=== PATIENT | female | born 1935 | race Caucasian/White ===

== ENCOUNTER 2020-07-12 09:52 | Outpatient (REF) | payer MEDICARE, OTHER, SELFPAY ==
[2020-07-12 10:48] LABS: MANUAL DIFF FLAG NO
[2020-07-12 10:53] LABS: Basophils Absolute Auto 0.1 X10*3/uL (0.0-0.2); Basophils Percent Auto 0.9 % (0-2); Eosinophils Absolute Auto 0.1 X10*3/uL (0.0-0.4); Eosinophils Percent Auto 0.9 % (0-4); Hematocrit 45.1 % (37-47); Hemoglobin 15.2 g/dl (12.0-16.0); Imm Gran Abs Auto 0.04 X10*3/uL (0.00-0.03); Imm Gran Pct Auto 0.6 % (0.0-0.4); Lymphocytes Absolute Auto 0.8 X10*3/uL (1.2-4.9); Lymphocytes Percent Auto 11.5 % (20-40); Mean Corpuscular HGB Conc 33.7 g/dl (31.0-35.0); Mean Corpuscular Hemoglobin 33.3 pg (27.0-33.0); Mean Corpuscular Volume 98.7 fL (80-98); Mean Platelet Volume 11.3 fL (9.4-12.3); Monocytes Absolute Auto 0.8 X10*3/uL (0.1-1.2); Monocytes Percent Auto 11.5 % (2-11); Neutrophils Absolute Auto 4.9 X10*3/uL (2.0-8.3); Neutrophils Percent Auto 74.6 % (45-73); Platelet Count 184 X10*3/uL (160-400); Red Blood Count 4.57 X10*6/uL (4.20-5.50); Red Cell Distribution Width 13.8 % (11.0-16.0); White Blood Count 6.5 X10*3/uL (4.8-10.8)
[2020-07-12 11:20] LABS: Alanine Aminotransferase 26 U/L (0-31); Albumin Level 4.5 g/dL (3.5-5.0); Alkaline Phosphatase 83 U/L (39-117); Anion Gap 13 (12-20); Aspartate Amino Transferase 29 U/L (5-31); Bilirubin Total 0.9 mg/dL (0.0-1.0); Blood Urea Nitrogen 17 mg/dL (9-16); Calcium 9.4 mg/dL (8.4-10.2); Carbon Dioxide 32 mmol/L (22-29); Chloride 102 mmol/L (96-108); Cholesterol 179 mg/dL; Estimated Glomerular Filt Rate 47; Glucose Random 97 mg/dL (60-115); HDL Cholesterol 44 mg/dL; LDL Cholesterol Calculated 109 mg/dl; Potassium 4.2 mmol/l (3.3-5.1); Sodium 143 mmol/L (135-145); Total Protein 7.5 g/dL (6.5-8.0); Triglycerides 130 mg/dL
[2020-07-12 11:43] LABS: Thyroid Stimulating Hormone 1.72 mIU/mL (0.32-4.0)
== END 2020-07-12 09:53 | disposition home or self-care (01) ==
LOC: HO.LAB 09:52
PROVIDERS: PCP Internal Medicine; Visit Provider Internal Medicine
DX: E03.8 Other specified hypothyroidism (principal); I10 Essential (primary) hypertension; I48.91 Unspecified atrial fibrillation; Z79.01 Long term (current) use of anticoagulants
CPT/HCPCS: 36415; 80053; 80061; 84443; 85025; 85610

== ENCOUNTER → 2020-07-12 | Outpatient (BNVA) | payer MEDICARE, SELFPAY | PROVIDERS: PCP Internal Medicine; Referring Provider Internal Medicine; Visit Provider Internal Medicine | DX: Z79.01 Long term (current) use of anticoagulants (principal) | CPT/HCPCS: 85610 ==

== ENCOUNTER → 2020-08-09 09:10 | Outpatient (BNVA) | payer MEDICARE, OTHER, SELFPAY | PROVIDERS: PCP Internal Medicine; Visit Provider Internal Medicine | DX: I48.20 Chronic atrial fibrillation, unspecified (principal); Z79.01 Long term (current) use of anticoagulants; Z51.81 Encounter for therapeutic drug level monitoring | CPT/HCPCS: 85610; 99211 ==

== ENCOUNTER 2020-08-30 10:02 | Outpatient (REF) | payer MEDICARE, SELFPAY ==
[2020-08-30 11:03] LABS: MANUAL DIFF FLAG NO
[2020-08-30 11:09] LABS: Basophils Absolute Auto 0.1 X10*3/uL (0.0-0.2); Eosinophils Absolute Auto 0.1 X10*3/uL (0.0-0.4); Hematocrit 45.3 % (37-47); Hemoglobin 14.8 g/dl (12.0-16.0); Imm Gran Abs Auto 0.04 X10*3/uL (0.00-0.03); Imm Gran Pct Auto 0.6 % (0.0-0.4); Lymphocytes Absolute Auto 0.9 X10*3/uL (1.2-4.9); Lymphocytes Percent Auto 13.9 % (20-40); Mean Corpuscular HGB Conc 32.7 g/dl (31.0-35.0); Mean Corpuscular Hemoglobin 32.2 pg (27.0-33.0); Mean Corpuscular Volume 98.7 fL (80-98); Mean Platelet Volume 11.1 fL (9.4-12.3); Monocytes Absolute Auto 0.7 X10*3/uL (0.1-1.2); Neutrophils Absolute Auto 4.6 X10*3/uL (2.0-8.3); Neutrophils Percent Auto 72.5 % (45-73); Platelet Count 181 X10*3/uL (160-400); Red Blood Count 4.59 X10*6/uL (4.20-5.50); Red Cell Distribution Width 13.6 % (11.0-16.0); White Blood Count 6.3 X10*3/uL (4.8-10.8)
[2020-08-30 12:32] LABS: Alanine Aminotransferase 25 U/L (0-31); Albumin Level 4.4 g/dL (3.5-5.0); Alkaline Phosphatase 82 U/L (39-117); Anion Gap 13 (12-20); Aspartate Amino Transferase 27 U/L (5-31); Bilirubin Total 0.9 mg/dL (0.0-1.0); Blood Urea Nitrogen 18 mg/dL (9-16); Calcium 9.1 mg/dL (8.4-10.2); Carbon Dioxide 31 mmol/L (22-29); Chloride 101 mmol/L (96-108); Estimated Glomerular Filt Rate 47; Glucose Random 90 mg/dL (60-115); Potassium 4.2 mmol/l (3.3-5.1); Sodium 141 mmol/L (135-145); Total Protein 7.5 g/dL (6.5-8.0)
[2020-08-30 12:54] LABS: Ferritin 649 ng/mL (10-250)
== END 2020-08-30 10:03 | disposition home or self-care (01) ==
LOC: HO.LAB 10:02
PROVIDERS: Visit Provider Internal Medicine Medical Oncology
DX: Z14.8 Genetic carrier of other disease (principal); E66.9 Obesity, unspecified; D69.6 Thrombocytopenia, unspecified
CPT/HCPCS: 36415; 80053; 82728; 85025

== ENCOUNTER → 2020-09-13 09:24 | Outpatient (BNVA) | payer MEDICARE, OTHER, SELFPAY | PROVIDERS: PCP Internal Medicine; Visit Provider Internal Medicine | DX: I48.20 Chronic atrial fibrillation, unspecified (principal); Z51.81 Encounter for therapeutic drug level monitoring; Z79.01 Long term (current) use of anticoagulants | CPT/HCPCS: 85610; 99211 ==

== ENCOUNTER → 2020-09-18 12:50 | Outpatient (BNVA) | payer MEDICARE, OTHER, SELFPAY | PROVIDERS: PCP Internal Medicine; Referring Provider Internal Medicine; Visit Provider Internal Medicine Cardiovascular Disease | DX: I50.32 Chronic diastolic (congestive) heart failure (principal); I48.0 Paroxysmal atrial fibrillation; I49.5 Sick sinus syndrome; I27.20 Pulmonary hypertension, unspecified; R06.02 Shortness of breath; Z45.018 Encounter for adjustment and management of other part of cardiac pacemaker | CPT/HCPCS: 93005; 99212 ==

== ENCOUNTER → 2020-10-18 09:11 | Outpatient (BNVA) | payer MEDICARE, OTHER, SELFPAY | PROVIDERS: PCP Internal Medicine; Visit Provider Internal Medicine | DX: I48.20 Chronic atrial fibrillation, unspecified (principal); Z79.01 Long term (current) use of anticoagulants; Z51.81 Encounter for therapeutic drug level monitoring | CPT/HCPCS: 85610; 99211 ==

== ENCOUNTER 2020-11-08 12:31 | Outpatient (REF) | payer MEDICARE, OTHER, SELFPAY ==
[2020-11-08 13:12] LABS: MANUAL DIFF FLAG NO
[2020-11-08 13:18] LABS: Basophils Percent Auto 0.6 % (0-2); Eosinophils Percent Auto 0.6 % (0-4); Hematocrit 43.9 % (37-47); Hemoglobin 14.6 g/dl (12.0-16.0); Imm Gran Abs Auto 0.03 X10*3/uL (0.00-0.03); Imm Gran Pct Auto 0.5 % (0.0-0.4); Lymphocytes Absolute Auto 0.8 X10*3/uL (1.2-4.9); Lymphocytes Percent Auto 13.5 % (20-40); Mean Corpuscular HGB Conc 33.3 g/dl (31.0-35.0); Mean Corpuscular Hemoglobin 32.1 pg (27.0-33.0); Mean Corpuscular Volume 96.5 fL (80-98); Monocytes Absolute Auto 0.7 X10*3/uL (0.1-1.2); Neutrophils Absolute Auto 4.5 X10*3/uL (2.0-8.3); Neutrophils Percent Auto 72.8 % (45-73); Platelet Count 198 X10*3/uL (160-400); Red Blood Count 4.55 X10*6/uL (4.20-5.50); Red Cell Distribution Width 13.9 % (11.0-16.0); White Blood Count 6.2 X10*3/uL (4.8-10.8)
[2020-11-08 13:50] LABS: Alanine Aminotransferase 24 U/L (0-31); Albumin Level 4.4 g/dL (3.5-5.0); Alkaline Phosphatase 87 U/L (39-117); Anion Gap 15 (12-20); Aspartate Amino Transferase 27 U/L (5-31); Bilirubin Total 1.1 mg/dL (0.0-1.0); Blood Urea Nitrogen 15 mg/dL (9-16); Calcium 9.1 mg/dL (8.4-10.2); Carbon Dioxide 29 mmol/L (22-29); Chloride 101 mmol/L (96-108); Estimated Glomerular Filt Rate > 60; Glucose Random 101 mg/dL (60-115); Potassium 3.6 mmol/l (3.3-5.1); Sodium 141 mmol/L (135-145); Total Protein 7.4 g/dL (6.5-8.0)
[2020-11-08 14:13] LABS: Thyroid Stimulating Hormone 2.19 uIU/mL (0.32-4.0)
== END 2020-11-08 12:32 | disposition home or self-care (01) ==
LOC: HO.LAB 12:31
PROVIDERS: PCP Internal Medicine; Visit Provider Internal Medicine
DX: E03.8 Other specified hypothyroidism (principal); E78.00 Pure hypercholesterolemia, unspecified; I10 Essential (primary) hypertension; I48.91 Unspecified atrial fibrillation
CPT/HCPCS: 36415; 80053; 84443; 85025

== ENCOUNTER → 2020-11-22 09:01 | Outpatient (BNVA) | payer MEDICARE, OTHER, SELFPAY | PROVIDERS: PCP Internal Medicine; Visit Provider Internal Medicine | DX: I48.20 Chronic atrial fibrillation, unspecified (principal); Z51.81 Encounter for therapeutic drug level monitoring; Z79.01 Long term (current) use of anticoagulants | CPT/HCPCS: 85610; 99211 ==

== ENCOUNTER 2020-12-06 10:55 | Outpatient (REF) | payer MEDICARE, OTHER, SELFPAY ==
--- NOTE | ~2020-12-06 | MM_ITS ---
EXAMINATION: MM SCREENING DIGITAL BREAST TOMOSYNTHESIS, BILATERAL CLINICAL INFORMATION: Screening. Asymptomatic. The lifetime risk of breast cancer based on the Tyrer-Cuzick Model is 0.6%. COMPARISON: Mammography: September 06, 2019 and studies dating back to October 09, 2009 TECHNIQUE: Digital breast tomosynthesis is performed in both the craniocaudal and mediolateral oblique views along with computer-aided detection (CAD). Synthesized 2D images are generated from the tomosynthesis. Right breast exaggerated craniocaudal view also performed. FINDINGS: There are scattered areas of fibroglandular density (ACR BI-RADS breast composition Category b). There are no significant masses, abnormal calcifications, or other abnormalities. MM/MM tomosynthesis screening BI IMPRESSION: There are no significant changes from prior study. ASSESSMENT: BI-RADS 1: Negative RECOMMENDATION: Routine annual mammography screening. This patient's information was entered into a reminder system with a target due date for their next mammogram.
== END 2020-12-06 10:56 | disposition home or self-care (01) ==
LOC: HO.MAMMO 10:55
PROVIDERS: PCP Internal Medicine; Visit Provider Internal Medicine
DX: Z12.31 Encounter for screening mammogram for malignant neoplasm of breast (principal)
CPT/HCPCS: 77063; 77067

== ENCOUNTER → 2020-12-27 09:11 | Outpatient (BNVA) | payer MEDICARE, OTHER, SELFPAY | PROVIDERS: PCP Internal Medicine; Visit Provider Internal Medicine | DX: I48.20 Chronic atrial fibrillation, unspecified (principal); Z51.81 Encounter for therapeutic drug level monitoring; Z79.01 Long term (current) use of anticoagulants | CPT/HCPCS: 85610; 99211 ==

== ENCOUNTER → 2021-01-31 09:06 | Outpatient (BNVA) | payer MEDICARE, OTHER, SELFPAY | PROVIDERS: PCP Internal Medicine; Visit Provider Internal Medicine | DX: I48.20 Chronic atrial fibrillation, unspecified (principal); Z79.01 Long term (current) use of anticoagulants; Z51.81 Encounter for therapeutic drug level monitoring | CPT/HCPCS: 85610; 99211 ==

== ENCOUNTER → 2021-02-05 07:29 | Outpatient (REF) | payer MEDICARE, OTHER, SELFPAY ==
--- NOTE | 2021-02-05 07:32 | CA_ITS ---
Transthoracic Echocardiogram Patient (Last, First, Middle): Ashley Castillo, Gender: Female Date of : 1935 Age: 85 Procedure Date: 02/05/2021 Procedure Type: Transthoracic Echocardiogram Location: OP Height: 165.1 cm Weight: 79.38 kg BSA: 1.87 m2 Heart Rate: bpm BP: 124 / 72 mmHg Junior Accounting Clerk: Doris MD: Blake Calle MD [place] Supervisor: Blake Calle MD Symptoms: R06.02 - Shortness of breath Study Quality: Good ECG Rhythm: Ventriculary paced rhythm Conclusions: - 1. Low Normal LV systolic function with grade 3 diastolic dysfunction 2. Severe biatrial enlargement 3. Severely enlarged right ventricle with [id number] RV systolic dysfunction 4. Moderate aortic stenosis 5. Moderate to severe elevation of right ventricular systolic pressure next 6. No gross pericardial effusion Findings Left Ventricle Normal left ventricular cavity size. There is normal left ventricular wall thickness. The left ventricular systolic function is low normal. The visually estimated ejection fraction is between 50-55%. Spectral Doppler is indicative of a restrictive filling pattern. E/E prime ratio is >15, consistent with elevated filling pressures. Evidence suggests grade III (severe) diastolic dysfunction. Right Ventricle Severely increased right ventricular cavity size. There is mild to moderately decreased right ventricular systolic function. There is a pacemaker wire seen in the right ventricle. Atria Severe biatrial enlargement. There is no evidence of interatrial shunt. A pacemaker wire is identified in the right atrium. Aortic Valve There is moderate calcification of the aortic valve. There is moderate aortic valve stenosis. The peak aortic gradient is 29 mmHg.The mean gradient is 16 mmHg. The aortic valve area is 1.23 cm2. There is mild aortic valve regurgitation. Mitral Valve There is moderate anterior and posterior mitral leaflet thickening. There is severe mitral annular calcification. There is mild mitral valve regurgitation. There is no mitral valve stenosis. Pulmonic Valve The pulmonic valve was not well visualized. Tricuspid Valve Likely normal tricuspid valve structure and function. There is mild to moderate tricuspid valve regurgitation. Mildly elevated right atrial pressure. Moderate to severe pulmonary hypertension is present. Great Vessels All visible segments of the aorta are normal in size. The pulmonary artery was not well visualized. Venous The inferior vena cava is mildly dilated and collapses less than 50% with inspiration. Pericardium/Pleural There is no evidence of pericardial effusion. Prior Study Comparison Changes noted compared to prior study dated: 03/14/2020. Moderate aortic stenosis is present. RV systolic pressure is elevated Measurements 2D Linear Measurements RVIDd: 3.90 RVIDd Index: 2.09 IVSd: 1.01 0.6-0.9/0.6-1.0 cm LVIDd: 5.27 3.9-5.3/4.2-5.9 cm LVIDd Index: 2.82 2.4-3.2/2.2-3.1 cm/m2 LVIDs: 4.21 2.0-3.6 cm LVPWd: 1.27 0.7-1.1 cm Ao Root: 3.30 2.1-3.5 cm LA Diam: 5.50 2.7-3.8/3.0-4.0 cm LAIDs Index: 2.94 1.5-2.3 cm/m2 LV Mass: 295.37 67-162/88-224 g LV Mass Index: 157.95 43-95/49-115 g/m2 LVOT Diam: 2.40 3.0+(-)1.3 cm 2D Systolic Function EF 4C: 59.80 >55% EF 2C: 46.40 >55% EF BiP: 52.30 >55% Mitral Valve MV Pk E: 0.86 MV PK A: 0.40 MV Decel Time: 186.00 E/A: 2.10 E'Lateral: 7.51 E'Medial: 5.66 E/E' Med: 15.20 E/E' Lat: 11.50 MR Vol - PW Dopp: 20.24 MR VTI: 1.84 MR ERO: 11.00 MR Alias Rodger: 0.32 MR RAD: 0.50 Aortic Valve AoV Pk Rodger: 2.67 AoV Mn Rodger: 1.87 AoV VTI: 0.65 AoV Pk Grad: 29.00 Aov Mn Grad: 16.00 GENO Cont.VTI: 1.23 AI Pk Rodger: 4.06 AI Bourbon: 1.31 LVOT LVOT Pk Rodger: 0.84 LVOT Mn Rodger: 0.53 LVOT VTI: 0.18 LVOT Pk Grad: 3.00 LVOT Mn Grad: 1.00 LVOT Diam: 2.40 LVOT Area: 4.52 Diastolic Function MV Pk E: 0.86 MV Pk A: 0.40 E/A: 2.10 E'Medial: 5.66 E/E' Med: 15.20 E' Laterial: 7.51 E/E' Lat: 11.50 Tricuspid Valve TR Pk Rodger: 3.70 TR Pk Grad: 55.00 RA Press: 8.00 RVSP: 63.00 Great Vessels Aorta Ao Root-2D: 3.30 2.0-3.7 cm Ao Asc: 3.90 2.1-3.4 cm Ao Arch: 2.60 Updated in Other Vendor System with Status of Final Blake Calle MD electronically signed on 02/05/2021 3:52:12 PM with status of Final
== END ==
LOC: HO.CARD 07:29
PROVIDERS: PCP Internal Medicine; Visit Provider Internal Medicine Cardiovascular Disease
DX: R06.02 Shortness of breath (principal); I07.1 Rheumatic tricuspid insufficiency; I51.7 Cardiomegaly; I27.20 Pulmonary hypertension, unspecified; I50.32 Chronic diastolic (congestive) heart failure; I48.0 Paroxysmal atrial fibrillation
CPT/HCPCS: 93306

== ENCOUNTER → 2021-02-28 09:19 | Outpatient (BNVA) | payer MEDICARE, OTHER, SELFPAY | PROVIDERS: PCP Internal Medicine; Visit Provider Internal Medicine | DX: I48.20 Chronic atrial fibrillation, unspecified (principal); Z51.81 Encounter for therapeutic drug level monitoring; Z79.01 Long term (current) use of anticoagulants | CPT/HCPCS: 85610; 99211 ==

== ENCOUNTER 2021-03-01 11:16 | Outpatient (REF) | payer MEDICARE, OTHER, SELFPAY ==
[2021-03-01 12:43] LABS: Basophils Absolute Auto 0.1 X10*3/uL (0.0-0.2); Basophils Percent Auto 1.2 % (0-2); Eosinophils Percent Auto 0.5 % (0-4); Hemoglobin 13.3 g/dl (12.0-16.0); Imm Gran Abs Auto 0.02 X10*3/uL (0.00-0.03); Imm Gran Pct Auto 0.3 % (0.0-0.4); Lymphocytes Absolute Auto 0.7 X10*3/uL (1.2-4.9); Lymphocytes Percent Auto 11.7 % (20-40); MANUAL DIFF FLAG SCAN; Mean Corpuscular HGB Conc 33.3 g/dl (31.0-35.0); Mean Corpuscular Volume 96.2 fL (80-98); Mean Platelet Volume 11.1 fL (9.4-12.3); Monocytes Absolute Auto 0.7 X10*3/uL (0.1-1.2); Monocytes Percent Auto 11.7 % (2-11); Neutrophils Absolute Auto 4.4 X10*3/uL (2.0-8.3); Neutrophils Percent Auto 74.6 % (45-73); Platelet Count 171 X10*3/uL (160-400); Red Blood Count 4.16 X10*6/uL (4.20-5.50); Red Cell Distribution Width 14.5 % (11.0-16.0); SCAN SMEAR FLAG 1; White Blood Count 5.9 X10*3/uL (4.8-10.8)
[2021-03-01 13:05] LABS: Alanine Aminotransferase 24 U/L (0-31); Albumin Level 3.9 g/dL (3.5-5.0); Alkaline Phosphatase 81 U/L (39-117); Anion Gap 11 (12-20); Aspartate Amino Transferase 24 U/L (5-31); Blood Urea Nitrogen 18 mg/dL (9-16); Calcium 8.8 mg/dL (8.4-10.2); Carbon Dioxide 30 mmol/L (22-29); Chloride 105 mmol/L (96-108); Estimated Glomerular Filt Rate 56; Glucose Random 101 mg/dL (60-115); Potassium 3.3 mmol/L (3.3-5.1); Sodium 143 mmol/L (135-145); Total Protein 6.5 g/dL (6.5-8.0)
[2021-03-01 13:29] LABS: Ferritin 521 ng/mL (10-250)
[2021-03-01 13:49] LABS: SLIDE REVIEW VERIFIED
== END 2021-03-01 11:17 | disposition home or self-care (01) ==
LOC: HO.LAB 11:16
PROVIDERS: PCP Internal Medicine; Visit Provider Internal Medicine Medical Oncology
DX: I10 Essential (primary) hypertension (principal); E66.8 Other obesity; Z14.8 Genetic carrier of other disease
CPT/HCPCS: 36415; 80053; 82728; 85025

== ENCOUNTER 2021-03-14 10:39 | Outpatient (REF) | payer MEDICARE, OTHER, SELFPAY ==
--- NOTE | ~2021-03-14 | XR_ITS ---
EXAMINATION: XR CHEST CLINICAL INFORMATION: Paroxysmal atrial fibrillation. COMPARISON: 02/15/2019 chest radiographs. TECHNIQUE: 2 views of the chest were obtained. FINDINGS: Mild linear markings are seen in the lingula. The left upper lung field and right lung are clear. The heart and mediastinal structures are unremarkable. A left sided pacemaker appears in good position. XR/XR chest 2V IMPRESSION: Mild left basilar linear atelectasis/scarring without significant change. No acute cardiopulmonary process.
[2021-03-14 12:48] LABS: MANUAL DIFF FLAG NO
[2021-03-14 13:00] LABS: Basophils Absolute Auto 0.1 X10*3/uL (0.0-0.2); Basophils Percent Auto 1.2 % (0-2); Eosinophils Percent Auto 0.5 % (0-4); Hematocrit 42.3 % (37-47); Imm Gran Abs Auto 0.04 X10*3/uL (0.00-0.03); Imm Gran Pct Auto 0.6 % (0.0-0.4); Lymphocytes Absolute Auto 0.8 X10*3/uL (1.2-4.9); Lymphocytes Percent Auto 11.5 % (20-40); Mean Corpuscular HGB Conc 33.1 g/dl (31.0-35.0); Mean Corpuscular Hemoglobin 31.9 pg (27.0-33.0); Mean Corpuscular Volume 96.4 fL (80-98); Mean Platelet Volume 11.3 fL (9.4-12.3); Monocytes Absolute Auto 0.8 X10*3/uL (0.1-1.2); Monocytes Percent Auto 11.8 % (2-11); Neutrophils Absolute Auto 4.9 X10*3/uL (2.0-8.3); Neutrophils Percent Auto 74.4 % (45-73); Platelet Count 181 X10*3/uL (160-400); Red Blood Count 4.39 X10*6/uL (4.20-5.50); Red Cell Distribution Width 14.2 % (11.0-16.0); White Blood Count 6.6 X10*3/uL (4.8-10.8)
[2021-03-14 13:25] LABS: Alanine Aminotransferase 24 U/L (0-31); Albumin Level 4.2 g/dL (3.5-5.0); Alkaline Phosphatase 85 U/L (39-117); Anion Gap 15 (12-20); Aspartate Amino Transferase 27 U/L (5-31); Blood Urea Nitrogen 20 mg/dL (9-16); Calcium 9.5 mg/dL (8.4-10.2); Carbon Dioxide 29 mmol/L (22-29); Chloride 104 mmol/L (96-108); Estimated Glomerular Filt Rate 47; Glucose Random 97 mg/dL (60-115); Sodium 144 mmol/L (135-145)
== END 2021-03-14 10:40 | disposition home or self-care (01) ==
LOC: HO.XRAY 10:39
PROVIDERS: Absent Provider Internal Medicine; PCP Internal Medicine; Visit Provider Internal Medicine Cardiovascular Disease
DX: I50.32 Chronic diastolic (congestive) heart failure (principal); I48.0 Paroxysmal atrial fibrillation; I35.0 Nonrheumatic aortic (valve) stenosis; E03.9 Hypothyroidism, unspecified; I11.0 Hypertensive heart disease with heart failure; I27.20 Pulmonary hypertension, unspecified; Z88.1 Allergy status to other antibiotic agents; Z79.01 Long term (current) use of anticoagulants; Z79.899 Other long term (current) drug therapy; Z45.018 Encounter for adjustment and management of other part of cardiac pacemaker
CPT/HCPCS: 36415; 71046; 80053; 85025; 93005; 99212

== ENCOUNTER → 2021-03-21 09:27 | Outpatient (BNVA) | payer MEDICARE, OTHER, SELFPAY | PROVIDERS: PCP Internal Medicine; Visit Provider Internal Medicine | DX: I48.20 Chronic atrial fibrillation, unspecified (principal); Z51.81 Encounter for therapeutic drug level monitoring; Z79.01 Long term (current) use of anticoagulants | CPT/HCPCS: 85610; 99211 ==

== ENCOUNTER → 2021-04-04 09:35 | Outpatient (BNVA) | payer MEDICARE, OTHER, SELFPAY | PROVIDERS: PCP Internal Medicine; Visit Provider Internal Medicine | DX: I48.20 Chronic atrial fibrillation, unspecified (principal); Z51.81 Encounter for therapeutic drug level monitoring; Z79.01 Long term (current) use of anticoagulants | CPT/HCPCS: 85610; 99211 ==

== ENCOUNTER → 2021-04-25 09:31 | Outpatient (BNVA) | payer MEDICARE, OTHER, SELFPAY | PROVIDERS: PCP Internal Medicine; Visit Provider Internal Medicine | DX: I48.20 Chronic atrial fibrillation, unspecified (principal); Z51.81 Encounter for therapeutic drug level monitoring; Z79.01 Long term (current) use of anticoagulants | CPT/HCPCS: 85610; 99211 ==

== ENCOUNTER 2021-05-03 12:19 | Outpatient (REF) | payer MEDICARE, OTHER, SELFPAY ==
--- NOTE | 2021-05-06 08:30 | MHC.AU.AHA ---
Adult Audiological Evaluation Date of Visit: 05/03/21 Dish Carrier Used: Not Applicable Reason for Appointment: Audiologic re-evaluation to determine possible change in hearing ability as Ashley is at higher risk for hearing loss related to her medication, Furosemide. Ashley also reports she is having significant trouble understanding speech when on the telephone. Previous Hearing Test Results: 06/30/2019 [facility] Left Ear - Mild sloping to severe sensorineural hearing loss with 100% speech understanding at 75 dB HL Right Ear - Moderate loss at 250 Hz dropping to a profound sensorineural hearing loss at 500-8000 Hz with no speech discrimination ability. Medical History: Medical History: High Blood Pressure, Thyroid Disease, Lupus, High Cholesterol, Arthritis Medication List: Thyroxine, Furosemide, Amlodipine, Telmisatan, Amodorone, Warfain, Pravastatin, Calcium, Tylenol Hearing Instrument History- Right Ear: Cruller Maker: None Hearing Instrument History- Left Ear: Cruller Maker: Appscio Model: [id number] B [id number] Serial Number: [id number] Battery Size: 312 Warranty: 08/06/2022 Dispensed By: [facility] Date of Fittin07/14/2019 Otoscopy: Right Ear: Unremarkable Left Ear: Unremarkable Tympanometry: Tympanometry not performed as previous testing has indicated normal middle ear function bilaterally Hearing Evaluation: Transducer(s) Used: Insert Earphones Bone Conduction Method: Conventional Audiometry Stimuli Used: Pure Tones Right Ear: Description of Hearing: Moderate loss at 250 Hz, dropping to a profound sensorineural hearing loss 500-8000 Hz Left Ear: Description of Hearing: Mild sloping to severe sensorineural hearing loss Speech Recognition Threshold (SRT): Method Used: Monitored Live Voice Stimuli Used: Spondee Words Right Ear: Could Not Test Left Ear: 45 dB HL Word Discrimination: Method: Recorded Lists Word Lists Used: NU-6 Right Ear: Could Not Test Left Ear: 100% at 80 dB HL Comparison: Compared to the most recent evaluation: Hearing is stable. Recommendations: Hearing aid maintenance performed today. Attempted to make programming changes to improve telephone use with no benefit. Faxing a referral to [facility] of [facility] for amplified telephone with Caption and possible solutions for the cell phone. Audiological re-evaluation in one year. Will send a reminder card. Diagnosis: Primary Diagnosis: H90.3 Bilateral Sensorineural Hearing Loss Services Performed: Comprehensive Audiological Evaluation (CPT 90080) Signature: Provider: Nina Padron, CCC-A
== END 2021-05-03 12:20 | disposition home or self-care (01) ==
LOC: HO.SH 12:19
PROVIDERS: Visit Provider Internal Medicine
DX: H90.3 Sensorineural hearing loss, bilateral (principal)
CPT/HCPCS: 92557

== ENCOUNTER → 2021-05-23 09:26 | Outpatient (BNVA) | payer MEDICARE, OTHER, SELFPAY | PROVIDERS: PCP Internal Medicine; Visit Provider Internal Medicine | DX: I48.20 Chronic atrial fibrillation, unspecified (principal); Z79.01 Long term (current) use of anticoagulants; Z51.81 Encounter for therapeutic drug level monitoring | CPT/HCPCS: 85610; 99211 ==

== ENCOUNTER → 2021-06-20 09:40 | Outpatient (BNVA) | payer MEDICARE, OTHER, SELFPAY | PROVIDERS: PCP Internal Medicine; Visit Provider Internal Medicine | DX: I48.20 Chronic atrial fibrillation, unspecified (principal); Z51.81 Encounter for therapeutic drug level monitoring; Z79.01 Long term (current) use of anticoagulants | CPT/HCPCS: 85610; 99211 ==

== ENCOUNTER 2021-07-18 09:38 | Outpatient (REF) | payer MEDICARE, OTHER, SELFPAY ==
[2021-07-18 10:23] LABS: MANUAL DIFF FLAG NO
[2021-07-18 10:39] LABS: Basophils Absolute Auto 0.1 X10*3/uL (0.0-0.2); Eosinophils Absolute Auto 0.1 X10*3/uL (0.0-0.4); Hematocrit 44.7 % (37-47); Hemoglobin 14.8 g/dl (12.0-16.0); Imm Gran Abs Auto 0.03 X10*3/uL (0.00-0.03); Imm Gran Pct Auto 0.4 % (0.0-0.4); Lymphocytes Absolute Auto 0.7 X10*3/uL (1.2-4.9); Lymphocytes Percent Auto 9.7 % (20-40); Mean Corpuscular HGB Conc 33.1 g/dl (31.0-35.0); Mean Corpuscular Hemoglobin 32.3 pg (27.0-33.0); Mean Corpuscular Volume 97.6 fL (80-98); Mean Platelet Volume 11.3 fL (9.4-12.3); Monocytes Absolute Auto 0.7 X10*3/uL (0.1-1.2); Monocytes Percent Auto 9.8 % (2-11); Neutrophils Absolute Auto 5.4 X10*3/uL (2.0-8.3); Neutrophils Percent Auto 78.1 % (45-73); Platelet Count 165 X10*3/uL (160-400); Red Blood Count 4.58 X10*6/uL (4.20-5.50); Red Cell Distribution Width 14.6 % (11.0-16.0); White Blood Count 6.9 X10*3/uL (4.8-10.8)
[2021-07-18 11:14] LABS: Alanine Aminotransferase 29 U/L (0-31); Albumin Level 4.4 g/dL (3.5-5.0); Alkaline Phosphatase 80 U/L (39-117); Anion Gap 11 (12-20); Aspartate Amino Transferase 31 U/L (5-31); Bilirubin Total 0.9 mg/dL (0.0-1.0); Blood Urea Nitrogen 24 mg/dL (9-16); Calcium 9.5 mg/dL (8.4-10.2); Carbon Dioxide 32 mmol/L (22-29); Chloride 102 mmol/L (96-108); Cholesterol 165 mg/dL; Estimated Glomerular Filt Rate 48; Glucose Random 102 mg/dL (60-115); HDL Cholesterol 48 mg/dL; LDL Cholesterol Calculated 102 mg/dl; Potassium 4.3 mmol/L (3.3-5.1); Sodium 141 mmol/L (135-145); Total Protein 7.3 g/dL (6.5-8.0); Triglycerides 79 mg/dL
[2021-07-18 11:19] LABS: Thyroid Stimulating Hormone 2.14 uIU/mL (0.32-4.0)
== END 2021-07-18 09:39 | disposition home or self-care (01) ==
LOC: HO.LAB 09:38
PROVIDERS: PCP Internal Medicine; Visit Provider Internal Medicine
DX: E03.9 Hypothyroidism, unspecified (principal); I10 Essential (primary) hypertension; I48.20 Chronic atrial fibrillation, unspecified; Z51.81 Encounter for therapeutic drug level monitoring; Z79.01 Long term (current) use of anticoagulants
CPT/HCPCS: 36415; 80053; 80061; 84443; 85025; 85610; 99211

== ENCOUNTER → 2021-08-09 08:42 | Outpatient (BNVA) | payer MEDICARE, OTHER, SELFPAY | PROVIDERS: PCP Internal Medicine; Visit Provider Internal Medicine Cardiovascular Disease | DX: Z45.018 Encounter for adjustment and management of other part of cardiac pacemaker (principal); I50.32 Chronic diastolic (congestive) heart failure; I48.0 Paroxysmal atrial fibrillation; I95.1 Orthostatic hypotension; R29.6 Repeated falls | CPT/HCPCS: 93005; 99212 ==

== ENCOUNTER → 2021-08-15 08:49 | Outpatient (BNVA) | payer MEDICARE, OTHER, SELFPAY | PROVIDERS: PCP Internal Medicine; Visit Provider Internal Medicine | DX: I48.20 Chronic atrial fibrillation, unspecified (principal); Z51.81 Encounter for therapeutic drug level monitoring; Z79.01 Long term (current) use of anticoagulants | CPT/HCPCS: 85610; 99211 ==

== ENCOUNTER → 2021-09-12 09:10 | Outpatient (BNVA) | payer MEDICARE, OTHER, SELFPAY | PROVIDERS: PCP Internal Medicine; Visit Provider Internal Medicine | DX: I48.20 Chronic atrial fibrillation, unspecified (principal); Z51.81 Encounter for therapeutic drug level monitoring; Z79.01 Long term (current) use of anticoagulants | CPT/HCPCS: 85610; 99211 ==

== ENCOUNTER 2021-09-16 10:45 | Outpatient (RCR) | payer MEDICARE, OTHER, SELFPAY ==
[2021-09-16 10:57] VITALS: BP 114/66; PULSE 68
--- NOTE | 2021-09-16 12:00 | MHC.PT.EP ---
[facility] [place] Office [place] Office [place] Office [address] [phone] F: [phone] F: [phone] F: [phone] F: [phone] Physical Therapy Plan of Care Date of Evaluation: Date of Surgery: NA Diagnosis: Repeated falls Assessment: Ashley is a 85 year old female referred to PT for repeated falls . Pt reports of having 3 falls in the last 1.5 months however denies any recent change in strength and sensation. On PT evaluation she presented with decreased strength in B LE- R>L, decreased ROM in R knee, impaired static and dynamic balance and impaired gait. She lives alone and is independent with ADLS but modifies them by taking frequent rest breaks and performing them in sitting. She would benefit from skilled PT to address the aforementioned impairments and improve tolerance to ADLS. Frequency and Duration: The patient will be seen 2/week for 6 weeks Short Term Goals: 1. Pt will have 50% decrease in pain which will enable her to negotiate stairs without pain in 2 weeks. 2. Pt will be able to perform 7 sit to engine test cell technician 30 second which will enable her to get up from the toilet without UE support in 4 weeks Longterm Goals: 1. Pt will be able to maintain step stance positions for 30 seconds B on the ground without any sway which will enable her to walk in narrow valerio ways in 5 weeks. 2. Pt will be independent with [facility] for symptom management and maintenance following d/c in 6 weeks. Treatment Plan: Modalities to reduce pain, spasms and effusion. Manual therapy to restore motion and function. Therapeutic exercise to improve strength and flexibility. Neuromuscular re-education for posture and balance. Therapeutic activities to return to functional activities of daily living. Electronically signed by: Maggy Hernandez PT DPT Please sign and return to therapist. Thank you for your referral.
--- NOTE | 2021-09-23 10:25 | MHC.PT.DC ---
[employer] [employer] [place] Office [place] Office [place] Office [address] [address] [phone] F: [phone] F: [phone] F: [phone] F: [phone] Physical Therapy Discharge Report Diagnosis: Repeated falls Date of Surgery: NA Date of Evaluation: 09/16/21 Date of Discharge: 09/23/21 Treatments to Date: 1 Cancellations to Date: 0 No Shows to Date: 0 Discharge Status: Patient Elected to Stop Discharge Summary: Ashley's daughter called stating pt had a fall and has fractured her hip. She is scheduled to have a surgery. She has therefore been d/c from therapy. Electronically signed by: Maggy Hernnadez PT DPT Please sign and return to therapist. Thank you for your referral.
== END 2021-09-23 10:25 | disposition home or self-care (01) ==
LOC: HO.PT 10:45
PROVIDERS: Visit Provider Internal Medicine Cardiovascular Disease
DX: R29.6 Repeated falls (principal)
CPT/HCPCS: 97110; 97161

== ENCOUNTER 2021-09-22 19:58 | Inpatient (IN) | payer MEDICARE, OTHER, SELFPAY ==
--- NOTE | ~2021-09-22 | FL_ITS ---
EXAMINATION: XR FLUOROSCOPY WITH IMAGES CLINICAL INFORMATION: Femur fracture fixation COMPARISON: Radiographs of 09/22/2021 TECHNIQUE: Fluoroscopy performed by Dr. Ambrose. Fluoroscopy time: 1.2 minutes DAP: 0.618 mGycm2 Images: 4 FL/FL guidance in OR FINDINGS AND IMPRESSION: Intraoperative fluoroscopic imaging of the left hip performed. There is moderate osteoarthritis of the hip. A femoral intramedullary nail and dynamic hip screw are well-positioned, and there is improved alignment of femoral fragments compared to 09/22/2021. There is approximately 1 cm of cortical bone offset anterolaterally in the intertrochanteric region. Please refer to the operative report.
--- NOTE | ~2021-09-22 | CT_ITS ---
EXAM: CT scan of the head and cervical spine. INDICATION: Reason for Exam s/p fall TECHNIQUE: A noncontrast CT scan was performed from the skull base to the vertex. A noncontrast CT scan of the cervical spine was performed from the base of the skull through T1 at 2.5 mm and 1.25 mm collimation. Coronal and sagittal reformats were obtained at the acquisition workstation. This CT examination was performed using dose optimization techniques as appropriate, variously including the following: *Automated exposure control *Adjustment of mA and/or kV according to patient size (this includes techniques or standardized protocols for targeted exams where dose is matched to indication/reason for exam; i.e. extremities or head) *Use of iterative reconstruction technique DLP: 311 mGy-cm COMPARISON: None FINDINGS: Head: There is no evidence of acute intracranial hemorrhage or territorial infarction. Alcantar-white matter differentiation is preserved. No abnormal mass effect or midline shift. No extra-axial fluid collections. No abnormal attenuation is demonstrated within the brain parenchyma. Scattered periventricular and deep white matter hypodensities consistent with microangiopathy. The ventricles and sulcal spaces are proportional without hydrocephalus. Proportional prominence of the ventricles and sulcal spaces. No acute osseous or soft tissue abnormalities. The mastoid air cells and visualized portions of the paranasal sinuses are well aerated. Cervical Spine: Generalized mild endplate spurring with preservation of disc spaces. There is obscuration nuchal ligament posteriorly mid cervical spine consistent sequela of an old injury. The atlantooccipital and atlantoaxial articulations is intact. Straightening of the normal cervical lordosis. Otherwise, there is anatomic alignment of the vertebral bodies and posterior elements. No evidence of acute fracture or subluxation. The vertebral body heights and disc spaces are maintained. There is no prevertebral soft tissue swelling. The thyroid gland and remaining cervical soft tissues are normal in appearance. The lung apices demonstrate no abnormalities. CT/CT cervical spine wo con IMPRESSION: No acute intracranial pathology. No acute fracture or subluxation cervical spine.
--- NOTE | ~2021-09-22 | XR_ITS ---
EXAMINATION: XR CHEST CLINICAL INFORMATION: Preoperative evaluation. COMPARISON: Most recent chest radiograph dated 03/14/2021. TECHNIQUE: Frontal view of the chest was obtained. FINDINGS: Mild chronic interstitial prominence without new focal airspace consolidation. No pleural effusion or pneumothorax. Stable mild cardiomegaly. Left chest wall pacer with its leads in the right heart. XR/XR chest 1V IMPRESSION: No acute cardiopulmonary findings.
--- NOTE | ~2021-09-22 | XR_ITS ---
EXAMINATION: XR HIP, LEFT CLINICAL INFORMATION: Fall COMPARISON: X-ray right hip August 2013 TECHNIQUE: AP and crosstable lateral view of the left hip. AP view of the pelvis. FINDINGS: Left hip: There is a displaced comminuted intertrochanteric distal fragment is proximally displaced resulting in overlapping of approximately 3.8 cm. The distal fragment is displaced a full shafts width medially. There is coxa vera deformity related to apex lateral angulation. There is mild arthrosis of the left hip joint. There is arterial calcification. Pelvis: Left proximal femur fracture as above. The partially visualized right total hip arthroplasty. Degenerative changes of the symphysis pubis. Degenerative changes in the partially visualized lower lumbar sacral spine. XR/XR hip LT w [id number] IMPRESSION: Acute displaced proximal femur fracture No additional acute abnormalities in the pelvis. Right total hip arthroplasty partially visualized in the [id number]
[2021-09-22 20:10] VITALS: BP 158/71; BP 159/70; PULSE 62; PULSE 81; O2SAT 95; BMI 23.6
--- NOTE | 2021-09-22 20:13 | ECG_ITS ---
Test Reason : FALL Blood Pressure : / mmHG Vent. Rate : 061 BPM Atrial Rate : 061 BPM P-R Int : 196 ms QRS Dur : 182 ms QT Int : 548 ms P-R-T Axes : -04 -65 107 degrees QTc Int : 551 ms AV dual-paced rhythm Abnormal ECG When compared with ECG of 25-APR-2019 10:49, Vent. rate has increased BY 8 BPM Referred By: Zion Calderón Electronically Signed By:ROMAN SILVA MD
[2021-09-22 21:00] LABS: MANUAL DIFF FLAG NO
[2021-09-22 21:01] LABS: Basophils Absolute Auto 0.1 X10*3/uL (0.0-0.2); Basophils Percent Auto 0.8 % (0-2); Eosinophils Absolute Auto 0.1 X10*3/uL (0.0-0.4); Hematocrit 41.2 % (37.0-47.0); Imm Gran Abs Auto 0.09 X10*3/uL (0.00-0.03); Imm Gran Pct Auto 1.2 % (0.0-0.4); Lymphocytes Absolute Auto 0.6 X10*3/uL (1.2-4.9); Lymphocytes Percent Auto 8.1 % (20-40); Mean Corpuscular Hemoglobin 33.2 pg (27.0-33.0); Mean Corpuscular Volume 97.6 fL (80.0-98.0); Mean Platelet Volume 11.2 fL (9.4-12.3); Monocytes Absolute Auto 0.9 X10*3/uL (0.1-1.2); Monocytes Percent Auto 11.7 % (2-11); Neutrophils Percent Auto 77.2 % (45-73); Platelet Count 172 X10*3/uL (160-400); Red Blood Count 4.22 X10*6/uL (4.20-5.50); Red Cell Distribution Width 14.3 % (11.0-16.0); White Blood Count 7.7 X10*3/uL (4.8-10.8)
[2021-09-22] MEDS: Morphine Sulfate 4 MG/ML CARTRIDGE IVPUSH (21:05)
[2021-09-22] MEDS: ondansetron HCL 4 MG/2 ML VIAL IVPUSH (21:05)
[2021-09-22 21:06] LABS: INTERNATIONAL NORM RATIO 4.2 (0.9-1.1); Prothrombin Time 49.5 SEC (9.9-13.0)
[2021-09-22 21:09] LABS: Partial Thromboplastin Time 45.8 SEC (24.1-38.0)
--- NOTE | 2021-09-22 21:16 | PC.NURSE ---
med rec complete
[2021-09-22 21:19] LABS: Troponin-I High Sensitivity 8.9 ng/L (<3.5-17.0)
[2021-09-22 21:21] LABS: Anion Gap 13 (12-20); Blood Urea Nitrogen 27 mg/dL (9-16); Calcium 9.5 mg/dL (8.4-10.2); Carbon Dioxide 28 mmol/L (22-29); Chloride 102 mmol/L (96-108); Creatinine Clr Calc Pharmacy 32.1; Estimated Glomerular Filt Rate 39; Glucose Random 135 mg/dL (60-115); Potassium 4.1 mmol/L (3.3-5.1); Sodium 139 mmol/L (135-145)
[2021-09-22 21:22] LABS: COVID-19 Test Negative (Negative); IDNOW Serial# 08D9AD1C
--- NOTE | 2021-09-22 21:24 | ED_ITS ---
HPI - Fall General Chief Complaint: Fall Stated Complaint: fall Time Seen by Provider: 09/22/21 20:10 Source: patient Mode of arrival: EMS Limitations: no limitations History of Present Illness HPI Narrative: Patient unsteady on her feet was in the kitchen lost balance caught herself and slid down the cabinet and hit her left hip to the ground unable to get up from the ground because of severe pain in the left hip area no head injury patient is on Coumadin . patient came with obvious external rotation and shortening of left leg Related Data Home Medications Medication Instructions Recorded Confirmed levothyroxine 50 mcg tablet 50 mcg PO DAILY 09/18/20 09/22/21 metoprolol succinate 50 mg 50 mg PO DAILY 09/18/20 09/22/21 tablet,extended release 24 hr pravastatin 40 mg tablet 40 mg PO DAILY 09/18/20 09/22/21 amlodipine 5 mg tablet 5 mg PO QPM tab 08/09/21 09/22/21 furosemide 20 mg tablet 40 mg PO DAILY tab 08/09/21 09/22/21 warfarin 3 mg tablet 1.5 mg PO SUMOTUWEFRSA 09/22/21 09/22/21 Previous Rx's Medication Instructions Recorded amiodarone 200 mg tablet 200 mg PO DAILY #30 tab 07/23/21 telmisartan 80 mg tablet 80 mg PO DAILY #90 tab 09/13/21 Allergies Allergy/AdvReac Type Severity Reaction Status Date / Time moxifloxacin [From Avelox] AdvReac Unknown DIARRHEA Verified 09/12/21 09:24 Review of Systems Review of Systems: Yes all other systems are reviewed and are negative [facility] Past Medical History Medical History Aortic stenosis Cardiac pacemaker in situ Chronic heart failure with preserved ejection fraction (HFpEF) Enlarged RV (right ventricle) HTN (hypertension) Paroxysmal atrial fibrillation Pulmonary hypertension Sick sinus syndrome Tricuspid regurgitation Surgical History History of permanent cardiac pacemaker placement Hx of knee surgery Family History Family History Father No problems noted. Mother Cancer Social History Social History Patient Tobacco Use Status: Never used Tobacco Advance Directives: No Advance Directives Information Provided: No Physical Exam Vital Signs: Vital Signs: Last Vital Signs Pulse 62 09/22/21 22:43 Resp 10 L 09/22/21 22:42 BP 121/59 L 09/22/21 22:43 Pulse Ox 95 09/22/21 20:10 BMI result Body Mass Index 23.6 Appearance: Alert. Oriented X3. In moderate distress Eyes: PERRL, no pallor icterus HEENT: Pharynx normal. Oral Mucosa moist atraumatic normocephalic Neck: Normal inspection. Neck supple. No midline tenderness CVS: Normal heart rate and rhythm. Pulses normal. Ejection systolic murmur at the base 3/6 pacemaker site is healthy Respiratory: No respiratory distress. Equal air entry bilateral, no wheezing/rales/rhonchi Abdomen: Soft and nontender. Bowel sounds are present, no mass palpable, Skin: Skin warm and dry. Normal skin color. Normal skin turgor. Back: No focal spinal tenderness Extremities: 1+ lower extremity edema. No calf tenderness left leg externally rotated and shortened with tenderness in the groin area Neuro: Oriented X 3. No motor deficit. MDM - Fall MDM Narrative Medical decision making narrative: Patient is status post mechanical fall with left femur intertrochanteric comminuted fracture on Coumadin and INR of 4.2. Kg with Dr. Aguayo orthopedic surgeon advised admit to medical service plan to reverse INR and surgery of once cleared. Patient was given vitamin K 5 mg in the ER hospitalist to admit the patient Lab Data Attestation: I reviewed the patient's lab results. Result diagrams: 09/22/21 20:53 09/22/21 20:53 Labs: Lab Results 09/22/21 09/22/21 09/22/21 Range/Units 20:53 20:53 20:53 WBC 7.7 (4.8-10.8) X10*3/uL RBC 4.22 (4.20-5.50) X10*6/uL Hgb 14.0 (12.0-16.0) g/dl Hct 41.2 (37.0-47.0) % MCV 97.6 (80.0-98.0) fL MCH 33.2 H (27.0-33.0) pg MCHC 34.0 (31.0-35.0) g/dl RDW 14.3 (11.0-16.0) % Plt Count 172 (160-400) X10*3/uL MPV 11.2 (9.4-12.3) fL Immature Gran % (Auto) 1.2 H (0.0-0.4) % Neut % (Auto) 77.2 H (45-73) % Lymph % (Auto) 8.1 L (20-40) % Long % (Auto) 11.7 H (2-11) % Eos % (Auto) 1.0 (0-4) % Baso % (Auto) 0.8 (0-2) % Lymph # (Auto) 0.6 L (1.2-4.9) X10*3/uL Long # (Auto) 0.9 (0.1-1.2) X10*3/uL Eos # (Auto) 0.1 (0.0-0.4) X10*3/uL Baso # (Auto) 0.1 (0.0-0.2) X10*3/uL Abs Immat Gran (auto) 0.09 H (0.00-0.03) X10*3/uL Absolute Neuts (auto) 6.0 (2.0-8.3) x10*3/uL Absolute Nucleated RBC 0.000 (0.0-0.012) X10*3/uL Nucleated RBC % (auto) 0.0 (0.0-0.2) /100WBC PT (9.9-13.0) SEC INR (0.9-1.1) APTT (24.1-38.0) SEC Sodium 139 (135-145) mmol/L Potassium 4.1 (3.3-5.1) mmol/L Chloride 102 (96-108) mmol/L Carbon Dioxide 28 (22-29) mmol/L Anion Gap 13 (12-20) BUN 27 H (9-16) mg/dL Creatinine 1.29 (0.5-1.4) mg/dL Estim Creat Clear Calc 32.1 Estimated GFR 39 Random Glucose 135 H (60-115) mg/dL Calcium 9.5 (8.4-10.2) mg/dL Troponin I High Sens (<3.5-17.0) ng/L COVID-19 (SHAWNEE) Negative (Negative) COVID-19 Clin Com See Note 09/22/21 09/22/21 Range/Units 20:53 20:53 WBC (4.8-10.8) X10*3/uL RBC (4.20-5.50) X10*6/uL Hgb (12.0-16.0) g/dl Hct (37.0-47.0) % MCV (80.0-98.0) fL MCH (27.0-33.0) pg MCHC (31.0-35.0) g/dl RDW (11.0-16.0) % Plt Count (160-400) X10*3/uL MPV (9.4-12.3) fL Immature Gran % (Auto) (0.0-0.4) % Neut % (Auto) (45-73) % Lymph % (Auto) (20-40) % Long % (Auto) (2-11) % Eos % (Auto) (0-4) % Baso % (Auto) (0-2) % Lymph # (Auto) (1.2-4.9) X10*3/uL Long # (Auto) (0.1-1.2) X10*3/uL Eos # (Auto) (0.0-0.4) X10*3/uL Baso # (Auto) (0.0-0.2) X10*3/uL Abs Immat Gran (auto) (0.00-0.03) X10*3/uL Absolute Neuts (auto) (2.0-8.3) x10*3/uL Absolute Nucleated RBC (0.0-0.012) X10*3/uL Nucleated RBC % (auto) (0.0-0.2) /100WBC PT 49.5 H (9.9-13.0) SEC INR 4.2 H (0.9-1.1) APTT 45.8 H (24.1-38.0) SEC Sodium (135-145) mmol/L Potassium (3.3-5.1) mmol/L Chloride (96-108) mmol/L Carbon Dioxide (22-29) mmol/L Anion Gap (12-20) BUN (9-16) mg/dL Creatinine (0.5-1.4) mg/dL Estim Creat Clear Calc Estimated GFR Random Glucose (60-115) mg/dL Calcium (8.4-10.2) mg/dL Troponin I High Sens 8.9 (<3.5-17.0) ng/L COVID-19 (SHAWNEE) (Negative) COVID-19 Clin Com ECG Data Attestation: I personally reviewed and interpreted this ECG as follows: Interpretation: AV paced rhythm heart rate 61 beats per minute no acute STT wave changes Discharge Plan Discharge Clinical Impression: Hip fracture Qualifiers: Encounter type: initial encounter Fracture type: closed Laterality: left Qualified Code(s): S72.002A - Fracture of unspecified part of neck of left femur, initial encounter for closed fracture Patient Disposition: Admitted As Inpatient
--- NOTE | 2021-09-22 21:48 | PM.IMHP ---
History of Present Illness Date of Service: 09/22/21 Chief Complaint: Fall 85-year-old female with a past history of hypertension, hyperlipidemia, atrial fibrillation on Coumadin, orthostatic hypertension, aortic stenosis, tricuspid regurgitation, history of sick sinus syndrome status post cardiac pacemaker, pulmonary hypertension, history of osteoarthritis, history of left knee replacement presented to the hospital today with a chief complaint of fall. Patient reports that she tripped and fell, finding landed on the hip; denies any loss of consciousness. Unclear if she had a head strike. Denies any signs of infection-denies any cough, fever, chills, sputum production, urinary complaints, GI symptoms. Currently denies any chest pain palpitations lightheadedness or dizziness. Review of all other systems is negative except mentioned above ER course: Per ER team on imaging noted to have left femur displaced fracture; orthopedics was notified. On labs noted to have elevated INR -given vitamin K. Admitted for further management. [facility] Medical History Aortic stenosis Cardiac pacemaker in situ Chronic heart failure with preserved ejection fraction (HFpEF) Enlarged RV (right ventricle) HTN (hypertension) Paroxysmal atrial fibrillation Pulmonary hypertension Sick sinus syndrome Tricuspid regurgitation Family History Father No problems noted. Mother Cancer Pertinent family history: as above Surgical History History of permanent cardiac pacemaker placement Hx of knee surgery Social History Patient Tobacco Use Status: Never used Tobacco Advance Directives: No Advance Directives Information Provided: No Meds Allergies Allergy/AdvReac Type Severity Reaction Status Date / Time moxifloxacin [From Avelox] AdvReac Unknown DIARRHEA Verified 09/12/21 09:24 Active Medications: Current Medications Acetaminophen (Acetaminophen 325 Mg Tablet) 650 mg PO Q6H PRN PRN Reason: Pain, Mild (Pain Scale 1-3) Amiodarone HCl (Amiodarone Hcl 200 Mg Tablet) 200 mg PO DAILY JOHN Amlodipine Besylate (Amlodipine Besylate 5 Mg Tablet) 5 mg PO QPM [facility]; Protocol Docusate Sodium (Docusate Sodium 100 Mg Capsule) 100 mg PO BID [facility] Furosemide (Furosemide 20 Mg Tablet) 20 mg PO DAILY JOHN; Protocol Hydromorphone HCl (Hydromorphone Hcl 0.5 Mg/0.5 Ml Syringe) 0.5 mg IVPUSH Q4H PRN; Protocol PRN Reason: Pain, Severe (Pain Scale 7-10) Phytonadione 5 mg/ Sodium (Chloride) 50.5 mls @ 50.5 mls/hr IV ONCE ONE Stop: 09/22/21 22:35 Levothyroxine Sodium (Levothyroxine Sodium 50 Mcg Tablet) 50 mcg PO DAILY [facility] Melatonin (Melatonin 3 Mg Tablet) 6 mg PO BEDTIME PRN PRN Reason: Insomnia Metoprolol Succinate (Metoprolol Succinate Er 50 Mg Tab.Er.24h) 50 mg PO DAILY [facility]; Protocol Non-Formulary Medication (Telmisartan) 80 mg PO DAILY [facility] Pravastatin Sodium (Pravastatin Sodium 40 Mg Tablet) 40 mg PO DAILY [facility] Senna (Sennosides 8.6 Mg Tablet) 17.2 mg PO BEDTIME PRN PRN Reason: Constipation Sodium Chloride (0.9 % Sodium Chloride Flush 3 Ml Syringe) 3 ml IVFLUSH QSHIFT [facility] Home Medications Medication Instructions Recorded Confirmed Last Taken Type levothyroxine 50 mcg tablet 50 mcg PO DAILY 09/18/20 09/22/21 09/22/21 09:00 History metoprolol succinate 50 mg 50 mg PO DAILY 09/18/20 09/22/21 09/22/21 09:00 History tablet,extended release 24 hr pravastatin 40 mg tablet 40 mg PO DAILY 09/18/20 09/22/21 09/22/21 09:00 History amlodipine 5 mg tablet 5 mg PO QPM tab 08/09/21 09/22/21 09/21/21 20:00 History furosemide 20 mg tablet 20 mg PO DAILY tab 08/09/21 09/22/21 09/22/21 09:00 History warfarin 3 mg tablet 1.5 mg PO QPM 09/22/21 09/22/21 09/21/21 20:00 History Physical Exam Vital Signs and Narrative: Vital Signs: Last Vital Signs Pulse 62 09/22/21 20:10 BP 158/71 H 09/22/21 20:10 Pulse Ox 95 09/22/21 20:10 BMI result Body Mass Index 23.6 Gen: Appears be in no acute distress HEENT: NCAT, Moist mucosa. Pulmonary: Vesicular breath sounds, fair air entry CVS: Normal S1-S2 Abdomen: BS+, Soft, Nontender Extremities: Warm well perfused; sensations intact bilaterally. Left lower extremity exam limited secondary to the pain. Neuro: Alert and awake. Results Labs CBC and Chem 7: 09/22/21 20:53 09/22/21 20:53 Labs: Laboratory Results - last 24 hr 09/22/21 09/22/21 09/22/21 20:53 20:53 20:53 MCV 97.6 MCH 33.2 H MCHC 34.0 RDW 14.3 Plt Count 172 MPV 11.2 Immature Gran % (Auto) 1.2 H Neut % (Auto) 77.2 H Lymph % (Auto) 8.1 L Morris % (Auto) 11.7 H Eos % (Auto) 1.0 Baso % (Auto) 0.8 Lymph # (Auto) 0.6 L Morris # (Auto) 0.9 Eos # (Auto) 0.1 Baso # (Auto) 0.1 Abs Immat Gran (auto) 0.09 H Absolute Neuts (auto) 6.0 Absolute Nucleated RBC 0.000 Nucleated RBC % (auto) 0.0 PT INR APTT Anion Gap 13 Estim Creat Clear Calc 32.1 Estimated GFR 39 Random Glucose 135 H Calcium 9.5 Troponin I High Sens COVID-19 ([facility]WNEE) Negative COVID-19 Clin Com See Note 09/22/21 09/22/21 20:53 20:53 MCV MCH MCHC RDW Plt Count MPV Immature Gran % (Auto) Neut % (Auto) Lymph % (Auto) Morris % (Auto) Eos % (Auto) Baso % (Auto) Lymph # (Auto) Morris # (Auto) Eos # (Auto) Baso # (Auto) Abs Immat Gran (auto) Absolute Neuts (auto) Absolute Nucleated RBC Nucleated RBC % (auto) PT 49.5 H INR 4.2 H APTT 45.8 H Anion Gap Estim Creat Clear Calc Estimated GFR Random Glucose Calcium Troponin I High Sens 8.9 COVID-19 (SHAWNEE) COVID-19 Clin Com Imaging Radiologist's Impressions: Impressions Chest X-Ray 09/22/21 20:35 IMPRESSION: No acute cardiopulmonary findings. Hip/Pelvis X-Ray 09/22/21 20:35 IMPRESSION: Acute displaced proximal femur fracture No additional acute abnormalities in the pelvis. Right total hip arthroplasty partially visualized in the [id number] Cervical Spine CT 09/22/21 20:38 IMPRESSION: No acute intracranial pathology. No acute fracture or subluxation cervical spine. Head CT 09/22/21 20:38 IMPRESSION: No acute intracranial pathology. No acute fracture or subluxation cervical spine. Assessment and Plan (1) Femur fracture: Status: Acute 85-year-old female with a past history of hypertension, hyperlipidemia, atrial fibrillation on Coumadin, orthostatic hypertension, aortic stenosis, tricuspid regurgitation, history of sick sinus syndrome status post cardiac pacemaker, pulmonary hypertension, history of osteoarthritis, history of left knee replacement presented to the hospital today with a chief complaint of fall. Sustained left femur fracture. Admitted for further management. Left femur fracture: Orthopedic severe of the patient. Pending further input. Pain control. Fall precautions. Preop evaluation: Patient has significant cardiac history; high RCRI score. Patient is high risk for intermediate risk surgery. Will also consult Cardiology for inputs in regards preop evaluation. continue home beta-blockers in the Preoperative period. Supratherapeutic INR: Patient INR is 4.1. Patient received vitamin K in the ER. Follow-up INR levels. Home hold Coumadin in anticipation for surgery. History of AFib: Rate controlled. Continue home amiodarone History of CHF: Currently stable. Continue home Lasix. History of hypertension: Patient is on amlodipine, telmisartan, metoprolol at home. Currently controlled. Will continue home meds. History of hypothyroidism: Continue home levothyroxine Code status: Full code. Discussed with the patient and patient's family at bedside. Quality Stroke Does the patient have a stroke diagnosis?: No VTE Prior VTE?: No VTE Risk Level:: Medical - moderate - high VTE Device Contraindication: N/A - Device Ordered VTE Drug Contraindication: Treatment Not Indicated
[2021-09-22 22:42] VITALS: PULSE 61; RESP 10
[2021-09-22 22:43] VITALS: BP 121/59; PULSE 62
[2021-09-22] MEDS: Phytonadione (Vit K1) 5 MG in 0.9 % Sodium Chloride 50 ML 50.5 MG IV (22:43)
[2021-09-22] MEDS: amLODIPine Besylate 5 MG TABLET PO (22:43)
[2021-09-22 22:52] LABS: Appearance Urine CLEAR; Color Urine YELLOW; Glucose Urine UA NEG (NEG); Leukocyte Esterase Urine NEG (NEG); Nitrite Urine NEG (NEG); Specific Gravity - Urine >= 1.030 (1.005-1.025); Urine Blood NEG (NEG); Urine Ketones 15 MG/DL (NEG); Urine Protein TRACE MG/DL (NEG-TRACE)
[2021-09-23] VITALS (8 sets, daily range): BP systolic 102–125; BP diastolic 52–63; PULSE 59–71; RESP 14–20; TEMP 36.3–36.9; O2SAT 91–95; BMI 24.5
[2021-09-23 05:59] LABS: Basophils Percent Auto 0.4 % (0-2); Imm Gran Abs Auto 0.05 X10*3/uL (0.00-0.03); Imm Gran Pct Auto 0.5 % (0.0-0.4); PLT CLUMP 1; SCAN SMEAR FLAG 1
[2021-09-23 06:00] LABS: Eosinophils Percent Auto 0.3 % (0-4); Hematocrit 35.7 % (37.0-47.0); Hemoglobin 11.9 g/dl (12.0-16.0); Lymphocytes Absolute Auto 0.7 X10*3/uL (1.2-4.9); Lymphocytes Percent Auto 7.6 % (20-40); Mean Corpuscular HGB Conc 33.3 g/dl (31.0-35.0); Mean Corpuscular Hemoglobin 32.5 pg (27.0-33.0); Mean Corpuscular Volume 97.5 fL (80.0-98.0); Mean Platelet Volume 11.4 fL (9.4-12.3); Monocytes Percent Auto 10.6 % (2-11); Neutrophils Absolute Auto 7.6 x10*3/uL (2.0-8.3); Neutrophils Percent Auto 80.6 % (45-73); Red Blood Count 3.66 X10*6/uL (4.20-5.50); Red Cell Distribution Width 14.1 % (11.0-16.0)
[2021-09-23 06:05] LABS: MANUAL DIFF FLAG NO; Platelet Count 137 X10*3/uL (160-400); White Blood Count 9.5 X10*3/uL (4.8-10.8)
[2021-09-23 06:06] LABS: INTERNATIONAL NORM RATIO 2.1 (0.9-1.1); Prothrombin Time 24.8 SEC (9.9-13.0)
[2021-09-23 06:14] LABS: Anion Gap 9 (12-20); Blood Urea Nitrogen 23 mg/dL (9-16); Calcium 8.8 mg/dL (8.4-10.2); Carbon Dioxide 30 mmol/L (22-29); Chloride 104 mmol/L (96-108); Creatinine Clr Calc Pharmacy 47.6; Estimated Glomerular Filt Rate > 60; Glucose Random 97 mg/dL (60-115); Potassium 4.2 mmol/L (3.3-5.1); Sodium 139 mmol/L (135-145)
--- NOTE | 2021-09-23 10:13 | PM.EVENT ---
Event Note Date of Service: 09/23/21 Event Note: 85-year-old female who sustained a mechanical fall at home injuring the left hip x-rays show intertrochanteric fracture on the left femur INR is 2.1, goal for surgery is around 1.2 NPO after midnight plan for operative fixation on 09/24
--- NOTE | 2021-09-23 10:54 | PM.CNCAR ---
History of Present Illness History of Present Illness Date of Service: 09/23/21 Requesting physician: Franklin Correa Consult reason: pre-op evaluation Chief complaint: Hip fracture Narrative: I was requested to see Ashley in cardiology consultation today for preoperative cardiovascular examination. She is a pleasant 89 woman why no for few years with prior history of paroxysmal atrial fibrillation suppressed on amiodarone therapy, heart failure preserved ejection fraction with secondary significant pulmonary hypertension, compensated with diuretic regimen and control of atrial fibrillation, cardiac pacemaker in-situ for sick sinus syndrome, patient mostly pacer dependent, on chronic anticoagulation warfarin, aortic stenosis which is moderate by last echocardiogram in January. She was recently referred by me for outpatient physical therapy for lack of balance and fall risk. She was undergoing that therapy. Yesterday while in her kitchen she turned and fell down. Although she fell down gently she had pain in the left hip and is diagnosed with left hip fracture and is planned to undergo open reduction internal fixation. Patient currently not having any cardiac symptoms. She denies any lightheadedness, syncope. Denies any palpitations. No recent heart failure symptoms. No recent anginal symptoms. Limited exercise activity due to her frailty and lack of balance. Review of Systems Constitutional: Constitutional: Reports no additional constitutional complaints Cardiovascular: Cardiovascular: Reports no additional cardiovascular complaints Respiratory: Respiratory: Reports no additional respiratory complaints Gastrointestinal: Gastrointestinal: Reports no additional gastrointestinal complaints Musculoskeletal: Musculoskeletal: Reports abnormal gait and Reports arthralgias Integumentary/Breasts: Skin/Breast: Reports system reviewed and no additional complaints, except as docu Neurologic: Reports system reviewed and no additional complaints, except as documented and Reports abnormal gait Psychiatric: Psychiatric: Reports no additional psychiatric complaints [facility] Past Medical History Medical History Aortic stenosis Cardiac pacemaker in situ Chronic heart failure with preserved ejection fraction (HFpEF) Enlarged RV (right ventricle) HTN (hypertension) Paroxysmal atrial fibrillation Pulmonary hypertension Sick sinus syndrome Tricuspid regurgitation Family History Family History Father No problems noted. Mother Cancer Surgical History Surgical History History of permanent cardiac pacemaker placement Hx of knee surgery Social History Social History Patient Tobacco Use Status: Never used Tobacco Advance Directives: No Advance Directives Information Provided: No Meds Allergies Allergy/AdvReac Type Severity Reaction Status Date / Time moxifloxacin [From Avelox] AdvReac Unknown DIARRHEA Verified 09/12/21 09:24 Active Medications: Current Medications Acetaminophen (Acetaminophen 325 Mg Tablet) 650 mg PO Q6H PRN PRN Reason: Pain, Mild (Pain Scale 1-3) Amiodarone HCl (Amiodarone Hcl 200 Mg Tablet) 200 mg PO DAILY [facility] Last Admin: 09/23/21 08:08 Dose: Not Given Documented by: Amlodipine Besylate (Amlodipine Besylate 5 Mg Tablet) 5 mg PO BEDTIME [facility]; Protocol Last Admin: 09/22/21 22:43 Dose: 5 mg Documented by: Docusate Sodium (Docusate Sodium 100 Mg Capsule) 100 mg PO BID [facility] Last Admin: 09/23/21 08:08 Dose: Not Given Documented by: Furosemide (Furosemide 20 Mg Tablet) 40 mg PO DAILY [facility]; Protocol Last Admin: 09/23/21 08:09 Dose: Not Given Documented by: Hydromorphone HCl (Hydromorphone Hcl 0.5 Mg/0.5 Ml Syringe) 0.5 mg IVPUSH Q4H PRN; Protocol PRN Reason: Pain, Severe (Pain Scale 7-10) Levothyroxine Sodium (Levothyroxine Sodium 50 Mcg Tablet) 50 mcg PO DAILY@0600 [facility] Last Admin: 09/23/21 08:08 Dose: Not Given Documented by: Melatonin (Melatonin 3 Mg Tablet) 6 mg PO BEDTIME PRN PRN Reason: Insomnia Metoprolol Succinate (Metoprolol Succinate Er 50 Mg Tab.Er.24h) 50 mg PO DAILY [facility]; Protocol Last Admin: 09/23/21 08:09 Dose: Not Given Documented by: Pravastatin Sodium (Pravastatin Sodium 40 Mg Tablet) 40 mg PO BEDTIME [facility] Senna (Sennosides 8.6 Mg Tablet) 17.2 mg PO BEDTIME PRN PRN Reason: Constipation Sodium Chloride (0.9 % Sodium Chloride Flush 3 Ml Syringe) 3 ml IVFLUSH QSHIFT [facility] Last Admin: 09/23/21 08:08 Dose: Not Given Documented by: Valsartan (Valsartan 160 Mg Tablet) 160 mg PO DAILY [facility] Last Admin: 09/23/21 08:09 Dose: Not Given Documented by: Home Medications Medication Instructions Recorded Confirmed Last Taken Type levothyroxine 50 mcg tablet 50 mcg PO DAILY 09/18/20 09/22/21 09/22/21 09:00 History metoprolol succinate 50 mg 50 mg PO DAILY 09/18/20 09/22/21 09/22/21 09:00 History tablet,extended release 24 hr pravastatin 40 mg tablet 40 mg PO DAILY 09/18/20 09/22/21 09/22/21 09:00 History amlodipine 5 mg tablet 5 mg PO QPM tab 08/09/21 09/22/21 09/21/21 20:00 History furosemide 20 mg tablet 40 mg PO DAILY tab 08/09/21 09/22/21 09/22/21 09:00 History warfarin 3 mg tablet 1.5 mg PO SUMOTUWEFRSA 09/22/21 09/22/21 09/21/21 20:00 History Physical Exam Vital Signs: Vital Signs: Last Vital Signs Temp 98.3 F 09/23/21 03:24 Pulse 60 09/23/21 04:36 Resp 16 09/23/21 04:36 BP 118/57 L 09/23/21 04:36 Pulse Ox 94 09/23/21 04:36 BMI result Body Mass Index 23.6 Const: General: cooperative, comfortable, no acute distress, alert and awake Nutritional Appearance: average body habitus Orientation/consciousness: patient oriented x3 HENMT: Head: Yes normocephalic and Yes atraumatic Neck: Neck: Yes trachea midline, Yes supple and Yes no JVD Resp: Effort & Inspection: normal respiratory effort Auscultation: clear to auscultation bilaterally Cardio: Jugular venous distension: no JVD Rate: regular rate Rhythm: regular rhythm Heart sounds: S1 normal heart sound present, S2 normal heart sound present and Murmur heart sound present systolic mid Peripheral pulses: Peripheral pulses 2+ throughout GI: Auscultation: normal bowel sounds Skin: General skin exam: no rashes or lesions noted Neuro: General: patient oriented x3 and no focal motor deficits Extrem: General: Yes no clubbing, cyanosis or edema Objective Labs and Meds Result diagrams: 09/23/21 05:50 09/23/21 05:50 Lab results: Laboratory Results - last 24 hr 09/22/21 09/22/21 09/22/21 20:53 20:53 20:53 WBC 7.7 RBC 4.22 Hgb 14.0 Hct 41.2 MCV 97.6 MCH 33.2 H MCHC 34.0 RDW 14.3 Plt Count 172 MPV 11.2 Immature Gran % (Auto) 1.2 H Neut % (Auto) 77.2 H Lymph % (Auto) 8.1 L [place] % (Auto) 11.7 H Eos % (Auto) 1.0 Baso % (Auto) 0.8 Lymph # (Auto) 0.6 L [place] # (Auto) 0.9 Eos # (Auto) 0.1 Baso # (Auto) 0.1 Abs Immat Gran (auto) 0.09 H Absolute Neuts (auto) 6.0 Absolute Nucleated RBC 0.000 Nucleated RBC % (auto) 0.0 PT INR APTT Sodium 139 Potassium 4.1 Chloride 102 Carbon Dioxide 28 Anion Gap 13 BUN 27 H Creatinine 1.29 Estim Creat Clear Calc 32.1 Estimated GFR 39 Random Glucose 135 H Calcium 9.5 Troponin I High Sens Urine Color Urine Appearance Urine pH Ur Specific [place] Urine Protein Urine Glucose (UA) Urine Ketones Urine Blood Urine Nitrite Ur Leukocyte Esterase COVID-19 (SHAWNEE) Negative COVID-19 Clin Com See Note 09/22/21 09/22/21 09/22/21 20:53 20:53 22:44 WBC RBC Hgb Hct MCV MCH MCHC RDW Plt Count MPV Immature Gran % (Auto) Neut % (Auto) Lymph % (Auto) [place] % (Auto) Eos % (Auto) Baso % (Auto) Lymph # (Auto) [place] # (Auto) Eos # (Auto) Baso # (Auto) Abs Immat Gran (auto) Absolute Neuts (auto) Absolute Nucleated RBC Nucleated RBC % (auto) PT 49.5 H INR 4.2 H APTT 45.8 H Sodium Potassium Chloride Carbon Dioxide Anion Gap BUN Creatinine Estim Creat Clear Calc Estimated GFR Random Glucose Calcium Troponin I High Sens 8.9 Urine Color YELLOW Urine Appearance CLEAR Urine pH 6.0 Ur Specific [place] >= 1.030 H Urine Protein TRACE Urine Glucose (UA) NEG Urine Ketones 15 Urine Blood NEG Urine Nitrite NEG Ur Leukocyte Esterase NEG COVID-19 (SHAWNEE) COVID-19 Clin Com 09/23/21 09/23/21 09/23/21 05:50 05:50 05:50 WBC 9.5 RBC 3.66 L Hgb 11.9 L Hct 35.7 L MCV 97.5 MCH 32.5 MCHC 33.3 RDW 14.1 Plt Count 137 L MPV 11.4 Immature Gran % (Auto) 0.5 H Neut % (Auto) 80.6 H Lymph % (Auto) 7.6 L [place] % (Auto) 10.6 Eos % (Auto) 0.3 Baso % (Auto) 0.4 Lymph # (Auto) 0.7 L [place] # (Auto) 1.0 Eos # (Auto) 0.0 Baso # (Auto) 0.0 Abs Immat Gran (auto) 0.05 H Absolute Neuts (auto) 7.6 Absolute Nucleated RBC 0.000 Nucleated RBC % (auto) 0.0 PT 24.8 H INR 2.1 H D APTT Sodium 139 Potassium 4.2 Chloride 104 Carbon Dioxide 30 H Anion Gap 9 L BUN 23 H Creatinine 0.87 Estim Creat Clear Calc 47.6 Estimated GFR > 60 Random Glucose 97 Calcium 8.8 D Troponin I High Sens Urine Color Urine Appearance Urine pH Ur Specific [place] Urine Protein Urine Glucose (UA) Urine Ketones Urine Blood Urine Nitrite Ur Leukocyte Esterase COVID-19 (SHAWNEE) COVID-19 Clin Com Imaging Radiologist's impression: Impressions Chest X-Ray 09/22/21 20:35 IMPRESSION: No acute cardiopulmonary findings. Hip/Pelvis X-Ray 09/22/21 20:35 IMPRESSION: Acute displaced proximal femur fracture No additional acute abnormalities in the pelvis. Right total hip arthroplasty partially visualized in the [id number] Cervical Spine CT 09/22/21 20:38 IMPRESSION: No acute intracranial pathology. No acute fracture or subluxation cervical spine. Head CT 09/22/21 20:38 IMPRESSION: No acute intracranial pathology. No acute fracture or subluxation cervical spine. Assessment and Plan (1) Preoperative cardiovascular examination: Status: Acute Preoperative cardiovascular examination risk stratification in this elderly woman with underlying moderate aortic stenosis, moderately severe pulmonary hypertension the setting of known prior heart failure which is currently euvolemic and well compensated, atrial fibrillation, suppressed as well as pacemaker which is working well. She presents with left hip fracture due to fall and needs open reduction internal fixation under general anesthesia. She is currently optimized to undergo this surgery with moderate to high risk for perioperative cardiovascular event rate in terms of heart failure. Close hemodynamic monitoring with frequent blood pressure monitoring should be pursued. Avoid sudden fluid shifts. Replace hematocrit as soon as possible to maintain hematocrit above 30 if need be. Please consult us in the perioperative time if there are any cardiovascular complications. Continue amiodarone. Hold off on diuretic regimen till after surgery. Anticoagulation to be started of surgery as soon as possible. Will follow with you Procedures Date of Service Date of Service: 09/23/21
--- NOTE | 2021-09-23 13:23 | MHC.CM.PN ---
Met with patient and son, Akira in regards to discharge planning. Patient lives alone, uses a walker/cane for mobility and had no services prior to coming to the hospital. PCP verified. Patient received 3 Pfizer vaccines. IMM explained and signed. Patient has been to [facility] and [facility] in the past. Referrals sent to both facilities at patient's request. [facility] is 1st choice. List of facilities provided to Akira from [facility], just in case another facility choice is needed. Patient has a HCP at home. Akira will attempt to obtain a copy. Patient will need physical therapy eval when medically stable. Continue to monitor for d/c needs.
--- NOTE | 2021-09-23 14:41 | P.CONOP_ITS ---
History of Present Illness HPI Consult date: 09/23/21 <Trina Humphreys PA-C - Last Filed: 09/23/21 18:14> Chief complaint: Hip fracture <Trina Humphreys PA-C - Last Filed: 09/23/21 18:14> Narrative: 85-year-old female with a past history of hypertension, hyperlipidemia, atrial fibrillation on Coumadin, orthostatic hypertension, aortic stenosis, tricuspid regurgitation, history of sick sinus syndrome status post cardiac pacemaker, pulmonary hypertension presented to the ED after sustaining a fall. She states she tripped and fell landing on the left side. She was unable to get up, EMS transported her to the ED. Xray findings significant for intertrochante michelle fracture left femur. Patient ambulates at baseline with a cane , does most her own activities at home but her son does her groceries. Patient was admitted to the medical service and orthopedics consulted for surgical recommendations. <Trina Humphreys PA-C - Last Filed: 09/23/21 18:14> Review of Systems Review of Systems: Yes all other systems are reviewed and are negative <Trina Humphreys PA-C - Last Filed: 09/23/21 18:14> [facility] Past Medical History Medical History: Medical History (Updated 09/23/21 @ 18:12 by Trina Humphreys PA-C) Aortic stenosis Cardiac pacemaker in situ Chronic heart failure with preserved ejection fraction (HFpEF) Enlarged RV (right ventricle) HTN (hypertension) Paroxysmal atrial fibrillation Presence of total left knee joint prosthesis Pulmonary hypertension Sick sinus syndrome Tricuspid regurgitation <Trina Humphreys PA-C - Last Filed: 09/23/21 18:14> Family History Family History: Family History Father No problems noted. Mother Cancer <Trina Humphreys PA-C - Last Filed: 09/23/21 18:14> Surgical History Surgical History: Surgical History (Updated 09/23/21 @ 18:13 by Trina Humphreys PA-C) History of permanent cardiac pacemaker placement History of total left knee replacement History of total right hip replacement Hx of knee surgery <Trina Humphreys PA-C - Last Filed: 09/23/21 18:14> Social History Social History: Social History Household Members: None Housing: Other Housing Other:: house Do you presently have visiting nurse or other home services: No Patient Tobacco Use Status: Never used Tobacco e-Cigarette/Vaping Use: Never Used service: No Current occupational status: retired <Trina Humphreys PA-C - Last Filed: 09/23/21 18:14> Meds Allergies/Adverse reactions: Allergies Allergy/AdvReac Type Severity Reaction Status Date / Time moxifloxacin [From Avelox] AdvReac Unknown DIARRHEA Verified 09/12/21 09:24 <Trina Humphreys PA-C - Last Filed: 09/23/21 18:14> Active Medications: Current Medications Acetaminophen (Acetaminophen 325 Mg Tablet) 650 mg PO Q6H PRN PRN Reason: Pain, Mild (Pain Scale 1-3) Amiodarone HCl (Amiodarone Hcl 200 Mg Tablet) 200 mg PO DAILY [facility] Last Admin: 09/23/21 08:08 Dose: Not Given Documented by: Amlodipine Besylate (Amlodipine Besylate 5 Mg Tablet) 5 mg PO BEDTIME [facility]; Protocol Last Admin: 09/22/21 22:43 Dose: 5 mg Documented by: Docusate Sodium (Docusate Sodium 100 Mg Capsule) 100 mg PO BID [facility] Last Admin: 09/23/21 08:08 Dose: Not Given Documented by: Furosemide (Furosemide 20 Mg Tablet) 40 mg PO DAILY [facility]; Protocol Last Admin: 09/23/21 08:09 Dose: Not Given Documented by: Hydromorphone HCl (Hydromorphone Hcl 0.5 Mg/0.5 Ml Syringe) 0.5 mg IVPUSH Q4H PRN; Protocol PRN Reason: Pain, Severe (Pain Scale 7-10) Levothyroxine Sodium (Levothyroxine Sodium 50 Mcg Tablet) 50 mcg PO DAILY@0600 [facility] Last Admin: 09/23/21 08:08 Dose: Not Given Documented by: Melatonin (Melatonin 3 Mg Tablet) 6 mg PO BEDTIME PRN PRN Reason: Insomnia Metoprolol Succinate (Metoprolol Succinate Er 50 Mg Tab.Er.24h) 50 mg PO DAILY [facility]; Protocol Last Admin: 09/23/21 08:09 Dose: Not Given Documented by: Pravastatin Sodium (Pravastatin Sodium 40 Mg Tablet) 40 mg PO BEDTIME [facility] Senna (Sennosides 8.6 Mg Tablet) 17.2 mg PO BEDTIME PRN PRN Reason: Constipation Sodium Chloride (0.9 % Sodium Chloride Flush 3 Ml Syringe) 3 ml IVFLUSH QSHIFT [facility] Last Admin: 09/23/21 08:08 Dose: Not Given Documented by: Valsartan (Valsartan 160 Mg Tablet) 160 mg PO DAILY [facility] Last Admin: 09/23/21 08:09 Dose: Not Given Documented by: <Trina Humphreys PA-C - Last Filed: 09/23/21 18:14> Home medications: Home Medications Medication Instructions Recorded Confirmed Last Taken Type levothyroxine 50 mcg tablet 50 mcg PO DAILY 09/18/20 09/22/21 09/22/21 09:00 History metoprolol succinate 50 mg 50 mg PO DAILY 09/18/20 09/22/21 09/22/21 09:00 History tablet,extended release 24 hr pravastatin 40 mg tablet 40 mg PO DAILY 09/18/20 09/22/21 09/22/21 09:00 History amlodipine 5 mg tablet 5 mg PO QPM tab 08/09/21 09/22/21 09/21/21 20:00 History furosemide 20 mg tablet 40 mg PO DAILY tab 08/09/21 09/22/21 09/22/21 09:00 History warfarin 3 mg tablet 1.5 mg PO SUMOTUWEFRSA 09/22/21 09/22/21 09/21/21 20:00 History <Trina Humphreys PA-C - Last Filed: 09/23/21 18:14> Physical Exam Vital Signs: Vital Signs: Last Vital Signs Temp 98.5 F 09/23/21 12:15 Pulse 65 09/23/21 12:15 Resp 18 09/23/21 12:15 BP 112/52 L 09/23/21 12:15 Pulse Ox 95 09/23/21 12:15 BMI result Body Mass Index 23.6 <Trina Humphreys PA-C - Last Filed: 09/23/21 18:14> Const: General: cooperative, healthy appearing, comfortable and no acute distr ess <Trina Humphreys PA-C - Last Filed: 09/23/21 18:14> Extrem: Other: Left hip skin intact, no wounds or lacerations. Pain with loge roll, unable to straight leg raise, short and ER. Pulses present. <Trina Humphreys PA-C - Last Filed: 09/23/21 18:14> Results Labs Result Diagrams: : 09/24/21 06:24 09/24/21 06:24 <Trina Humphreys PA-C - Last Filed: 09/23/21 18:14> Labs: Abnormal lab results 09/22/21 09/22/21 09/22/21 Range/Units 20:53 20:53 20:53 RBC (4.20-5.50) X10*6/uL Hgb (12.0-16.0) g/dl Hct (37.0-47.0) % MCH 33.2 H (27.0-33.0) pg Plt Count (160-400) X10*3/uL Immature Gran % (Auto) 1.2 H (0.0-0.4) % Neut % (Auto) 77.2 H (45-73) % Lymph % (Auto) 8.1 L (20-40) % [place] % (Auto) 11.7 H (2-11) % Lymph # (Auto) 0.6 L (1.2-4.9) X10*3/uL Abs Immat Gran (auto) 0.09 H (0.00-0.03) X10*3/uL PT 49.5 H (9.9-13.0) SEC INR 4.2 H (0.9-1.1) APTT 45.8 H (24.1-38.0) SEC Carbon Dioxide (22-29) mmol/L Anion Gap (12-20) BUN 27 H (9-16) mg/dL Random Glucose 135 H (60-115) mg/dL Ur Specific [place] (1.005-1.025) 09/22/21 09/23/21 09/23/21 Range/Units 22:44 05:50 05:50 RBC 3.66 L (4.20-5.50) X10*6/uL Hgb 11.9 L (12.0-16.0) g/dl Hct 35.7 L (37.0-47.0) % MCH (27.0-33.0) pg Plt Count 137 L (160-400) X10*3/uL Immature Gran % (Auto) 0.5 H (0.0-0.4) % Neut % (Auto) 80.6 H (45-73) % Lymph % (Auto) 7.6 L (20-40) % [place] % (Auto) (2-11) % Lymph # (Auto) 0.7 L (1.2-4.9) X10*3/uL Abs Immat Gran (auto) 0.05 H (0.00-0.03) X10*3/uL PT (9.9-13.0) SEC INR (0.9-1.1) APTT (24.1-38.0) SEC Carbon Dioxide 30 H (22-29) mmol/L Anion Gap 9 L (12-20) BUN 23 H (9-16) mg/dL Random Glucose (60-115) mg/dL Ur Specific [place] >= 1.030 H (1.005-1.025) 09/23/21 Range/Units 05:50 RBC (4.20-5.50) X10*6/uL Hgb (12.0-16.0) g/dl Hct (37.0-47.0) % MCH (27.0-33.0) pg Plt Count (160-400) X10*3/uL Immature Gran % (Auto) (0.0-0.4) % Neut % (Auto) (45-73) % Lymph % (Auto) (20-40) % [place] % (Auto) (2-11) % Lymph # (Auto) (1.2-4.9) X10*3/uL Abs Immat Gran (auto) (0.00-0.03) X10*3/uL PT 24.8 H (9.9-13.0) SEC INR 2.1 H D (0.9-1.1) APTT (24.1-38.0) SEC Carbon Dioxide (22-29) mmol/L Anion Gap (12-20) BUN (9-16) mg/dL Random Glucose (60-115) mg/dL Ur Specific [place] (1.005-1.025) H & H 09/22/21 09/23/21 Range/Units 20:53 05:50 Hgb 14.0 11.9 L (12.0-16.0) g/dl Hct 41.2 35.7 L (37.0-47.0) % Coagulation 09/22/21 09/23/21 Range/Units 20:53 05:50 INR 4.2 H 2.1 H D (0.9-1.1) All other labs normal. <Trina Humphreys PA-C - Last Filed: 09/23/21 18:14> Assessment and Plan (1) Intertrochanteric fracture of left femur: Status: Acute <JAELYN Roberts Last Filed: 09/23/21 18:14> I discussed the case with Dr Ambrose and explained the extent of the injury to the patient and options available which include surgical intervention. I explained the procedure in detail along with the length of recovery and rehab course. I explained the risk, benefits and alternatives. Risk including, but not limited to infection, blood clots, bleeding, non union or malunion and nerve/tissue damage to surrounding areas. I answered all their questions and with their understanding they have consented to move forward with Operative Fix ation of the left hip . The patient will be T&S, med clearance obtained and NPO after midnight. Currently her INR is 2.1 and this will need to be reversed with a goal of 1.2 <JAELYN Roberts Last Filed: 09/23/21 18:14> Procedures Date of Service Date of Service: 09/23/21 <JAELYN Roberts Last Filed: 09/23/21 18:14>
--- NOTE | 2021-09-23 16:07 | P.PNIM_ITS ---
Subjective Subjective Date of Service: 09/23/21 Interval History: no acute distress; comfortable on current therapy Review of Systems denies chest pain Denies shortness of breath Denies nausea vomiting diarrhea Physical Exam Vital Signs: Vital Signs: Last Vital Signs Temp 98.5 F 09/23/21 12:15 Pulse 65 09/23/21 12:15 Resp 18 09/23/21 12:15 BP 112/52 L 09/23/21 12:15 Pulse Ox 95 09/23/21 12:15 BMI result Body Mass Index 23.6 Const: Other: awake alert no acute distress Resp: Other: clear to auscultation bilaterally. No rales rhonchi or wheezes Cardio: Other: no S4; positive S1-S2 no 2/6 systolic murmur GI: Other: soft positive bowel sounds x4 quadrants Extrem: Other: left hip tender to palpation minimal range of motion. No edema bilaterally Objective Data Active Medications Acetaminophen (Acetaminophen 325 Mg Tablet) 650 mg PO Q6H PRN PRN Reason: Pain, Mild (Pain Scale 1-3) Amiodarone HCl (Amiodarone Hcl 200 Mg Tablet) 200 mg PO DAILY [facility] Last Admin: 09/23/21 08:08 Dose: Not Given Documented by: SALLIE Non-Admin Reason: NPO Amlodipine Besylate (Amlodipine Besylate 5 Mg Tablet) 5 mg PO BEDTIME [facility]; Protocol Last Admin: 09/22/21 22:43 Dose: 5 mg Documented by: MARA Docusate Sodium (Docusate Sodium 100 Mg Capsule) 100 mg PO BID [facility] Last Admin: 09/23/21 08:08 Dose: Not Given Documented by: SALLIE Non-Admin Reason: NPO Furosemide (Furosemide 20 Mg Tablet) 40 mg PO DAILY [facility]; Protocol Last Admin: 09/23/21 08:09 Dose: Not Given Documented by: SALLIE Non-Admin Reason: NPO Hydromorphone HCl (Hydromorphone Hcl 0.5 Mg/0.5 Ml Syringe) 0.5 mg IVPUSH Q4H PRN; Protocol PRN Reason: Pain, Severe (Pain Scale 7-10) Levothyroxine Sodium (Levothyroxine Sodium 50 Mcg Tablet) 50 mcg PO DAILY@0600 [facility] Last Admin: 09/23/21 08:08 Dose: Not Given Documented by: SALLIE Non-Admin Reason: NPO Melatonin (Melatonin 3 Mg Tablet) 6 mg PO BEDTIME PRN PRN Reason: Insomnia Metoprolol Succinate (Metoprolol Succinate Er 50 Mg Tab.Er.24h) 50 mg PO DAILY [facility]; Protocol Last Admin: 09/23/21 08:09 Dose: Not Given Documented by: SALLIE Non-Admin Reason: NPO Pravastatin Sodium (Pravastatin Sodium 40 Mg Tablet) 40 mg PO BEDTIME [facility] Senna (Sennosides 8.6 Mg Tablet) 17.2 mg PO BEDTIME PRN PRN Reason: Constipation Sodium Chloride (0.9 % Sodium Chloride Flush 3 Ml Syringe) 3 ml IVFLUSH QSHIFT [facility] Last Admin: 09/23/21 08:08 Dose: Not Given Documented by: SALLIE Non-Admin Reason: IV Running Valsartan (Valsartan 160 Mg Tablet) 160 mg PO DAILY [facility] Last Admin: 09/23/21 08:09 Dose: Not Given Documented by: SALLIE Non-Admin Reason: NPO Labs CBC & Chem 7: 09/23/21 05:50 09/23/21 05:50 Labs: Laboratory Results - last 24 hr 09/22/21 09/22/21 09/22/21 20:53 20:53 20:53 MCV 97.6 MCH 33.2 H MCHC 34.0 RDW 14.3 Plt Count 172 MPV 11.2 Immature Gran % (Auto) 1.2 H Neut % (Auto) 77.2 H Lymph % (Auto) 8.1 L [place] % (Auto) 11.7 H Eos % (Auto) 1.0 Baso % (Auto) 0.8 Lymph # (Auto) 0.6 L [place] # (Auto) 0.9 Eos # (Auto) 0.1 Baso # (Auto) 0.1 Abs Immat Gran (auto) 0.09 H Absolute Neuts (auto) 6.0 Absolute Nucleated RBC 0.000 Nucleated RBC % (auto) 0.0 PT INR APTT Anion Gap 13 Estim Creat Clear Calc 32.1 Estimated GFR 39 Random Glucose 135 H Calcium 9.5 Troponin I High Sens Urine Color Urine Appearance Urine pH Ur Specific [place] Urine Protein Urine Glucose (UA) Urine Ketones Urine Blood Urine Nitrite Ur Leukocyte Esterase COVID-19 (SHAWNEE) Negative COVID-19 Clin Com See Note 09/22/21 09/22/21 09/22/21 20:53 20:53 22:44 MCV MCH MCHC RDW Plt Count MPV Immature Gran % (Auto) Neut % (Auto) Lymph % (Auto) [place] % (Auto) Eos % (Auto) Baso % (Auto) Lymph # (Auto) [place] # (Auto) Eos # (Auto) Baso # (Auto) Abs Immat Gran (auto) Absolute Neuts (auto) Absolute Nucleated RBC Nucleated RBC % (auto) PT 49.5 H INR 4.2 H APTT 45.8 H Anion Gap Estim Creat Clear Calc Estimated GFR Random Glucose Calcium Troponin I High Sens 8.9 Urine Color YELLOW Urine Appearance CLEAR Urine pH 6.0 Ur Specific [place] >= 1.030 H Urine Protein TRACE Urine Glucose (UA) NEG Urine Ketones 15 Urine Blood NEG Urine Nitrite NEG Ur Leukocyte Esterase NEG COVID-19 (SHAWNEE) COVID-19 [facility] Com 09/23/21 09/23/21 09/23/21 05:50 05:50 05:50 MCV 97.5 MCH 32.5 MCHC 33.3 RDW 14.1 Plt Count 137 L MPV 11.4 Immature Gran % (Auto) 0.5 H Neut % (Auto) 80.6 H Lymph % (Auto) 7.6 L [place] % (Auto) 10.6 Eos % (Auto) 0.3 Baso % (Auto) 0.4 Lymph # (Auto) 0.7 L [place] # (Auto) 1.0 Eos # (Auto) 0.0 Baso # (Auto) 0.0 Abs Immat Gran (auto) 0.05 H Absolute Neuts (auto) 7.6 Absolute Nucleated RBC 0.000 Nucleated RBC % (auto) 0.0 PT 24.8 H INR 2.1 H D APTT Anion Gap 9 L Estim Creat Clear Calc 47.6 Estimated GFR > 60 Random Glucose 97 Calcium 8.8 D Troponin I High Sens Urine Color Urine Appearance Urine pH Ur Specific [place] Urine Protein Urine Glucose (UA) Urine Ketones Urine Blood Urine Nitrite Ur Leukocyte Esterase COVID-19 (SHAWNEE) COVID-19 Clin Com Assessment and Plan (1) Intertrochanteric fracture of left femur: Status: Acute (2) Aortic stenosis: Status: Acute (3) Chronic heart failure with preserved ejection fraction (HFpEF): Status: Acute (4) Paroxysmal atrial fibrillation: Status: Acute Assessment and Plan: 85-year-old female with a past history of hypertension, hyperlipidemia, atrial fibrillation on Coumadin, orthostatic hypertension, aortic stenosis, tricuspid regurgitation, history of sick sinus syndrome status post cardiac pacemaker, pulmonary hypertension, history of osteoarthritis, history of left knee replacement presented to the hospital today with a chief complaint of fall. workup consistent with left displaced femoral fracture 1. Left Femoral Fracture Ortho notes reviewed...NPO after midnoc 2.Afib ...INR elevated on admit. Vit K in ER. INR 2. today. Coumadin held Vit K 2.5mg now. INR in am 3.HFpEF Optimized per cardiology: Post HCT >30 No diuretics until post op. Caution with fluids. Restart Coumadin post op. Likely need Lovenox bridge secondary to parmjit for reversal with Vit K 4. HTN Hold lasix...continue current therapies. Hold amlodipin tonight. Full Code Quality Stroke Does the patient have a stroke diagnosis?: No VTE Prior VTE?: No VTE Risk Level:: Medical - moderate - high VTE Device Contraindication: N/A - Device Ordered VTE Drug Contraindication: Treatment Not Indicated
[2021-09-23] MEDS: Phytonadione (Vit K1) Oral 10 MG/ML AMPUL 2.5 MG PO (20:17)
[2021-09-23] MEDS: HYDROmorphone HCl 0.5 MG/0.5 ML SYRINGE IVPUSH (20:20)
[2021-09-23] MEDS: Docusate Sodium 100 MG CAPSULE PO (21:11)
[2021-09-23] MEDS: Pravastatin Sodium 40 MG TABLET PO (21:11)
[2021-09-23] MEDS: amLODIPine Besylate 5 MG TABLET PO (21:11)
[2021-09-23] MEDS: 0.9 % Sodium Chloride Flush 3 ML SYRINGE IVFLUSH (21:12)
[2021-09-24] VITALS (17 sets, daily range): BP systolic 96–138; BP diastolic 46–66; PULSE 60–80; RESP 16–20; TEMP 36.1–37.7; O2SAT 90–98
[2021-09-24] MEDS: Levothyroxine Sodium 50 MCG TABLET PO (05:39)
[2021-09-24 07:07] LABS: Basophils Percent Auto 0.3 % (0-2); Eosinophils Percent Auto 0.1 % (0-4); Hematocrit 33.6 % (37.0-47.0); Hemoglobin 11.3 g/dl (12.0-16.0); Imm Gran Abs Auto 0.06 X10*3/uL (0.00-0.03); Imm Gran Pct Auto 0.5 % (0.0-0.4); Lymphocytes Absolute Auto 0.5 X10*3/uL (1.2-4.9); Lymphocytes Percent Auto 4.1 % (20-40); MANUAL DIFF FLAG SCAN; Mean Corpuscular HGB Conc 33.6 g/dl (31.0-35.0); Mean Corpuscular Hemoglobin 33.1 pg (27.0-33.0); Mean Corpuscular Volume 98.5 fL (80.0-98.0); Mean Platelet Volume 11.9 fL (9.4-12.3); Monocytes Absolute Auto 1.6 X10*3/uL (0.1-1.2); Neutrophils Absolute Auto 9.4 x10*3/uL (2.0-8.3); Platelet Count 119 X10*3/uL (160-400); Red Blood Count 3.41 X10*6/uL (4.20-5.50); Red Cell Distribution Width 14.5 % (11.0-16.0); SCAN SMEAR FLAG 1; White Blood Count 11.6 X10*3/uL (4.8-10.8)
[2021-09-24 07:13] LABS: INTERNATIONAL NORM RATIO 1.2 (0.9-1.1); Prothrombin Time 13.2 SEC (9.9-13.0)
[2021-09-24 07:29] LABS: Alanine Aminotransferase 18 U/L (0-31); Albumin Level 3.1 g/dL (3.5-5.0); Alkaline Phosphatase 61 U/L (39-117); Anion Gap 11 (12-20); Aspartate Amino Transferase 25 U/L (5-31); Bilirubin Total 1.2 mg/dL (0.0-1.0); Blood Urea Nitrogen 24 mg/dL (9-16); Calcium 8.4 mg/dL (8.4-10.2); Carbon Dioxide 27 mmol/L (22-29); Chloride 103 mmol/L (96-108); Creatinine Clr Calc Pharmacy 54.5; Estimated Glomerular Filt Rate > 60; Glucose Fasting 112 mg/dL (60-99); Potassium 4.2 mmol/L (3.3-5.1); Sodium 137 mmol/L (135-145); Total Protein 5.4 g/dL (6.5-8.0)
[2021-09-24 07:44] LABS: SLIDE REVIEW VERIFIED
[2021-09-24] MEDS: 0.9 % Sodium Chloride Flush 3 ML SYRINGE IVFLUSH ×2 (07:49→20:35)
[2021-09-24] MEDS: Amiodarone HCL 200 MG TABLET PO (08:10)
[2021-09-24] MEDS: Metoprolol Succinate ER 50 MG TAB.ER.24H PO (08:10)
--- NOTE | 2021-09-24 12:23 | P.PNCA_ITS ---
Subjective Subjective Date of Service: 09/24/21 Principal diagnosis: Paroxysmal atrial fibrillation, heart failure Interval history: Patient presents with no cardiac symptoms. Continues to have discomfort at the hip fracture site. No overt symptoms of CHF. No overnight atrial fibrillation Review of Systems Review of Systems Yes all other systems are reviewed and are negative Physical Exam Vital Signs: Last Vital Signs Temp 98.8 F 09/24/21 11:12 Pulse 63 09/24/21 11:12 Resp 20 09/24/21 11:12 BP 107/56 L 09/24/21 11:12 Pulse Ox 92 09/24/21 11:12 BMI result Body Mass Index 24.5 Const General: cooperative, comfortable, no acute distress, alert and awake Nutritional Appearance: average body habitus Orientation/consciousness: patient oriented x3 Neck Neck: Yes trachea midline, Yes supple and Yes no JVD Resp Effort & Inspection: decreased respiratory effort Auscultation: clear to auscultation bilaterally Cardio Jugular venous distension: no JVD Rate: regular rate Rhythm: regular rhythm Heart sounds: S1 normal heart sound present, S2 normal heart sound present, no click, no gallops and Murmur heart sound present systolic Neuro General: patient oriented x3 and no focal motor deficits Extrem General: Yes no clubbing, cyanosis or edema Objective Labs and Meds Result diagrams: 09/24/21 06:24 09/24/21 06:24 Lab results: Laboratory Results - last 24 hr 09/23/21 09/24/21 09/24/21 16:20 06:24 06:24 WBC 11.6 H RBC 3.41 L Hgb 11.3 L Hct 33.6 L MCV 98.5 H MCH 33.1 H MCHC 33.6 RDW 14.5 Plt Count 119 L MPV 11.9 Immature Gran % (Auto) 0.5 H Neut % (Auto) 81.0 H Lymph % (Auto) 4.1 L [place] % (Auto) 14.0 H Eos % (Auto) 0.1 Baso % (Auto) 0.3 Lymph # (Auto) 0.5 L [place] # (Auto) 1.6 H Eos # (Auto) 0.0 Baso # (Auto) 0.0 Abs Immat Gran (auto) 0.06 H Absolute Neuts (auto) 9.4 H Absolute Nucleated RBC 0.000 Nucleated RBC % (auto) 0.0 Smear Tech's Comments VERIFIED PT 13.2 H INR 1.2 H Sodium Potassium Chloride Carbon Dioxide Anion Gap BUN Creatinine Estim Creat Clear Calc Estimated GFR Fasting Glucose Calcium Total Bilirubin AST ALT Alkaline Phosphatase Total Protein Albumin Blood Type A Positive Antibody Screen NEGATIVE 09/24/21 06:24 WBC RBC Hgb Hct MCV MCH MCHC RDW Plt Count MPV Immature Gran % (Auto) Neut % (Auto) Lymph % (Auto) [place] % (Auto) Eos % (Auto) Baso % (Auto) Lymph # (Auto) [place] # (Auto) Eos # (Auto) Baso # (Auto) Abs Immat Gran (auto) Absolute Neuts (auto) Absolute Nucleated RBC Nucleated RBC % (auto) Smear Tech's Comments PT INR Sodium 137 Potassium 4.2 Chloride 103 Carbon Dioxide 27 Anion Gap 11 L BUN 24 H Creatinine 0.76 Estim Creat Clear Calc 54.5 Estimated GFR > 60 Fasting Glucose 112 H Calcium 8.4 Total Bilirubin 1.2 H AST 25 ALT 18 Alkaline Phosphatase 61 D Total Protein 5.4 L D Albumin 3.1 L D Blood Type Antibody Screen Progress Note: A&P Assessment and plan (1) Preoperative cardiovascular examination: Status: Acute Assessment and Plan: Preoperative cardiovascular risk stratification as yesterday. Patient remained stable without any overt signs of heart failure any new symptoms. Risk remains similar as assessed yesterday. Continue to monitor closely hemodynamically through the surgery as well as in postoperative time. Avoid sudden fluid shifts. (2) Paroxysmal atrial fibrillation: Status: Acute Assessment and Plan: Atrial fibrillation remained suppressed on amiodarone therapy. Continue the same. Resume oral anticoagulation as soon as possible post surgically and may need bridging with parenteral heparin products given that she receive vitamin K. (3) Cardiac pacemaker in situ: Status: Acute Assessment and Plan: Cardiac pacemaker in-situ appears to be working appropriately. Will continue to follow with you Fall Risk Details Current Medications: Current Medications Acetaminophen (Acetaminophen 325 Mg Tablet) 650 mg PO Q6H PRN PRN Reason: Pain, Mild (Pain Scale 1-3) Amiodarone HCl (Amiodarone Hcl 200 Mg Tablet) 200 mg PO DAILY [facility] Last Admin: 09/24/21 08:10 Dose: 200 mg Documented by: Amlodipine Besylate (Amlodipine Besylate 5 Mg Tablet) 5 mg PO BEDTIME [facility]; Protocol Last Admin: 09/23/21 21:11 Dose: 5 mg Documented by: Docusate Sodium (Docusate Sodium 100 Mg Capsule) 100 mg PO BID [facility] Last Admin: 09/24/21 08:12 Dose: Not Given Documented by: Hydromorphone HCl (Hydromorphone Hcl 0.5 Mg/0.5 Ml Syringe) 0.5 mg IVPUSH Q4H PRN; Protocol PRN Reason: Pain, Severe (Pain Scale 7-10) Last Admin: 09/23/21 20:20 Dose: 0.5 mg Documented by: Levothyroxine Sodium (Levothyroxine Sodium 50 Mcg Tablet) 50 mcg PO DAILY@0600 [facility] Last Admin: 09/24/21 05:39 Dose: 50 mcg Documented by: Melatonin (Melatonin 3 Mg Tablet) 6 mg PO BEDTIME PRN PRN Reason: Insomnia Metoprolol Succinate (Metoprolol Succinate Er 50 Mg Tab.Er.24h) 50 mg PO DAILY [facility]; Protocol Last Admin: 09/24/21 08:10 Dose: 50 mg Documented by: Pravastatin Sodium (Pravastatin Sodium 40 Mg Tablet) 40 mg PO BEDTIME [facility] Last Admin: 09/23/21 21:11 Dose: 40 mg Documented by: Senna (Sennosides 8.6 Mg Tablet) 17.2 mg PO BEDTIME PRN PRN Reason: Constipation Sodium Chloride (0.9 % Sodium Chloride Flush 3 Ml Syringe) 3 ml IVFLUSH QSHIFT [facility] Last Admin: 09/24/21 07:49 Dose: 3 ml Documented by: Valsartan (Valsartan 160 Mg Tablet) 160 mg PO DAILY [facility] Last Admin: 09/24/21 08:12 Dose: Not Given Documented by: Time Spent With Patient Time: Total time spent is greater than 50% in coordination of care (as documented) at patient's floor/unit and/or counseling patient: Time with patient: 15 - 24 minutes Progress Note: Quality Stroke Does the patient have a stroke diagnosis?: No Procedures Date of Service Date of Service: 09/24/21
--- NOTE | 2021-09-24 14:50 | HO.ANESPROP2 ---
HPI - Anesthesia Eval Consult details Narrative: 85 F for IM nailing . multiple comorbidites including pulmonary hypertension , moderate to severe Aortic Stenosis , sick sinus , diastolic dysfuction , paraoxysomal A fib . patient is pacemaker dependent . Seen by cardiology , moderate to high risk . explained to patient she is Very High risk given all these co morbidities . patient verbalised understanding of risks . [facility] Active Problems Active Problems: All Active Problems (Updated 09/23/21 @ 18:12 by Trina Humphreys PA-C) Intertrochanteric fracture of left femur (Acute) Preoperative cardiovascular examination (Acute) Hip fracture (Acute) Femur fracture (Acute) Orthostatic hypotension (Acute) Repeated falls (Acute) Aortic stenosis (Acute) SOB (shortness of breath) on exertion (Acute) Chronic heart failure with preserved ejection fraction (HFpEF) (Acute) Paroxysmal atrial fibrillation (Acute) Sick sinus syndrome (Acute) Cardiac pacemaker in situ (Acute) Enlarged RV (right ventricle) (Acute) Tricuspid regurgitation (Acute) Pulmonary hypertension (Acute) HTN (hypertension) (Acute) Current use of anticoagulant therapy (Acute) Past Medical History Medical History (Updated 09/23/21 @ 18:12 by Trina Humphreys PA-C) Aortic stenosis Cardiac pacemaker in situ Chronic heart failure with preserved ejection fraction (HFpEF) Enlarged RV (right ventricle) HTN (hypertension) Paroxysmal atrial fibrillation Presence of total left knee joint prosthesis Pulmonary hypertension Sick sinus syndrome Tricuspid regurgitation Family History Family History Father No problems noted. Mother Cancer Family history of problems with anesthesia: No Surgical History Surgical History (Updated 09/23/21 @ 18:13 by Trina Humphreys PA-C) History of permanent cardiac pacemaker placement History of total left knee replacement History of total right hip replacement Hx of knee surgery History of Problems with Anesthesia: Yes (Delayed emergence ) Social History Social History Household Members: None Housing: Other Housing Other:: house Do you presently have visiting nurse or other home services: No Patient Tobacco Use Status: Never used Tobacco e-Cigarette/Vaping Use: Never Used service: No Current occupational status: retired Meds Allergies Allergy/AdvReac Type Severity Reaction Status Date / Time moxifloxacin [From Avelox] AdvReac Unknown DIARRHEA Verified 09/12/21 09:24 Active Medications: Current Medications Acetaminophen (Acetaminophen 325 Mg Tablet) 650 mg PO Q6H PRN PRN Reason: Pain, Mild (Pain Scale 1-3) Amiodarone HCl (Amiodarone Hcl 200 Mg Tablet) 200 mg PO DAILY [facility] Last Admin: 09/24/21 08:10 Dose: 200 mg Documented by: Amlodipine Besylate (Amlodipine Besylate 5 Mg Tablet) 5 mg PO BEDTIME [facility]; Protocol Last Admin: 09/23/21 21:11 Dose: 5 mg Documented by: Docusate Sodium (Docusate Sodium 100 Mg Capsule) 100 mg PO BID [facility] Last Admin: 09/24/21 08:12 Dose: Not Given Documented by: Hydromorphone HCl (Hydromorphone Hcl 0.5 Mg/0.5 Ml Syringe) 0.5 mg IVPUSH Q4H PRN; Protocol PRN Reason: Pain, Severe (Pain Scale 7-10) Last Admin: 09/23/21 20:20 Dose: 0.5 mg Documented by: Levothyroxine Sodium (Levothyroxine Sodium 50 Mcg Tablet) 50 mcg PO DAILY@0600 [facility] Last Admin: 09/24/21 05:39 Dose: 50 mcg Documented by: Melatonin (Melatonin 3 Mg Tablet) 6 mg PO BEDTIME PRN PRN Reason: Insomnia Metoprolol Succinate (Metoprolol Succinate Er 50 Mg Tab.Er.24h) 50 mg PO DAILY [facility]; Protocol Last Admin: 09/24/21 08:10 Dose: 50 mg Documented by: Pravastatin Sodium (Pravastatin Sodium 40 Mg Tablet) 40 mg PO BEDTIME [facility] Last Admin: 09/23/21 21:11 Dose: 40 mg Documented by: Senna (Sennosides 8.6 Mg Tablet) 17.2 mg PO BEDTIME PRN PRN Reason: Constipation Sodium Chloride (0.9 % Sodium Chloride Flush 3 Ml Syringe) 3 ml IVFLUSH QSHIFT [facility] Last Admin: 09/24/21 07:49 Dose: 3 ml Documented by: Valsartan (Valsartan 160 Mg Tablet) 160 mg PO DAILY [facility] Last Admin: 09/24/21 08:12 Dose: Not Given Documented by: Home Medications Medication Instructions Recorded Confirmed Last Taken Type levothyroxine 50 mcg tablet 50 mcg PO DAILY 09/18/20 09/22/21 09/22/21 09:00 History metoprolol succinate 50 mg 50 mg PO DAILY 09/18/20 09/22/21 09/22/21 09:00 History tablet,extended release 24 hr pravastatin 40 mg tablet 40 mg PO DAILY 09/18/20 09/22/21 09/22/21 09:00 History amlodipine 5 mg tablet 5 mg PO QPM tab 08/09/21 09/22/21 09/21/21 20:00 History furosemide 20 mg tablet 40 mg PO DAILY tab 08/09/21 09/22/21 09/22/21 09:00 History warfarin 3 mg tablet 1.5 mg PO SUMOTUWEFRSA 09/22/21 09/22/21 09/21/21 20:00 History Exam Exam Date and Time: 2020 Height,Weight and Vital Signs: Height 5 ft 7 in Weight 71.1 kg Last Vital Signs Temp 98.2 F 09/24/21 13:02 Pulse 60 09/24/21 13:02 Resp 17 09/24/21 13:02 BP 138/66 09/24/21 13:02 Pulse Ox 93 09/24/21 13:02 Pertinent Lab Results Pertinent Lab Results: Laboratory Tests 09/22/21 09/22/21 09/22/21 20:53 20:53 20:53 WBC 7.7 RBC 4.22 Hgb 14.0 Hct 41.2 MCV 97.6 MCH 33.2 H MCHC 34.0 RDW 14.3 Plt Count 172 MPV 11.2 Immature Gran % (Auto) 1.2 H Neut % (Auto) 77.2 H Lymph % (Auto) 8.1 L [place] % (Auto) 11.7 H Eos % (Auto) 1.0 Baso % (Auto) 0.8 Lymph # (Auto) 0.6 L [place] # (Auto) 0.9 Eos # (Auto) 0.1 Baso # (Auto) 0.1 Abs Immat Gran (auto) 0.09 H Absolute Neuts (auto) 6.0 Absolute Nucleated RBC 0.000 Nucleated RBC % (auto) 0.0 Smear Tech's Comments PT INR APTT Sodium 139 Potassium 4.1 Chloride 102 Carbon Dioxide 28 Anion Gap 13 BUN 27 H Creatinine 1.29 Estim Creat Clear Calc 32.1 Estimated GFR 39 Random Glucose 135 H Fasting Glucose Calcium 9.5 Total Bilirubin AST ALT Alkaline Phosphatase Troponin I High Sens Total Protein Albumin Urine Color Urine Appearance Urine pH Ur Specific [place] Urine Protein Urine Glucose (UA) Urine Ketones Urine Blood Urine Nitrite Ur Leukocyte Esterase COVID-19 (SHAWNEE) Negative COVID-19 Clin Com See Note Blood Type Antibody Screen 09/22/21 09/22/21 09/22/21 20:53 20:53 22:44 WBC RBC Hgb Hct MCV MCH MCHC RDW Plt Count MPV Immature Gran % (Auto) Neut % (Auto) Lymph % (Auto) [place] % (Auto) Eos % (Auto) Baso % (Auto) Lymph # (Auto) [place] # (Auto) Eos # (Auto) Baso # (Auto) Abs Immat Gran (auto) Absolute Neuts (auto) Absolute Nucleated RBC Nucleated RBC % (auto) Smear Tech's Comments PT 49.5 H INR 4.2 H APTT 45.8 H Sodium Potassium Chloride Carbon Dioxide Anion Gap BUN Creatinine Estim Creat Clear Calc Estimated GFR Random Glucose Fasting Glucose Calcium Total Bilirubin AST ALT Alkaline Phosphatase Troponin I High Sens 8.9 Total Protein Albumin Urine Color YELLOW Urine Appearance CLEAR Urine pH 6.0 Ur Specific [place] >= 1.030 H Urine Protein TRACE Urine Glucose (UA) NEG Urine Ketones 15 Urine Blood NEG Urine Nitrite NEG Ur Leukocyte Esterase NEG COVID-19 (SHAWNEE) COVID-19 Clin Com Blood Type Antibody Screen 09/23/21 09/23/21 09/23/21 05:50 05:50 05:50 WBC 9.5 RBC 3.66 L Hgb 11.9 L Hct 35.7 L MCV 97.5 MCH 32.5 MCHC 33.3 RDW 14.1 Plt Count 137 L MPV 11.4 Immature Gran % (Auto) 0.5 H Neut % (Auto) 80.6 H Lymph % (Auto) 7.6 L [place] % (Auto) 10.6 Eos % (Auto) 0.3 Baso % (Auto) 0.4 Lymph # (Auto) 0.7 L [place] # (Auto) 1.0 Eos # (Auto) 0.0 Baso # (Auto) 0.0 Abs Immat Gran (auto) 0.05 H Absolute Neuts (auto) 7.6 Absolute Nucleated RBC 0.000 Nucleated RBC % (auto) 0.0 Smear Tech's Comments PT 24.8 H INR 2.1 H D APTT Sodium 139 Potassium 4.2 Chloride 104 Carbon Dioxide 30 H Anion Gap 9 L BUN 23 H Creatinine 0.87 Estim Creat Clear Calc 47.6 Estimated GFR > 60 Random Glucose 97 Fasting Glucose Calcium 8.8 D Total Bilirubin AST ALT Alkaline Phosphatase Troponin I High Sens Total Protein Albumin Urine Color Urine Appearance Urine pH Ur Specific [place] Urine Protein Urine Glucose (UA) Urine Ketones Urine Blood Urine Nitrite Ur Leukocyte Esterase COVID-19 (SHAWNEE) COVID-19 Clin Com Blood Type Antibody Screen 09/23/21 09/24/21 09/24/21 16:20 06:24 06:24 WBC 11.6 H RBC 3.41 L Hgb 11.3 L Hct 33.6 L MCV 98.5 H MCH 33.1 H MCHC 33.6 RDW 14.5 Plt Count 119 L MPV 11.9 Immature Gran % (Auto) 0.5 H Neut % (Auto) 81.0 H Lymph % (Auto) 4.1 L [place] % (Auto) 14.0 H Eos % (Auto) 0.1 Baso % (Auto) 0.3 Lymph # (Auto) 0.5 L [place] # (Auto) 1.6 H Eos # (Auto) 0.0 Baso # (Auto) 0.0 Abs Immat Gran (auto) 0.06 H Absolute Neuts (auto) 9.4 H Absolute Nucleated RBC 0.000 Nucleated RBC % (auto) 0.0 Smear Tech's Comments VERIFIED PT 13.2 H INR 1.2 H APTT Sodium Potassium Chloride Carbon Dioxide Anion Gap BUN Creatinine Estim Creat Clear Calc Estimated GFR Random Glucose Fasting Glucose Calcium Total Bilirubin AST ALT Alkaline Phosphatase Troponin I High Sens Total Protein Albumin Urine Color Urine Appearance Urine pH Ur Specific [place] Urine Protein Urine Glucose (UA) Urine Ketones Urine Blood Urine Nitrite Ur Leukocyte Esterase COVID-19 (SHAWNEE) COVID-19 [facility] Com Blood Type A Positive Antibody Screen NEGATIVE 09/24/21 06:24 WBC RBC Hgb Hct MCV MCH MCHC RDW Plt Count MPV Immature Gran % (Auto) Neut % (Auto) Lymph % (Auto) [place] % (Auto) Eos % (Auto) Baso % (Auto) Lymph # (Auto) [place] # (Auto) Eos # (Auto) Baso # (Auto) Abs Immat Gran (auto) Absolute Neuts (auto) Absolute Nucleated RBC Nucleated RBC % (auto) Smear Tech's Comments PT INR APTT Sodium 137 Potassium 4.2 Chloride 103 Carbon Dioxide 27 Anion Gap 11 L BUN 24 H Creatinine 0.76 Estim Creat Clear Calc 54.5 Estimated GFR > 60 Random Glucose Fasting Glucose 112 H Calcium 8.4 Total Bilirubin 1.2 H AST 25 ALT 18 Alkaline Phosphatase 61 D Troponin I High Sens Total Protein 5.4 L D Albumin 3.1 L D Urine Color Urine Appearance Urine pH Ur Specific [place] Urine Protein Urine Glucose (UA) Urine Ketones Urine Blood Urine Nitrite Ur Leukocyte Esterase COVID-19 (SHAWNEE) COVID-19 Clin Com Blood Type Antibody Screen Airway Mallampati Class: III TM Dist: >3cm Neck ROM: Full Partial: Upper Loose/Missing/Broken Teeth: Yes Heart: paced Lungs: bl breath sounds Assessment and Plan Final Anesthetic Review Family History of Problems with Anesthesia: No History of Problems with Anesthesia: Yes (Delayed emergence ) NPO: Yes ASA Class: IV Final Preanesthetic Review: Meds/Allgs Chart Reviewed and Anes Risks/Benef Reviewed Patient Risk: High Procedure Risk: Intermediate Anesthetic Plan Anesthetic Plan: GA Disposition: Standard PACU
--- NOTE | 2021-09-24 15:03 | MHC.SHP ---
Pre-Procedural Eval Section A Date of Service: 09/24/21 The patient is an INPATIENT: No Changes since office visit: Yes Patient answered all questions; No Cold of Flu in the past 2 weeks, No New Medical Problems and No Changes in Medication The History & Physical has been completed within 30 days and I have reviewed it.: Yes Section B Chief Complaint: Hip fracture Allergies: Allergies Allergy/AdvReac Type Severity Reaction Status Date / Time moxifloxacin [From Avelox] AdvReac Unknown DIARRHEA Verified 09/12/21 09:24 Plan I have reviewed the history and physical and performed a pertinent physical examination on my patient. No changes have occurred unless specified.
--- NOTE | 2021-09-24 15:04 | P.BOP_ITS ---
Brief Operative Note Date of Service: 09/24/21 Pre-op diagnosis: left hip IT fx Post-op diagnosis: same Procedure: IMN left hip Implants: joe [id number] with 95 mm hip screw and 35 mm distal interlock Surgeon: Zay Ambrose MD Anesthesia: GETA and local Was an Temperature Regulator Pyrometer used for this Procedure?: Yes Temperature Regulator Pyrometer: Trina Humphreys Estimated blood loss (mL): 50 IV fluids (mL): 300 Pathology: none sent Condition: stable Disposition: PACU
--- NOTE | 2021-09-24 16:08 | P.PNIM_ITS ---
Subjective Subjective Date of Service: 09/24/21 Interval History: No acute events overnight. Remains NPO pending surgery Review of Systems Denies chest pain Denies shortness of breath Denies nausea vomiting diarrhea Physical Exam Vital Signs: Vital Signs: Last Vital Signs Temp 98.2 F 09/24/21 13:02 Pulse 60 09/24/21 13:02 Resp 17 09/24/21 13:02 BP 138/66 09/24/21 13:02 Pulse Ox 93 09/24/21 13:02 BMI result Body Mass Index 24.5 Const: Other: awake alert no acute distress Resp: Other: clear to auscultation bilaterally. No rales rhonchi or wheezes Cardio: Other: no S4; positive S1-S2 no 2/6 systolic murmur GI: Other: soft positive bowel sounds x4 quadrants Extrem: Other: left hip tender to palpation minimal range of motion. No edema bilaterally Objective Data Active Medications Acetaminophen (Acetaminophen 325 Mg Tablet) 650 mg PO Q6H PRN PRN Reason: Pain, Mild (Pain Scale 1-3) Amiodarone HCl (Amiodarone Hcl 200 Mg Tablet) 200 mg PO DAILY [facility] Last Admin: 09/24/21 08:10 Dose: 200 mg Documented by: BRUNILDA Amlodipine Besylate (Amlodipine Besylate 5 Mg Tablet) 5 mg PO BEDTIME [facility]; Protocol Last Admin: 09/23/21 21:11 Dose: 5 mg Documented by: JOSE Docusate Sodium (Docusate Sodium 100 Mg Capsule) 100 mg PO BID [facility] Last Admin: 09/24/21 08:12 Dose: Not Given Documented by: BRUNILDA Non-Admin Reason: Physician Held Med Hydromorphone HCl (Hydromorphone Hcl 0.5 Mg/0.5 Ml Syringe) 0.5 mg IVPUSH Q4H PRN; Protocol PRN Reason: Pain, Severe (Pain Scale 7-10) Last Admin: 09/23/21 20:20 Dose: 0.5 mg Documented by: RICK Levothyroxine Sodium (Levothyroxine Sodium 50 Mcg Tablet) 50 mcg PO DAILY@0600 [facility] Last Admin: 09/24/21 05:39 Dose: 50 mcg Documented by: BENJIE Melatonin (Melatonin 3 Mg Tablet) 6 mg PO BEDTIME PRN PRN Reason: Insomnia Metoprolol Succinate (Metoprolol Succinate Er 50 Mg Tab.Er.24h) 50 mg PO DAILY [facility]; Protocol Last Admin: 09/24/21 08:10 Dose: 50 mg Documented by: BRUNILDA Pravastatin Sodium (Pravastatin Sodium 40 Mg Tablet) 40 mg PO BEDTIME [facility] Last Admin: 09/23/21 21:11 Dose: 40 mg Documented by: JOSE Senna (Sennosides 8.6 Mg Tablet) 17.2 mg PO BEDTIME PRN PRN Reason: Constipation Sodium Chloride (0.9 % Sodium Chloride Flush 3 Ml Syringe) 3 ml IVFLUSH QSHIFT [facility] Last Admin: 09/24/21 07:49 Dose: 3 ml Documented by: BRUNILDA Valsartan (Valsartan 160 Mg Tablet) 160 mg PO DAILY [facility] Last Admin: 09/24/21 08:12 Dose: Not Given Documented by: BRUNILDA Non-Admin Reason: Physician Held Med Labs CBC & Chem 7: 09/24/21 06:24 09/24/21 06:24 Labs: Laboratory Results - last 24 hr 09/23/21 09/24/21 09/24/21 16:20 06:24 06:24 MCV 98.5 H MCH 33.1 H MCHC 33.6 RDW 14.5 Plt Count 119 L MPV 11.9 Immature Gran % (Auto) 0.5 H Neut % (Auto) 81.0 H Lymph % (Auto) 4.1 L [place] % (Auto) 14.0 H Eos % (Auto) 0.1 Baso % (Auto) 0.3 Lymph # (Auto) 0.5 L [place] # (Auto) 1.6 H Eos # (Auto) 0.0 Baso # (Auto) 0.0 Abs Immat Gran (auto) 0.06 H Absolute Neuts (auto) 9.4 H Absolute Nucleated RBC 0.000 Nucleated RBC % (auto) 0.0 Smear Tech's Comments VERIFIED PT 13.2 H INR 1.2 H Anion Gap Estim Creat Clear Calc Estimated GFR Fasting Glucose Calcium Total Bilirubin AST ALT Alkaline Phosphatase Total Protein Albumin Blood Type A Positive Antibody Screen NEGATIVE 09/24/21 06:24 MCV MCH MCHC RDW Plt Count MPV Immature Gran % (Auto) Neut % (Auto) Lymph % (Auto) [place] % (Auto) Eos % (Auto) Baso % (Auto) Lymph # (Auto) [place] # (Auto) Eos # (Auto) Baso # (Auto) Abs Immat Gran (auto) Absolute Neuts (auto) Absolute Nucleated RBC Nucleated RBC % (auto) Smear Tech's Comments PT INR Anion Gap 11 L Estim Creat Clear Calc 54.5 Estimated GFR > 60 Fasting Glucose 112 H Calcium 8.4 Total Bilirubin 1.2 H AST 25 ALT 18 Alkaline Phosphatase 61 D Total Protein 5.4 L D Albumin 3.1 L D Blood Type Antibody Screen Assessment and Plan (1) Intertrochanteric fracture of left femur: Status: Acute (2) Aortic stenosis: Status: Acute (3) Chronic heart failure with preserved ejection fraction (HFpEF): Status: Acute Assessment and Plan: 85-year-old female with a past history of hypertension, hyperlipidemia, atrial fibrillation on Coumadin, orthostatic hypertension, aortic stenosis, tricuspid regurgitation, history of sick sinus syndrome status post cardiac pacemaker, pulmonary hypertension, history of osteoarthritis, history of left knee replacement presented to the hospital today with a chief complaint of fall. workup consistent with left displaced femoral fracture 1. Left Femoral Fracture Seen this am. To OR this afternoon 2.Afib ...INR elevated on admit. INR 1.2 this am. Will likely require Lovenox bridge until INR theraputic 3.HFpEF Optimized per cardiology: Post HCT >30 No diuretics until post op. Caution with fluids. Restart Coumadin post op. Likely need Lovenox bridge secondary to parmjit for reversal with Vit K 4. HTN Acceptable control. Will reassess and add meds back when appropriate Full Code Quality Stroke Does the patient have a stroke diagnosis?: No VTE Prior VTE?: No VTE Risk Level:: Medical - moderate - high VTE Device Contraindication: N/A - Device Ordered VTE Drug Contraindication: Treatment Not Indicated
[2021-09-24] MEDS: Docusate Sodium 100 MG CAPSULE PO (20:33)
[2021-09-24] MEDS: Pravastatin Sodium 40 MG TABLET PO (20:33)
[2021-09-24] MEDS: amLODIPine Besylate 5 MG TABLET PO (20:34)
[2021-09-25] VITALS (19 sets, daily range): BP systolic 80–120; BP diastolic 35–58; PULSE 58–72; RESP 17–20; TEMP 36.1–37.6; O2SAT 91–98
[2021-09-25] MEDS: Levothyroxine Sodium 50 MCG TABLET PO (05:45)
[2021-09-25 06:51] LABS: Basophils Percent Auto 0.2 % (0-2); Eosinophils Percent Auto 0.1 % (0-4); Hemoglobin 10.3 g/dl (12.0-16.0); PLT CLUMP 1; SCAN SMEAR FLAG 1
[2021-09-25 06:53] LABS: Hematocrit 30.8 % (37.0-47.0); Imm Gran Abs Auto 0.13 X10*3/uL (0.00-0.03); Lymphocytes Absolute Auto 0.4 X10*3/uL (1.2-4.9); Lymphocytes Percent Auto 3.2 % (20-40); MANUAL DIFF FLAG SCAN; Mean Corpuscular HGB Conc 33.4 g/dl (31.0-35.0); Mean Corpuscular Hemoglobin 33.7 pg (27.0-33.0); Mean Corpuscular Volume 100.7 fL (80.0-98.0); Mean Platelet Volume 11.8 fL (9.4-12.3); Monocytes Absolute Auto 1.4 X10*3/uL (0.1-1.2); Monocytes Percent Auto 10.9 % (2-11); Neutrophils Absolute Auto 10.7 x10*3/uL (2.0-8.3); Neutrophils Percent Auto 84.6 % (45-73); Red Blood Count 3.06 X10*6/uL (4.20-5.50); Red Cell Distribution Width 14.3 % (11.0-16.0)
[2021-09-25 07:05] LABS: INTERNATIONAL NORM RATIO 1.3 (0.9-1.1); Prothrombin Time 14.3 SEC (9.9-13.0)
[2021-09-25 07:25] LABS: White Blood Count 12.5 X10*3/uL (4.8-10.8)
[2021-09-25 07:26] LABS: Platelet Count 107 X10*3/uL (160-400)
[2021-09-25 07:28] LABS: SLIDE REVIEW VERIFIED
[2021-09-25 07:31] LABS: Alanine Aminotransferase 25 U/L (0-31); Albumin Level 3.1 g/dL (3.5-5.0); Alkaline Phosphatase 56 U/L (39-117); Anion Gap 13 (12-20); Aspartate Amino Transferase 31 U/L (5-31); Bilirubin Total 1.7 mg/dL (0.0-1.0); Blood Urea Nitrogen 28 mg/dL (9-16); Calcium 8.3 mg/dL (8.4-10.2); Carbon Dioxide 28 mmol/L (22-29); Chloride 102 mmol/L (96-108); Creatinine Clr Calc Pharmacy 46.5; Estimated Glomerular Filt Rate > 60; Glucose Fasting 142 mg/dL (60-99); Potassium 4.5 mmol/L (3.3-5.1); Sodium 138 mmol/L (135-145); Total Protein 5.2 g/dL (6.5-8.0)
--- NOTE | 2021-09-25 07:55 | PM.PNORT ---
Subjective Subjective Date of Service: 09/25/21 Principal diagnosis: Paroxysmal atrial fibrillation, heart failure Interval history: POD1 s/p lt hip IMNail. No overnight events. Pain is managed. No additional complaints. Physical Exam Vital Signs: Vital Signs: Last Vital Signs Temp 98 F 09/25/21 07:00 Pulse 67 09/25/21 07:00 Resp 18 09/25/21 07:00 BP 108/52 L 09/25/21 07:00 Pulse Ox 96 09/25/21 07:00 BMI result Body Mass Index 24.5 Const: General: cooperative, healthy appearing and no acute distress Resp: Effort & Inspection: normal respiratory effort and able to speak in complete sentences Cardio: Rate: regular rate Peripheral pulses: Peripheral pulses 2+ throughout GI: Palpation (GI): Soft to palpation Skin: Lesions: no lesions Rashes: no rashes Extrem: Other: Left hip dressings are clean, dry and intact. [facility] Procedures Date of Service Date of Service: 09/25/21 Progress Note: A&P Assessment and plan (1) Intertrochanteric fracture of left femur: Status: Acute Assessment and Plan: Continue pain mgmnt Begin Lovenox for dvt ppx begin PT for lt hip IM Nail - WBAT Dispo planning-Pending PT eval, pain mgmnt Fall Risk Details Current Medications: Current Medications Acetaminophen (Acetaminophen 325 Mg Tablet) 650 mg PO Q6H PRN PRN Reason: Pain, Mild (Pain Scale 1-3) Amiodarone HCl (Amiodarone Hcl 200 Mg Tablet) 200 mg PO DAILY [facility] Last Admin: 09/24/21 08:10 Dose: 200 mg Documented by: Amlodipine Besylate (Amlodipine Besylate 5 Mg Tablet) 5 mg PO BEDTIME [facility]; Protocol Last Admin: 09/24/21 20:34 Dose: 5 mg Documented by: Docusate Sodium (Docusate Sodium 100 Mg Capsule) 100 mg PO BID [facility] Last Admin: 09/24/21 20:33 Dose: 100 mg Documented by: Fentanyl (Fentanyl Citrate/Pf 100 Mcg/2 Ml Vial) 25 mcg IVPUSH Q5M PRN; Protocol PRN Reason: Pain, Moderate (Pain Scale 4-6 Hydromorphone HCl (Hydromorphone Hcl 0.5 Mg/0.5 Ml Syringe) 0.5 mg IVPUSH Q4H PRN; Protocol PRN Reason: Pain, Severe (Pain Scale 7-10) Last Admin: 09/23/21 20:20 Dose: 0.5 mg Documented by: Levothyroxine Sodium (Levothyroxine Sodium 50 Mcg Tablet) 50 mcg PO DAILY@0600 [facility] Last Admin: 09/25/21 05:45 Dose: 50 mcg Documented by: Melatonin (Melatonin 3 Mg Tablet) 6 mg PO BEDTIME PRN PRN Reason: Insomnia Metoprolol Succinate (Metoprolol Succinate Er 50 Mg Tab.Er.24h) 50 mg PO DAILY [facility]; Protocol Last Admin: 09/24/21 08:10 Dose: 50 mg Documented by: Ondansetron HCl (Ondansetron Hcl 4 Mg/2 Ml Vial) 4 mg IVPUSH ONCE PRN PRN Reason: Nausea and Vomiting Pravastatin Sodium (Pravastatin Sodium 40 Mg Tablet) 40 mg PO BEDTIME [facility] Last Admin: 09/24/21 20:33 Dose: 40 mg Documented by: Senna (Sennosides 8.6 Mg Tablet) 17.2 mg PO BEDTIME PRN PRN Reason: Constipation Sodium Chloride (0.9 % Sodium Chloride Flush 3 Ml Syringe) 3 ml IVFLUSH QSHIFT [facility] Last Admin: 09/24/21 20:35 Dose: 3 ml Documented by: Valsartan (Valsartan 160 Mg Tablet) 160 mg PO DAILY [facility] Last Admin: 09/24/21 08:12 Dose: Not Given Documented by: Time Spent With Patient Time: Total time spent is greater than 50% in coordination of care (as documented) at patient's floor/unit and/or counseling patient: Time with patient: less than 15 minutes Quality Stroke Does the patient have a stroke diagnosis?: No VTE Prior VTE?: No VTE Risk Level:: Medical - moderate - high VTE Device Contraindication: N/A - Device Ordered VTE Drug Contraindication: Treatment Not Indicated
[2021-09-25] MEDS: Acetaminophen 325 MG TABLET 650 MG PO ×2 (08:02→22:23)
[2021-09-25] MEDS: Docusate Sodium 100 MG CAPSULE PO ×2 (08:04→22:23)
[2021-09-25] MEDS: Amiodarone HCL 200 MG TABLET PO (08:04)
[2021-09-25] MEDS: Metoprolol Succinate ER 50 MG TAB.ER.24H PO (08:04)
[2021-09-25] MEDS: 0.9 % Sodium Chloride Flush 3 ML SYRINGE IVFLUSH ×2 (08:05→16:04)
--- NOTE | 2021-09-25 11:07 | PM.PNCARD ---
Subjective Subjective Date of Service: 09/25/21 Principal diagnosis: Paroxysmal atrial fibrillation, heart failure Interval history: Patient complains of weakness and feeling tired. Also complained of dizziness. Noted a blood pressure to be systolic 80. No syncope. Has remained in paced rhythm, no atrial fibrillation. No shortness of breath or chest pain. Her hemoglobin has gone down from 14 to 10. Review of Systems Constitutional: Reports fatigue Eyes: Reports no additional eye complaints Cardiovascular: Reports no additional cardiovascular complaints Respiratory: Reports no additional respiratory complaints Gastrointestinal: Reports no additional gastrointestinal complaints Musculoskeletal: Reports arthralgias (Surgical site, left hip) Reports system reviewed and no additional complaints, except as documented Psychiatric: Reports no additional psychiatric complaints Endocrine: Reports fatigue Physical Exam Vital Signs: Last Vital Signs Temp 98 F 09/25/21 10:55 Pulse 65 09/25/21 10:55 Resp 20 09/25/21 10:55 BP 80/43 L 09/25/21 10:55 Pulse Ox 92 09/25/21 10:55 BMI result Body Mass Index 24.5 Const General: cooperative, comfortable, no acute distress, alert, awake and tired appearing Neck Neck: Yes trachea midline and Yes supple Resp Effort & Inspection: normal respiratory effort Auscultation: clear to auscultation bilaterally Cardio Jugular venous distension: no JVD Palpation: normal PMI Rate: regular rate Rhythm: regular rhythm Heart sounds: S1 normal heart sound present, S2 normal heart sound present, no click, no gallops and no murmurs Skin General skin exam: no rashes or lesions noted Objective Labs and Meds Result diagrams: 09/25/21 06:04 09/25/21 06:04 Lab results: Laboratory Results - last 24 hr 09/25/21 09/25/21 09/25/21 06:04 06:04 06:04 WBC 12.5 H RBC 3.06 L Hgb 10.3 L Hct 30.8 L MCV 100.7 H MCH 33.7 H MCHC 33.4 RDW 14.3 Plt Count 107 L MPV 11.8 Immature Gran % (Auto) 1.0 H Neut % (Auto) 84.6 H Lymph % (Auto) 3.2 L [place] % (Auto) 10.9 Eos % (Auto) 0.1 Baso % (Auto) 0.2 Lymph # (Auto) 0.4 L [place] # (Auto) 1.4 H Eos # (Auto) 0.0 Baso # (Auto) 0.0 Abs Immat Gran (auto) 0.13 H Absolute Neuts (auto) 10.7 H Absolute Nucleated RBC 0.000 Nucleated RBC % (auto) 0.0 Smear Tech's Comments VERIFIED PT 14.3 H INR 1.3 H Sodium 138 Potassium 4.5 Chloride 102 Carbon Dioxide 28 Anion Gap 13 BUN 28 H Creatinine 0.89 Estim Creat Clear Calc 46.5 Estimated GFR > 60 Fasting Glucose 142 H Calcium 8.3 L Total Bilirubin 1.7 H AST 31 ALT 25 Alkaline Phosphatase 56 Total Protein 5.2 L Albumin 3.1 L Imaging Radiologist's impression: Impressions Guidance Fluoroscopy 09/24/21 16:58 FINDINGS AND IMPRESSION: Intraoperative fluoroscopic imaging of the left hip performed. There is moderate osteoarthritis of the hip. A femoral intramedullary nail and dynamic hip screw are well-positioned, and there is improved alignment of femoral fragments compared to 09/22/2021. There is approximately 1 cm of cortical bone offset anterolaterally in the intertrochanteric region. Please refer to the operative report. Progress Note: A&P Assessment and plan (1) Low blood pressure: Status: Acute Assessment and Plan: Low blood pressure which appears to be multifactorial most likely from intravascular volume depletion with drop in hematocrit as well as dehydration. Continue to hold off on diuretic regimen at this point time. Have ordered for a fluid bolus of 500 mL. Continue trend hematocrit closely and transfuse as needed to maintain adequate intravascular volume. Patient is very preload dependent given her pulmonary hypertension as well as aortic stenosis. Close follow-up of blood pressure and treatment should be pursued. Discussed with Dr. Wills. (2) Paroxysmal atrial fibrillation: Status: Acute Assessment and Plan: Paroxysmal atrial fibrillation which has remained suppressed on amiodarone therapy. Continue rhythm control approach. Continue amiodarone therapy. Resumption of anticoagulation as per orthopedic recommendations and once bleeding risk as reduced. Patient is willing to consider switching from warfarin to direct oral anticoagulant. Case Management should be involved. (3) Cardiac pacemaker in situ: Status: Acute Assessment and Plan: Cardiac pacemaker in-situ, working adequately on the telemetry. (4) Aortic stenosis: Status: Acute Assessment and Plan: Aortic stenosis is moderate. Will continue monitor clinically. Management of low blood pressure aggressively. Will follow with you Fall Risk Details Current Medications: Current Medications Acetaminophen (Acetaminophen 325 Mg Tablet) 650 mg PO Q6H PRN PRN Reason: Pain, Mild (Pain Scale 1-3) Last Admin: 09/25/21 08:02 Dose: 650 mg Documented by: Amiodarone HCl (Amiodarone Hcl 200 Mg Tablet) 200 mg PO DAILY [facility] Last Admin: 09/25/21 08:04 Dose: 200 mg Documented by: Amlodipine Besylate (Amlodipine Besylate 5 Mg Tablet) 5 mg PO BEDTIME [facility]; Protocol Last Admin: 09/24/21 20:34 Dose: 5 mg Documented by: Docusate Sodium (Docusate Sodium 100 Mg Capsule) 100 mg PO BID [facility] Last Admin: 09/25/21 08:04 Dose: 100 mg Documented by: Enoxaparin Sodium (Enoxaparin Sodium 40 Mg/0.4 Ml Syringe) 40 mg SUBCUT Q24H [facility] Fentanyl (Fentanyl Citrate/Pf 100 Mcg/2 Ml Vial) 25 mcg IVPUSH Q5M PRN; Protocol PRN Reason: Pain, Moderate (Pain Scale 4-6 Hydromorphone HCl (Hydromorphone Hcl 0.5 Mg/0.5 Ml Syringe) 0.5 mg IVPUSH Q4H PRN; Protocol PRN Reason: Pain, Severe (Pain Scale 7-10) Last Admin: 09/23/21 20:20 Dose: 0.5 mg Documented by: Sodium Chloride (Ns) 500 mls @ 500 mls/hr IV .Q1H [facility] Stop: 09/25/21 12:14 Levothyroxine Sodium (Levothyroxine Sodium 50 Mcg Tablet) 50 mcg PO DAILY@0600 [facility] Last Admin: 09/25/21 05:45 Dose: 50 mcg Documented by: Melatonin (Melatonin 3 Mg Tablet) 6 mg PO BEDTIME PRN PRN Reason: Insomnia Metoprolol Succinate (Metoprolol Succinate Er 50 Mg Tab.Er.24h) 50 mg PO DAILY [facility]; Protocol Last Admin: 09/25/21 08:04 Dose: 50 mg Documented by: Ondansetron HCl (Ondansetron Hcl 4 Mg/2 Ml Vial) 4 mg IVPUSH ONCE PRN PRN Reason: Nausea and Vomiting Pravastatin Sodium (Pravastatin Sodium 40 Mg Tablet) 40 mg PO BEDTIME [facility] Last Admin: 09/24/21 20:33 Dose: 40 mg Documented by: Senna (Sennosides 8.6 Mg Tablet) 17.2 mg PO BEDTIME PRN PRN Reason: Constipation Sodium Chloride (0.9 % Sodium Chloride Flush 3 Ml Syringe) 3 ml IVFLUSH QSHIFT [facility] Last Admin: 09/25/21 08:05 Dose: 3 ml Documented by: Valsartan (Valsartan 160 Mg Tablet) 160 mg PO DAILY [facility] Last Admin: 09/25/21 08:21 Dose: Not Given Documented by: Time Spent With Patient Time: Total time spent is greater than 50% in coordination of care (as documented) at patient's floor/unit and/or counseling patient: Time with patient: 25 - 35 minutes Progress Note: Quality Stroke Does the patient have a stroke diagnosis?: No Procedures Date of Service Date of Service: 09/25/21
[2021-09-25] MEDS: 0.9 % Sodium Chloride 500 ML IV ×2 (11:17→14:34)
--- NOTE | 2021-09-25 13:36 | MHC.CM.PN ---
per rounds pt may be dc ready [facility] is following
[2021-09-25 13:54] LABS: Imm Gran Pct Auto 0.8 % (0.0-0.4); MANUAL DIFF FLAG SCAN; Mean Corpuscular HGB Conc 33.2 g/dl (31.0-35.0); Mean Corpuscular Hemoglobin 33.2 pg (27.0-33.0); PLT CLUMP 1; Red Cell Distribution Width 14.2 % (11.0-16.0); SCAN SMEAR FLAG 1
[2021-09-25 13:56] LABS: Basophils Percent Auto 0.2 % (0-2); Eosinophils Percent Auto 0.2 % (0-4); Hematocrit 28.3 % (37.0-47.0); Hemoglobin 9.4 g/dl (12.0-16.0); Imm Gran Abs Auto 0.11 X10*3/uL (0.00-0.03); Lymphocytes Absolute Auto 0.5 X10*3/uL (1.2-4.9); Lymphocytes Percent Auto 3.6 % (20-40); Mean Platelet Volume 11.7 fL (9.4-12.3); Monocytes Percent Auto 15.3 % (2-11); Neutrophils Absolute Auto 10.5 x10*3/uL (2.0-8.3); Neutrophils Percent Auto 79.9 % (45-73); Red Blood Count 2.83 X10*6/uL (4.20-5.50)
[2021-09-25 13:57] LABS: Platelet Count 88 X10*3/uL (160-400); White Blood Count 13.2 X10*3/uL (4.8-10.8)
--- NOTE | 2021-09-25 14:58 | MHC.CM.PN ---
pt accepted by [facility]
--- NOTE | 2021-09-25 15:57 | PC.NURSE ---
At 1100 pt's bp was 83/46. She was assisted back to bed.Dr Wills and Dr Mai made aware. NS 500 mls bolus given.at 1115. At 1230 bp 87/44 another 500 bolus stared. 1315 iv infiltrated bp 80/44 1325 rapid response called as no improvement .iv access obtained 500cc bolus given rapid infusion. bp 100/52. cbc drawn H&H 9.4 and 28.3. 1435 bp 83/45 p 69. another 500cc bolus given 1530 bp 83/45 blood trans odered. sandy drained 75cc this shift. pt remains A&O entire shift
--- NOTE | 2021-09-25 18:31 | P.PNIM_ITS ---
Subjective Subjective Date of Service: 09/25/21 Interval History: Seen approximately 0830 this morning; no acute issues overnight. Called back to the room approximately 1045 for hypotensive episodewith pressures 70-80 systolic. Patient given fluid boluses 500 cc x2. Patient's pressure slowly responded to boluses. CBC done demonstrating a hematocrit of 9.4 for which she received 2 units of packed red cells. Re- evaluated at its 1830; BP 120/60 and patient asymptomatic. Review of Systems At 18:30; Denies chest pain Denies shortness of breath Denies nausea vomiting diarrhea Physical Exam Vital Signs: Vital Signs: Last Vital Signs Temp 98.4 F 09/25/21 16:13 Pulse 61 09/25/21 16:13 Resp 18 09/25/21 16:13 BP 120/54 L 09/25/21 16:13 Pulse Ox 92 09/25/21 16:08 Oxygen Flow Rate 2 09/25/21 16:08 BMI result Body Mass Index 24.5 Const: Other: awake alert no acute distress Resp: Other: clear to auscultation bilaterally. No rales rhonchi or wheezes Cardio: Other: no S4; positive S1-S2 no 2/6 systolic murmur GI: Other: soft positive bowel sounds x4 quadrants Extrem: Other: left hip tender to palpation minimal range of motion. No edema bilaterally Objective Data Active Medications Acetaminophen (Acetaminophen 325 Mg Tablet) 650 mg PO Q6H PRN PRN Reason: Pain, Mild (Pain Scale 1-3) Last Admin: 09/25/21 08:02 Dose: 650 mg Documented by: RENEE Amiodarone HCl (Amiodarone Hcl 200 Mg Tablet) 200 mg PO DAILY [facility] Last Admin: 09/25/21 08:04 Dose: 200 mg Documented by: RENEE Amlodipine Besylate (Amlodipine Besylate 5 Mg Tablet) 5 mg PO BEDTIME [facility]; Protocol Last Admin: 09/24/21 20:34 Dose: 5 mg Documented by: BENJIE Docusate Sodium (Docusate Sodium 100 Mg Capsule) 100 mg PO BID [facility] Last Admin: 09/25/21 08:04 Dose: 100 mg Documented by: RENEE Enoxaparin Sodium (Enoxaparin Sodium 40 Mg/0.4 Ml Syringe) 40 mg SUBCUT Q24H [facility] Last Admin: 09/25/21 14:28 Dose: Not Given Documented by: RENEE Non-Admin Reason: hold Fentanyl (Fentanyl Citrate/Pf 100 Mcg/2 Ml Vial) 25 mcg IVPUSH Q5M PRN; Protocol PRN Reason: Pain, Moderate (Pain Scale 4-6 Hydromorphone HCl (Hydromorphone Hcl 0.5 Mg/0.5 Ml Syringe) 0.5 mg IVPUSH Q4H PRN; Protocol PRN Reason: Pain, Severe (Pain Scale 7-10) Last Admin: 09/23/21 20:20 Dose: 0.5 mg Documented by: RICK Levothyroxine Sodium (Levothyroxine Sodium 50 Mcg Tablet) 50 mcg PO DAILY@0600 [facility] Last Admin: 09/25/21 05:45 Dose: 50 mcg Documented by: BENJIE Melatonin (Melatonin 3 Mg Tablet) 6 mg PO BEDTIME PRN PRN Reason: Insomnia Metoprolol Succinate (Metoprolol Succinate Er 50 Mg Tab.Er.24h) 50 mg PO DAILY [facility]; Protocol Last Admin: 09/25/21 08:04 Dose: 50 mg Documented by: RENEE Ondansetron HCl (Ondansetron Hcl 4 Mg/2 Ml Vial) 4 mg IVPUSH ONCE PRN PRN Reason: Nausea and Vomiting Pravastatin Sodium (Pravastatin Sodium 40 Mg Tablet) 40 mg PO BEDTIME [facility] Last Admin: 09/24/21 20:33 Dose: 40 mg Documented by: BENJIE Senna (Sennosides 8.6 Mg Tablet) 17.2 mg PO BEDTIME PRN PRN Reason: Constipation Sodium Chloride (0.9 % Sodium Chloride Flush 3 Ml Syringe) 3 ml IVFLUSH QSHIFT [facility] Last Admin: 09/25/21 16:04 Dose: 3 ml Documented by: ERAN Valsartan (Valsartan 160 Mg Tablet) 160 mg PO DAILY [facility] Last Admin: 09/25/21 08:21 Dose: Not Given Documented by: RENEE Non-Admin Reason: Decreased Blood Pressure Labs CBC & Chem 7: 09/25/21 13:47 09/25/21 06:04 Labs: Laboratory Results - last 24 hr 09/23/21 09/25/21 09/25/21 16:20 06:04 06:04 MCV 100.7 H MCH 33.7 H MCHC 33.4 RDW 14.3 Plt Count 107 L MPV 11.8 Immature Gran % (Auto) 1.0 H Neut % (Auto) 84.6 H Lymph % (Auto) 3.2 L [place] % (Auto) 10.9 Eos % (Auto) 0.1 Baso % (Auto) 0.2 Lymph # (Auto) 0.4 L [place] # (Auto) 1.4 H Eos # (Auto) 0.0 Baso # (Auto) 0.0 Abs Immat Gran (auto) 0.13 H Absolute Neuts (auto) 10.7 H Absolute Nucleated RBC 0.000 Nucleated RBC % (auto) 0.0 Smear Tech's Comments VERIFIED PT 14.3 H INR 1.3 H Anion Gap Estim Creat Clear Calc Estimated GFR Fasting Glucose Calcium Total Bilirubin AST ALT Alkaline Phosphatase Total Protein Albumin Blood Type A Positive Antibody Screen NEGATIVE Crossmatch See Detail 09/25/21 09/25/21 06:04 13:47 MCV 100.0 H MCH 33.2 H MCHC 33.2 RDW 14.2 Plt Count 88 L MPV 11.7 Immature Gran % (Auto) 0.8 H Neut % (Auto) 79.9 H Lymph % (Auto) 3.6 L [place] % (Auto) 15.3 H Eos % (Auto) 0.2 Baso % (Auto) 0.2 Lymph # (Auto) 0.5 L [place] # (Auto) 2.0 H Eos # (Auto) 0.0 Baso # (Auto) 0.0 Abs Immat Gran (auto) 0.11 H Absolute Neuts (auto) 10.5 H Absolute Nucleated RBC 0.000 Nucleated RBC % (auto) 0.0 Smear Tech's Comments PT INR Anion Gap 13 Estim Creat Clear Calc 46.5 Estimated GFR > 60 Fasting Glucose 142 H Calcium 8.3 L Total Bilirubin 1.7 H AST 31 ALT 25 Alkaline Phosphatase 56 Total Protein 5.2 L Albumin 3.1 L Blood Type Antibody Screen Crossmatch Assessment and Plan (1) Intertrochanteric fracture of left femur: Status: Acute (2) Paroxysmal atrial fibrillation: Status: Acute Assessment and Plan: 85-year-old female with a past history of hypertension, hyperlipidemia, atrial fibrillation on Coumadin, orthostatic hypertension, aortic stenosis, tricuspid regurgitation, history of sick sinus syndrome status post cardiac pacemaker, pulmonary hypertension, S/P left hip IMNail. Hypotensive episode today responded well to therapies 1. Left Femoral Fracture Pod 1. Site clean dry and intact Therapies as per Ortho Postop anemia corrected with transfusion. Check CBC in a.m. 2.Afib ...INR elevated on admit. Willing to consider direct oral anticoagulation with Eliquis ; insurance coverage per discharge planners If to sites on warfarin, will likely require Lovenox bridge until INR theraputic 3.HFpEF Optimized per cardiology: Post HCT >30 No diuretics until post op. Caution with fluids. Restart Coumadin post op. Likely need Lovenox bridge secondary to parmjit for reversal with Vit K 4. HTN Acceptable control. Will reassess and add meds back when appropriate Full Code Quality Stroke Does the patient have a stroke diagnosis?: No VTE Prior VTE?: No VTE Risk Level:: Medical - moderate - high VTE Device Contraindication: N/A - Device Ordered VTE Drug Contraindication: Treatment Not Indicated
[2021-09-25] MEDS: Pravastatin Sodium 40 MG TABLET PO (22:23)
[2021-09-26 00:04] VITALS: BP 114/51; PULSE 66; RESP 20; TEMP 37.2
[2021-09-26] MEDS: 0.9 % Sodium Chloride Flush 3 ML SYRINGE IVFLUSH ×2 (01:17→08:35)
[2021-09-26 03:46] VITALS: BP 108/54; PULSE 64; RESP 18; TEMP 37; O2SAT 96
[2021-09-26 06:01] LABS: MANUAL DIFF FLAG NO
[2021-09-26 06:14] LABS: Basophils Percent Auto 0.3 % (0-2); Eosinophils Absolute Auto 0.2 X10*3/uL (0.0-0.4); Eosinophils Percent Auto 2.1 % (0-4); Hematocrit 30.7 % (37.0-47.0); Hemoglobin 10.4 g/dl (12.0-16.0); Imm Gran Pct Auto 0.9 % (0.0-0.4); Lymphocytes Absolute Auto 0.6 X10*3/uL (1.2-4.9); Mean Corpuscular HGB Conc 33.9 g/dl (31.0-35.0); Mean Corpuscular Hemoglobin 32.3 pg (27.0-33.0); Mean Corpuscular Volume 95.3 fL (80.0-98.0); Monocytes Absolute Auto 1.3 X10*3/uL (0.1-1.2); Monocytes Percent Auto 12.2 % (2-11); Neutrophils Absolute Auto 8.7 x10*3/uL (2.0-8.3); Neutrophils Percent Auto 79.5 % (45-73); Red Blood Count 3.22 X10*6/uL (4.20-5.50); Red Cell Distribution Width 14.6 % (11.0-16.0); White Blood Count 10.9 X10*3/uL (4.8-10.8)
[2021-09-26 06:16] LABS: INTERNATIONAL NORM RATIO 1.3 (0.9-1.1)
[2021-09-26 06:17] LABS: Platelet Count 83 X10*3/uL (160-400)
[2021-09-26] MEDS: Levothyroxine Sodium 50 MCG TABLET PO (06:18)
[2021-09-26 06:53] LABS: Alanine Aminotransferase 32 U/L (0-31); Albumin Level 2.7 g/dL (3.5-5.0); Alkaline Phosphatase 58 U/L (39-117); Anion Gap 10 (12-20); Aspartate Amino Transferase 47 U/L (5-31); Bilirubin Total 2.5 mg/dL (0.0-1.0); Blood Urea Nitrogen 34 mg/dL (9-16); Calcium 7.9 mg/dL (8.4-10.2); Carbon Dioxide 25 mmol/L (22-29); Chloride 104 mmol/L (96-108); Creatinine Clr Calc Pharmacy 55.3; Estimated Glomerular Filt Rate > 60; Glucose Fasting 103 mg/dL (60-99); Potassium 3.9 mmol/L (3.3-5.1); Sodium 135 mmol/L (135-145); Total Protein 4.7 g/dL (6.5-8.0)
--- NOTE | 2021-09-26 07:17 | HO.POSTANES ---
Post Anesthesia Evaluation Post Anesthesia Evaluation Vital Signs: Vital Signs Temp Pulse Resp BP Pulse Ox 09/26/21 03:46 98.6 F 64 18 108/54 L 96 09/26/21 00:04 99.0 F 66 20 114/51 L 09/25/21 23:36 99.7 F 64 17 90/46 L 94 09/25/21 22:49 99.2 F 59 18 108/42 L 09/25/21 22:31 99.0 F 65 18 99/49 L Anesthesia: General Mental Status: Awake Pain Control: Satisfactory Nausea/Vomiting: None Hydration: Adequate Anesthesia-Related Issues: No Anes. Related Issues
[2021-09-26 08:00] VITALS: BP 113/56; PULSE 61; RESP 18; TEMP 36.7; O2SAT 94
[2021-09-26 08:35] VITALS: BP 113/56; PULSE 61; PULSE 94
[2021-09-26] MEDS: Amiodarone HCL 200 MG TABLET PO (08:35)
[2021-09-26] MEDS: Metoprolol Succinate ER 50 MG TAB.ER.24H PO (08:35)
[2021-09-26] MEDS: Valsartan 160 MG TABLET PO (08:35)
[2021-09-26] MEDS: Docusate Sodium 100 MG CAPSULE PO (08:35)
[2021-09-26 09:07] VITALS: BP 113/56; PULSE 61
--- NOTE | 2021-09-26 11:23 | P.DS_ITS ---
DS: Providers Provider Date of Service: 09/26/21 Date of admission: 09/22/21 21:45 Primary care physician: Marisol Carvalho MD Consults: 09/22/21 21:47 Consult to Cardiology Routine Consulting Provider: Luis Alberto Moreno Reason for consultation: preop Eval ; hx Afib, CHF, pacemaker, ; p/w hip fx DS: Diagnosis Discharge Diagnosis (1) Intertrochanteric fracture of left femur: Status: Acute (2) Paroxysmal atrial fibrillation: Status: Acute DS: Summary Hospital Course Hospital Course: Chief Complaint: ? Fall ?85-year-old female with a past history of hypertension, hyperlipidemia, atrial fibrillation on Coumadin, orthostatic hypertension, aortic stenosis, tricuspid regurgitation, history of sick sinus syndrome status post cardiac pacemaker, pulmonary hypertension, history of osteoarthritis, history of left knee replacement presented to the hospital today with a chief complaint of fall.? Patient reports that she tripped and fell, finding landed on the hip; denies any loss of consciousness.? Unclear if she had a head strike.? Denies any signs of infection-denies any cough, fever, chills, sputum production, urinary complaints, GI symptoms.? Currently denies any chest pain palpitations lightheadedness or dizziness.? Review of all other systems is negative except mentioned above ER course: Per ER team on imaging noted to have left femur displaced fracture; orthopedics was notified.? On labs noted to have elevated INR -given vitamin K.? Admitted for further managemen Hospital course: Patient was admitted due to hip fracture and underwent suc essful operative repair on 09/24/[address] Ambrose and is doing well post operatively. She has been evaluated by PT/OT and is recommended for short term rehab, will be on DVT prophylaxix with Lovenox until INR is therapeutic. To continue usual meds for AFIB, HTN, and heart failure. Oxycodone for pain Time Spent with Patient Time attestation: Total time spent providing and/or coordinating discharge services: Discharge coordination time: Greater than 30 minutes Quality: Stroke Does the patient have a stroke diagnosis?: No Physical Exam Verdana 4l Vital Signs: Verdana 4d Verdana 4d Vital Signs: Verdana 4d Verdana 4Bd Last Vital Signs Verdana 4d Mud Jack Operator New 4d Mud Jack Operator New 4d Temp 98.0 F 09/26/21 08:00 Alexandra Ramsey 4d Pulse 61 09/26/21 09:07 Alexandra Milner 4d Resp 18 09/26/21 08:00 BP 113/56 L 09/26/21 09:07 Pulse Ox 94 09/26/21 08:00 Oxygen Flow Rate 2 09/25/21 16:08 BMI result Body Mass Index 24.5 Const: Other: General: AO X 3, no acute distress Resp: CTA bilateral CVS: S1,S2,RRR GI: +BS, NT, no distention Skin: No rash Neuro: motor grossly intact Psych: appropriate affect DS: Data Data Completed and Pending Labs on day of discharge: Laboratory Results - last 24 hr 09/23/21 09/25/21 09/26/21 16:20 13:47 05:47 WBC 13.2 H 10.9 H RBC 2.83 L 3.22 L Hgb 9.4 L 10.4 L Hct 28.3 L 30.7 L MCV 100.0 H 95.3 MCH 33.2 H 32.3 MCHC 33.2 33.9 RDW 14.2 14.6 Plt Count 88 L 83 L MPV 11.7 12.0 Immature Gran % (Auto) 0.8 H 0.9 H Neut % (Auto) 79.9 H 79.5 H Lymph % (Auto) 3.6 L 5.0 L Major % (Auto) 15.3 H 12.2 H Eos % (Auto) 0.2 2.1 Baso % (Auto) 0.2 0.3 Lymph # (Auto) 0.5 L 0.6 L Major # (Auto) 2.0 H 1.3 H Eos # (Auto) 0.0 0.2 Baso # (Auto) 0.0 0.0 Abs Immat Gran (auto) 0.11 H 0.10 H Absolute Neuts (auto) 10.5 H 8.7 H Absolute Nucleated RBC 0.000 0.000 Nucleated RBC % (auto) 0.0 0.0 PT INR Sodium Potassium Chloride Carbon Dioxide Anion Gap BUN Creatinine Estim Creat Clear Calc Estimated GFR Fasting Glucose Calcium Total Bilirubin AST ALT Alkaline Phosphatase Total Protein Albumin Blood Type A Positive Antibody Screen NEGATIVE Crossmatch See Detail 09/26/21 09/26/21 05:47 05:47 WBC RBC Hgb Hct MCV MCH MCHC RDW Plt Count MPV Immature Gran % (Auto) Neut % (Auto) Lymph % (Auto) Major % (Auto) Eos % (Auto) Baso % (Auto) Lymph # (Auto) Major # (Auto) Eos # (Auto) Baso # (Auto) Abs Immat Gran (auto) Absolute Neuts (auto) Absolute Nucleated RBC Nucleated RBC % (auto) PT 15.0 H INR 1.3 H Sodium 135 Potassium 3.9 Chloride 104 Carbon Dioxide 25 Anion Gap 10 L BUN 34 H Creatinine 0.75 Estim Creat Clear Calc 55.3 Estimated GFR > 60 Fasting Glucose 103 H Calcium 7.9 L Total Bilirubin 2.5 H AST 47 H D ALT 32 H Alkaline Phosphatase 58 Total Protein 4.7 L Albumin 2.7 L Blood Type Antibody Screen Crossmatch Discharge Plan Discharge Anticipated Discharge Date/Time: 09/26/21 11:19 Patient Disposition: Xfer Inpatient Rehab Fac Discharge Diagnosis: Hip fracture Referrals: [facility] [Other] - 1 Week Marisol Carvalho MD [Primary Care Provider] - 1 Week Trina Humphreys PA-C [Physician Weaving Instructor] - 2 Weeks Discharge Medications: New oxycodone 5 mg tablet 5 mg PO Q6H PRN (Reason: pain (scale score 7-10)) Qty: 14 RF: 0 enoxaparin 40 mg/0.4 mL Syringe 40 mg subcut Q24H Qty: 3 RF: 0 Continued amiodarone 200 mg tablet 200 mg PO DAILY Qty: 30 RF: 3 telmisartan 80 mg tablet 80 mg PO DAILY Qty: 90 RF: 1 warfarin 3 mg tablet 1.5 mg PO SUMOTUWEFRSA RF: 0 pravastatin 40 mg tablet 40 mg PO DAILY RF: 0 levothyroxine 50 mcg tablet 50 mcg PO DAILY RF: 0 metoprolol succinate 50 mg tablet extended release 24 hr 50 mg PO DAILY RF: 0 furosemide 20 mg tablet 40 mg PO DAILY RF: 0 amlodipine 5 mg tablet 5 mg PO QPM RF: 0 Discharge Orders: Discharge Order (Routine); Ordered 09/26/21 Ordered By: Jared perfecto Diet: advance to usual diet Activity on Discharge: As tolerated Stand Alone Forms: Patient Portal Discharge page Care Plan Goals: Full recovery from hip fracture Health Concerns: Hip fracture Plan of Treatment: Gait training, strengthening, ADLs Continue warfarin Keep dressing clean,dry and intact-no showering or tub baths Follow up with Orthopedics in 2 weeks check INR daily and once INR > 1.5 can stop Lovenox Assessment: as steve Hananh
--- NOTE | 2021-09-26 11:26 | MHC.CM.PN ---
Patient has been medically cleared for dc to [facility] today.Patient will dc to [facility] in [place] today at 1PM,via [facility]. Patient and her Son (who was in the room/on the phone) are aware of and in agreement with the dc plan. IMM addressed with Patient and the original has been given to Patient and a copy has been placed on the chart.
--- NOTE | 2021-09-26 12:21 | PM.PNCARD ---
Subjective Subjective Date of Service: 09/26/21 Principal diagnosis: Paroxysmal atrial fibrillation, heart failure Interval history: Patient developed hypotension yesterday. Responded to IV fluids and blood transfusion. Today blood pressure has improved. Feels very weak and tired. Was not able to get up including with help of AIDS. Planned to be transferred to acute rehab Review of Systems Constitutional: Reports fatigue and Reports weakness Cardiovascular: Reports no additional cardiovascular complaints Respiratory: Reports no additional respiratory complaints Gastrointestinal: Reports no additional gastrointestinal complaints Genitourinary: Reports no additional female genitourinary complaints Musculoskeletal: Reports no additional musculoskeletal complaints Skin/Breast: Reports system reviewed and no additional complaints, except as docu Reports system reviewed and no additional complaints, except as documented and Reports weakness Endocrine: Reports fatigue Physical Exam Vital Signs: Last Vital Signs Temp 98.0 F 09/26/21 08:00 Pulse 61 09/26/21 09:07 Resp 18 09/26/21 08:00 BP 113/56 L 09/26/21 09:07 Pulse Ox 94 09/26/21 08:00 Oxygen Flow Rate 2 09/25/21 16:08 BMI result Body Mass Index 24.5 Const General: cooperative, comfortable, no acute distress, alert and awake Nutritional Appearance: average body habitus and other (Frail elderly) Orientation/consciousness: patient oriented x3 Neck Neck: Yes trachea midline, Yes supple and Yes no JVD Resp Effort & Inspection: normal respiratory effort Auscultation: no rales, no wheezes and diminished lung sounds Cardio Jugular venous distension: no JVD Rate: regular rate Rhythm: regular rhythm Heart sounds: S1 normal heart sound present, S2 normal heart sound present and Murmur heart sound present systolic Neuro General: patient oriented x3 and no focal motor deficits Extrem General: Yes no clubbing, cyanosis or edema Objective Labs and Meds Result diagrams: 09/26/21 05:47 09/26/21 05:47 Lab results: Laboratory Results - last 24 hr 09/23/21 09/25/21 09/26/21 16:20 13:47 05:47 WBC 13.2 H 10.9 H RBC 2.83 L 3.22 L Hgb 9.4 L 10.4 L Hct 28.3 L 30.7 L MCV 100.0 H 95.3 MCH 33.2 H 32.3 MCHC 33.2 33.9 RDW 14.2 14.6 Plt Count 88 L 83 L MPV 11.7 12.0 Immature Gran % (Auto) 0.8 H 0.9 H Neut % (Auto) 79.9 H 79.5 H Lymph % (Auto) 3.6 L 5.0 L [place] % (Auto) 15.3 H 12.2 H Eos % (Auto) 0.2 2.1 Baso % (Auto) 0.2 0.3 Lymph # (Auto) 0.5 L 0.6 L [place] # (Auto) 2.0 H 1.3 H Eos # (Auto) 0.0 0.2 Baso # (Auto) 0.0 0.0 Abs Immat Gran (auto) 0.11 H 0.10 H Absolute Neuts (auto) 10.5 H 8.7 H Absolute Nucleated RBC 0.000 0.000 Nucleated RBC % (auto) 0.0 0.0 PT INR Sodium Potassium Chloride Carbon Dioxide Anion Gap BUN Creatinine Estim Creat Clear Calc Estimated GFR Fasting Glucose Calcium Total Bilirubin AST ALT Alkaline Phosphatase Total Protein Albumin Blood Type A Positive Antibody Screen NEGATIVE Crossmatch See Detail 09/26/21 09/26/21 05:47 05:47 WBC RBC Hgb Hct MCV MCH MCHC RDW Plt Count MPV Immature Gran % (Auto) Neut % (Auto) Lymph % (Auto) [place] % (Auto) Eos % (Auto) Baso % (Auto) Lymph # (Auto) [place] # (Auto) Eos # (Auto) Baso # (Auto) Abs Immat Gran (auto) Absolute Neuts (auto) Absolute Nucleated RBC Nucleated RBC % (auto) PT 15.0 H INR 1.3 H Sodium 135 Potassium 3.9 Chloride 104 Carbon Dioxide 25 Anion Gap 10 L BUN 34 H Creatinine 0.75 Estim Creat Clear Calc 55.3 Estimated GFR > 60 Fasting Glucose 103 H Calcium 7.9 L Total Bilirubin 2.5 H AST 47 H D ALT 32 H Alkaline Phosphatase 58 Total Protein 4.7 L Albumin 2.7 L Blood Type Antibody Screen Crossmatch Progress Note: A&P Assessment and plan (1) Low blood pressure: Status: Acute Assessment and Plan: Low blood pressure episode yesterday resolved after IV hydration and blood transfusion most suggestive intravascular volume depletion setting of aortic stenosis and pulmonary hypertension. Clinically tolerated this well. Can resume her oral diuretic regimen at this point in time. (2) Paroxysmal atrial fibrillation: Status: Acute Assessment and Plan: Paroxysmal atrial fibrillation which has remained suppressed. Can be started on oral anticoagulant therapy with Eliquis, 5 mg b.i.d., if okay with Orthopedic Service. Continue amiodarone. (3) Chronic heart failure with preserved ejection fraction (HFpEF): Status: Acute Assessment and Plan: Heart failure preserved ejection fraction, clinically appears to be euvolemic still despite hydration and blood transfusion. Resume her oral diuretics. Continue rhythm control approach as above. Will follow up in the clinic in 2-4 weeks time. Thank you for allowing me to partake in her care Fall Risk Details Current Medications: Current Medications Acetaminophen (Acetaminophen 325 Mg Tablet) 650 mg PO Q6H PRN PRN Reason: Pain, Mild (Pain Scale 1-3) Last Admin: 09/25/21 22:23 Dose: 650 mg Documented by: Amiodarone HCl (Amiodarone Hcl 200 Mg Tablet) 200 mg PO DAILY [facility] Last Admin: 09/26/21 08:35 Dose: 200 mg Documented by: Amlodipine Besylate (Amlodipine Besylate 5 Mg Tablet) 5 mg PO BEDTIME JOHN; Protocol Last Admin: 09/25/21 22:23 Dose: Not Given Documented by: Docusate Sodium (Docusate Sodium 100 Mg Capsule) 100 mg PO BID [facility] Last Admin: 09/26/21 08:35 Dose: 100 mg Documented by: Enoxaparin Sodium (Enoxaparin Sodium 40 Mg/0.4 Ml Syringe) 40 mg SUBCUT Q24H [facility] Last Admin: 09/25/21 14:28 Dose: Not Given Documented by: Fentanyl (Fentanyl Citrate/Pf 100 Mcg/2 Ml Vial) 25 mcg IVPUSH Q5M PRN; Protocol PRN Reason: Pain, Moderate (Pain Scale 4-6 Hydromorphone HCl (Hydromorphone Hcl 0.5 Mg/0.5 Ml Syringe) 0.5 mg IVPUSH Q4H PRN; Protocol PRN Reason: Pain, Severe (Pain Scale 7-10) Last Admin: 09/23/21 20:20 Dose: 0.5 mg Documented by: Levothyroxine Sodium (Levothyroxine Sodium 50 Mcg Tablet) 50 mcg PO DAILY@0600 [facility] Last Admin: 09/26/21 06:18 Dose: 50 mcg Documented by: Melatonin (Melatonin 3 Mg Tablet) 6 mg PO BEDTIME PRN PRN Reason: Insomnia Metoprolol Succinate (Metoprolol Succinate Er 50 Mg Tab.Er.24h) 50 mg PO DAILY [facility]; Protocol Last Admin: 09/26/21 08:35 Dose: 50 mg Documented by: Ondansetron HCl (Ondansetron Hcl 4 Mg/2 Ml Vial) 4 mg IVPUSH ONCE PRN PRN Reason: Nausea and Vomiting Pravastatin Sodium (Pravastatin Sodium 40 Mg Tablet) 40 mg PO BEDTIME [facility] Last Admin: 09/25/21 22:23 Dose: 40 mg Documented by: Senna (Sennosides 8.6 Mg Tablet) 17.2 mg PO BEDTIME PRN PRN Reason: Constipation Sodium Chloride (0.9 % Sodium Chloride Flush 3 Ml Syringe) 3 ml IVFLUSH QSHIFT [facility] Last Admin: 09/26/21 08:35 Dose: 3 ml Documented by: Valsartan (Valsartan 160 Mg Tablet) 160 mg PO DAILY [facility] Last Admin: 09/26/21 08:35 Dose: 160 mg Documented by: Time Spent With Patient Time: Total time spent is greater than 50% in coordination of care (as documented) at patient's floor/unit and/or counseling patient: Time with patient: 15 - 24 minutes Progress Note: Quality Stroke Does the patient have a stroke diagnosis?: No Procedures Date of Service Date of Service: 09/26/21
[2021-09-26 12:36] LABS: COVID-19 Test Negative (Negative)
--- NOTE | 2021-09-27 14:46 | P.OP_ITS ---
Operative Note Operative Note Date of Service: 09/27/21 Narrative: Pre-op diagnosis: left hip IT fx Post-op diagnosis: same Procedure: IMN left hip Implants: joe [id number] with 95 mm hip screw and 35 mm distal interlock Surgeon: Zay Ambrose MD Anesthesia: GETA and local Was an Senior Software Quality Analyst used for this Procedure?: Yes Senior Software Quality Analyst: Trina Humphreys Estimated blood loss (mL): 50 IV fluids (mL): 300 Pathology: none sent Condition: stable Disposition: PACU Procedure in detail: Patient was brought to the operating room and prepped and draped in standard sterile fashion. Time-out was called to identify proper site procedure proper surgeon and IV antibiotics per weight were administered. She was positioned on the fracture table and a traction and slight internal rotation were performed and biplanar fluoroscopy confirmed initial fracture reduction. I then made a stab incision proximal to the greater trochanter in using a guidewire made a entry point just lateral to the tip of the greater trochanter and placed a guidewire into the femoral metadiaphysis. I then over-reamed with 15 mm Reamer placed my ball-tip guidewire down distally in the femur and measured my length. I selected a [id number] nail. I then turned my attention to the hip screw where I used a guidewire and a tip apex distance of less than 1.5 measured my hip screw. I then pre drilled and placed a95mm hip screw using biplanar fluoroscopy. Once I was happy with the position of the hip screw I turned my attention to the distal aspect of the nail. Using the guide I placed 1 static distal interlocking screw in standard AO technique. I then removed all I then placed my set screw proximally and removed all extraneous instrumentation. Final biplanar radiographs were taken. There was a anterior portion of the greater trochanter that was flexed anteriorly. I was not able to fully reduce this with the genia. I was, however satisfied with the position of the hardware and the fracture reduction. I think copiously irrigated closed with absorbable sutures mikel and injected 30 mL of into the area of the incisions. Traction was let down patient was placed in sterile dressing awakened from anesthesia brought to recovery room stable condition there were no known complications.
== END 2021-09-26 13:50 | DRG 481 ==
LOC: HO.ED 20:50 → HO.EDOVER 22:00 → HO.IMC 09-23 18:56
PROVIDERS: Hospitalist; Orthopaedic Surgery; Admitting Provider Hospitalist; Emergency Provider Internal Medicine; PCP Internal Medicine; Visit Provider Internal Medicine
PROC: 0QS734Z Reposition Left Upper Femur with Internal Fixation Device, Percutaneous Approach (ICD-10-PCS; principal; 2021-09-24 15:30)
DX: S72.142A Displaced intertrochanteric fracture of left femur, initial encounter for closed fracture (principal); I50.32 Chronic diastolic (congestive) heart failure; R79.1 Abnormal coagulation profile; W01.0XXA Fall on same level from slipping, tripping and stumbling without subsequent striking against object, initial encounter; Y93.9 Activity, unspecified; E78.5 Hyperlipidemia, unspecified; I48.0 Paroxysmal atrial fibrillation; I35.0 Nonrheumatic aortic (valve) stenosis; I11.0 Hypertensive heart disease with heart failure; I95.9 Hypotension, unspecified; Y92.000 Kitchen of unspecified non-institutional (private) residence as the place of occurrence of the external cause; Z20.822 Contact with and (suspected) exposure to COVID-19; Z95.0 Presence of cardiac pacemaker; Z79.01 Long term (current) use of anticoagulants; Z79.890 Hormone replacement therapy; Z79.899 Other long term (current) drug therapy
CPT/HCPCS: 36415; 70450; 71045; 72125; 73502; 80048; 80053; 81003; 84484; 85025; 85610; 85730; 86850; 86900; 86901; 86923; 87635; 93005; 96365; 96375; 97116; 97162; 97166; 97530; 99285; C1713; C1769; J0690; J1170; J2270; J2405; J3010; J3430; P9016

== ENCOUNTER → 2021-10-17 11:27 | Outpatient (BNVA) | payer MEDICARE, OTHER, SELFPAY | PROVIDERS: Visit Provider Orthopaedic Surgery | DX: S72.142D Displaced intertrochanteric fracture of left femur, subsequent encounter for closed fracture with routine healing (principal) | CPT/HCPCS: 99212 ==

== ENCOUNTER 2021-11-11 13:17 | Outpatient (REF) | payer SELFPAY ==
--- NOTE | 2021-11-11 13:40 | MHC.AU.P13 ---
Hearing Instrument Problem Date of Visit: 11/11/21 Left Ear: Teachers Assistant: Phonak Model: Virto B [id number] Serial Number: [id number] Repair Warranty: 08/06/2022 Battery Size: 312 Type of Wax Guard: CeruStop Dispensed By: [facility] Date of Fittin07/14/2019 Follow-Up Summary: Daughter brought in left hearing aid - broken battery door. Battery door replaced, hearing aid cleaned and amplifying clearly. Recommendations: Recommendations: Hearing instrument follow-up or maintenance as needed. Diagnosis Code(s): Primary Diagnosis: H90.3 Bilateral Sensorineural Hearing Loss Signature: Provider: KAMINI Stern-
== END 2021-11-11 13:18 | disposition home or self-care (01) ==
LOC: HO.HAP 13:17
PROVIDERS: Visit Provider Internal Medicine
DX: Z13.89 Encounter for screening for other disorder (principal)

== ENCOUNTER 2021-11-14 08:32 | Outpatient (REF) | payer MEDICARE, OTHER, SELFPAY ==
--- NOTE | ~2021-11-14 | XR_ITS ---
EXAMINATION: XR HIP, LEFT CLINICAL INFORMATION: Pain. COMPARISON: Left hip done on 09/22/2021. TECHNIQUE: Single frontal view of the pelvis and frontal and crosstable lateral view of the left hip were obtained. FINDINGS: Postsurgical changes are noted with interval placement of hardware at the site of the previously documented comminuted fracture involving the left proximal femur. The hardware appear intact. The alignments are intact. Evidence of callus formation is noted at the site of the previously documented fracture. The visualized part of the right hip shows postsurgical changes of total right hip arthroplasty. The visualized hardware appear intact. XR/XR hip LT w PEL1V IMPRESSION: Postoperative changes of ORIF at the site of previously documented comminuted fracture involving the left proximal fibula showing intact hardware and satisfactory alignment and interval callus formation at the site of the fractures.
== END 2021-11-14 08:33 | disposition home or self-care (01) ==
LOC: HO.HOSX 08:32
PROVIDERS: Visit Provider Physician Assistant
DX: S72.142D Displaced intertrochanteric fracture of left femur, subsequent encounter for closed fracture with routine healing (principal)
CPT/HCPCS: 73502; 99212

== ENCOUNTER → 2021-11-25 12:00 | Outpatient (BNVA) | payer MEDICARE, OTHER, SELFPAY | PROVIDERS: PCP Internal Medicine; Visit Provider Internal Medicine | DX: I48.20 Chronic atrial fibrillation, unspecified (principal); Z51.81 Encounter for therapeutic drug level monitoring; Z79.01 Long term (current) use of anticoagulants | CPT/HCPCS: Q3014 ==

== ENCOUNTER → 2021-12-04 15:53 | Outpatient (BNVA) | payer MEDICARE, OTHER, SELFPAY | PROVIDERS: PCP Internal Medicine; Visit Provider Internal Medicine | DX: Z13.89 Encounter for screening for other disorder (principal) ==

== ENCOUNTER → 2021-12-11 10:16 | Outpatient (BNVA) | payer MEDICARE, OTHER, SELFPAY | PROVIDERS: PCP Internal Medicine; Visit Provider Internal Medicine | DX: Z13.89 Encounter for screening for other disorder (principal) ==

== ENCOUNTER → 2021-12-17 13:34 | Outpatient (BNVA) | payer MEDICARE, OTHER, SELFPAY | PROVIDERS: PCP Internal Medicine; Visit Provider Internal Medicine | DX: I48.20 Chronic atrial fibrillation, unspecified (principal) | CPT/HCPCS: Q3014 ==

== ENCOUNTER → 2021-12-24 16:07 | Outpatient (BNVA) | payer MEDICARE, OTHER, SELFPAY | PROVIDERS: PCP Internal Medicine; Visit Provider Internal Medicine | DX: Z13.89 Encounter for screening for other disorder (principal) ==

== ENCOUNTER 2021-12-26 11:01 | Outpatient (REF) | payer MEDICARE, OTHER, SELFPAY ==
--- NOTE | ~2021-12-26 | XR_ITS ---
EXAMINATION: XR HIP, LEFT CLINICAL INFORMATION: Pain COMPARISON: Previous x-ray November 2021 TECHNIQUE: Two views of the left hip and one view of the pelvis. FINDINGS: There is an intramedullary genia and compression/lag screw seen in the left proximal femur. Left femoral intertrochanteric fracture does not appear changed. Orthopedic hardware does not appear changed. There is a right hip replacement in satisfactory position. 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 No pelvic fracture. Degenerative changes of the spine. XR/XR hip LT w PEL1V IMPRESSION: ORIF of left femoral intertrochanteric fracture. No change from November 2021 exam.
== END 2021-12-26 11:02 | disposition home or self-care (01) ==
LOC: HO.HOSX 11:01
PROVIDERS: Visit Provider Physician Assistant
DX: S72.142D Displaced intertrochanteric fracture of left femur, subsequent encounter for closed fracture with routine healing (principal)
CPT/HCPCS: 73502; 99212

== ENCOUNTER → 2021-12-31 14:59 | Outpatient (BNVA) | payer MEDICARE, OTHER, SELFPAY | PROVIDERS: PCP Internal Medicine; Visit Provider Internal Medicine | DX: Z13.89 Encounter for screening for other disorder (principal) ==

== ENCOUNTER → 2022-01-01 10:13 | Outpatient (BNVA) | payer MEDICARE, OTHER, SELFPAY | PROVIDERS: Referring Provider Internal Medicine; Visit Provider Internal Medicine Cardiovascular Disease | DX: Z45.018 Encounter for adjustment and management of other part of cardiac pacemaker (principal); I35.0 Nonrheumatic aortic (valve) stenosis; I48.92 Unspecified atrial flutter; I50.32 Chronic diastolic (congestive) heart failure | CPT/HCPCS: 93005; 99212 ==

== ENCOUNTER → 2022-01-07 13:42 | Outpatient (BNVA) | payer MEDICARE, OTHER, SELFPAY | PROVIDERS: PCP Internal Medicine; Visit Provider Internal Medicine | DX: I48.20 Chronic atrial fibrillation, unspecified (principal); Z51.81 Encounter for therapeutic drug level monitoring; Z79.01 Long term (current) use of anticoagulants | CPT/HCPCS: Q3014 ==

== ENCOUNTER → 2022-01-14 15:49 | Outpatient (BNVA) | payer MEDICARE, OTHER, SELFPAY | PROVIDERS: PCP Internal Medicine; Visit Provider Internal Medicine | DX: I48.20 Chronic atrial fibrillation, unspecified (principal); Z51.81 Encounter for therapeutic drug level monitoring; Z79.01 Long term (current) use of anticoagulants | CPT/HCPCS: Q3014 ==

== ENCOUNTER → 2022-01-21 15:48 | Outpatient (BNVA) | payer MEDICARE, OTHER, SELFPAY | PROVIDERS: PCP Internal Medicine; Visit Provider Internal Medicine | DX: I48.20 Chronic atrial fibrillation, unspecified (principal); Z79.01 Long term (current) use of anticoagulants; Z51.81 Encounter for therapeutic drug level monitoring | CPT/HCPCS: Q3014 ==

== ENCOUNTER → 2022-01-28 16:14 | Outpatient (BNVA) | payer MEDICARE, OTHER, SELFPAY | PROVIDERS: PCP Internal Medicine; Visit Provider Internal Medicine | DX: I48.20 Chronic atrial fibrillation, unspecified (principal); Z79.01 Long term (current) use of anticoagulants; Z51.81 Encounter for therapeutic drug level monitoring | CPT/HCPCS: Q3014 ==

== ENCOUNTER → 2022-01-30 09:04 | Outpatient (BNVA) | payer MEDICARE, OTHER, SELFPAY | PROVIDERS: PCP Internal Medicine; Visit Provider Internal Medicine | DX: I48.20 Chronic atrial fibrillation, unspecified (principal); Z79.01 Long term (current) use of anticoagulants; Z51.81 Encounter for therapeutic drug level monitoring | CPT/HCPCS: 85610; 99211 ==

== ENCOUNTER → 2022-02-04 09:13 | Outpatient (BNVA) | payer MEDICARE, OTHER, SELFPAY | PROVIDERS: PCP Internal Medicine; Visit Provider Internal Medicine | DX: I48.20 Chronic atrial fibrillation, unspecified (principal); Z79.01 Long term (current) use of anticoagulants; Z51.81 Encounter for therapeutic drug level monitoring | CPT/HCPCS: Q3014 ==

== ENCOUNTER → 2022-02-11 13:29 | Outpatient (BNVA) | payer MEDICARE, OTHER, SELFPAY | PROVIDERS: PCP Internal Medicine; Visit Provider Internal Medicine | DX: Z13.89 Encounter for screening for other disorder (principal) ==

== ENCOUNTER → 2022-02-18 09:00 | Outpatient (BNVA) | payer MEDICARE, OTHER, SELFPAY | PROVIDERS: PCP Family Medicine; Visit Provider Internal Medicine | DX: Z13.89 Encounter for screening for other disorder (principal) ==

== ENCOUNTER → 2022-02-24 13:11 | Outpatient (REF) | payer MEDICARE, OTHER, SELFPAY ==
--- NOTE | 2022-02-24 13:15 | CA_ITS ---
Transthoracic Echocardiogram Patient (Last, First, Middle): Ashley Castillo, Gender: Female Date of : 1935 Age: 86 Procedure Date: 02/24/2022 Procedure Type: Transthoracic Echocardiogram Location: OP Height: 167.64 cm Weight: 64.86 kg BSA: 1.73 m2 Heart Rate: bpm BP: 152 / 96 mmHg Fruit Cutter: BELLA Referring MD: Blake Calle MD Symptoms: NON RHEUMATIC AVS Study Quality: Good ECG Rhythm: Ventriculary paced rhythm Conclusions: - The left ventricular systolic function is normal. The calculated ejection fraction is 57% by biplane method. - Evidence suggests grade II (moderate) diastolic dysfunction. - Severe biatrial enlargement. - Moderately increased right ventricular cavity size. - There is moderate to severe aortic valve stenosis. - There is moderate mitral annular calcification. There is mild mitral valve regurgitation. - There is mild to moderate tricuspid valve regurgitation. - Mild pulmonary hypertension is present. - The inferior vena cava is dilated and collapses greater than 50% with inspiration. Findings Left Ventricle Normal left ventricular cavity size. There is normal left ventricular wall thickness. The left ventricular systolic function is normal. The calculated ejection fraction is 57% by biplane method. There is no evidence of regional wall motion abnormalities. E/E prime ratio is between 8 and 15 consistent with indeterminate filling pressures. Evidence suggests grade II (moderate) diastolic dysfunction. Right Ventricle Moderately increased right ventricular cavity size. There is normal right ventricular systolic function. Atria Severe biatrial enlargement. Aortic Valve There is moderate calcification of the aortic valve. There is moderate to severe aortic valve stenosis. The mean gradient is 17 mmHg. The aortic valve area is 0.99 cm2. There is mild aortic valve regurgitation. Dimensionless index 0.27. Stroke volume index 35 cc. Mitral Valve There is mild anterior mitral leaflet thickening. There is moderate mitral annular calcification. There is mild mitral valve regurgitation. There is no mitral valve stenosis. Pulmonic Valve There is mild pulmonic valve regurgitation. Tricuspid Valve Normal tricuspid valve structure. There is mild to moderate tricuspid valve regurgitation. The right ventricular systolic pressure is 44 mmHg. Mild pulmonary hypertension is present. Great Vessels The asc aorta is normal in size. Venous The inferior vena cava is dilated and collapses greater than 50% with inspiration. Pericardium/Pleural There is no evidence of pericardial effusion. Prior Study Comparison No significant change compared to prior study dated: 02/05/2021. Measurements 2D Linear Measurements IVSd: 1.01 0.6-0.9/0.6-1.0 cm LVIDd: 4.67 3.9-5.3/4.2-5.9 cm LVIDd Index: 2.70 2.4-3.2/2.2-3.1 cm/m2 LVIDs: 3.30 2.0-3.6 cm LVPWd: 1.07 0.7-1.1 cm LA Diam: 4.20 2.7-3.8/3.0-4.0 cm LAIDs Index: 2.43 1.5-2.3 cm/m2 LV Mass: 213.93 67-162/88-224 g LV Mass Index: 123.66 43-95/49-115 g/m2 LVOT Diam: 2.20 3.0+(-)1.3 cm 2D Systolic Function EF 4C: 57.10 >55% EF 2C: 56.50 >55% EF BiP: 56.70 >55% Mitral Valve MV Pk E: 0.67 MV PK A: 0.48 MV Decel Time: 210.00 E/A: 1.40 E'Lateral: 7.51 E'Medial: 5.87 E/E' Med: 11.40 E/E' Lat: 8.90 PHT: 61.00 MVA PHT: 3.61 Decel [place]: 3.18 Aortic Valve AoV Pk Rodger: 2.64 AoV Mn Rodger: 2.00 AoV VTI: 0.61 AoV Pk Grad: 28.00 Aov Mn Grad: 17.00 GENO Cont.VTI: 0.99 LVOT LVOT Pk Rodger: 0.70 LVOT Mn Rodger: 0.46 LVOT VTI: 0.16 LVOT Pk Grad: 2.00 LVOT Mn Grad: 1.00 LVOT Diam: 2.20 LVOT Area: 3.80 Diastolic Function MV Pk E: 0.67 MV Pk A: 0.48 E/A: 1.40 E'Medial: 5.87 E/E' Med: 11.40 E' Laterial: 7.51 E/E' Lat: 8.90 Right Ventricle TAPSE (mm): 24.40 TVS' Rodger: 12.20 Tricuspid Valve TR Pk Rodger: 3.02 TR Pk Grad: 36.00 RA Press: 8.00 RVSP: 44.00 Great Vessels Aorta Sinus of Valsalva: 3.36 2.0-3.[address] [place]: 3.05 1.7-3.4 cm Ao Asc: 3.40 2.1-3.4 cm Updated in Other Vendor System with Status of Final Renan Garg MD electronically signed on 02/25/2022 11:53:52 AM with status of Final
== END ==
LOC: HO.CARD 13:11
PROVIDERS: Visit Provider Internal Medicine Cardiovascular Disease
DX: I35.0 Nonrheumatic aortic (valve) stenosis (principal)
CPT/HCPCS: 93306

== ENCOUNTER → 2022-02-25 09:02 | Outpatient (BNVA) | payer MEDICARE, OTHER, SELFPAY | PROVIDERS: PCP Family Medicine; Visit Provider Internal Medicine | DX: I48.20 Chronic atrial fibrillation, unspecified (principal); Z79.01 Long term (current) use of anticoagulants; Z51.81 Encounter for therapeutic drug level monitoring | CPT/HCPCS: Q3014 ==

== ENCOUNTER → 2022-03-04 08:55 | Outpatient (BNVA) | payer MEDICARE, OTHER, SELFPAY | PROVIDERS: PCP Family Medicine; Visit Provider Internal Medicine | DX: Z79.01 Long term (current) use of anticoagulants (principal) ==

== ENCOUNTER → 2022-03-06 09:35 | Outpatient (BNVA) | payer MEDICARE, OTHER, SELFPAY | PROVIDERS: PCP Internal Medicine; Referring Provider Internal Medicine; Visit Provider Internal Medicine Cardiovascular Disease | DX: Z45.018 Encounter for adjustment and management of other part of cardiac pacemaker (principal); I48.92 Unspecified atrial flutter; I35.0 Nonrheumatic aortic (valve) stenosis; I50.32 Chronic diastolic (congestive) heart failure; Z79.899 Other long term (current) drug therapy | CPT/HCPCS: 93280; 99212 ==

== ENCOUNTER 2022-03-26 11:06 | Day surgery (SDC) | payer MEDICARE, OTHER, SELFPAY ==
[2022-03-20 11:20] VITALS: BMI 23.1
--- NOTE | 2022-03-25 10:33 | P.CONAN_ITS ---
Documented by User: Hue Shirley NP 03/25/22 10:39 HPI - Anesthesia Eval Consult details Narrative: 86yo F for Cardioversion pacer in situ s/p fem nailing 09/2021 with GA-LMA 4 PMFSH Active Problems Active Problems: All Active Problems (Updated 03/20/22 @ 11:18 by Blossom Pickett RN) Current use of anticoagulant therapy (Acute) SOB (shortness of breath) on exertion (Acute) Repeated falls (Acute) Orthostatic hypotension (Acute) Femur fracture (Acute) Hip fracture (Acute) Intertrochanteric fracture of left femur (Acute) Cardiac pacemaker in situ (Acute) Chronic heart failure with preserved ejection fraction (HFpEF) (Acute) Aortic stenosis (Acute) Atrial flutter (Acute) Sick sinus syndrome (Acute) Enlarged RV (right ventricle) (Acute) Tricuspid regurgitation (Acute) Pulmonary hypertension (Acute) HTN (hypertension) (Acute) Past Medical History Medical History (Updated 03/20/22 @ 11:18 by Blossom Pickett RN) History of cardioversion Paroxysmal atrial fibrillation Presence of total left knee joint prosthesis Family History Family History Father No problems noted. Mother Cancer Family history of problems with anesthesia: No Surgical History Surgical History (Updated 03/20/22 @ 11:17 by Blossom Pickett RN) H/O colonoscopy History of permanent cardiac pacemaker placement History of total left knee replacement History of total right hip replacement Hx of cataract surgery Hx of knee surgery History of Problems with Anesthesia: Yes Social History Social History Household Members: None Housing: Other Housing Other:: house Do you presently have visiting nurse or other home services: No Patient Tobacco Use Status: Never used Tobacco e-Cigarette/Vaping Use: Never Used Advance Directives: No Advance Directives Information Provided: Yes service: No Current occupational status: retired Meds Allergies Allergy/AdvReac Type Severity Reaction Status Date / Time moxifloxacin [From Avelox] AdvReac Unknown DIARRHEA Verified 03/04/22 08:56 Home Medications Medication Instructions Recorded Confirmed Last Taken Type levothyroxine 50 mcg tablet 50 mcg PO DAILY 09/18/20 03/20/22 09/22/21 09:00 History pravastatin 40 mg tablet 40 mg PO DAILY 09/18/20 03/20/22 09/22/21 09:00 History calcium carbonate 600 mg calcium 600 mg PO BID 12/04/21 03/20/22 Unknown History (1,500 mg) tablet melatonin 3 mg tablet 3 mg PO BEDTIME PRN insomnia 12/17/21 03/20/22 Unknown History vit C,H-Vm-utmaa-lutein-zeaxan 1 cap PO DAILY 12/17/21 03/20/22 Unknown History [PreserVision AREDS-2] polyethylene glycol 3350 17 17 g PO DAILY 01/01/22 03/20/22 Unknown History gram/dose oral powder (Miralax) sennosides 8.6 mg capsule (senna) 8.6 mg PO BEDTIME 01/01/22 03/20/22 Unknown History acetaminophen 650 mg 650 mg PO Q8H 02/04/22 03/20/22 Unknown History tablet,extended release (Tylenol Arthritis Pain) furosemide 20 mg tablet 20 mg PO DAILY 03/06/22 03/20/22 Unknown History Exam Exam Date and Time: March 25, 2022 1033 Height,Weight and Vital Signs: Height 5 ft 7 in Weight 67 kg Narrative Narrative: EKG 12/2021 ventricular paced rhythm with underlying possible atrial flutter ECHO 02/2022 Conclusions: - The left ventricular systolic function is normal.? The ? calculated ejection fraction is 57% by biplane method. ? - Evidence suggests grade II (moderate) diastolic dysfunction. ? - Severe biatrial enlargement. ? - Moderately increased right ventricular cavity size.? - There is moderate to severe aortic valve stenosis. ? - There is moderate mitral annular calcification.? There is mild mitral valve regurgitation.? - There is mild to moderate tricuspid valve regurgitation. ? ? ? - Mild pulmonary hypertension is present.? - The inferior vena cava is dilated and collapses greater than ? 50% with inspiration.? Findings Left Ventricle Normal left ventricular cavity size.? There is normal left ventricular wall thickness.? The left ventricular systolic function is normal.? The calculated ejection fraction is 57% by biplane method.? There is no evidence of regional wall motion abnormalities.? E/E prime ratio is between 8 and 15 consistent with indeterminate filling pressures.? Evidence suggests grade II (moderate) diastolic dysfunction. Cardiac Device Check 02/2022 Details: Dual-chamber Medtronic pacemaker in place.? Was programmed in DDIR, reprogrammed to VVIR due to persistent atrial flutter.? Patient remains in persistent atrial flutter.? Ventricular pacing 100% of the time.? Ventricular pacing thresholds excellent and reprogrammed to enhance battery life.? Pacing lead impedance is stable.? Ventricular sensing is adequate.? 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 Mother Cancer Surgical History Surgical History (Updated 03/20/22 @ 11:17 by Blossom Pickett RN) H/O colonoscopy History of permanent cardiac pacemaker placement History of total left knee replacement History of total right hip replacement Hx of cataract surgery Hx of knee surgery Social History Social History Household Members: None Housing: Other Housing Other:: house Do you presently have visiting nurse or other home services: No Patient Tobacco Use Status: Never used Tobacco e-Cigarette/Vaping Use: Never Used Advance Directives: No Advance Directives Information Provided: Yes service: No Current occupational status: retired Meds Allergies Allergy/AdvReac Type Severity Reaction Status Date / Time moxifloxacin [From Avelox] AdvReac Unknown DIARRHEA Verified 03/04/22 08:56 Home Medications Medication Instructions Recorded Confirmed Last Taken Type levothyroxine 50 mcg tablet 50 mcg PO DAILY 09/18/20 03/20/22 09/22/21 09:00 History pravastatin 40 mg tablet 40 mg PO DAILY 09/18/20 03/20/22 09/22/21 09:00 History calcium carbonate 600 mg calcium 600 mg PO BID 12/04/21 03/20/22 Unknown History (1,500 mg) tablet melatonin 3 mg tablet 3 mg PO BEDTIME PRN insomnia 12/17/21 03/20/22 Unknown History vit C,E-Ec-rntrs-lutein-zeaxan 1 cap PO DAILY 12/17/21 03/20/22 Unknown History [PreserVision AREDS-2] polyethylene glycol 3350 17 17 g PO DAILY 01/01/22 03/20/22 Unknown History gram/dose oral powder (Miralax) sennosides 8.6 mg capsule (senna) 8.6 mg PO BEDTIME 01/01/22 03/20/22 Unknown History acetaminophen 650 mg 650 mg PO Q8H 02/04/22 03/20/22 Unknown History tablet,extended release (Tylenol Arthritis Pain) furosemide 20 mg tablet 20 mg PO DAILY 03/06/22 03/20/22 Unknown History Exam Airway Mallampati Class: II (False tooth top front) TM Dist: >3cm Neck ROM: Full Heart: irreg Lungs: cta Assessment and Plan Assessment Anesthesia Assessment: Anesthesia Plan Discussed and Chart Reviewed Final Anesthetic Review NPO: Yes ASA Class: III Final Preanesthetic Review: No Changes in Pt Med Stat, Meds/Allgs Chart Reviewed and Consent Obtained/Reviewed Patient Risk: Intermediate Procedure Risk: Intermediate Anesthetic Plan Anesthetic Plan: MAC: Disposition: Standard PACU
[2022-03-26 11:24] LABS: Hematocrit 49.4 % (37.0-47.0); Hemoglobin 16.5 g/dl (12.0-16.0); Mean Corpuscular HGB Conc 33.4 g/dl (31.0-35.0); Mean Corpuscular Hemoglobin 32.4 pg (27.0-33.0); Mean Corpuscular Volume 96.9 fL (80.0-98.0); Mean Platelet Volume 10.7 fL (9.4-12.3); Platelet Count 160 X10*3/uL (160-400); Red Cell Distribution Width 14.1 % (11.0-16.0); White Blood Count 6.6 X10*3/uL (4.8-10.8)
--- NOTE | 2022-03-26 11:33 | MHC.SHP ---
Pre-Procedural Eval Section A Date of Service: 03/26/22 The patient is an INPATIENT: No Changes since office visit: Yes Patient answered all questions; No Cold of Flu in the past 2 weeks, No New Medical Problems and No Changes in Medication The History & Physical has been completed within 30 days and I have reviewed it.: Yes Section B Chief Complaint: afib Allergies: Allergies Allergy/AdvReac Type Severity Reaction Status Date / Time moxifloxacin [From Avelox] AdvReac Unknown DIARRHEA Verified 03/04/22 08:56 Plan I have reviewed the history and physical and performed a pertinent physical examination on my patient. No changes have occurred unless specified.
[2022-03-26 11:37] VITALS: BP 186/95; PULSE 81; RESP 16; TEMP 36.2; O2SAT 96
[2022-03-26 11:43] LABS: Anion Gap 12 (12-20); Blood Urea Nitrogen 17 mg/dL (9-16); Calcium 9.6 mg/dL (8.4-10.2); Carbon Dioxide 32 mmol/L (22-29); Chloride 101 mmol/L (96-108); Creatinine Clr Calc Pharmacy 42.4; Estimated Glomerular Filt Rate 55; Glucose Fasting 97 mg/dL (60-99); Potassium 4.3 mmol/L (3.3-5.1); Sodium 141 mmol/L (135-145)
[2022-03-26] MEDS: Lactated Ringers 1,000 ML 50 ML IVCONT (11:51)
--- NOTE | 2022-03-26 13:09 | ECG_ITS ---
Test Reason : S/P CARDIOVERSION Blood Pressure : / mmHG Vent. Rate : 066 BPM Atrial Rate : 066 BPM P-R Int : 232 ms QRS Dur : 146 ms QT Int : 516 ms P-R-T Axes : 000 -66 111 degrees QTc Int : 540 ms AV dual-paced rhythm with prolonged AV conduction Abnormal ECG When compared with ECG of 22-SEP-2021 20:45, Vent. rate has increased BY 5 BPM Referred By: Blake Calle Electronically Signed By:BLAKE CALLE MD
[2022-03-26 13:10] VITALS: BP 175/86; PULSE 61; RESP 17; TEMP 36.7; O2SAT 99
--- NOTE | 2022-03-26 13:10 | PM.EVENT ---
Event Note Date of Service: 03/26/22 Event Note: Patient was brought in for cardioversion. Noted ventricular paced rhythm on the monitor. This was regular. Is a question about possible underlying P-waves. Consent was obtained. Cardioversion pads were placed on her. Patient was given mild sedation but then pacemaker statistical programmer analyst was placed and it was noted that patient had sensed atrial activity, most likely retrograde conduction from ventricular paced rhythm. Pacemaker was then reprogrammed from VVIR to DDDR leading to promptly to atrial paced and ventricular paced rhythm. Cardioversion procedure was therefore abandoned as it was not required
[2022-03-26 13:15] VITALS: BP 186/82; PULSE 60; RESP 16; O2SAT 100
[2022-03-26 13:25] VITALS: BP 179/86; PULSE 60; RESP 18; TEMP 36.7; O2SAT 99
== END 2022-03-26 14:00 | disposition home or self-care (01) ==
PROVIDERS: Nurse Practitioner; PCP Internal Medicine; Visit Provider Internal Medicine Cardiovascular Disease
PROC: 5A2204Z Restoration of Cardiac Rhythm, Single (ICD-10-PCS; principal; 2022-03-26 12:30)
DX: I48.19 Other persistent atrial fibrillation (principal); I48.92 Unspecified atrial flutter; Z79.01 Long term (current) use of anticoagulants; I35.0 Nonrheumatic aortic (valve) stenosis; I49.5 Sick sinus syndrome; I11.0 Hypertensive heart disease with heart failure; I50.32 Chronic diastolic (congestive) heart failure; I27.20 Pulmonary hypertension, unspecified; Z95.0 Presence of cardiac pacemaker; Z79.899 Other long term (current) drug therapy; Z88.1 Allergy status to other antibiotic agents; R53.83 Other fatigue
CPT/HCPCS: 36415; 80048; 85027; 92960; 93005

== ENCOUNTER → 2022-04-16 11:04 | Outpatient (BNVA) | payer MEDICARE, OTHER, SELFPAY | PROVIDERS: PCP Internal Medicine; Referring Provider Internal Medicine; Visit Provider Internal Medicine Cardiovascular Disease | DX: I48.92 Unspecified atrial flutter (principal); I50.32 Chronic diastolic (congestive) heart failure; I95.1 Orthostatic hypotension; I35.0 Nonrheumatic aortic (valve) stenosis; Z79.01 Long term (current) use of anticoagulants; Z79.899 Other long term (current) drug therapy; Z45.018 Encounter for adjustment and management of other part of cardiac pacemaker | CPT/HCPCS: 93005; 93280; 99212 ==

== ENCOUNTER → 2022-04-18 09:23 | Outpatient (BNVA) | payer MEDICARE, OTHER, SELFPAY | PROVIDERS: PCP Family Medicine | DX: N39.46 Mixed incontinence (principal) | CPT/HCPCS: 51798; 99202 ==

== ENCOUNTER 2022-04-18 10:31 | Outpatient (REF) | payer SELFPAY | END 2022-04-18 10:32 | disposition home or self-care (01) | LOC: HO.HAP 10:31 | PROVIDERS: Visit Provider Family Medicine | DX: Z46.1 Encounter for fitting and adjustment of hearing aid (principal); R32 Unspecified urinary incontinence | CPT/HCPCS: V5267 ==

== ENCOUNTER 2022-04-29 10:41 | Outpatient (REF) | payer SELFPAY | END 2022-04-29 10:42 | disposition home or self-care (01) | LOC: HO.HAP 10:41 | PROVIDERS: Visit Provider Family Medicine | DX: Z13.89 Encounter for screening for other disorder (principal) ==

== ENCOUNTER 2022-05-12 10:21 | Outpatient (REF) | payer SELFPAY | END 2022-05-12 10:22 | disposition home or self-care (01) | LOC: HO.HAP 10:21 | PROVIDERS: Visit Provider Family Medicine | DX: Z13.89 Encounter for screening for other disorder (principal) ==

== ENCOUNTER → 2022-07-03 12:52 | Outpatient (REF) | payer MEDICARE, OTHER, SELFPAY ==
--- NOTE | 2022-07-03 12:56 | CA_ITS ---
Transthoracic Echocardiogram Patient (Last, First, Middle): Ashley Castillo, Gender: Female Date of : 1935 Age: 86 Procedure Date: 07/03/2022 Procedure Type: Transthoracic Echocardiogram Location: OP Height: 167.64 cm Weight: 60.78 kg BSA: 1.69 m2 Heart Rate: bpm BP: 115 / 75 mmHg Restaurant Supervisor: TO Referring MD: Blake Calle MD Symptoms: I35.0 - Nonrheumatic aortic (valve) stenosis Study Quality: Fair ECG Rhythm: Undetermined Conclusions: - The left ventricular systolic function is low normal. The calculated ejection fraction is 54% by biplane method. - Moderately increased right ventricular cavity size. - Severe biatrial enlargement. - There is severe aortic valve stenosis. - There is mild mitral valve regurgitation. - There is moderate tricuspid valve regurgitation. - Mild pulmonary hypertension is present. Findings Left Ventricle Normal left ventricular cavity size. There is moderately increased left ventricular wall thickness. The left ventricular systolic function is low normal. The calculated ejection fraction is 54% by biplane method. There is no evidence of regional wall motion abnormalities. Diastolic function is indeterminate on the basis of available data. Right Ventricle Moderately increased right ventricular cavity size. There is low normal right ventricular systolic function. There is a pacemaker wire seen in the right ventricle. Atria Severe biatrial enlargement. Aortic Valve There is mild calcification of the aortic valve. There is severe aortic valve stenosis. The mean gradient is 19 mmHg. The aortic valve area is 0.73 cm2. There is mild aortic valve regurgitation. Dimensionless index 0.26. Stroke volume index 26ml/m2. Mitral Valve There is mild anterior mitral leaflet thickening. There is mild mitral annular calcification. There is mild mitral valve regurgitation. There is no mitral valve stenosis. Pulmonic Valve The pulmonic valve is likely normal. There is trace pulmonic valve regurgitation. Tricuspid Valve There is moderate tricuspid valve regurgitation. Mild pulmonary hypertension is present. Great Vessels The aortic annulus, sinuses of valsalva, and asc aorta are normal in size. Venous The inferior vena cava is mildly dilated and collapses greater than 50% with inspiration. Pericardium/Pleural There is no evidence of pericardial effusion. Prior Study Comparison Changes noted compared to prior study dated: 02/24/2022. Slight worsening of aortic stenosis. Measurements 2D Linear Measurements IVSd: 1.32 0.6-0.9/0.6-1.0 cm LVIDd: 4.20 3.9-5.3/4.2-5.9 cm LVIDd Index: 2.49 2.4-3.2/2.2-3.1 cm/m2 LVIDs: 3.51 2.0-3.6 cm LVPWd: 1.29 0.7-1.1 cm LA Diam: 4.20 2.7-3.8/3.0-4.0 cm LAIDs Index: 2.49 1.5-2.3 cm/m2 LV Mass: 251.40 67-162/88-224 g LV Mass Index: 148.76 43-95/49-115 g/m2 LVOT Diam: 2.10 3.0+(-)1.3 cm 2D Systolic Function EF 4C: 48.80 >55% EF 2C: 58.80 >55% EF BiP: 53.80 >55% Mitral Valve MV Pk E: 0.92 MV PK A: 0.38 MV Decel Time: 188.00 E/A: 2.40 E'Lateral: 11.20 E'Medial: 7.51 E/E' Med: 12.20 E/E' Lat: 8.20 PHT: 55.00 MVA PHT: 4.00 Decel Hall: 4.87 Aortic Valve AoV Pk Rodger: 2.62 AoV Mn Rodger: 2.05 AoV VTI: 0.62 AoV Pk Grad: 27.00 Aov Mn Grad: 19.00 GENO Cont.VTI: 0.73 AI Pk Rodger: 3.90 AI Hall: 1.30 LVOT LVOT Pk Rodger: 0.67 LVOT Mn Rodger: 0.42 LVOT VTI: 0.13 LVOT Pk Grad: 2.00 LVOT Mn Grad: 1.00 LVOT Diam: 2.10 LVOT Area: 3.46 Diastolic Function MV Pk E: 0.92 MV Pk A: 0.38 E/A: 2.40 E'Medial: 7.51 E/E' Med: 12.20 E' Laterial: 11.20 E/E' Lat: 8.20 Right Ventricle TAPSE (mm): 16.90 TVS' Rodger: 9.79 Tricuspid Valve TR Pk Rodger: 3.15 TR Pk Grad: 40.00 RA Press: 8.00 RVSP: 48.00 Great Vessels Aorta Sinus of Valsalva: 3.59 2.0-3.5 cm Ao Asc: 3.60 2.1-3.4 cm Updated in Other Vendor System with Status of Final Renan Garg MD electronically signed on 07/05/2022 12:06:36 PM with status of Final
== END ==
LOC: HO.CARD 12:52
PROVIDERS: Visit Provider Internal Medicine Cardiovascular Disease
DX: I35.0 Nonrheumatic aortic (valve) stenosis (principal)
CPT/HCPCS: 93306

== ENCOUNTER → 2022-07-04 10:24 | Outpatient (BNVA) | payer MEDICARE, OTHER, SELFPAY | PROVIDERS: PCP Family Medicine; Visit Provider Urology | DX: R39.15 Urgency of urination (principal); N30.10 Interstitial cystitis (chronic) without hematuria; R35.1 Nocturia; N32.81 Overactive bladder; R32 Unspecified urinary incontinence | CPT/HCPCS: Q3014 ==

== ENCOUNTER → 2022-09-09 10:22 | Outpatient (BNVA) | payer MEDICARE, OTHER, SELFPAY | PROVIDERS: PCP Family Medicine; Visit Provider Internal Medicine Cardiovascular Disease | DX: Z45.018 Encounter for adjustment and management of other part of cardiac pacemaker (principal); I35.0 Nonrheumatic aortic (valve) stenosis; I50.32 Chronic diastolic (congestive) heart failure; I48.92 Unspecified atrial flutter | CPT/HCPCS: 93005; 93280; 99212 ==

== ENCOUNTER → 2022-09-29 11:43 | Outpatient (BNVA) | payer MEDICARE, OTHER, SELFPAY | PROVIDERS: PCP Family Medicine; Visit Provider Nurse Practitioner Family | DX: R32 Unspecified urinary incontinence (principal) | CPT/HCPCS: 51798; 99212 ==

== ENCOUNTER 2022-10-17 13:32 | Outpatient (REF) | payer MEDICARE, OTHER, SELFPAY | END 2022-10-17 13:33 | disposition home or self-care (01) | LOC: HO.SH 13:32 | PROVIDERS: Visit Provider Family Medicine | DX: Z01.118 Encounter for examination of ears and hearing with other abnormal findings (principal); H90.3 Sensorineural hearing loss, bilateral | CPT/HCPCS: 92557; 92567 ==

== ENCOUNTER 2022-11-07 10:54 | Outpatient (REF) | payer MEDICARE, OTHER, SELFPAY ==
--- NOTE | ~2022-11-07 | US_ITS ---
EXAMINATION: US RETROPERITONEAL COMPLETE (RENAL) CLINICAL INFORMATION: Unspecified urinary incontinence. COMPARISON: None TECHNIQUE: Real-time imaging of the kidneys and bladder. Limited exam due to difficult visualization of the kidneys. FINDINGS: RIGHT KIDNEY: 10.4 x 4.5 x 5.1 cm (SAG x AP x TRV). The kidney is normal in size, contour, and echogenicity. Renal cortical thickness is normal. No hydronephrosis. Complex appearing cyst with calcifications measuring 1.0 cm. Nonobstructing stone measuring 5 mm. LEFT KIDNEY: 10.0 x 5.0 x 4.8 cm (SAG x AP x TRV). The kidney is normal in size, contour, and echogenicity. Renal cortical thickness is normal. No renal calculi or hydronephrosis. Midpole 1.4 cm stone with calcifications. BLADDER: Well distended and normal. Bilateral ureteral jets are demonstrated. Prevoid bladder volume is 312 mL. Postvoid bladder volume is 6 mL. US/US retroperitoneal comp IMPRESSION: 1. Bilateral complex renal cysts. Recommend further evaluation with CT or MR. 2. Right renal nephrolithiasis.
== END 2022-11-07 10:55 | disposition home or self-care (01) ==
LOC: HO.US 10:54
PROVIDERS: Visit Provider Nurse Practitioner Family
DX: R32 Unspecified urinary incontinence (principal); N32.81 Overactive bladder
CPT/HCPCS: 76770

== ENCOUNTER → 2022-11-13 11:44 | Outpatient (BNVA) | payer MEDICARE, OTHER, SELFPAY | PROVIDERS: PCP Family Medicine; Visit Provider Nurse Practitioner Family | DX: N28.1 Cyst of kidney, acquired (principal); N32.81 Overactive bladder; R39.15 Urgency of urination; R32 Unspecified urinary incontinence | CPT/HCPCS: 51798; 99212 ==

== ENCOUNTER → 2022-12-03 10:34 | Outpatient (BNVA) | payer MEDICARE, OTHER, SELFPAY | PROVIDERS: PCP Family Medicine; Referring Provider Family Medicine; Visit Provider Internal Medicine Cardiovascular Disease | DX: Z45.018 Encounter for adjustment and management of other part of cardiac pacemaker (principal); I35.0 Nonrheumatic aortic (valve) stenosis; I50.32 Chronic diastolic (congestive) heart failure; I48.0 Paroxysmal atrial fibrillation | CPT/HCPCS: 93280; 99212 ==

== ENCOUNTER → 2022-12-30 10:01 | Outpatient (BNVA) | payer MEDICARE, OTHER, SELFPAY | PROVIDERS: PCP Family Medicine; Visit Provider Urology | DX: N28.1 Cyst of kidney, acquired (principal); N32.81 Overactive bladder; R39.15 Urgency of urination; R32 Unspecified urinary incontinence | CPT/HCPCS: 51798; 99212 ==

== ENCOUNTER 2023-01-05 10:57 | Outpatient (REF) | payer SELFPAY | END 2023-01-05 10:58 | disposition home or self-care (01) | LOC: HO.HAP 10:57 | PROVIDERS: Visit Provider Family Medicine | DX: Z46.1 Encounter for fitting and adjustment of hearing aid (principal); H90.3 Sensorineural hearing loss, bilateral | CPT/HCPCS: V5267 ==

== ENCOUNTER → 2023-04-14 23:59 | Outpatient (BNV) | payer MEDICARE, OTHER, SELFPAY ==
--- NOTE | 2023-04-21 11:10 | MHC.OFFVIS ---
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 Mother Cancer Social History Household Members: None Housing: Other Housing Other:: house Do you presently have visiting nurse or other home services: No Patient Tobacco Use Status: Never used Tobacco e-Cigarette/Vaping Use: Never Used service: No Current occupational status: retired Office Procedures Cardiac Device Check Cardiac Device Check Details: Remote pacemaker report generated 04/14/2023. Pacemaker function is adequate. Increasing burden of atrial fibrillation noted with total burden of 75% [id number] Cardiac Device Interrogation, pacemaker Procedure code (CPT) selection complete Coding Level of Care Code Procedure Only Diagnoses CPT Codes Cardiac Device Check - Cardiac Device 12: [id number] Cardiac Device Interrogation, pacemaker ([id number])
== END ==
PROVIDERS: PCP Family Medicine; Visit Provider Internal Medicine Cardiovascular Disease
DX: I48.0 Paroxysmal atrial fibrillation (principal); Z95.0 Presence of cardiac pacemaker
CPT/HCPCS: 93294

== ENCOUNTER 2023-04-27 11:20 | Outpatient (REF) | payer MEDICARE, OTHER, SELFPAY ==
--- NOTE | ~2023-04-27 | US_ITS ---
EXAMINATION: US RETROPERITONEAL LIMITED (RENAL ONLY) CLINICAL INFORMATION: Cyst of kidney, acquired. COMPARISON: Ultrasound retroperitoneal complete (renal) 11/07/2022. TECHNIQUE: Real-time imaging of the kidneys. FINDINGS: RIGHT KIDNEY: 10.5 x 3.8 x 4.9 cm (SAG x AP x TRV). The kidney is normal in size, contour, and echogenicity. Renal cortical thickness is normal. No hydronephrosis. 1.4 x 1.8 x 1.2 cm minimally complex cyst in the lower pole with focus of wall calcification or [id number]. A 7 x 6 x 8 mm cyst in the lower pole with focus of wall calcification or [id number]. 6 x 2 x 3 mm simple cyst in the lower pole. No imaging follow-up recommended. Multiple echogenic foci seen in the right kidney questionable for small stones versus vascular reflectors. LEFT KIDNEY: The left kidney is not well visualized. US/US renal BI IMPRESSION: No appreciable change in the right renal cysts with wall calcification or [id number] cysts. No imaging followup recommended. Multiple echogenic foci in the right kidney questionable for stones versus vascular reflectors. Left kidney not well visualized.
== END 2023-04-27 11:21 | disposition home or self-care (01) ==
LOC: HO.US 11:20
PROVIDERS: Visit Provider Nurse Practitioner Family
DX: N28.1 Cyst of kidney, acquired (principal)
CPT/HCPCS: 76775

== ENCOUNTER 2023-06-22 10:29 | Outpatient (AMB) | payer MEDICARE, OTHER, SELFPAY ==
--- NOTE | 2023-06-22 10:32 | A.OFFVIS_ITS ---
Intake Intake Visit Reasons: 6m follow up/PVR/US(set) Intake Note: Patient is present for PVR Follow Up Renal Cyst, Urinary Incontinence/Urgency/ultrasound (imaging 04/27/23) Urology Med:None Blood Thinner: Eliquis PVR: 0ml's Event Planning Intern Required: No Accompanied by: daughter in law Allergies moxifloxacin [From Avelox] Adverse Reaction (Unknown, Verified 06/22/23 21:36) DIARRHEA Medication List - Last Reconciled 06/22/23 by ERLINDA Marino-KAMINI acetaminophen ER (Tylenol Arthritis Pain) 650 mg PO Q8H amlodipine mg PO apixaban (Eliquis) 5 mg PO BID aspirin 81 mg PO DAILY calcium carbonate (Calcium) 600 mg PO DAILY levothyroxine 50 mcg PO DAILY melatonin 3 mg PO BEDTIME PRN metoprolol succinate ER (Toprol XL) 25 mg PO DAILY 90 days mirabegron ER (Myrbetriq) 25 mg PO DAILY 90 days modafinil mg PO polyethylene glycol 3350 (Miralax) 17 grams PO DAILY pravastatin 40 mg PO DAILY propylene glycol 0.6% (Systane Balance) 1 drp ophthalmic (eye) DAILY PRN vit C,X-Fr-owvjx-lutein-zeaxan (PreserVision AREDS-2) 1 cap PO DAILY walker (Ultra-Light Rollator misc) As directed HPI HPI Comments History of Present Illness Details Ashley is a pleasant 87-year-old female patient of Dr. De La Rosa who was accompanied by her daughter at today's visit. She has a past medical history of overactive bladder, urinary incontinence, history of cardioversion, atrial flutter, aortic stenosis, chronic heart failure with preserved ejection fracture, paroxysmal atrial fibrillation, sick sinus syndrome, cardiac pacemaker, tricuspid regurgitation, and pulmonary hypertension. She presents to the office today for follow-up of her urinary urgency incontinence, and nephrolithiasis. In discussion with the patient and her daughter she reports having undergone TAVR procedure a couple months ago. Daughter reports patient has had some memory issues since this procedure. She reports patient was at [facility] for a few weeks after procedure and is currently living at [facility] in [place] in the assisted living. Patient continues to repeat and discuss her concerns regarding her new living circumstances at [facility] verses being at home. When asked she reports some improvement in urinary symptoms and reports significant decrease in the amount of daily pads she had been wearing. Patient reports to be utilizing approximately 3 pads per day which is an improvement from before. Discussed at length concurrent 1.4 cm left renal stone. Discussed surveillance monitoring versus surgical intervention at length. Patient and daughter would like to think about this. Discussed obtaining CT KUB prior to next office visit for further assessment evaluation. Patient otherwise reports to be happy with current voiding parameters on 25 mg of Myrbetriq daily. In office urinalysis results reviewed with the patient today. PVR 0ml's. Urinary urgency incontinence Lives at assisted living Pelvic floor physical therapy was helpfu Reports sense of urgency, frequency in on sensed urination has been stable Developed confusion on VESIcare and oxybutynin Prior imaging with bilateral complex renal cyst on right renal nephrolithiasis - right renal cyst 1 cm, left mid pole stone 1.4 cm [facility] Medical History Overactive bladder Urinary incontinence History of cardioversion Atrial flutter Presence of total left knee joint prosthesis Aortic stenosis Enlarged RV (right ventricle) Chronic heart failure with preserved ejection fraction (HFpEF) Paroxysmal atrial fibrillation Sick sinus syndrome Cardiac pacemaker in situ Tricuspid regurgitation Pulmonary hypertension HTN (hypertension) Surgical History H/O colonoscopy Hx of cataract surgery History of total left knee replacement History of total right hip replacement History of permanent cardiac pacemaker placement Hx of knee surgery Family History Father No problems noted. Mother Cancer Social History Household Members: None Housing: Other Housing Other:: house Do you presently have visiting nurse or other home services: No Patient Tobacco Use Status: Never used Tobacco e-Cigarette/Vaping Use: Never Used service: No Current occupational status: retired Review of Systems Const Reports as per HPI Eyes Reports no additional complaints ENT Reports no additional complaints Card Reports as per HPI Resp Reports no additional complaints GI Reports no additional complaints Reports as per HPI Musc Reports as per HPI Neuro Reports as per HPI Psych Reports no additional complaints Endo Reports no additional complaints Huey/Lymph Reports no additional complaints Aller/Immun Reports no additional complaints Physical Exam Const General: cooperative, healthy appearing, comfortable, no acute distress, well developed, alert and awake Orientation/consciousness: oriented to person Limitations: ambulation with walker HEENT Head: Yes normal to inspection, Yes normocephalic and Yes atraumatic Ears: hearing grossly normal bilaterally Eyes General: appearance normal, both eyes and all related structures Neck Neck: Yes normal visual inspection and Yes trachea midline Chest Chest palpation & inspection: normal inspection of the chest Resp Effort & Inspection: normal respiratory effort and able to speak in complete sentences Cardio Rate: regular rate GI Inspection: Yes normal to inspection General: Yes no CVA tenderness Back/Spine/Pelvis Back: no CVA tenderness Skin General skin exam: no rashes or lesions noted Neuro General: oriented to person Extrem General: Yes normal to inspection Psych Appearance: grossly normal and well kempt Mental Status: mental status grossly normal Speech and movement: Normal speech and movement present and Clear speech present Affect: normal affect Attitude: cooperative Thought process: Normal thought process present and Perseverating thought process present (at times ) Thought content: Normal thought content present Insight: Fair insight present (Psych) Judgement: Fair judgement present (Psych) Office Procedures Post Void Residual Post Residual Void Post Void Residual (PVR): 0 [id number] Void Residual by ultrasound Results AMB Urinalysis, Automated UA Leukoctes 0 Sonam/uL Last Edit by [employer] Tessa on 06/22/23 10:50 UA Nitrite Last Edit by Dives[employer] Zarate on 06/22/23 10:50 UA Urobilinogen 0.2 mg/dL Last Edit by [employer] Tessa on 06/22/23 10:50 UA Protein 15 mg/dL Last Edit by [employer] on 06/22/23 10:50 UA pH 7.0 Last Edit by [employer] on 06/22/23 10:50 UA Blood 0 Leoncio/uL Last Edit by [employer] on 06/22/23 10:50 UA Specific [place] 1.015 Last Edit by [employer] on 06/22/23 10:50 UA Ketone Last Edit by [employer] on 06/22/23 10:50 UA Bilirubin 0 mg/dL Last Edit by [employer] Tessa on 06/22/23 10:50 UA Glucose 0 mg/dL Last Edit by [employer] on 06/22/23 10:50 Results Reviewed Results Reviewed: Laboratory Last Values Urine pH (Auto) 7.0 06/22/23 10:34 Specific [place] (Auto) 1.015 06/22/23 10:34 Urine Protein (Auto) 15 mg/dL 06/22/23 10:34 Glucose (UA)(Auto) 0 mg/dL 06/22/23 10:34 Urine Blood (Auto) 0 Leoncio/uL 06/22/23 10:34 Urine Bilirubin (Auto) 0 mg/dL 06/22/23 10:34 Urine Urobilinogen (Auto) 0.2 mg/dL 06/22/23 10:34 Leukocyte Esterase (Auto) 0 Sonam/uL 06/22/23 10:34 Ordering Physician: Chuyita Jameson Date of Service: 04/27/23 Procedure(s): US renal BI Accession Number(s): [id number] cc: Chuyita Jameson~ EXAMINATION: US RETROPERITONEAL LIMITED (RENAL ONLY) CLINICAL INFORMATION: Cyst of kidney, acquired. COMPARISON: Ultrasound retroperitoneal complete (renal) 11/07/2022. TECHNIQUE: Real-time imaging of the kidneys. FINDINGS: RIGHT KIDNEY: 10.5 x 3.8 x 4.9 cm (SAG x AP x TRV). The kidney is normal in size, contour, and echogenicity. Renal cortical thickness is normal. No hydronephrosis. 1.4 x 1.8 x 1.2 cm minimally complex cyst in the lower pole with focus of wall calcification or dadu-xh-qggnzzb. A 7 x 6 x 8 mm cyst in the lower pole with focus of wall calcification or mgrr-fk-brecxuc. 6 x 2 x 3 mm simple cyst in the lower pole. No imaging follow-up recommended. Multiple echogenic foci seen in the right kidney questionable for small stones versus vascular reflectors. LEFT KIDNEY: The left kidney is not well visualized. IMPRESSION: No appreciable change in the right renal cysts with wall calcification or htjz-wg-fllmacl cysts. No imaging followup recommended. Multiple echogenic foci in the right kidney questionable for stones versus vascular reflectors. Left kidney not well visualized. Assessment & Plan Assessment & Plan (1) Nephrolithiasis: Code(s): N20.0 - Calculus of kidney (2) Complex renal cyst: Code(s): N28.1 - Cyst of kidney, acquired Plan In office urinalysis results reviewed with the patient today; as noted above. Continue Myrbetriq 25 mg daily. Patient reports be happy with current voiding parameters on Myrbetriq [address] mg [address] Will obtain CT the urogram for further assessment evaluation. Discussed at length surveillance monitoring versus surgical intervention of 1.4 cm left renal calculi; discussed risks and benefits of surveillance monitoring versus surgical intervention at length All questions were answered BUN and creatinine ordered for imaging Follow-up in 3 months with imaging to be completed prior; or sooner with any issues, concerns, and or questions. Orders: Orders CT urogram 3 Months N20.0 - Calculus of kidney, N28.1 - Cyst of kidney, acquired AMB Urinalysis Automated Today Z13.9 - Encounter for screening, unspecified AMB Post Void Residual by ultrasound Today N32.81 - Overactive bladder Blood Urea Nitrogen 3 Months N20.0 - Calculus of kidney, N28.1 - Cyst of kidney, acquired Creatinine 3 Months N20.0 - Calculus of kidney, N28.1 - Cyst of kidney, acquired Patient Instructions: The patient had an opportunity to ask questions regarding the treatment plan. All questions were answered. Physical exam, labs, and imaging were discussed and reviewed in detail. As well as risks, benefits, and discussion of treatment choices. No major barriers to understanding were identified. The patient expressed understanding and agreement with the above treatment plan. The patient was made aware they should contact our office by phone for worsening of their current condition, the appearance of new symptoms, or with any questions or concerns. Compliance is encouraged with any medications and follow up testing that is ordered. It is a privilege to be allowed the opportunity to participate in? your urological care.? Again, if you have any questions or concerns If you have any questions or concerns please do not hesitate to contact me. The office is [phone]. This note is constructed using voice recognition software. While every effort has been made to ensure accuracy hose seamer errors may have been included. Yours sincerely, SKYLER Marino Coding Level of Care Code Est Pt Level 3 (54510) Diagnoses Nephrolithiasis N20.0 Complex renal cyst N28.1 CPT Codes Post Residual Void - PVR CPT Code: 42028-Qhea Void Residual by ultrasound ([id number])
== END 2023-06-22 11:55 | disposition home or self-care (01) ==
LOC: HO.HUSH 10:29
PROVIDERS: PCP Family Medicine; Visit Provider Nurse Practitioner Family
DX: N20.0 Calculus of kidney (principal); N28.1 Cyst of kidney, acquired
CPT/HCPCS: 99213

== ENCOUNTER → 2023-06-22 10:29 | Outpatient (BNVA) | payer MEDICARE, OTHER, SELFPAY | PROVIDERS: PCP Family Medicine; Visit Provider Nurse Practitioner Family | DX: N20.0 Calculus of kidney (principal); N28.1 Cyst of kidney, acquired; Z79.899 Other long term (current) drug therapy | CPT/HCPCS: 51798; 81003; 99212 ==

== ENCOUNTER → 2023-07-15 23:59 | Outpatient (BNV) | payer MEDICARE, OTHER, SELFPAY ==
--- NOTE | 2023-07-15 10:06 | MHC.OFFVIS ---
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 Mother Cancer Social History Household Members: None Housing: Other Housing Other:: house Do you presently have visiting nurse or other home services: No Patient Tobacco Use Status: Never used Tobacco e-Cigarette/Vaping Use: Never Used service: No Current occupational status: retired Office Procedures Cardiac Device Check Cardiac Device Check Details: Remote pacemaker report generated 07/15/2023. Pacemaker function is adequate. Increasing burden of atrial fibrillation noted with total burden of 75% [id number] Cardiac Device Interrogation, pacemaker Procedure code (CPT) selection complete Coding Level of Care Code Procedure Only CPT Codes Cardiac Device Check - Cardiac Device 12: [id number] Cardiac Device Interrogation, pacemaker ([id number])
== END ==
PROVIDERS: PCP Family Medicine; Visit Provider Internal Medicine Cardiovascular Disease
DX: I48.0 Paroxysmal atrial fibrillation (principal); Z95.0 Presence of cardiac pacemaker
CPT/HCPCS: 93294

== ENCOUNTER 2023-09-08 07:56 | Outpatient (REF) | payer MEDICARE, OTHER, SELFPAY ==
--- NOTE | ~2023-09-08 | CT_ITS ---
EXAMINATION: CT ABDOMEN AND PELVIS WITHOUT AND WITH CONTRAST CLINICAL INFORMATION: Acquired cyst of kidney. COMPARISON: Renal ultrasound dated 04/27/2023. TECHNIQUE: Noncontrast CT of the abdomen and pelvis is performed followed by split bolus contrast-enhanced images using 85 mL Omnipaque 350 contrast.? Postcontrast imaging is performed during the combined nephrogram and excretion phase. Sagittal and coronal reformatted images were obtained on the technologist's workstation for both the precontrast and postcontrast phases. This CT examination was performed using dose optimization techniques as appropriate, variously including the following: *Automated exposure control *Adjustment of mA and/or kV according to patient size (this includes techniques or standardized protocols for targeted exams where dose is matched to indication/reason for exam; i.e. extremities or head) *Use of iterative reconstruction technique DLP: 1049 mGy-cm FINDINGS: LUNG BASES: There is bibasilar dependent scar/subsegmental atelectasis. There is adjacent traction bronchiectasis. There is cardiomegaly. Pacemaker leads are noted. There are mitral annular calcifications. LIVER, GALLBLADDER, AND BILIARY TREE: The liver is normal in size, shape, and attenuation. No focal hepatic lesion or biliary ductal dilatation is present. There are layering gallstones, without gallbladder wall thickening or obvious pericholecystic inflammatory change. PANCREAS: Unremarkable. SPLEEN: Unremarkable. ADRENAL GLANDS: Unremarkable. KIDNEYS AND URETERS: The kidneys are normal in size, shape, and attenuation. At the upper pole of the left kidney (4:35 and 39), there are adjacent 3 mm and 4 mm nonobstructing calculi. No perinephric stranding. Within the lower pole of the right kidney posteriorly, a 7 mm cyst is seen with precontrast Hounsfield value of 17.0 units. There is an adjacent 7 mm mildly complex cyst with postcontrast Hounsfield value of 5.2 units and fine septation. This is a likely benign finding, which requires no imaging follow-up. At the interpolar left kidney posteriorly (9:142), a 6 mm mildly complex cyst is seen, with postcontrast Hounsfield value of 9.9 units and fine septation. This is a likely benign finding, which requires no imaging follow-up. BLADDER: Unremarkable. GASTROINTESTINAL TRACT: There is moderate diverticulosis, without acute diverticulitis. No bowel obstruction, free intraperitoneal air or abscess is seen. There is no focal bowel wall thickening. ABDOMINAL WALL: No significant hernia is appreciated. LYMPH NODES: Normal. VASCULAR: There is moderate aortoiliac atherosclerotic calcification. No abdominal aortic aneurysm or dissection is seen. PELVIC VISCERA: The uterus and adnexa are unremarkable. OSSEUS STRUCTURES: There is multi-level thoracolumbar degenerative disc disease and spondylosis. Degenerative disc disease is most pronounced at T12-L1 and L4-L5, where there is vacuum disc phenomenon. Orthopedic hardware is applied to the bilateral hips. No acute or aggressive osseous finding is noted. CT/CT urogram IMPRESSION: 1. There are benign, simple and mildly complex likely benign bilateral renal cysts, which require no imaging follow-up. 2. There are small nonobstructing left renal calculi. 3. There is cholelithiasis. 4. There is moderate diverticulosis, without acute diverticulitis. 5. There are degenerative changes of the spine.
[2023-09-08] MEDS: iohexoL 350 MG/ML 100 ML INFUS..BTL 85 ML IV (09:30)
[2023-09-08 13:32] LABS: Creatinine POC 0.7 mg/dL (0.5-1.4); GFR POC > 60
== END 2023-09-08 07:57 | disposition home or self-care (01) ==
LOC: HO.CT 07:56
PROVIDERS: PCP Family Medicine; Visit Provider Nurse Practitioner Family
DX: N20.0 Calculus of kidney (principal); N28.1 Cyst of kidney, acquired
CPT/HCPCS: 74178; 82565; Q9967

== ENCOUNTER 2023-09-21 10:05 | Outpatient (AMB) | payer MEDICARE, OTHER, SELFPAY ==
--- NOTE | 2023-09-21 10:28 | MHC.OFFVIS ---
Intake Intake Visit Reasons: 3m/CT/labs(set) Intake Note: Patient is present for PVR Follow Up Renal Cyst, Urinary Incontinence/Urgency/ct scan (imaging 09/08/23) Urology Med: myrbetriq Blood Thinner: Eliquis PVR: 0ml's Drafter Landscape Required: No Accompanied by: daughter in law Allergies moxifloxacin [From Avelox] Adverse Reaction (Unknown, Verified 09/21/23 11:27) DIARRHEA Medication List - Last Reconciled 09/21/23 by ERLINDA Marino-KAMINI acetaminophen ER (Tylenol Arthritis Pain) 650 mg PO Q8H amlodipine mg PO apixaban (Eliquis) 5 mg PO BID 90 days aspirin 81 mg PO DAILY calcium carbonate (Calcium) 600 mg PO DAILY levothyroxine 50 mcg PO DAILY melatonin 3 mg PO BEDTIME PRN metoprolol succinate ER (Toprol XL) 25 mg PO DAILY 90 days mirabegron ER (Myrbetriq) 25 mg PO DAILY 90 days modafinil mg PO polyethylene glycol 3350 (Miralax) 17 grams PO DAILY pravastatin 40 mg PO DAILY propylene glycol 0.6% (Systane Balance) 1 drp ophthalmic (eye) DAILY PRN vit C,L-Nl-suscu-lutein-zeaxan (PreserVision AREDS-2) 1 cap PO DAILY walker (Ultra-Light Rollator misc) As directed HPI HPI Comments History of Present Illness Details Ashley is a pleasant 87-year-old female patient of Dr. De La Rosa who was accompanied by her daughter at today's visit. She has a past medical history of overactive bladder, urinary incontinence, history of cardioversion, atrial flutter, aortic stenosis, chronic heart failure with preserved ejection fracture, paroxysmal atrial fibrillation, sick sinus syndrome, cardiac pacemaker, tricuspid regurgitation, and pulmonary hypertension. She presents to the office today for follow-up of her urinary urgency incontinence, and nephrolithiasis. Recent CT results reviewed with the patient today. The kidneys are normal in size, shape, and attenuation. At the upper pole of the left kidney there are 3 mm and 4 mm nonobstructing calculi. No perinephric stranding. Within the lower pole of the right kidney posteriorly, a 7 mm cyst is seen. There is an adjacent 7 mm mildly complex cyst with fine septation. This is a likely benign finding, which requires no imaging follow-up per radiology report. At the interpolar left kidney posteriorly a 6 mm mildly complex cyst is seen with fine septation. This is a likely benign finding, which requires no imaging follow-up per radiology report. The bladder is unremarkable. Patient discusses living at [facility]] in [place] in the assisted living and continues to undergo physical therapy as well as pelvic floor therapy. She does report noting improvement in lower urinary tract symptoms when performing pelvic floor exercises. She discusses at length her issues with constipation however is aware of her trigger which is cheese. She discusses wanting to come off of many, most, if not all of her medications as she feels she takes too many medications. Discussed at length Myrbetriq to assist with improvement in lower urinary tract symptoms however also discussed if she would like to trial discontinuing medication she can also do so. Discussed following up with PCP regarding other medications she is taking to further assess. She reports needing to double void to assist with emptying her bladder. She also discusses at length having an episode of constipation where she had to manually disimpact herself. Discussed at length importance of managing constipation for overall health and well-being. Discussed at length nephrolithiasis with surveillance monitoring. In office urinalysis results reviewed with the patient today. PVR 0ml's. Urinary urgency incontinence Lives at assisted living Pelvic floor physical therapy was helpful Reports sense of urgency, frequency in on sensed urination has been stable Developed confusion on VESIcare and oxybutynin Prior imaging with bilateral complex renal cyst on right renal nephrolithiasis - right renal cyst 1 cm, left mid pole stone 1.4 cm [facility] Medical History Overactive bladder Urinary incontinence History of cardioversion Atrial flutter Presence of total left knee joint prosthesis Aortic stenosis Enlarged RV (right ventricle) Chronic heart failure with preserved ejection fraction (HFpEF) Paroxysmal atrial fibrillation Sick sinus syndrome Cardiac pacemaker in situ Tricuspid regurgitation Pulmonary hypertension HTN (hypertension) Surgical History H/O colonoscopy Hx of cataract surgery History of total left knee replacement History of total right hip replacement History of permanent cardiac pacemaker placement Hx of knee surgery Family History Father No problems noted. Mother Cancer Social History Household Members: None Housing: Other Housing Other:: house Do you presently have visiting nurse or other home services: No Patient Tobacco Use Status: Never used Tobacco e-Cigarette/Vaping Use: Never Used service: No Current occupational status: retired Review of Systems Const Reports as per HPI Eyes Reports no additional complaints ENT Reports no additional complaints Card Reports as per HPI Resp Reports no additional complaints GI Reports no additional complaints Reports as per HPI Musc Reports as per HPI Neuro Reports as per HPI Psych Reports no additional complaints Endo Reports no additional complaints Huey/Lymph Reports no additional complaints Aller/Immun Reports no additional complaints Physical Exam Const General: cooperative, healthy appearing, comfortable, no acute distress, well developed, alert and awake Orientation/consciousness: oriented to person Limitations: ambulation with walker HEENT Head: Yes normal to inspection, Yes normocephalic and Yes atraumatic Ears: hearing grossly normal bilaterally Eyes General: appearance normal, both eyes and all related structures Neck Neck: Yes normal visual inspection and Yes trachea midline Chest Chest palpation & inspection: normal inspection of the chest Resp Effort & Inspection: normal respiratory effort and able to speak in complete sentences Cardio Rate: regular rate GI Inspection: Yes normal to inspection General: Yes no CVA tenderness Back/Spine/Pelvis Back: no CVA tenderness Skin General skin exam: no rashes or lesions noted Neuro General: oriented to person Extrem General: Yes normal to inspection Psych Appearance: grossly normal and well kempt Mental Status: mental status grossly normal Speech and movement: Normal speech and movement present and Clear speech present Affect: normal affect Attitude: cooperative Thought process: Normal thought process present and Perseverating thought process present (at times ) Thought content: Normal thought content present Insight: Fair insight present (Psych) Judgement: Fair judgement present (Psych) Office Procedures Post Void Residual Post Residual Void Post Void Residual (PVR): 0 [id number] Void Residual by ultrasound Results AMB Urinalysis, Automated UA Leukoctes 0 Sonam/uL Last Edit by Julieta Zarate on 09/21/23 10:51 UA Nitrite Negative Last Edit by Julieta aZrate on 09/21/23 10:51 UA Urobilinogen 0.2 mg/dL Last Edit by Julieta Zarate on 09/21/23 10:51 UA Protein 30 mg/dL Last Edit by Babatundee Breolu on 09/21/23 10:51 UA pH 6.0 Last Edit by Brandyce Tessa on 09/21/23 10:51 UA Blood 0 Leoncio/uL Last Edit by Brandyce Tessa on 09/21/23 10:51 UA Specific [place] 1.015 Last Edit by Brandyce Tessa on 09/21/23 10:51 UA Ketone Negative Last Edit by Eliceoyce Tessa on 09/21/23 10:51 UA Bilirubin 0 mg/dL Last Edit by Brandyce Tessa on 09/21/23 10:51 UA Glucose 0 mg/dL Last Edit by Brandyce Breolu on 09/21/23 10:51 Results Reviewed Results Reviewed: Laboratory Last Values Urine pH (Auto) 6.0 09/21/23 10:31 Specific [place] (Auto) 1.015 09/21/23 10:31 Urine Protein (Auto) 30 mg/dL 09/21/23 10:31 Glucose (UA)(Auto) 0 mg/dL 09/21/23 10:31 Urine Ketones (Auto) Negative 09/21/23 10:31 Urine Blood (Auto) 0 Leoncio/uL 09/21/23 10:31 Urine Nitrite (Auto) Negative 09/21/23 10:31 Urine Bilirubin (Auto) 0 mg/dL 09/21/23 10:31 Urine Urobilinogen (Auto) 0.2 mg/dL 09/21/23 10:31 Leukocyte Esterase (Auto) 0 Sonam/uL 09/21/23 10:31 Date of Service: 09/08/23 EXAMINATION: CT ABDOMEN AND PELVIS WITHOUT AND WITH CONTRAST FINDINGS: LUNG BASES: There is bibasilar dependent scar/subsegmental atelectasis. There is adjacent traction bronchiectasis. There is cardiomegaly. Pacemaker leads are noted. There are mitral annular calcifications. LIVER, GALLBLADDER, AND BILIARY TREE: The liver is normal in size, shape, and attenuation. No focal hepatic lesion or biliary ductal dilatation is present. There are layering gallstones, without gallbladder wall thickening or obvious pericholecystic inflammatory change. PANCREAS: Unremarkable. SPLEEN: Unremarkable. ADRENAL GLANDS: Unremarkable. KIDNEYS AND URETERS: The kidneys are normal in size, shape, and attenuation. At the upper pole of the left kidney (4:35 and 39), there are adjacent 3 mm and 4 mm nonobstructing calculi. No perinephric stranding. Within the lower pole of the right kidney posteriorly, a 7 mm cyst is seen with precontrast Hounsfield value of 17.0 units. There is an adjacent 7 mm mildly complex cyst with postcontrast Hounsfield value of 5.2 units and fine septation. This is a likely benign finding, which requires no imaging follow-up. At the interpolar left kidney posteriorly (9:142), a 6 mm mildly complex cyst is seen, with postcontrast Hounsfield value of 9.9 units and fine septation. This is a likely benign finding, which requires no imaging follow-up. BLADDER: Unremarkable. GASTROINTESTINAL TRACT: There is moderate diverticulosis, without acute diverticulitis. No bowel obstruction, free intraperitoneal air or abscess is seen. There is no focal bowel wall thickening. ABDOMINAL WALL: No significant hernia is appreciated. LYMPH NODES: Normal. VASCULAR: There is moderate aortoiliac atherosclerotic calcification. No abdominal aortic aneurysm or dissection is seen. PELVIC VISCERA: The uterus and adnexa are unremarkable. OSSEUS STRUCTURES: There is multi-level thoracolumbar degenerative disc disease and spondylosis. Degenerative disc disease is most pronounced at T12-L1 and L4-L5, where there is vacuum disc phenomenon. Orthopedic hardware is applied to the bilateral hips. No acute or aggressive osseous finding is noted. IMPRESSION: 1. There are benign, simple and mildly complex likely benign bilateral renal cysts, which require no imaging follow-up. 2. There are small nonobstructing left renal calculi. 3. There is cholelithiasis. 4. There is moderate diverticulosis, without acute diverticulitis. 5. There are degenerative changes of the spine. Assessment & Plan Assessment & Plan (1) Nephrolithiasis: Code(s): N20.0 - Calculus of kidney (2) Complex renal cyst: Code(s): N28.1 - Cyst of kidney, acquired (3) Renal cyst: Code(s): N28.1 - Cyst of kidney, acquired (4) Overactive bladder: Code(s): N32.81 - Overactive bladder (5) Urinary incontinence: Code(s): R32 - Unspecified urinary incontinence (6) Urinary urgency: Code(s): R39.15 - Urgency of urination Plan In office urinalysis results reviewed with the patient today; as noted above. PVR [address] KUB results reviewed with the patient and her daughter today; as noted above. Patient currently denies any bothersome urinary issues; would like to trial coming off of Myrbetriq for further assessment evaluation; patient will try to discontinue Myrbetriq however if lower urinary tract symptoms reoccur will restart Myrbetriq thus refill provided. Discussed and stressed the importance of managing constipation for improvement lower urinary tract symptoms as well as overall health and well-being. Continue pelvic floor exercises Discussed at length potential causes of nephrolithiasis as well as further surveillance imaging for monitoring Discussed, educated, and stressed the importance of drinking water daily. Continue with double voiding Will obtain renal ultrasound in 6 months Follow-up in 6 months with imaging to be completed prior; or sooner with any issues, concerns, and or questions. Orders: Orders AMB Urinalysis Automated Today Z13.9 - Encounter for screening, unspecified AMB Post Void Residual by ultrasound Today N32.81 - Overactive bladder US renal BI 6 Months N20.0 - Calculus of kidney, N28.1 - Cyst of kidney, acquired Medications: Refilled mirabegron ER (Myrbetriq) 25 mg PO DAILY 90 days 90 tabs 1RF N30.10 - Interstitial cystitis (chronic) without hematuria, N32.81 - Overactive bladder, R35.1 - Nocturia, R39.15 - Urgency of urination Patient Instructions: The patient had an opportunity to ask questions regarding the treatment plan. All questions were answered. Physical exam, labs, and imaging were discussed and reviewed in detail. As well as risks, benefits, and discussion of treatment choices. No major barriers to understanding were identified. The patient expressed understanding and agreement with the above treatment plan. The patient was made aware they should contact our office by phone for worsening of their current condition, the appearance of new symptoms, or with any questions or concerns. Compliance is encouraged with any medications and follow up testing that is ordered. It is a privilege to be allowed the opportunity to participate in? your urological care.? Again, if you have any questions or concerns If you have any questions or concerns please do not hesitate to contact me. The office is [phone]. This note is constructed using voice recognition software. While every effort has been made to ensure accuracy supervisor shellfish farming errors may have been included. Yours sincerely, ERLINDA Marino-KAMINI Coding Level of Care Code Est Pt Level 4 (93383) Diagnoses Nephrolithiasis N20.0 Complex renal cyst N28.1 Renal cyst N28.1 Overactive bladder N32.81 Urinary incontinence R32 Urinary urgency R39.15 CPT Codes Post Residual Void - PVR CPT Code: 38074-Zati Void Residual by ultrasound ([id number]) Time Spent (min) 40
== END 2023-09-21 11:35 | disposition home or self-care (01) ==
LOC: HO.HUSH 10:05
PROVIDERS: PCP Family Medicine; Visit Provider Nurse Practitioner Family
DX: N20.0 Calculus of kidney (principal); N28.1 Cyst of kidney, acquired; N32.81 Overactive bladder; R32 Unspecified urinary incontinence; R39.15 Urgency of urination; Z13.9 Encounter for screening, unspecified
CPT/HCPCS: 99214

== ENCOUNTER → 2023-09-21 10:05 | Outpatient (BNVA) | payer MEDICARE, OTHER, SELFPAY | PROVIDERS: PCP Family Medicine; Visit Provider Nurse Practitioner Family | DX: N20.0 Calculus of kidney (principal); N28.1 Cyst of kidney, acquired; N32.81 Overactive bladder; R32 Unspecified urinary incontinence; R39.15 Urgency of urination | CPT/HCPCS: 51798; 81003; 99212 ==

== ENCOUNTER → 2023-10-15 23:59 | Outpatient (BNV) | payer MEDICARE, OTHER, SELFPAY ==
--- NOTE | 2023-10-16 13:26 | MHC.OFFVIS ---
Intake Intake Visit Reasons: Remote Device Check- Medtronic Allergies moxifloxacin [From Avelox] Adverse Reaction (Unknown, Verified 09/21/23 11:27) DIARRHEA PFSH Medical History Overactive bladder Urinary incontinence History of cardioversion Atrial flutter Presence of total left knee joint prosthesis Aortic stenosis Enlarged RV (right ventricle) Chronic heart failure with preserved ejection fraction (HFpEF) Paroxysmal atrial fibrillation Sick sinus syndrome Cardiac pacemaker in situ Tricuspid regurgitation Pulmonary hypertension HTN (hypertension) Surgical History H/O colonoscopy Hx of cataract surgery History of total left knee replacement History of total right hip replacement History of permanent cardiac pacemaker placement Hx of knee surgery Family History Father No problems noted. Mother Cancer Social History Household Members: None Housing: Other Housing Other:: house Do you presently have visiting nurse or other home services: No Patient Tobacco Use Status: Never used Tobacco e-Cigarette/Vaping Use: Never Used service: No Current occupational status: retired Office Procedures Cardiac Device Check Cardiac Device Check Details: remote pacemaker report generated 10/15/2023. Pacemaker function is adequate. Total burden of atrial fibrillation 64.4% of the time [id number] Cardiac Device Interrogation, pacemaker Procedure code (CPT) selection complete Assessment & Plan Assessment & Plan (1) Cardiac pacemaker in situ: Comment: Medtronic dual-chamber pacemaker placement for sick sinus syndrome, 2018 Code(s): Z95.0 - Presence of cardiac pacemaker Plan: see above Coding Level of Care Code Procedure Only Diagnoses Cardiac pacemaker in situ Z95.0 CPT Codes Cardiac Device Check - Cardiac Device 12: [id number] Cardiac Device Interrogation, pacemaker ([id number])
== END ==
PROVIDERS: PCP Family Medicine; Visit Provider Internal Medicine Cardiovascular Disease
DX: I48.0 Paroxysmal atrial fibrillation (principal); Z95.0 Presence of cardiac pacemaker
CPT/HCPCS: 93294

== ENCOUNTER → 2024-01-15 23:59 | Outpatient (BNV) | payer MEDICARE, OTHER, SELFPAY ==
--- NOTE | 2024-01-15 14:38 | MHC.OFFVIS ---
Intake Intake Visit Reasons: Remote Device Check- Medtr[employer] Allergies moxifloxacin [From Avelox] Adverse Reaction (Unknown, Verified 09/21/23 11:27) DIARRHEA PFSH Medical History Overactive bladder Urinary incontinence History of cardioversion Atrial flutter Presence of total left knee joint prosthesis Aortic stenosis Enlarged RV (right ventricle) Chronic heart failure with preserved ejection fraction (HFpEF) Paroxysmal atrial fibrillation Sick sinus syndrome Cardiac pacemaker in situ Tricuspid regurgitation Pulmonary hypertension HTN (hypertension) Surgical History H/O colonoscopy Hx of cataract surgery History of total left knee replacement History of total right hip replacement History of permanent cardiac pacemaker placement Hx of knee surgery Family History Father No problems noted. Mother Cancer Social History Household Members: None Housing: Other Housing Other:: house Do you presently have visiting nurse or other home services: No Patient Tobacco Use Status: Never used Tobacco e-Cigarette/Vaping Use: Never Used service: No Current occupational status: retired Office Procedures Cardiac Device Check Cardiac Device Check Details: Remote pacemaker report generated 01/15/2024. Pacemaker function is adequate. Increasing burden of atrial fibrillation noted. [id number] Cardiac Device Interrogation, pacemaker Procedure code (CPT) selection complete Assessment & Plan Assessment & Plan (1) Cardiac pacemaker in situ: Comment: Medtronic dual-chamber pacemaker placement for sick sinus syndrome, 2018 Code(s): Z95.0 - Presence of cardiac pacemaker Plan: See above Coding Level of Care Code Procedure Only Diagnoses Cardiac pacemaker in situ Z95.0 CPT Codes Cardiac Device Check - Cardiac Device 12: [id number] Cardiac Device Interrogation, pacemaker ([id number])
== END ==
PROVIDERS: PCP Family Medicine; Visit Provider Internal Medicine Cardiovascular Disease
DX: I48.91 Unspecified atrial fibrillation (principal); Z95.0 Presence of cardiac pacemaker
CPT/HCPCS: 93294

== ENCOUNTER 2024-03-16 10:28 | Outpatient (REF) | payer MEDICARE, OTHER, SELFPAY ==
--- NOTE | ~2024-03-16 | US_ITS ---
EXAMINATION: US RETROPERITONEAL LIMITED (RENAL ONLY) CLINICAL INFORMATION: Calculus of kidney. COMPARISON: CT urogram 09/08/2023. Renal ultrasound 04/27/2023 and 11/07/2022. TECHNIQUE: Real-time imaging of the kidneys. Technically limited study secondary to bowel gas and patient's inability to hold breath. FINDINGS: RIGHT KIDNEY: 10.5 x 4.0 x 5.8 cm (SAG x AP x TRV). No hydronephrosis. No renal calculi. Limited visualization. A 0.6 cm mid pole and 0.7 cm lower pole cysts with benign features. There is no indication for follow-up imaging. LEFT KIDNEY: 10.7 x 6.0 x 5.1 cm (SAG x AP x TRV). A 3 mm mid pole calculus. Mild left hydronephrosis. Limited visualization. Multiple tiny left renal echogenic foci may represent artifact or tiny calcifications, possibly vascular, and were not appreciated on prior exam due to poor visualization of the kidney. US/US renal BI IMPRESSION: 1. A 3 mm left renal calculus. Mild left hydronephrosis. 2. Multiple tiny left renal echogenic foci may represent artifact or tiny calcifications, possibly vascular, not appreciated on prior exam due to poor visualization of the kidney.
== END 2024-03-16 10:29 | disposition home or self-care (01) ==
LOC: HO.US 10:28
PROVIDERS: PCP Family Medicine; Visit Provider Nurse Practitioner Family
DX: N20.0 Calculus of kidney (principal); N28.1 Cyst of kidney, acquired
CPT/HCPCS: 76775

== ENCOUNTER 2024-03-22 10:30 | Outpatient (AMB) | payer MEDICARE, OTHER, SELFPAY ==
--- NOTE | 2024-03-22 10:32 | A.OFFVIS_ITS ---
Intake Visit Reasons: 6m/US(set) Intake Note: Patient presents for follow up on: Renal Cyst, Urinary /Urgency, and Utrasound Results Imaging Completed: 03/16/24 Urology Medications: myrbetriq Blood Thinner: Eliquis PVR: 0ml's Lapel Padder Blindstitch Required: No Accompanied by: daughter in law Allergies moxifloxacin [From Avelox] Adverse Reaction (Unknown, Verified 03/22/24 11:20) DIARRHEA Medication List - Last Reconciled 03/22/24 by ERLINDA Marino-KAMINI acetaminophen ER (Tylenol Arthritis Pain) 650 mg PO Q8H amlodipine mg PO apixaban (Eliquis) 5 mg PO BID 90 days aspirin 81 mg PO DAILY calcium carbonate (Calcium 600) 600 mg PO DAILY levothyroxine 50 mcg PO DAILY melatonin 3 mg PO BEDTIME PRN metoprolol succinate ER (Toprol XL) 25 mg PO DAILY 90 days mirabegron ER (Myrbetriq) 25 mg PO DAILY 90 days modafinil mg PO polyethylene glycol 3350 (Miralax) 17 grams PO DAILY pravastatin 40 mg PO DAILY propylene glycol 0.6% (Systane Balance) 1 drp ophthalmic (eye) DAILY PRN vit C,L-Cy-cizjh-lutein-zeaxan (PreserVision AREDS-2) 1 cap PO DAILY walker (Ultra-Light Rollator misc) As directed HPI Comments Details: Ashley is a pleasant 88-year-old female patient of Dr. De La Rosa who was accompanied by her daughter at today's visit. She has a past medical history of overactive bladder, urinary incontinence, history of cardioversion, atrial f lutter, aortic stenosis, chronic heart failure with preserved ejection fracture, paroxysmal atrial fibrillation, sick sinus syndrome, cardiac pacemaker, tricuspid regurgitation, and pulmonary hypertension. She presents to the office today for follow-up of her urinary urgency incontinence, and nephrolithiasis. Recent renal ultrasound results reviewed with the patient today. A 3 mm left renal calculi is noted. Mild left hydronephrosis. Multiple pole tiny left renal echogenic foci may represent artifact or tiny calcifications, possibly vascular, not appreciated on prior exam due to poor visualization of kidney. Patient discusses living at [facility] in [place] in the assisted living and continues to undergo physical therapy as well as pelvic floor therapy and feels this has been helpful. She does report noting improvement in lower urinary tract symptoms when performing pelvic floor exercises. She discusses at length her issues with constipation however is aware of her triggers and has recently changed her diet to include lactaid and feels this has helped significantly. She reports compliance with Myrbetriq as prescribed. She discusses having had a single episode of urinary frequency/nocturia late last week however is unsure as to why. She otherwise currently denies any bothersome urinary issues or concerns. She discusses at length being happy with her current voiding parameters. When asked she denies hematuria, dysuria, foul smelling urine, changes to urinary stream, flank pain, fever, and or chills. Discussed at length nephrolithiasis and peripelvic cysts with surveillance monitoring. In office urinalysis results reviewed with the patient today. PVR 0ml's. 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 Mother Cancer Social History Household Members: None Housing: Other Housing Other:: house Do you presently have visiting nurse or other home services: No Patient Tobacco Use Status: Never used Tobacco e-Cigarette/Vaping Use: Never Used service: No Current occupational status: retired Review of Systems Const Reports as per HPI Eyes Reports no additional complaints ENT Reports no additional complaints Card Reports as per HPI Resp Reports no additional complaints GI Reports no additional complaints Reports as per HPI Musc Reports as per HPI Neuro Reports as per HPI Psych Reports no additional complaints Endo Reports no additional complaints Huey/Lymph Reports no additional complaints Aller/Immun Reports no additional complaints Physical Exam Const General: cooperative, healthy appearing, comfortable, no acute distress, well developed, alert and awake Orientation/consciousness: oriented to person Limitations: ambulation with walker HEENT Head: Yes normal to inspection, Yes normocephalic and Yes atraumatic Ears: hearing grossly normal bilaterally Eyes General: appearance normal, both eyes and all related structures Neck Neck: Yes normal visual inspection and Yes trachea midline Chest Chest palpation & inspection: normal inspection of the chest Resp Effort & Inspection: normal respiratory effort and able to speak in complete sentences Cardio Rate: regular rate GI Inspection: Yes normal to inspection General: Yes no CVA tenderness Back/Spine/Pelvis Back: no CVA tenderness Skin General skin exam: no rashes or lesions noted Neuro General: oriented to person Extrem General: Yes normal to inspection Psych Appearance: grossly normal and well kempt Mental Status: mental status grossly normal Speech and movement: Normal speech and movement present and Clear speech present Affect: normal affect Attitude: cooperative Thought process: Normal thought process present and Perseverating thought process present (at times ) Thought content: Normal thought content present Insight: Fair insight present (Psych) Judgement: Fair judgement present (Psych) Office Procedures Post Void Residual Post Residual Void Post Void Residual (PVR): 0 [id number]-[id number] Void Residual by ultrasound Results AMB Urinalysis, Automated 2 UA Leukoctes 15 Sonam/uL Last Edit by Freepath on 03/22/24 10:56 UA Nitrite Negative Last Edit by Freepath on 03/22/24 10:56 UA Urobilinogen 0.2 mg/dL Last Edit by Freepath on 03/22/24 10:56 UA Protein 100 mg/dL Last Edit by Freepath on 03/22/24 10:56 UA pH 6.0 Last Edit by Freepath on 03/22/24 10:56 UA Blood 0 Leoncio/uL Last Edit by Freepath on 03/22/24 10:56 UA Specific Tyler 1.025 Last Edit by Freepath on 03/22/24 10:56 UA Ketone Positive Last Edit by Julieta Zarate on 03/22/24 10:56 UA Bilirubin 1 mg/dL Last Edit by Julieta Zarate on 03/22/24 10:56 UA Glucose 0 mg/dL Last Edit by Julieta Zarate on 03/22/24 10:56 Results Reviewed Results Reviewed: Laboratory Last Values Urine pH (Auto) 6.0 03/22/24 10:55 Specific Tyler (Auto) 1.025 03/22/24 10:55 Urine Protein (Auto) 100 mg/dL 03/22/24 10:55 Glucose (UA)(Auto) 0 mg/dL 03/22/24 10:55 Urine Ketones (Auto) Positive 03/22/24 10:55 Urine Blood (Auto) 0 Leoncio/uL 03/22/24 10:55 Urine Nitrite (Auto) Negative 03/22/24 10:55 Urine Bilirubin (Auto) 1 mg/dL 03/22/24 10:55 Urine Urobilinogen (Auto) 0.2 mg/dL 03/22/24 10:55 Leukocyte Esterase (Auto) 15 Sonam/uL 03/22/24 10:55 Date of Service: 03/16/24 EXAMINATION: US RETROPERITONEAL LIMITED (RENAL ONLY) FINDINGS: RIGHT KIDNEY: 10.5 x 4.0 x 5.8 cm (SAG x AP x TRV). No hydronephrosis. No renal calculi. Limited visualization. A 0.6 cm mid pole and 0.7 cm lower pole cysts with benign features. There is no indication for follow-up imaging. LEFT KIDNEY: 10.7 x 6.0 x 5.1 cm (SAG x AP x TRV). A 3 mm mid pole calculus. Mild left hydronephrosis. Limited visualization. Multiple tiny left renal echogenic foci may represent artifact or tiny calcifications, possibly vascular, and were not appreciated on prior exam due to poor visualization of the kidney. IMPRESSION: 1. A 3 mm left renal calculus. Mild left hydronephrosis. 2. Multiple tiny left renal echogenic foci may represent artifact or tiny calcifications, possibly vascular, not appreciated on prior exam due to poor visualization of the kidney. Assessment & Plan Assessment & Plan (1) Nephrolithiasis: Code(s): N20.0 - Calculus of kidney Category: Medical (2) Renal cyst: Code(s): N28.1 - Cyst of kidney, acquired Category: Medical (3) Overactive bladder: Code(s): N32.81 - Overactive bladder Category: Medical Plan In office urinalysis results reviewed with the patient today; as noted above. PVR 0 mL. Patient currently denies any bothersome urinary issues or concerns. Continue Myrbetriq as discussed and prescribed. Discussed at length potential causes of peripelvic cysts as well as nephrolithiasis. Discussed, educated, and stressed the importance of adequate hydration in relation to nephrolithiasis as well as overall health and well-being. Continue with pelvic floor exercises. Discussed correlation of constipation with lower urinary tract symptoms. Discussed bladder triggers/irritants. Follow-up in 6 months with PVR; or sooner with any issues, concerns, and or questions. Orders: Orders AMB Urinalysis Automated 03/22/24 Z13.9 - Encounter for screening, unspecified AMB Post Void Residual by ultrasound 03/22/24 N32.81 - Overactive bladder Patient Instructions: The patient had an opportunity to ask questions regarding the treatment plan. All questions were answered. Physical exam, labs, and imaging were discussed and reviewed in detail. As well as risks, benefits, and discussion of treatment choices. No major barriers to understanding were identified. The patient expressed understanding and agreement with the above treatment plan. The patient was made aware they should contact our office by phone for worsening of their current condition, the appearance of new symptoms, or with any que stions or concerns. Compliance is encouraged with any medications and follow up testing that is ordered. It is a privilege to be allowed the opportunity to participate in? your urological care.? Again, if you have any questions or concerns If you have any questions or concerns please do not hesitate to contact me. The office is [phone]. This note is constructed using voice recognition software. While every effort has been made to ensure accuracy spinner iron errors may have been included. Yours sincerely, SKYLER Marino Coding Level of Care Code Est Pt Level 4 (68419) Complex EM visit Add On G2211 Diagnoses Nephrolithiasis N20.0 Renal cyst N28.1 Overactive bladder N32.81 CPT Codes Post Residual Void - PVR CPT Code: 16487-Dvbr Void Residual by ultrasound ([id number]) Time Spent (min) 35
== END 2024-03-22 11:23 | disposition home or self-care (01) ==
PROVIDERS: PCP Family Medicine; Visit Provider Nurse Practitioner Family
DX: N20.0 Calculus of kidney (principal); N28.1 Cyst of kidney, acquired; N32.81 Overactive bladder
CPT/HCPCS: 99214; G2211

== ENCOUNTER → 2024-03-22 10:30 | Outpatient (BNVA) | payer MEDICARE, OTHER, SELFPAY | PROVIDERS: PCP Family Medicine; Visit Provider Nurse Practitioner Family | DX: N20.0 Calculus of kidney (principal); N28.1 Cyst of kidney, acquired; N32.81 Overactive bladder | CPT/HCPCS: 51798; 81003; 99212 ==

== ENCOUNTER → 2024-04-16 23:59 | Outpatient (BNV) | payer MEDICARE, OTHER, SELFPAY ==
--- NOTE | 2024-04-27 14:34 | MHC.OFFVIS ---
Intake Visit Reasons: Remote Device Check- Medtronic Allergies moxifloxacin [From Avelox] Adverse Reaction (Unknown, Verified 03/22/24 11:20) DIARRHEA PFSH Medical History Overactive bladder Urinary incontinence History of cardioversion Atrial flutter Presence of total left knee joint prosthesis Aortic stenosis Enlarged RV (right ventricle) Chronic heart failure with preserved ejection fraction (HFpEF) Paroxysmal atrial fibrillation Sick sinus syndrome Cardiac pacemaker in situ Tricuspid regurgitation Pulmonary hypertension HTN (hypertension) Surgical History H/O colonoscopy Hx of cataract surgery History of total left knee replacement History of total right hip replacement History of permanent cardiac pacemaker placement Hx of knee surgery Family History Father No problems noted. Mother Cancer Social History Household Members: None Housing: Other Housing Other:: house Do you presently have visiting nurse or other home services: No Patient Tobacco Use Status: Never used Tobacco e-Cigarette/Vaping Use: Never Used service: No Current occupational status: retired Office Procedures Cardiac Device Check Cardiac Device Check Details: Remote pacemaker report generated 04/16/2024. Pacemaker function is adequate. Atrial fibrillation burden 73% of the time [id number] Cardiac Device Interrogation, pacemaker Procedure code (CPT) selection complete Assessment & Plan Assessment & Plan (1) Cardiac pacemaker in situ: Comment: Medtronic dual-chamber pacemaker placement for sick sinus syndrome, 2018 Code(s): Z95.0 - Presence of cardiac pacemaker Category: Medical Plan: See above Coding Level of Care Code Procedure Only Diagnoses Cardiac pacemaker in situ Z95.0 CPT Codes Cardiac Device Check - Cardiac Device 12: [id number] Cardiac Device Interrogation, pacemaker ([id number])
== END ==
PROVIDERS: PCP Family Medicine; Visit Provider Internal Medicine Cardiovascular Disease
DX: I49.5 Sick sinus syndrome (principal); Z95.0 Presence of cardiac pacemaker
CPT/HCPCS: 93294

== ENCOUNTER 2024-04-26 13:59 | Outpatient (AMB) | payer MEDICARE, OTHER, SELFPAY ==
--- NOTE | 2024-04-26 14:13 | MHC.OFFVIS ---
Vital Signs 04/26/24 14:14 Height 5 ft 7 in Weight 149 lb 14.629 oz BMI 23.5 BP 124/72 Blood Pressure Location Lt brachial Position Sitting Pulse 64 Intake Visit Reasons: follow up Intake Note: Over due follow-up with ekg and [employer] School Psychology Specialist Required: No Burial Vault Maker: Burial Vault Maker Present Accompanied by: Family/Other Allergies moxifloxacin [From Avelox] Adverse Reaction (Unknown, Verified 03/22/24 11:20) DIARRHEA Medication List - Last Reconciled 04/26/24 by Blake Calle MD acetaminophen ER (Tylenol Arthritis Pain) 650 mg PO Q8H acetaminophen ER 650 mg PO Q12H amlodipine 5 mg PO ONCE apixaban (Eliquis) 5 mg PO BID 90 days aspirin 81 mg PO DAILY calcium carbonate (Calcium 600) 600 mg PO DAILY levothyroxine 50 mcg PO DAILY melatonin 3 mg PO BEDTIME PRN metoprolol succinate ER (Toprol XL) 25 mg PO DAILY 90 days mirabegron ER (Myrbetriq) 25 mg PO DAILY 90 days modafinil 100 mg PO polyethylene glycol 3350 (Miralax) 17 grams PO DAILY pravastatin 40 mg PO DAILY propylene glycol 0.6% (Systane Balance) 1 drp ophthalmic (eye) DAILY PRN vit C,B-Ep-wzxxc-lutein-zeaxan (PreserVision AREDS-2) 1 cap PO DAILY walker (Ultra-Light Rollator misc) As directed HPI Comments Details: Ashley comes for follow-up. She comes after a very long gap. Since I last saw her she underwent a transcatheter aortic valve replacement and was followed by [facility] and has been subsequently told to follow-up with a local appliance counselor. She is currently residing at a assisted living facility and is not absolutely happy about it. She says she is able to walk with a walker and is able to independently take care of herself and wants to move back home. However there is concern about safety at home and fall risk. She has had a fall in the past with associated fracture. She is currently taking all her medications. Last time I had seen her she was in persistent atrial fibrillation with severe aortic stenosis. Subsequently she has underwent a 34 mm bioprosthetic aortic valve replacement via transfemoral route. One year post echocardiogram showed LVEF of 55-60% with mean gradient of 5 mmHg. Overall she has done well with heart failure syndrome. Her shortness of breath is improved. She denies any clear orthopnea, PND. Currently not on any diuretic regimen as per the med list. Currently on full oral anticoagulation with Eliquis for her atrial fibrillation. Comes for general follow-up. [facility] Medical History (Updated 04/27/24 @ 15:28 by Blake Calle MD) History of transcatheter aortic valve replacement (TAVR) Overactive bladder Urinary incontinence History of cardioversion Atrial flutter Presence of total left knee joint prosthesis Aortic stenosis Enlarged RV (right ventricle) Chronic heart failure with preserved ejection fraction (HFpEF) Paroxysmal atrial fibrillation Sick sinus syndrome Cardiac pacemaker in situ Tricuspid regurgitation Pulmonary hypertension HTN (hypertension) Surgical History H/O colonoscopy Hx of cataract surgery History of total left knee replacement History of total right hip replacement History of permanent cardiac pacemaker placement Hx of knee surgery Family History Father No problems noted. Mother Cancer Social History Household Members: None Housing: Other Housing Other:: house Do you presently have visiting nurse or other home services: No Patient Tobacco Use Status: Never used Tobacco e-Cigarette/Vaping Use: Never Used service: No Current occupational status: retired Review of Systems Const Denies chills, Denies fatigue, Denies fever(s), Denies frequent falls, Denies weakness, Denies weight gain and Denies weight loss ENT Denies dizziness Card Denies chest pain, Denies leg edema, Denies lightheadedness, Denies palpitations, Denies dyspnea, Denies dyspnea on exertion, Denies orthopnea and Denies other (loss of consciousness) Resp Denies cough, Denies dyspnea and Denies dyspnea on exertion GI Denies hematochezia and Denies change in stool character Musc Denies abnormal gait, Denies muscle weakness, Denies numbness, Denies radiating pain into limb and Denies tingling Neuro Denies abnormal gait, Denies dizziness, Denies frequent falls, Denies numbness, Denies tingling and Denies weakness Endo Denies fatigue and Denies palpitations Physical Exam Vital Signs: Last Vital Signs Pulse 64 04/26/24 14:14 BP 124/72 07/16/24 14:14 BMI result Body Mass Index 23.5 Const General: cooperative, comfortable, no acute distress, alert, awake and well groomed Nutritional Appearance: average body habitus and other (Frail elderly woman) Orientation/consciousness: patient oriented x3 Limitations: ambulation with walker Neck Neck: Yes trachea midline, Yes supple and Yes no JVD Chest Chest palpation & inspection: abnormal inspection of the chest kyphotic Resp Effort & Inspection: normal respiratory effort Auscultation: clear to auscultation bilaterally and diminished lung sounds Cardio Jugular venous distension: no JVD Rate: regular rate Rhythm: regular rhythm Heart sounds: S1 normal heart sound present, S2 normal heart sound present (Soft), no click, no gallops and no murmurs GI Auscultation: normal bowel sounds Skin General skin exam: no rashes or lesions noted Neuro General: patient oriented x3 and no focal motor deficits Extrem General: Yes no clubbing, cyanosis or edema Psych Appearance: grossly normal Office Procedures Cardiac Device Check Cardiac Device Check Details: Dual-chamber Medtronic pacemaker in place, programmed in DDDR at 60 beats per minute. Currently with atrial and ventricular paced rhythm. She has increase activity about 4.1 hours a day. Continues to have burden of atrial fibrillation at 69% with persistent episodes of atrial fibrillation. Ventricular pacing 99% time at this point time. Atrial sensing was adequate. Atrial ventricular pacing thresholds adequate. Pacing lead impedance is stable. Battery life is at 5 years [id number]-PS Cardiac Device Check, pacemaker dual lead Procedure code (CPT) selection complete Assessment & Plan Assessment & Plan (1) History of transcatheter aortic valve replacement (TAVR): Comment: 34 mm bioprosthetic aortic valve, 02/2023 Code(s): Z95.2 - Presence of prosthetic heart valve Category: Medical Plan: History of bioprosthetic aortic valve replacement clinically working well. Recent echocardiogram at [facility] was showing normal function with good mean gradient without significant aortic regurgitation. Has done significantly well since the valve replacement with improved functionality. Currently with no signs of heart failure. Continue SBE prophylaxis as per ACC/[place] guidelines. Continue full oral anticoagulation with Eliquis. There is no indication for additional aspirin therapy. (2) Paroxysmal atrial fibrillation: Code(s): I48.0 - Paroxysmal atrial fibrillation Category: Medical Plan: Paroxysmal atrial fibrillation which has currently in atrially paced rhythm. Has increased burden of persistent atrial fibrillation about 69% time. High risk for recurrent persistent atrial fibrillation. She has no symptoms related to it. Currently pacer dependent ventricle. Continue full oral anticoagulation Eliquis. Quarterly renal function test should be pursued. (3) Cardiac pacemaker in situ: Comment: Medtronic dual-chamber pacemaker placement for sick sinus syndrome, 2018 Code(s): Z95.0 - Presence of cardiac pacemaker Category: Medical Plan: Cardiac pacemaker in-situ, working well. Reprogrammed for adequate function. Will follow up in the clinic in 6 months time. (4) Chronic heart failure with preserved ejection fraction (HFpEF): Code(s): I50.32 - Chronic diastolic (congestive) heart failure Category: Medical Plan: Heart failure preserved ejection fraction now status post aortic valve replacement with improved heart failure symptoms. This is not worsened since persistent atrial fibrillation as well. Currently appears to be euvolemic. Avoid diuretic therapy due to prior history of orthostatic hypotension. Signs and symptoms heart failure were discussed. Continue aggressive blood pressure control which currently well optimized encouraged to increase activity level as tolerated. Will follow up in the clinic in 6 months time, sooner p.r.n.. Thank you for allowing me to partake in his care Orders: Orders Basic Metabolic Panel 04/26/24 I48.0 - Paroxysmal atrial fibrillation Coding Level of Care Code Est Pt Level 4 (88806) Diagnoses History of transcatheter aortic valve replacement (TAVR) Z95.2 Paroxysmal atrial fibrillation I48.0 Cardiac pacemaker in situ Z95.0 Chronic heart failure with preserved ejection fraction (HFpEF) I50.32 CPT Codes Cardiac Device Check - Cardiac Device 2: 38594-XG Cardiac Device Check, pacemaker dual lead ([id number])
[2024-04-26 14:14] VITALS: BP 124/72; PULSE 64; BMI 23.5
== END 2024-04-26 14:57 | disposition home or self-care (01) ==
PROVIDERS: PCP Family Medicine; Visit Provider Internal Medicine Cardiovascular Disease
DX: I48.0 Paroxysmal atrial fibrillation (principal); I50.32 Chronic diastolic (congestive) heart failure; Z95.0 Presence of cardiac pacemaker; Z95.2 Presence of prosthetic heart valve
CPT/HCPCS: 93280; 99214

== ENCOUNTER → 2024-04-26 13:59 | Outpatient (BNVA) | payer MEDICARE, OTHER, SELFPAY | PROVIDERS: PCP Family Medicine; Visit Provider Internal Medicine Cardiovascular Disease | DX: Z45.018 Encounter for adjustment and management of other part of cardiac pacemaker (principal); I48.0 Paroxysmal atrial fibrillation; I50.32 Chronic diastolic (congestive) heart failure; Z95.2 Presence of prosthetic heart valve | CPT/HCPCS: 93280; 99212 ==

== ENCOUNTER → 2024-07-16 23:59 | Outpatient (BNV) | payer MEDICARE, OTHER, SELFPAY ==
--- NOTE | 2024-07-19 16:26 | MHC.OFFVIS ---
Intake Visit Reasons: Remote Device Check- Medtronic Allergies moxifloxacin [From Avelox] Adverse Reaction (Unknown, Verified 03/22/24 11:20) DIARRHEA PFSH Medical History (Updated 04/27/24 @ 15:28 by Blake Calle MD) History of transcatheter aortic valve replacement (TAVR) Overactive bladder Urinary incontinence History of cardioversion Atrial flutter Presence of total left knee joint prosthesis Aortic stenosis Enlarged RV (right ventricle) Chronic heart failure with preserved ejection fraction (HFpEF) Paroxysmal atrial fibrillation Sick sinus syndrome Cardiac pacemaker in situ Tricuspid regurgitation Pulmonary hypertension HTN (hypertension) Surgical History H/O colonoscopy Hx of cataract surgery History of total left knee replacement History of total right hip replacement History of permanent cardiac pacemaker placement Hx of knee surgery Family History Father No problems noted. Mother Cancer Social History Household Members: None Housing: Other Housing Other:: house Do you presently have visiting nurse or other home services: No Patient Tobacco Use Status: Never used Tobacco e-Cigarette/Vaping Use: Never Used service: No Current occupational status: retired Office Procedures Cardiac Device Check Cardiac Device Check Details: Remote pacemaker report generated 07/19/2024. Increasing burden of atrial fibrillation at 85%. Pacemaker function appears adequate [id number] Cardiac Device Interrogation, pacemaker Procedure code (CPT) selection complete Assessment & Plan Assessment & Plan (1) Cardiac pacemaker in situ: Comment: Medtronic dual-chamber pacemaker placement for sick sinus syndrome, 2018 Code(s): Z95.0 - Presence of cardiac pacemaker Category: Medical Plan: See above Coding Level of Care Code Procedure Only Diagnoses Cardiac pacemaker in situ Z95.0 CPT Codes Cardiac Device Check - Cardiac Device 12: [id number] Cardiac Device Interrogation, pacemaker ([id number])
== END ==
PROVIDERS: PCP Family Medicine; Visit Provider Internal Medicine Cardiovascular Disease
DX: I48.91 Unspecified atrial fibrillation (principal); Z95.0 Presence of cardiac pacemaker
CPT/HCPCS: 93294

== ENCOUNTER 2024-08-18 09:28 | Outpatient (REF) | payer MEDICARE, OTHER, SELFPAY ==
--- NOTE | 2024-08-18 14:27 | MHC.AU.HA3 ---
Hearing Instrument Follow-Up- Binaural Date of Visit: 08/18/24 Left Ear: Make, Model, Color, Serial Number: [id number] [employer]ammer Repair Warranty: 08/06/2022 [employer]mer Loss and Damage Warranty: [facility] Service Plan: Battery Size: 312 Intelligence Director/Slim Tube: Earmold/Dome/CShell/SlimTip: Type of Wax Guard: CeruStop Dispensed By: [facility] Date of Fittin07/14/2019 Follow-Up Summary: Ashley is here for re-evaluation (see audiogram) and to discuss options for fixing a recent fit issue with her hearing aid that resulted from significant weight loss. She states she has lost it several times due to poor retention. Quoted $500 to have aid sent out for recasing by Rowdy Gordillo, or gave bray sheet for new aid. She is concerned that buying a new one might be a waste of money at this point in her life, is unsure of what to do. Ashley has nearly occluding wax in the left ear so will have removed and call to return for impression once she and her son Akira have made a decision. Ashley also says the staff at [facility] have said she has a crack in her hearing aid near the battery door, was unable to find one, edge of door might be very slighly chipped so it was replaced today. Recommendations: Recommendations: Hearing instrument follow-up or maintenance as needed. Diagnosis Code(s): Primary Diagnosis: H90.3 Bilateral Sensorineural Hearing Loss Signature: Provider: Nina Pepper, CCC-A
== END 2024-08-18 09:29 | disposition home or self-care (01) ==
LOC: HO.SH 09:28
PROVIDERS: Visit Provider Internal Medicine
DX: Z01.118 Encounter for examination of ears and hearing with other abnormal findings (principal); H90.3 Sensorineural hearing loss, bilateral
CPT/HCPCS: 92552; 92556

== ENCOUNTER 2024-09-20 09:53 | Outpatient (REF) | payer MEDICARE, OTHER, SELFPAY | END 2024-09-20 09:54 | disposition home or self-care (01) | LOC: HO.LNP 09:53 | PROVIDERS: PCP Family Medicine; Visit Provider Nurse Practitioner Family | DX: R32 Unspecified urinary incontinence (principal); Z13.9 Encounter for screening, unspecified; N32.81 Overactive bladder; N20.0 Calculus of kidney; N28.1 Cyst of kidney, acquired; R39.15 Urgency of urination; Z79.899 Other long term (current) drug therapy; Z79.01 Long term (current) use of anticoagulants | CPT/HCPCS: 51798; 81003; 87086; 87088; 87186; 99212 ==

== ENCOUNTER 2024-09-20 09:58 | Outpatient (AMB) | payer MEDICARE, OTHER, SELFPAY ==
--- NOTE | 2024-09-20 09:59 | MHC.OFFVIS ---
Intake Visit Reasons: 6m/PVR Intake Note: Patient presents for follow up on: Renal Cyst, Urinary /Urgency, and Utrasound Results Imaging Completed: 03/16/24 Urology Medications: myrbetriq Blood Thinner: Eliquis PVR: 0ml's Clinical Cytogeneticist Required: No Accompanied by: Unknown Allergies moxifloxacin [From Avelox] Adverse Reaction (Unknown, Verified 09/20/24 10:50) DIARRHEA Medication List - Last Reconciled 09/20/24 by ERLINDA Marino-KAMINI acetaminophen ER (Tylenol Arthritis Pain) 650 mg PO Q8H acetaminophen ER 650 mg PO Q12H amlodipine 5 mg PO ONCE apixaban (Eliquis) 5 mg PO BID 90 days aspirin 81 mg PO DAILY calcium carbonate (Calcium 600) 600 mg PO DAILY levothyroxine 50 mcg PO DAILY melatonin 3 mg PO BEDTIME PRN metoprolol succinate ER (Toprol XL) 25 mg PO DAILY 90 days mirabegron ER (Myrbetriq) 25 mg PO DAILY 90 days modafinil 100 mg PO nitrofurantoin macrocrystal 100 mg PO BID 7 days polyethylene glycol 3350 (Miralax) 17 grams PO DAILY pravastatin 40 mg PO DAILY propylene glycol 0.6% (Systane Balance) 1 drp ophthalmic (eye) DAILY PRN vit C,H-Fe-xxdha-lutein-zeaxan (PreserVision AREDS-2) 1 cap PO DAILY walker (Ultra-Light Rollator misc) As directed HPI Comments Details: Ashley is a pleasant 88-year-old female patient of Dr. De La Rosa who was accompanied by her daughter at today's visit. She has a past medical history of overactive bladder, urinary incontinence, history of cardioversion, atrial flutter, aortic stenosis, chronic heart failure with preserved ejection fracture, paroxysmal atrial fibrillation, sick sinus syndrome, cardiac pacemaker, tricuspid regurgitation, and pulmonary hypertension. She presents to the office today for follow-up of her urinary urgency incontinence, and nephrolithiasis. In discussion with the patient today she reports feeling she has to double void to empty her bladder. She reports compliance with Myrbetriq and feels this has been helpful with episodes of urinary urgency and frequency she had been experiencing. She discusses being very active at [facility] in [place] with activities. She reports feeling her bladder is triggered by certain things that she eats. She had previously been undergoing physical therapy status post hospitalization at which time therapy was also working on pelvic floor therapy and she found this helpful however since she has been discharged from therapy as she had been doing well she feels her bladder has been more active. In office urinalysis results reviewed with the patient today. Positive nitrates and leukocytes. We discussed potential lower urinary tract symptoms being related to urinary tract infection. Previous workup has included a renal ultrasound 04/04 noting a 3 mm left renal calculi is noted. Mild left hydronephrosis. Multiple pole tiny left renal echogenic foci may represent artifact or tiny calcifications, possibly vascular, not appreciated on prior exam due to poor visualization of kidney. When asked she denies hematuria, dysuria, foul smelling urine, changes to urinary stream, flank pain, fever, and or chills. Discussed at length nephrolithiasis and peripelvic cysts with surveillance monitoring. PVR 0ml's Urinary urgency incontinence Lives at assisted living Pelvic floor physical therapy was helpful Reports sense of urgency, frequency in on sensed urination has been stable Developed confusion on VESIcare and oxybutynin Prior imaging with bilateral complex renal cyst on right renal nephrolithiasis - right renal cyst 1 cm, left mid pole stone 1.4 cm [facility] Medical History History of transcatheter aortic valve replacement (TAVR) Overactive bladder Urinary incontinence History of cardioversion Atrial flutter Presence of total left knee joint prosthesis Aortic stenosis Enlarged RV (right ventricle) Chronic heart failure with preserved ejection fraction (HFpEF) Paroxysmal atrial fibrillation Sick sinus syndrome Cardiac pacemaker in situ Tricuspid regurgitation Pulmonary hypertension HTN (hypertension) Surgical History H/O colonoscopy Hx of cataract surgery History of total left knee replacement History of total right hip replacement History of permanent cardiac pacemaker placement Hx of knee surgery Family History Father No problems noted. Mother Cancer Social History Household Members: None Housing: Other Housing Other:: house Do you presently have visiting nurse or other home services: No Patient Tobacco Use Status: Never used Tobacco e-Cigarette/Vaping Use: Never Used service: No Current occupational status: retired Review of Systems Const Reports as per [facility] Eyes Reports no additional complaints ENT Reports no additional complaints Card Reports as per [facility] Resp Reports no additional complaints GI Reports no additional complaints Reports as per [facility] Musc Reports as per [facility] Neuro Reports as per HPI Psych Reports no additional complaints Endo Reports no additional complaints Huey/Lymph Reports no additional complaints Aller/Immun Reports no additional complaints Physical Exam Const General: cooperative, healthy appearing, comfortable, no acute distress, well developed, alert and awake Orientation/consciousness: oriented to person Limitations: ambulation with walker HEENT Head: Yes normal to inspection, Yes normocephalic and Yes atraumatic Ears: hearing grossly normal bilaterally Eyes General: appearance normal, both eyes and all related structures Neck Neck: Yes normal visual inspection and Yes trachea midline Chest Chest palpation & inspection: normal inspection of the chest Resp Effort & Inspection: normal respiratory effort and able to speak in complete sentences Cardio Rate: regular rate GI Inspection: Yes normal to inspection General: Yes no CVA tenderness Back/Spine/Pelvis Back: no CVA tenderness Skin General skin exam: no rashes or lesions noted Neuro General: oriented to person Extrem General: Yes normal to inspection Psych Appearance: grossly normal and well kempt Mental Status: mental status grossly normal Speech and movement: Normal speech and movement present and Clear speech present Affect: normal affect Attitude: cooperative Thought process: Normal thought process present and Perseverating thought process present (at times ) Thought content: Normal thought content present Insight: Fair insight present (Psych) Judgement: Fair judgement present (Psych) Office Procedures Post Void Residual Post Residual Void Post Void Residual (PVR): 0 61654-Hsem Void Residual by ultrasound Results AMB Urinalysis, Automated UA Leukoctes 500 Sonam/uL Last Edit by Julieta Zarate on 09/20/24 10:25 UA Nitrite Last Edit by Julieta Zarate on 09/20/24 10:25 UA Urobilinogen 0.2 mg/dL Last Edit by Julieta Zarate on 09/20/24 10:25 UA Protein 30 mg/dL Last Edit by Julieta Zarate on 09/20/24 10:25 UA pH 6.0 Last Edit by Julieta Zarate on 09/20/24 10:25 UA Blood 10 Leoncio/uL Last Edit by Julieta Zarate on 09/20/24 10:25 UA Specific Wynne 1.015 Last Edit by Julieta Zarate on 09/20/24 10:25 UA Ketone Negative Last Edit by Julieta Zarate on 09/20/24 10:25 UA Bilirubin 0 mg/dL Last Edit by Julieta Zarate on 09/20/24 10:25 UA Glucose 0 mg/dL Last Edit by Julieta Zarate on 09/20/24 10:25 Results Reviewed Results Reviewed: Laboratory Last Values Urine pH (Auto) 6.0 09/20/24 10:02 Specific Wynne (Auto) 1.015 09/20/24 10:02 Urine Protein (Auto) 30 mg/dL 09/20/24 10:02 Glucose (UA)(Auto) 0 mg/dL 09/20/24 10:02 Urine Ketones (Auto) Negative 09/20/24 10:02 Urine Blood (Auto) 10 Leoncio/uL 09/20/24 10:02 Urine Bilirubin (Auto) 0 mg/dL 09/20/24 10:02 Urine Urobilinogen (Auto) 0.2 mg/dL 09/20/24 10:02 Leukocyte Esterase (Auto) 500 Sonam/uL 09/20/24 10:02 Assessment & Plan Assessment & Plan (1) Nephrolithiasis: Code(s): N20.0 - Calculus of kidney Category: Medical (2) Complex renal cyst: Code(s): N28.1 - Cyst of kidney, acquired Category: Medical (3) Renal cyst: Code(s): N28.1 - Cyst of kidney, acquired Category: Medical (4) Overactive bladder: Code(s): N32.81 - Overactive bladder Category: Medical (5) Urinary urgency: Code(s): R39.15 - Urgency of urination Category: Medical (6) Urinary incontinence: Code(s): R32 - Unspecified urinary incontinence Category: Medical Plan In office urinalysis results reviewed with the patient today; as noted above; will send for urine culture. PVR 0 mL. Information provided regarding pelvic floor exercises. Discussed bladder triggers/irritants. Continue Myrbetriq as discussed and prescribed. Discussed referral to pelvic floor therapy. Start Macrobid as discussed and prescribed. Follow-up in 1-3 months with PVR; or sooner with any issues, concerns, and or questions. Orders: Orders AMB Post Void Residual by ultrasound Today N32.81 - Overactive bladder Urine Culture Today R32 - Unspecified urinary incontinence, Z13.9 - Encounter for screening, unspecified AMB Urinalysis Automated Today Z13.9 - Encounter for screening, unspecified Medications: New nitrofurantoin macrocrystal 100 mg PO BID 14 caps 0RF 7 days R32 - Unspecified urinary incontinence Patient Instructions: The patient had an opportunity to ask questions regarding the treatment plan. All questions were answered. Physical exam, labs, and imaging were discussed and reviewed in detail. As well as risks, benefits, and discussion of treatment choices. No major barriers to understanding were identified. The patient expressed understanding and agreement with the above treatment plan. The patient was made aware they should contact our office by phone for worsening of their current condition, the appearance of new symptoms, or with any questions or concerns. Compliance is encouraged with any medications and follow up testing that is ordered. It is a privilege to be allowed the opportunity to participate in? your urological care.? Again, if you have any questions or concerns If you have any questions or concerns please do not hesitate to contact me. The office is [phone]. This note is constructed using voice recognition software. While every effort has been made to ensure accuracy business development sales executive errors may have been included. Yours sincerely, SKYLER Marino Coding Level of Care Code Est Pt Level 4 (35003) Complex EM visit Add On G2211 Diagnoses Nephrolithiasis N20.0 Complex renal cyst N28.1 Renal cyst N28.1 Overactive bladder N32.81 Urinary urgency R39.15 Urinary incontinence R32 CPT Codes Post Residual Void - PVR CPT Code: 85193-Eztw Void Residual by ultrasound ([id number])
== END 2024-09-20 10:48 | disposition home or self-care (01) ==
PROVIDERS: PCP Family Medicine; Visit Provider Nurse Practitioner Family
DX: N20.0 Calculus of kidney (principal); N28.1 Cyst of kidney, acquired; N32.81 Overactive bladder; R39.15 Urgency of urination; R32 Unspecified urinary incontinence
CPT/HCPCS: 99214; G2211

== ENCOUNTER → 2024-10-16 23:59 | Outpatient (BNV) | payer MEDICARE, OTHER, SELFPAY ==
--- NOTE | 2024-10-24 16:29 | MHC.OFFVIS ---
Intake Visit Reasons: Remote Device Check- Medtronic Allergies moxifloxacin [From Avelox] Adverse Reaction (Unknown, Verified 09/20/24 10:50) DIARRHEA PFSH Medical History (Updated 10/24/24 @ 10:15 by Blake Calle MD) Atrial flutter Aortic stenosis History of transcatheter aortic valve replacement (TAVR) Overactive bladder Urinary incontinence History of cardioversion Presence of total left knee joint prosthesis Enlarged RV (right ventricle) Chronic heart failure with preserved ejection fraction (HFpEF) Paroxysmal atrial fibrillation Sick sinus syndrome Cardiac pacemaker in situ Tricuspid regurgitation Pulmonary hypertension HTN (hypertension) Surgical History H/O colonoscopy Hx of cataract surgery History of total left knee replacement History of total right hip replacement History of permanent cardiac pacemaker placement Hx of knee surgery Family History Father No problems noted. Mother Cancer Social History Household Members: None Housing: Other Housing Other:: house Do you presently have visiting nurse or other home services: No Patient Tobacco Use Status: Never used Tobacco e-Cigarette/Vaping Use: Never Used service: No Current occupational status: retired Office Procedures Cardiac Device Check Cardiac Device Check Details: Remote pacemaker report generated 10/16/2023. Pacemaker function is adequate [id number] Cardiac Device Interrogation, pacemaker Procedure code (CPT) selection complete Assessment & Plan Assessment & Plan (1) Cardiac pacemaker in situ: Comment: Medtronic dual-chamber pacemaker placement for sick sinus syndrome, 2018 Code(s): Z95.0 - Presence of cardiac pacemaker Category: Medical Plan: See above Coding Level of Care Code Procedure Only Diagnoses Cardiac pacemaker in situ Z95.0 CPT Codes Cardiac Device Check - Cardiac Device 12: 88396-[id number] Cardiac Device Interrogation, pacemaker ([id number])
== END ==
PROVIDERS: PCP Family Medicine; Visit Provider Internal Medicine Cardiovascular Disease
DX: I49.5 Sick sinus syndrome (principal); Z95.0 Presence of cardiac pacemaker
CPT/HCPCS: 93294

== ENCOUNTER 2024-10-24 09:25 | Outpatient (AMB) | payer MEDICARE, OTHER, SELFPAY ==
[2024-10-24 09:41] VITALS: BP 122/82; PULSE 72; BMI 23.5
--- NOTE | 2024-10-24 09:41 | A.OFFVIS_ITS ---
Vital Signs 10/24/24 09:41 Height 5 ft 7 in Weight 149 lb 14.629 oz BMI 23.5 BP 122/82 Blood Pressure Location Lt brachial Position Sitting Pulse 72 Intake Visit Reasons: 6 mth f/up has medtronic Intake Note: 6 month follow-up with Medtronic check feeling good Wire Winding Machine Tender Required: No Cooker Sulfite: Cooker Sulfite Present Accompanied by: Daughter Allergies moxifloxacin [From Avelox] Adverse Reaction (Unknown, Verified 09/20/24 10:50) DIARRHEA Medication List - Last Reconciled 10/24/24 by Blake Calle MD acetaminophen ER (Tylenol Arthritis Pain) 650 mg PO Q8H acetaminophen ER 650 mg PO Q12H amlodipine 5 mg PO ONCE amlodipine 2.5 mg PO DAILY apixaban (Eliquis) 5 mg PO BID 90 days aspirin 81 mg PO DAILY calcium carbonate (Calcium 600) 600 mg PO DAILY levothyroxine 50 mcg PO DAILY melatonin 3 mg PO BEDTIME PRN metoprolol succinate ER (Toprol XL) 25 mg PO DAILY 90 days mirabegron ER (Myrbetriq) 25 mg PO DAILY 90 days polyethylene glycol 3350 (Miralax) 17 grams PO DAILY pravastatin 40 mg PO DAILY propylene glycol 0.6% (Systane Balance) 1 drp ophthalmic (eye) DAILY PRN walker (Ultra-Light Rollator misc) As directed HPI Comments Details: Ashley comes for follow-up, accompanied by her daughter. She has been doing well overall. She says she has feels lot better. Still has balance issues and uses walker for balance. Wants to give up the walker and says she exercises regularly. She has no bleeding issues or neurologic events. No heart failure symptoms of orthopnea, PND, leg edema. Takes all her medications and wants to come off a lot of her medications as well. She denies any prolonged palpitation irregular heartbeat. No chest pain. No lightheadedness, syncope. [facility] Medical History (Updated 10/24/24 @ 10:15 by Blake Calle MD) Atrial flutter Aortic stenosis History of transcatheter aortic valve replacement (TAVR) Overactive bladder Urinary incontinence History of cardioversion Presence of total left knee joint prosthesis Enlarged RV (right ventricle) Chronic heart failure with preserved ejection fraction (HFpEF) Paroxysmal atrial fibrillation Sick sinus syndrome Cardiac pacemaker in situ Tricuspid regurgitation Pulmonary hypertension HTN (hypertension) Surgical History H/O colonoscopy Hx of cataract surgery History of total left knee replacement History of total right hip replacement History of permanent cardiac pacemaker placement Hx of knee surgery Family History Father No problems noted. Mother Cancer Social History Household Members: None Housing: Other Housing Other:: house Do you presently have visiting nurse or other home services: No Patient Tobacco Use Status: Never used Tobacco e-Cigarette/Vaping Use: Never Used service: No Current occupational status: retired Review of Systems Const Denies chills, Denies fatigue, Denies fever(s), Denies frequent falls, Denies weakness, Denies weight gain and Denies weight loss ENT Denies dizziness Card Denies chest pain, Denies leg edema, Denies lightheadedness, Denies palpitations, Denies dyspnea, Denies dyspnea on exertion, Denies orthopnea and Denies other (loss of consciousness) Resp Denies cough, Denies dyspnea and Denies dyspnea on exertion GI Denies hematochezia and Denies change in stool character Musc Denies abnormal gait, Denies muscle weakness, Denies numbness, Denies radiating pain into limb and Denies tingling Neuro Denies abnormal gait, Denies dizziness, Denies frequent falls, Denies numbness, Denies tingling and Denies weakness Endo Denies fatigue and Denies palpitations Physical Exam Vital Signs: Last Vital Signs Pulse 72 10/24/24 09:41 BP 122/82 10/24/24 09:41 BMI result Body Mass Index 23.5 Const General: cooperative, comfortable, no acute distress, alert, awake and well groomed Nutritional Appearance: average body habitus and other (Frail elderly woman) Orientation/consciousness: patient oriented x3 Limitations: ambulation with walker Neck Neck: Yes trachea midline, Yes supple and Yes no JVD Chest Chest palpation & inspection: abnormal inspection of the chest kyphotic Resp Effort & Inspection: normal respiratory effort Auscultation: clear to auscultation bilaterally and diminished lung sounds Cardio Jugular venous distension: no JVD Rate: regular rate Rhythm: regular rhythm Heart sounds: S1 normal heart sound present, S2 normal heart sound present (Soft), no click, no gallops and no murmurs GI Auscultation: normal bowel sounds Skin General skin exam: no rashes or lesions noted Neuro General: patient oriented x3 and no focal motor deficits Extrem General: Yes no clubbing, cyanosis or edema Psych Appearance: grossly normal Office Procedures Cardiac Device Check Cardiac Device Check Details: Dual-chamber Medtronic pacemaker in place. Showing atrial fibrillation frequently could be atrial lead noise. Atrial pacing thresholds are stable. Ventricular pacing thresholds excellent and reprogrammed to enhance battery life. Pacing lead impedance is stable. Atrial ventricular sensing is adequate. Battery life is about 4 years. 88135-DW Cardiac Device Check, pacemaker dual lead Procedure code (CPT) selection complete Assessment & Plan Assessment & Plan (1) History of transcatheter aortic valve replacement (TAVR): Comment: 34 mm bioprosthetic aortic valve, 02/2023 Code(s): Z95.2 - Presence of prosthetic heart valve Category: Medical Plan: Status post transcatheter aortic valve replacement with significant improvement overall functionality. Continue to monitor by echocardiogram. Will schedule echocardiogram near future. SBE prophylaxis as per ACC/aha guidelines. Does not require additional aspirin therapy as she is already on Eliquis therapy. This can be stopped. Continue aggressive vascular risk factor modification. (2) Paroxysmal atrial fibrillation: Code(s): I48.0 - Paroxysmal atrial fibrillation Category: Medical Plan: Paroxysmal atrial fibrillation noted high burden of pacer telemetry. Could be partly related to atrial lead noise. Reprogrammed sensitivity. Will follow remotely. Continue full oral anticoagulation with Eliquis. Quarterly renal function test should be pursued. Avoidance of stimulants was discussed. Continue metoprolol therapy. Will avoid any antiarrhythmic drug therapy as she remains asymptomatic. (3) Cardiac pacemaker in situ: Comment: Medtronic dual-chamber pacemaker placement for sick sinus syndrome, 2018 Code(s): Z95.0 - Presence of cardiac pacemaker Category: Medical Plan: Cardiac pacemaker in-situ for sick sinus syndrome. Working well. Battery life is adequate at this point time. Continue follow remotely. (4) Chronic heart failure with preserved ejection fraction (HFpEF): Code(s): I50.32 - Chronic diastolic (congestive) heart failure Category: Medical Plan: Heart failure preserved ejection fraction, clinically euvolemic and well compensated. Continue to monitor clinically. Currently off all diuretic therapy. Has done well since valve replacement and maintain rhythm. Signs and symptoms of heart failure were discussed. Advised to call me with any new symptoms. Continue aggressive blood pressure control which is currently well optimized. She does have of orthostatic low blood pressure and intolerance. Continue monitor that. Orthostatic precautions were discussed. Advised to monitor blood pressure at home closely. Discussed about using assist devices to walk to avoid falls. Will follow up in the clinic in 6 months time. Greater than 40 minutes was spent in managing his complex care. Orders: Orders CA echo transthoracic complete Today Z95.2 - Presence of prosthetic heart valve Coding Level of Care Code Est Pt Level 5 (56778) Complex EM visit Add On G2211 Diagnoses History of transcatheter aortic valve replacement (TAVR) Z95.2 Paroxysmal atrial fibrillation I48.0 Cardiac pacemaker in situ Z95.0 Chronic heart failure with preserved ejection fraction (HFpEF) I50.32 CPT Codes Cardiac Device Check - Cardiac Device 2: 73159-UP Cardiac Device Check, pacemaker dual lead ([id number])
== END 2024-10-24 10:11 | disposition home or self-care (01) ==
PROVIDERS: PCP Family Medicine; Visit Provider Internal Medicine Cardiovascular Disease
DX: I48.0 Paroxysmal atrial fibrillation (principal); Z95.2 Presence of prosthetic heart valve; Z95.0 Presence of cardiac pacemaker; I50.32 Chronic diastolic (congestive) heart failure
CPT/HCPCS: 93280; 99215; G2211

== ENCOUNTER → 2024-10-24 09:25 | Outpatient (BNVA) | payer MEDICARE, OTHER, SELFPAY | PROVIDERS: PCP Family Medicine; Visit Provider Internal Medicine Cardiovascular Disease | DX: Z45.018 Encounter for adjustment and management of other part of cardiac pacemaker (principal); I48.0 Paroxysmal atrial fibrillation; I50.32 Chronic diastolic (congestive) heart failure; Z95.2 Presence of prosthetic heart valve | CPT/HCPCS: 93280; 99212 ==

== ENCOUNTER → 2024-11-22 10:34 | Outpatient (REF) | payer MEDICARE, OTHER, SELFPAY ==
--- NOTE | 2024-11-22 10:42 | CA_ITS ---
Transthoracic Echocardiogram Patient (Last, First, Middle): Ashley Castillo, Gender: Female Date of : 1935 Age: 89 Procedure Date: 11/22/2024 Procedure Type: Transthoracic Echocardiogram Location: OP Height: 167.64 cm Weight: 63.5 kg BSA: 1.72 m2 Heart Rate: 72 bpm BP: 138 / 80 mmHg Chemist Food: TO Referring MD: Blake Calle MD Symptoms: Z95.2 - Presence of prosthetic heart valve Study Quality: Adequate ECG Rhythm: Sinus Conclusions: - 1. Normal LV ejection fraction 55-60% 2. Moderately dilated right ventricle with normal systolic function 3. Severe biatrial enlargement 4. Normally functioning bioprosthetic aortic valve with mean gradient of 5 mm Hg 5. Xdul-va-nfbmrbat mitral regurgitation 6. Moderate tricuspid regurgitation with normal measured RV systolic pressure with mildly elevated right atrial pressures 7. No gross pericardial effusion Findings Left Ventricle Normal left ventricular size, thickness, and systolic function. The visually estimated ejection fraction is between 55-60%. Spectral Doppler is indicative of an impaired relaxation filling pattern. There is mild septal asymmetric hypertrophy. Right Ventricle Moderately increased right ventricular cavity size. There is normal right ventricular systolic function. There is a pacemaker wire seen in the right ventricle. Atria Severe biatrial enlargement. A pacemaker wire is identified in the right atrium. Aortic Valve A bioprosthetic aortic valve is present. The prosthetic aortic valve appears to be functioning normally. The mean gradient is 5 mmHg. Mitral Valve There is mild anterior and posterior mitral leaflet thickening. There is mild mitral valve regurgitation. There is no mitral valve stenosis. Pulmonic Valve The pulmonic valve is likely normal. There is mild pulmonic valve regurgitation. Tricuspid Valve Normal tricuspid valve structure. There is moderate tricuspid valve regurgitation. Mildly elevated right atrial pressure. There is no evidence of pulmonary hypertension. Great Vessels The pulmonary artery was not well visualized. There is mild dilatation of the ascending aorta measuring 3.70 cm. Venous The inferior vena cava is moderately dilated and collapses greater than 50% with inspiration. Pericardium/Pleural There is no evidence of pericardial effusion. Prior Study Comparison Changes noted compared to prior study dated: 07/03/2022. normally function bioprosthetic aortic valve is now present. Measurements 2D Linear Measurements IVSd: 1.35 0.6-0.9/0.6-1.0 cm LVIDd: 4.19 3.9-5.3/4.2-5.9 cm LVIDd Index: 2.44 2.4-3.2/2.2-3.1 cm/m2 LVIDs: 3.08 2.0-3.6 cm LVPWd: 0.97 0.7-1.1 cm LA Diam: 4.20 2.7-3.8/3.0-4.0 cm LAIDs Index: 2.44 1.5-2.3 cm/m2 LV Mass: 210.16 67-162/88-224 g LV Mass Index: 122.19 43-95/49-115 g/m2 LVOT Diam: 2.30 3.0+(-)1.3 cm 2D Systolic Function EF 4C: 53.30 >55% EF 2C: 60.80 >55% EF BiP: 56.60 >55% Mitral Valve MV Pk E: 0.72 MV PK A: 0.53 MV Decel Time: 173.00 E/A: 1.40 E'Lateral: 4.57 E'Medial: 5.00 E/E' Med: 14.30 E/E' Lat: 15.70 PHT: 51.00 MVA PHT: 4.31 Decel Stevens: 4.15 Aortic Valve AoV Pk Rodger: 1.49 AoV Mn Rodger: 1.03 AoV VTI: 0.33 AoV Pk Grad: 9.00 Aov Mn Grad: 5.00 GENO Cont.VTI: 1.67 LVOT LVOT Pk Rodger: 0.59 LVOT Mn Rodger: 0.44 LVOT VTI: 0.13 LVOT Pk Grad: 1.00 LVOT Mn Grad: 1.00 LVOT Diam: 2.30 LVOT Area: 4.15 Diastolic Function MV Pk E: 0.72 MV Pk A: 0.53 E/A: 1.40 E'Medial: 5.00 E/E' Med: 14.30 E' Laterial: 4.57 E/E' Lat: 15.70 Right Ventricle TAPSE (mm): 20.70 TVS' Rodger: 13.80 Tricuspid Valve TR Pk Rodger: 2.67 TR Pk Grad: 29.00 RA Press: 8.00 RVSP: 37.00 Great Vessels Aorta Ao Asc: 3.70 2.1-3.4 cm Ao Arch: 2.20 Updated in Other Vendor System with Status of Final Blake Calle MD electronically signed on 11/23/2024 4:41:22 PM with status of Final
== END ==
LOC: HO.CARD 10:34
PROVIDERS: PCP Family Medicine; Visit Provider Internal Medicine Cardiovascular Disease
DX: Z95.2 Presence of prosthetic heart valve (principal)
CPT/HCPCS: 93306

== ENCOUNTER → 2024-11-22 10:42 | Outpatient (BNV) | payer MEDICARE, OTHER, SELFPAY | PROVIDERS: PCP Family Medicine; Visit Provider Internal Medicine Cardiovascular Disease | DX: I42.2 Other hypertrophic cardiomyopathy (principal); Z95.3 Presence of xenogenic heart valve; I37.1 Nonrheumatic pulmonary valve insufficiency; I36.1 Nonrheumatic tricuspid (valve) insufficiency; I51.7 Cardiomegaly | CPT/HCPCS: 93306 ==

== ENCOUNTER 2024-12-21 10:11 | Outpatient (AMB) | payer MEDICARE, OTHER, SELFPAY ==
--- NOTE | 2024-12-21 10:17 | A.OFFVIS_ITS ---
Intake Visit Reasons: 1-3M follow up Intake Note: Patient presents for 1-3 month follow up Urology Medications: Myrbetriq Blood Thinner: Eliquis Allergy to Antibiotics: none PVR: 0ml's Oyster Grader Required: No Accompanied by: Unknown Allergies moxifloxacin [From Avelox] Adverse Reaction (Unknown, Verified 12/21/24 10:51) DIARRHEA Medication List - Last Reconciled 12/21/24 by ERLINDA Marino-KAMINI acetaminophen ER (Tylenol Arthritis Pain) 650 mg PO Q8H acetaminophen ER 650 mg PO Q12H amlodipine 5 mg PO ONCE amlodipine 2.5 mg PO DAILY apixaban (Eliquis) 5 mg PO BID 90 days calcium carbonate (Calcium 600) 600 mg PO DAILY levothyroxine 50 mcg PO DAILY melatonin 3 mg PO BEDTIME PRN metoprolol succinate ER (Toprol XL) 25 mg PO DAILY 90 days mirabegron ER (Myrbetriq) 25 mg PO DAILY 90 days polyethylene glycol 3350 (Miralax) 17 grams PO DAILY pravastatin 40 mg PO DAILY propylene glycol 0.6% (Systane Balance) 1 drp ophthalmic (eye) DAILY PRN walker (Ultra-Light Rollator misc) As directed HPI Comments Details: Ashley is a pleasant 89-year-old female patient of Dr. Mendes who was accompanied by her daughter at today's visit. She has a past medical history of overactive bladder, urinary incontinence, history of cardioversion, atrial flutter, aortic stenosis, chronic heart failure with preserved ejection fracture, paroxysmal atrial fibrillation, sick sinus syndrome, cardiac pacemaker, tricuspid regurgitation, and pulmonary hypertension. She presents to the office today for follow-up of her urinary urgency incontinence, nephrolithiasis, and urinary tract infection. Of note, patient was seen approximately 2 and half months ago at which time she was treated for a urinary tract infection. In discussion with the patient and her daughter today she reports having completed Macrobid as prescribed. Previous urine culture results reviewed with the patient and her daughter today. 10/04 ecoli. She currently denies any bothersome urinary issues or concerns. She reports compliance with Myrbetriq as prescribed. In office urinalysis results reviewed with the patient today trace leukocytes, negative nitrates, proteinuria, and pH of 5.5. We discussed at length the importance of adequate hydration in relation to longstanding history of nephrolithiasis as well as most recent urinary tract infection. She discusses how active she attempts to be. She discusses having followed up with provider regarding ongoing right knee discomfort she has been experiencing and has recently undergone steroid injection that has been somewhat helpful. She has a history of undergoing pelvic floor therapy in the past and has found this helpful. Previous workup has included a renal ultrasound 04/04 noting a 3 mm left renal calculi is noted. Mild left hydronephrosis. Multiple pole tiny left renal echogenic foci may represent artifact or tiny calcifications, possibly vascular, not appreciated on prior exam due to poor vi sualization of kidney. When asked she denies hematuria, dysuria, foul smelling urine, changes to urinary stream, flank pain, fever, and or chills. 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 Mother Cancer Social History Household Members: None Housing: Other Housing Other:: house Do you presently have visiting nurse or other home services: No Patient Tobacco Use Status: Never used Tobacco e-Cigarette/Vaping Use: Never Used service: No Current occupational status: retired Review of Systems Const Reports as per HPI Eyes Reports no additional complaints ENT Reports no additional complaints Card Reports as per HPI Resp Reports no additional complaints GI Reports no additional complaints Reports as per HPI Musc Reports as per HPI Neuro Reports as per HPI Psych Reports no additional complaints Endo Reports no additional complaints Huey/Lymph Reports no additional complaints Aller/Immun Reports no additional complaints Physical Exam Const General: cooperative, healthy appearing, comfortable, no acute distress, well developed, alert and awake Orientation/consciousness: oriented to person Limitations: ambulation with walker HEENT Head: Yes normal to inspection, Yes normocephalic and Yes atraumatic Ears: hearing grossly normal bilaterally Eyes General: appearance normal, both eyes and all related structures Neck Neck: Yes normal visual inspection and Yes trachea midline Chest Chest palpation & inspection: normal inspection of the chest Resp Effort & Inspection: normal respiratory effort and able to speak in complete sentences Cardio Rate: regular rate GI Inspection: Yes normal to inspection General: Yes no CVA tenderness Back/Spine/Pelvis Back: no CVA tenderness Skin General skin exam: no rashes or lesions noted Neuro General: oriented to person Extrem General: Yes normal to inspection Psych Appearance: grossly normal and well kempt Mental Status: mental status grossly normal Speech and movement: Normal speech and movement present and Clear speech present Affect: normal affect Attitude: cooperative Thought process: Normal thought process present and Perseverating thought process present (at times ) Thought content: Normal thought content present Insight: Fair insight present (Psych) Judgement: Fair judgement present (Psych) Office Procedures Post Void Residual Post Residual Void Post Void Residual (PVR): 0 [id number]-[id number] Void Residual by ultrasound Assessment & Plan Assessment & Plan (1) Nephrolithiasis: Code(s): N20.0 - Calculus of kidney Category: Medical (2) Complex renal cyst: Code(s): N28.1 - Cyst of kidney, acquired Category: Medical (3) Overactive bladder: Code(s): N32.81 - Overactive bladder Category: Medical (4) Urinary urgency: Code(s): R39.15 - Urgency of urination Category: Medical (5) Urinary incontinence: Code(s): R32 - Unspecified urinary incontinence Category: Medical (6) History of urinary tract infection: Code(s): Z87.440 - Personal history of urinary (tract) infections Category: Medical Plan In office urinalysis results reviewed the patient today; as noted above. PVR 0 mL. Continue Myrbetriq. We discussed at length importance of adequate hydration relation to nephrolithiasis as well as urinary tract infections. She currently denies any bothersome urinary issues. She reports be happy with current voiding parameters. Will continue with surveillance monitoring at this time. Discussed UTI prevention with D mannose supplement, vitamin-C, increasing fluid intake, behavioral therapy with timed voiding, perineal hygiene and postcoital voiding, and management of constipation with stool softeners and increased fiber intake. Follow-up in 3 months with PVR; or sooner with any issues, concerns, and or questions. Orders: Orders AMB Post Void Residual by ultrasound Today R39.15 - Urgency of urination AMB Urinalysis Automated Today Z13.9 - Encounter for screening, unspecified Patient Instructions: The patient had an opportunity to ask questions regarding the treatment plan. All questions were answered. Physical exam, labs, and imaging were discussed and reviewed in detail. As well as risks, benefits, and discussion of treatment choices. No major barriers to understanding were identified. The patient e xpressed understanding and agreement with the above treatment plan. The patient was made aware they should contact our office by phone for worsening of their current condition, the appearance of new symptoms, or with any questions or concerns. Compliance is encouraged with any medications and follow up testing that is ordered. It is a privilege to be allowed the opportunity to participate in? your urological care.? Again, if you have any questions or concerns If you have any questions or concerns please do not hesitate to contact me. The office is [phone]. This note is constructed using voice recognition software. While every effort has been made to ensure accuracy firm administrator errors may have been included. Yours sincerely, SKYLER Marino Coding Level of Care Code Est Pt Level 3 (15886) Complex EM visit Add On G2211 Diagnoses Nephrolithiasis N20.0 Complex renal cyst N28.1 Overactive bladder N32.81 Urinary urgency R39.15 Urinary incontinence R32 History of urinary tract infection Z87.440 CPT Codes Post Residual Void - PVR CPT Code: 86496-Whlb Void Residual by ultrasound ([id number])
--- OUTSIDE RECORDS SUMMARY | 2024-12-21 11:41 | XMS_ITS ---
Author Organization [facility] Address [address] [place] [phone] Care Team Providers Care Cable Respooler Name Role Phone Shaun De La Rosa MD Primary Care Provider Venecia Chambers [phone] REASON FOR VISIT BUY Foam Tubing Small Encounters Encounter Location Date Provider Diagnosis [address] [id number] 06/27/2024 Venecia Braga Plan Of Treatment Next Appt Details Provider Name:Venecia palacios, 02/06/2025 02:45:00 PM, [address] [place] [address], [id number], Progress Notes * Ashley KENDRICKDOB: [birth year] (88 yo F)Acc No.[id number]:06/27/2024 Patient:?Ashley Kendrick :1935???Age:88 Y???Sex:Female Address:[address] [place] [address], [id number] * true * Date:? Generated for Printi ng/Susana/eTransmitting on:?12/21/2024 11:40 AM EDT
--- OUTSIDE RECORDS SUMMARY | 2024-12-21 11:41 | XMS_ITS | Encounter Summary ---
Author Organization [facility] Address [address] [facility] [address] [place] [phone] Phone Care Team Providers Care Accounting Instructor Name Role Phone Unavailable Primary Care Provider Unavailabl e Reason for Referral * Home Health Care - Pending Review Specialty Diagnoses / Procedures Referred By Contac t Referred To Contact Home Health Services Dieudonne Mendes MD [address] [facility] [address] [place] [address] [facility] [address] [place], [place] Referral ID Status Reason Start Date Expiration Date V isits Requested Visits Authorized [id number] Pending Review 12/15/2024 12/15/2025 1 1 Encounter Details Date Type Department Care Team (Late st Contact Info) Description 12/15/2024 Orders Only [facility] [address], [place] [phone] Homehealth, Interface Provider, [address] [place] [id number] Social History Tobacco Use Types Packs/Day Years Used Date Smoking Tobacco: Never Assessed Education Answer Date Recorded Are you interested in more education? Not on ava e 12/15/2024 Are you concerned about learning? Not on file 12/15/2024 No 12/15/2024 No 12/15/2024 Digital Access Answer Date Recorded No 12/15/2024 No 12/15/2024 Reliable internet access at home? Not on file 12/15/2024 Device with a working camera? Not on file Sex and Gender Information Value Date Recorded Sex Assigned at Not on file Gender Identity Not on file Sexual Orientation Not on file documented as of this encounter Plan of Treatment Scheduled Referrals Name Type Priority Associated Diagnoses Orde r Schedule 4NEXT REFERRAL TO HOME HEALTH Outpatient Referral Routine Ordered: 12/15/2024 documented as of this encounter Visit Diagnoses Not on filedocumented in this encounter Additional Source Comments The information contained in this document represents components of the legal health record. It is not the complete legal health record.[facility]
--- OUTSIDE RECORDS SUMMARY | 2024-12-21 11:41 | XMS_ITS ---
Author Organization [facility] Margarita hermelindo Elmer Address [address] [facility] [place] [address] Care Team Providers Care Senior Power Scheduler Name Role Phone Shaun De La Rosa MD Primary Care Provider Unavailab Venecia Phan Unavailable [phone] Kumar Mesa Unavailable [phone] Allergies Allergen (clinical drug ingredient) Drug/Non Drug Allergy documented on EMR Reaction Allergy Type Onset Date Status pravastatin Pravastatin Sodium leg cramps if taken at night Drug Allergy Active REASON FOR VISIT Painful nail(s) aggrevated by shoes and causing difficulty standing/walking., Skin Problem Medications Medication SIG (Take, Route, Frequency, Duration) Notes Start Date End Date Status Valsartan-hydroCHLOROt hiazide 320-25 MG 1 tablet Orally Once a day Not-Taking Warfarin Sodium 3 MG Orally Not-Taking Calcium + D Not-Taki ng ProAir HFA Not-Takin g Acetaminophen Not-Ta bea Furosemide 10mg i tab daily if need take 2 Not-Taking Losartan Potassium 100 MG Orally Not-Taking Metoprolol Succinate Not-Taking Stool Softener Laxative Not-Taking Toprol XL 50 MG Orally Not- Taking PreserVision AREDS Eye drops A ctive Systane Eye drops Active Tylenol Arthritis Pain 650mg 2-3 x a day for pain Active amLODIPine Besylate 5 MG TK 1 T PO QD Orally Active Amiodarone HCl 200 MG Orally Not-Taking Eliquis 5 MG Oral for 30 Activ e Levothyroxine Sodium 50 MCG Orally Active Melatonin Active MiraLax Active Pravastatin Sodium 40 MG 1 tablet Oral Once a day Active Aspirin 81 MG 1 tablet Orally Once a day for 30 day(s) Active Provigil Active Metoprolol Tartrate 25 MG 1 tablet with food Orally Twice a day for 30 day(s) Active Docusate Calcium 100 1 capsule as needed Orally Once a day PRN Active Myrbetriq 25 MG 1 tablet Orally Once a day for 30 day(s) Active Calcium + Vitamin D3 Active Social History Tobacco Use: Social History Observation Description Date Details (start date - stop date) Never Smoker NA - NA Tobacco Use/Smoking Question Answer Notes Are you a: nonsmoker Additional Findings: Tobacco Non-User Current no n-smoker Alcohol Screen Question Answer Notes Did you have a drink containing alcohol in the p ast year? No Points 0 Interpretation Negative Tobacco use other than smoking: Question Answer Notes Are you an other tobacco user? No Problems Problem Type SNOMED Code ICD Code Onset Dates Problem Status W/U Status Risk Notes Problem Acquired hammer toe of left foot ([id number] 103) Other hammer toe(s) (acquired), left foot (M20.42) Active confirmed Vital Signs Height 5 ft 6 in in 06/27/2024 Weight 140 lbs 06/27/2024 BMI 22.59 kg/m2 06/27/2024 Blood pressure systolic 120 mm Hg 06/27/20 24 Blood pressure diastolic 80 mm Hg 024 Encounters Encounter Location Date Provider Diagnosis [facility] [address] [address] 06/27/2024 Kumar Mesa Tinea unguium B35.1 ; Pain in right toe(s) M79.674 ; Pain in left toe(s) M79.675 ; 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, bilateral legs I70.203 and Other hammer toe(s) (acquired), left foot M20.42 Assessments Encounter Date Diagnosis (ICD Code) Assessment Notes Treatment Notes Treatment Clinical Notes Section Notes 06/27/2024 Tinea unguium (ICD-10 - B35.1) 06/27/2024 Pain in right toe(s) (ICD-10 - M79.674) 06/27/2024 Pain in left toe(s) (ICD-10 - M79.675) 06/27/2024 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, bilateral legs (ICD-10 - I70.203) 06/27/2024 Other hammer toe(s) (acquired), left foot (ICD-10 - M20.42) Plan Of Treatment Next Appt Details Follow Up: 3 Months, Reason: Provider Name:Venecia Coates philip, 02/06/2025 02:45:00 PM, [address] [place], [address], Procedure Notes * Category Sub-Category Detail Notes Debride Nail 6-10 Nail debridement Nail debridem ent performed extensively to reduce/remove overall nail length and girth, subungual debris, and necrotic tissue, by manual and electrical means with use of a nail nipper and/or dremel, to more viable healthy nail plate or bed tissue 6-10. Silver nitrate used for any petechial bleeding as necessary. Patient chooses, no pharmaceutical tx (23794) Keratoma Treatment Parring or Cutting o f Benign Hyperkeratotic Lesion(s) 85512 ( More than 4 Lesions ) - The Benign hyperkeratotic lesions, as described above were pared, and/or cut utilizing a sterile 15 blade, tissue nippers, and/or dremel, Q8 Progress Notes * Ashley KENDRICKDOB: [birth year] (88 yo F)Acc No.[id number]:06/27/2024 Progress Note Patient:?Ashley Kendrick Provider:?Kumar Mesa DPM :1935???Age:88 Y???Sex:Female D ate:06/27/2024 Address:[address] [place], [place] [id number] Pcp:Shaun De La Rosa MD Subjective: * Chief Complaints: * ??? Painful nail(s) aggrevat ed by shoes and causing difficulty standing/walking.Skin Problem * HPI: ???Painful Nails:?Pt States Last PCP Visit:?Date:?11/13/2023 ?Misc:?cardiac sx at [facility].?Toe pain:?Nature:?aching, tenderness, throbbing.?Location:?3rd toe, Left foot.?Duration:?several weeks.?Onset/Cause:?gradual.?Course:?worse.?Aggravated by:?any pressure.? * ROS:?General/Constitutional:?Nausea?denies.?Vomiting?denies.?Hunger Thirst?denies.?Loss appetite?denies.?Chills?denies.?Fatigue?denies.?Fever?denies.?Night Sweats?denies.?Unexplained weight loss?denies.?Unexplained weight gain?denies.?HEENTM:?Dentures?denies.?Dizziness?denies.?Glasses/contacts?admits.?Retinopathy?de nies.?Blurred/double vision?denies.?TMJ?denies.?Discharge/drainage?denies.?Implants?denies.?Sore throat?denies.?Dental implants?denies.?Hard of hearing ?denies.?Difficulty chewing/swallowing/speaking?denies.?Nose bleeds?denies.?Sore mouth?denies.?Respiratory:?On Oxygen?denies.?Pneumonia/pleurisy?denies.?Bronchitis?denies.?Emphysema?denies.?C oughing?denies.?Cough blood?denies.?Shortness of breath?denies.?Wheezing?denies.?Cardiovascular:?Pacemaker?denies.?MVP?denies.?WPW?denies.?CHF?denies.?Heart attack?denies.?Septal defect?denies.?Rapid beat?denies.?Chest pain ?denies.?Atrial Fib.?denies.?Murmur/Palpitations?denies.?Gastrointestinal:?Hemorrhoids?denies.?Stomach/Abdominal pain?denies.?Dark blood stool?denies.?Irritable bowel ?denies.?Constipation?denies.?Diarrhea?denies.?Hematology:?Swelling?denies.?Clots?denies.?Varicose Veins?denies.?Bruising?admits.?Bleeding problem?denies.?Genitourinary:?Blood urine?denies.?Frequent/Painfu/urination/bladder control?admits.?Kidney stones?denies.?Infection (UTI)?denies.?Nephropathy?denies.?sex trans dis (STD)?denies.?Prostate?denies.?Musculoskeletal:?Hammertoes?denies.?Bunions?denies.?Back Pain?denies.?Muscle Cramps/ Resting?denies.?Muscle cramps / walking?denies.?Generalized aches and pains?admits.?Weakness?denies.?Integ.:?Wells?denies.?Scars?denies.?Corns/calluses?denies.?Ingrown nails?denies.?Painful nails?denies.?Open Sores?denies.?Rashes?denies.?Neurologic:?Difficulty sleeping?denies.?Brain disorder?denies.?Numbness?denies.?Balance trouble?denies.?Confusion?denies.?Fainting/blackouts?denies.?Tingling?denies.?Tr emors?denies.? * Medical History:? * Surgical History:?knee repla cement 10/2015hip replacement ladder suspension 1970scardiac ablasion by Dr. Mai @ [facility] pacemaker 05/2018L Femur 09/2021Heart Sx - couldnt remember anything after sx Fall * Hospitalization/Major Diagno stic Procedure:?cardiac ablasion by Dr. Mai @ [facility] L Femur 3 or4 rehab 5 or 6 weeks 09/20/2021 * Family History:?Mother: dece ased, diagnosed with Family history of arthritis.?Father: .?Siblings: diagnosed with Diabetic - NIDDM.? * Social History:?Tobacco Use:?Tobacco Use/Smoking?Are you a:?nonsmoker ?Additional Findings: Tobacco Non-User?Current non-smoker ?Tobacco use other than smoking?Are you an other tobacco user??No ???Drugs/Alcohol:?Drugs?Have you used drugs other than those for medical reasons in the past 12 months??No ?Alcohol Screen?Did you have a drink containing alcohol in the past year??No ?Points?0 ?Interpretation?Negative ???Miscellaneous:?Caffeine: yes, frequency:, 1-2 cups per day. ?Children: yes, 3. ?Exercise: yes, PT. ?Marital status: . ?Occupation: Retired, Sales, Management, [employer]. * Medications:?TakingCalcium + Vitamin D3 Myrbetriq 25 MG Tablet Extended Release 24 Hour 1 tablet Orally Once a dayAspirin 81 MG Tablet Delayed Release 1 tablet Orally Once a dayProvigil Metoprolol Tartrate 25 MG Tablet 1 tablet with food Orally Twice a dayDocusate Calcium 100 Capsule 1 capsule as needed Orally Once a day, Notes: PRNEliquis 5 MG Tablet Oral Levothyroxine Sodium 50 MCG Tablet Orally Melatonin MiraLax Pravastatin Sodium 40 MG Tablet 1 tablet Oral Once a dayPreserVision AREDS , Notes: Eye dropsSystane , Notes: Eye dropsTylenol Arthritis Pain , Notes: 650mg 2-3x a day for painamLODIPine Besylate 5 MG Tablet TK 1 T PO QD Orally Taking Calcium + Vitamin D3 Taking Myrbetriq 25 MG Tablet Extended Release 24 Hour 1 tablet Orally Once a dayTaking Aspirin 81 MG Tablet Delayed Release 1 tablet Orally Once a dayTaking Provigil Taking Metoprolol Tartrate 25 MG Tablet 1 tablet with food Orally Twice a dayTaking Docusate Calcium 100 Capsule 1 capsule as needed Orally Once a day, Notes: PRNTaking Eliquis 5 MG Tablet Oral Taking Levothyroxine Sodium 50 MCG Tablet Orally Taking Melatonin Taking MiraLax Taking Pravastatin Sodium 40 MG Tablet 1 tablet Oral Once a dayTaking PreserVision AREDS , Notes: Eye dropsTaking Systane , Notes: Eye dropsTaking Tylenol Arthritis Pain , Notes: 650mg 2-3x a day for painTaking amLODIPine Besylate 5 MG Tablet TK 1 T PO QD Orally Not-Taking/PRNAmiodarone HCl 200 MG Tablet Orally Furosemide , Notes: 10mg i tab daily if need take 2Losartan Potassium 100 MG Tablet Orally Metoprolol Succinate Stool Softener Laxative Toprol XL 50 MG Tablet Extended Release 24 Hour Orally Valsartan-hydroCHLOROthiazide 320-25 MG Tablet 1 tablet Orally Once a dayWarfarin Sodium 3 MG Tablet Orally Calcium + D ProAir HFA Acetaminophen Medication List reviewed and reconciled with the patientNot-Taking/PRN Amiodarone HCl 200 MG Tablet Orally Not-Taking/PRN Furosemide , Notes: 10mg i tab daily if need take 2Not-Taking/PRN Losartan Potassium 100 MG Tablet Orally Not-Taking/PRN Metoprolol Succinate Not-Taking/PRN Stool Softener Laxative Not-Taking/PRN Toprol XL 50 MG Tablet Extended Release 24 Hour Orally Not-Taking/PRN Valsartan- hydroCHLOROthiazide 320-25 MG Tablet 1 tablet Orally Once a dayNot-Taking/PRN Warfarin Sodium 3 MG Tablet Orally Not-Taking/PRN Calcium + D Not-Taking/PRN ProAir HFA Not-Taking/PRN Acetaminophen Medication List reviewed and reconciled with the patient * Allergies:?Pravastatin Kimberu m: leg cramps if taken at nightyes[Allergies Verified] Objective: * Vitals:?Ht: 5 ft 6 in, Wt:14 0, BMI:22.59, Shoe size:8-8.5, BP:120/80 mm Hg. * Examination: ???General Examination: ?GENERAL APPEARANCE:?pleasant, alert, well nourished, well developed, well hydrated, with good attention to hygene/body habitus, and in no acute distress.?ORIENTED:?person,place, and time.?Neurological: ?SENSORY:?neurological exam reveals intact sensorium, pain sensation normal, vibration sensation intact, pinprick sensation is normal in the lower extremities, anesthesia, burning, tingling, B/L.?Vascular: ?DP PULSES(B):? 0/4, RIGHT, 1/4, LEFT.?PT PULSES(B):? 0/4, B/L.?CAPILLARY FILL TIME:? delayed, all digits, B/L.?TROPHIC CONDITION-TEXTURE/ELASTICITY/TURGOR/HAIR GROWTH(B):? decreased, B/L, dystrophic (thin,shiny).?TEMPERTURE GRADIENT(C):? decreased, cool to cold, proximal to distal, B/L.?EDEMA(C):? 1/4, B/L, Feet, Ankle(s), Leg(s).?Dermatologic: ?SKIN FINDINGS:?Skin exam reveals Keratotic lesion(s) located at, Plantar, Heel(s), B/L , Skin exam reveals Keratotic lesion(s) located at, Plantar, Lateral, TA, SUB MTH (s), 1, B/L , Plantar, T2.?Nails: ?NAILS are:?elongated,overgrown,dystrophic,greater than 3mm thick,discolored and friable with crumbly malodorous subungual debris, with pain on palpation, 1-5 B/L.?Orthopedic: ?MUSCLE STRENGTH:?5/5 all groups in a symmetrical fashion, B/L.?DIGITAL DEFORMITIES:? Digital contracture, PIPJ, 2-5 B/L, incompl- reducible with WB, or to push-up test, no over, nor underlapping.? 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 Plan: * Treatment: * Procedures:?Debride Nail 6-10:?Nail debridement?Nail debridement performed extensively to reduce/remove overall nail length and girth, subungual debris, and necrotic tissue, by manual and electrical means with use of a nail nipper and/or dremel, to more viable healthy nail plate or bed tissue 6-10. Silver nitrate used for any petechial bleeding as necessary. Patient chooses, no pharmaceutical tx (51170).?Keratoma Treatment:?Parring or Cutting of Benign Hyperkeratotic Lesion(s)?10821 ( More than 4 Lesions ) - The Benign hyperkeratotic lesions, as described above were pared, and/or cut utilizing a sterile 15 blade, tissue nippers, and/or dremel, Q8.? * Procedure Codes:?11866 DEBRI DE NAIL, 6 OR MORE, Modifiers: XS 31295 TRIM SKIN LESIONS, OVER 4, Modifiers: XS , Q8 * Preventive Medicine:? ??Counseling:?Discussion:?-13: Office or other outpatient visit for the evaluation and management of an established patient, which required a medically appropriate history and/or examination and LOW level of DECISION MAKING for: 1 STABLE ACUTE UNCOMPLICATED PROBLEM, 2 OR MORE MINOR PROBLEMS, OR 1 STABLE CHRONIC PROBLEM, THAT POSE(S) A LOW RISK FOR MORBIDITY/MORTALITY. The visit on the day of the encounter encompassed interpreting the data and educating the patient as to the nature of their condition, treatment options available according to their individual PMH, meds, allergies, and overall health/living conditions, as well as any potential risks or complications that may occur from a failure to adhere to, and participate in, the recommended course of therapy. The discussion included a complete verbal, and/or written explanation of the examination results, any x-rays taken, the proposed diagnosis, and outline of the treatment plan. A schedule for future care needs was also explained. The patient verbalized an understanding of the instructions at this time and agreed to be an active participant in their treatment. If the patient should think of any questions or concerns after the visit, I have encouraged the patient to call the office.?Digital Treatment:?HT- I explained to the patient the possible etiologies of Hammertoes, including genetics/foot type/shoegear/activity level/exercise routine and the risks/benefits of all the different treatment options for their pain including: No treatment at all, Rest, Ice, New/supportive/wider/deeper Shoegear, Digital Padding/Strapping/Taping/Bracing/Gel protective sleeves, Foot/Ankle AFO Bracing, Stretching exercises, Deep Tissue Massage, Arch support/shoe inserts with splay metatarsal padding, and Custom orthoses. I insisted that any digital devices be removed daily and not worn overnight for safety. The patient is to carefully examine the toes daily for any skin irritation while using any splinting or padding device. The advantages and disadvantages of each option were discussed and the patients questions re: shoegear, padding, custom vs prefabricated inserts, activity level, and consistency in home treatment regimens for optimal success were answered to their verbally confirmed satisfaction.? * Follow Up:?3 Months * Images: * Sign off status: Completed true * Provider:?Kumar Mesa DPM Date:? 024 Generated for Jassi stauffer/Susana/Avinash on:?12/21/2024 11:41 AM EDT History and Physical Notes * HPI (History of Present Illness) Category Sub-Category Detail Notes Category Not es Toe pain Nature: aching, tenderness, throbbin g Location: 3rd toe, Left foot Duration: several weeks Onset/Cause: gradual Course: worse Aggravated by: any pressure Painful Nails Misc: [place] [facility] [place] Last PCP Visit: Date:: 11/13/2023 Examination Category Sub-Category Detail Notes Category Not es Neurological SENSORY: neurological exa m reveals intact sensorium, pain sensation normal, vibration sensation intact, pinprick sensation is normal in the lower extremities, anesthesia, burning, tingling, B/L Dermatologic SKIN FINDINGS: Skin exam reveal s Keratotic lesion(s) located at, Plantar, Heel(s), B/L , Skin exam reveals Keratotic lesion(s) located at, Plantar, Lateral, TA, SUB MTH (s), 1, B/L , Plantar, T2 Orthopedic DIGITAL DEFORMITIES: Digital con tracture, PIPJ, 2-5 B/L, incompl-reducible with WB, or to push-up test, no over, nor underlapping MUSCLE STRENGTH: 5/5 all groups in a symmetrical fashion, B/L General Examination GENERAL APPEARANCE: pleasant , alert, well nourished, well developed, well hydrated, with good attention to hygene/body habitus, and in no acute distress ORIENTED: person,place, and ti me Vascular DP PULSES (B): 0/4, RIGHT, 1/4, LEFT PT PULSES (B): 0/4, B/L CAPILLARY FILL TIME: delayed, all digits , B/L TEMPERTURE GRADIENT (C): decreased, cool to cold, proximal to distal, B/L TROPHIC CONDITION-TEXTURE/ELASTICITY/TURGOR/HAIR GROWTH (B): decreased, B/L, dystrophic (thin,shiny) EDEMA (C): 1/4, B/L, Feet, Ankl e(s), Leg(s) Nails NAILS are: elongated,overgr own,dystrophic,greater than 3mm thick,discolored and friable with crumbly malodorous subungual debris, with pain on palpation, 1-5 B/L
--- OUTSIDE RECORDS SUMMARY | 2024-12-21 11:41 | XMS_ITS ---
Author Organization [facility] Judymagdalena Irwinley Address [address] [place] [address] Care Team Providers Care Cell Feed Department Supervisor Name Role Phone Shaun De La Rosa MD Primary Care Provider Venecia Chambers Unavailable [phone] Allergies Allergen (clinical drug ingredient) Drug/Non Drug Allergy documented on EMR Reaction Allergy Type Onset Date Status pravastatin Pravastatin Sodium leg cramps if taken at night Drug Allergy Active REASON FOR VISIT At Risk Footcare, Painful Nail(s) aggravated by shoes and causing difficulty standing/walking. Medications Medication SIG (Take, Route, Frequency, Duration) Notes Start Date End Date Status Furosemide 10mg i tab daily if need take 2 Not-Taking Amiodarone HCl 200 MG Orally Not-Taking Metoprolol Succinate Not-Taking Losartan Potassium 100 MG Orally Not-Taking amLODIPine Besylate 5 MG TK 1 T PO QD Orally Active MiraLax Active Pravastatin Sodium 40 MG 1 tablet Oral Once a day Active Systane Eye drops Active PreserVision AREDS Eye drops A ctive Tylenol Arthritis Pain 650mg 2-3 x a day for pain Active Melatonin Active Docusate Calcium 100 1 capsule as needed Orally Once a day PRN Active Metoprolol Tartrate 25 MG 1 tablet with food Orally Twice a day for 30 day(s) Active Levothyroxine Sodium 50 MCG Orally Active Eliquis 5 MG Oral for 30 Activ e Myrbetriq 25 MG 1 tablet Orally Once a day for 30 day(s) Active Calcium + Vitamin D3 Active Provigil Active Acetaminophen Not-Ta bea Aspirin 81 MG 1 tablet Orally Once a day for 30 day(s) Active Valsartan-hydroCHLOROt hiazide 320-25 MG 1 tablet Orally Once a day Not-Taking Toprol XL 50 MG Orally Not- Taking Calcium + D Not-Taki ng Warfarin Sodium 3 MG Orally Not-Taking ProAir HFA Not-Takin g Stool Softener Laxative Not-Taking Social History Tobacco Use: Social History Observation Description Date Details (start date - stop date) Never Smoker NA - NA Tobacco Use/Smoking Question Answer Notes Are you a: nonsmoker Additional Findings: Tobacco Non-User Current no n-smoker Tobacco use other than smoking: Question Answer Notes Are you an other tobacco user? No Problems Problem Type SNOMED Code ICD Code Onset Dates Problem Status W/U Status Risk Notes Problem Atherosclerosis of [place] artery of both lower extremities, with unspecified presence of clinical manifestation (I70.203) Active confirmed Q7(A), Q8(2B), Q9(1B,2C) Vital Signs Height 5 ft 6 in in 10/03/2024 Weight 140 lbs 10/03/2024 BMI 22.59 kg/m2 10/03/2024 Blood pressure systolic 120 mm Hg 10/03/20 24 Blood pressure diastolic 80 mm Hg 024 Procedures Procedure Date Ordered Date Performed Result Body Sit e 15095-ICUSLNM NAIL, 6 OR MORE 10/03/2024 N/A 73192-VXBL SKIN LESIONS, 2 TO 4 10/03/2024 N/A Encounters Encounter Location Date Provider Diagnosis [facility] [address] [address] 10/03/2024 Venecia Braga Atherosclerosis of [place] artery of both lower extremities, with unspecified presence of clinical manifestation I70.203 ; Tinea unguium B35.1 ; Pain in right toe(s) M79.674 and Pain in left toe(s) M79.675 Assessments Encounter Date Diagnosis (ICD Code) Assessment Notes Treatment Notes Treatment Clinical Notes Section Notes 10/03/2024 Atherosclerosis of [place] artery of both lower extremities, with unspecified presence of clinical manifestation (ICD-10 - I70.203) Q7(A), Q8(2B), Q9(1B,2C) 10/03/2024 Tinea unguium (ICD-10 - B35.1) 10/03/2024 Pain in right toe(s) (ICD-10 - M79.674) 10/03/2024 Pain in left toe(s) (ICD-10 - M79.675) Plan Of Treatment Pending Test Test Name Order Date 60311-CRCNLJT NAIL, 6 OR MORE 10/03/2024 44259-VXNH SKIN LESIONS, 2 TO 4 10/03/20 24 Next Appt Details Follow Up: 3 Months, Reason: Provider Name:Venecia palacios, 02/06/2025 02:45:00 PM, [address] [place] [address], [phone], Procedure Notes * Category Sub-Category Detail Notes Debride Nail 6-10 Nail debridement Due to the cl inical pathology outlined in the exam findings, performance of this nail treatment is medically necessary as its management by an unskilled/untrained nonprofessional would put this patients foot and overall health at risk. Therefore, debridement to affected nail(s), as described in exam ( TA, T1, T2, T3, T4, T5, T6, T7, T8, T9, ), was performed exclusively by the physician of record to reduce/remove overall nail length, girth, thickness, subungual debris, and necrotic tissue, by manual and/or electrical means through the use of a nail nipper and/or dremel-type grinder set up operator, to a more viable healthy nail plate or bed tissue 6-10 nails in total. Silver nitrate was used for any petechial bleeding as necessary. Definitive antifungal treatment options, both pharmaceutical and surgical, have been reviewed and discussed with the patient. The patient solely prefers the use of intermittent/as needed professional debridement services for their nail condition and understands the need for additional periodic treatments to maintain effectiveness in symptomatic relief - 15027 Keratoma Treatment Parring or Cutting o f Benign Hyperkeratotic Lesion(s) (-56) 2-4 Lesions - Due to the at risk nature of the patients medical condition as documented in the exam findings, performance of this keratoderma treatment is medically necessary as its management by an unskilled/untrained nonprofessional would put this patients foot and overall health at risk. Therefore, the benign hyperkeratotic lesions, ( 2 ) in total, locations as stated and described in the exam ( plantar heels B/L), were pared, and/or cut utilizing a sterile 15 blade, tissue nippers, and/or power dremel instrumentation by the physician of record - 17735, Q8 Progress Notes * Ashley KENDRICKDOB: [birth year] (88 yo F)Acc No.[id number]:10/03/2024 Progress Note Patient:Ashley DEVINE Provider:?Venecia Braga DPM :1935???Age:88 Y???Sex:Female D ate:10/03/2024 Address:[address] [place], [place] [id number] Pcp:Shaun De La Rosa MD Subjective: * Chief Complaints: * ???At Risk FootcarePainful N ail(s) aggravated by shoes and causing difficulty standing/walking. * HPI: ???At Risk footcare:?Pt States Last PCP Visit:?Date?09/19/2024 * ROS:?General/Constitutional:?Nausea?denies.?Vomiting?denies.?Hunger Thirst?denies.?Loss appetite?denies.?Chills?denies.?Fatigue?denies.?Fever?denies.?Night Sweats?denies.?Unexplained weight loss?denies.?Unexplained [...] History:?knee repla cement 10/2015hip replacement ladder suspension 1970'scardiac ablasion by Dr. Mai @ [facility] pacemaker 05/2018L Femur 09/2021Heart Sx - couldnt remember anything after sx Fall * Hospitalization/Major Diagno stic Procedure:?cardiac ablasion by Dr. Mai @ [facility] L Femur 3 or4 rehab 5 or 6 weeks 09/20/2021 * Family History:?Mother: dece ased, diagnosed with Family history of arthritis.?Father: .?Siblings: diagnosed with Diabetic - NIDDM.? * Social History:?Tobacco Use:?Tobacco Use/Smoking?Are you a:?nonsmoker ?Additional Findings: Tobacco Non-User?Current non-smoker ?Tobacco use other than smoking?Are you an other tobacco user??No * Medications:?TakingCalcium + Vitamin D3 Myrbetriq 25 MG Tablet Extended Release 24 Hour 1 tablet Orally Once a day Aspirin 81 MG Tablet Delayed Release 1 tablet Orally Once a day Provigil Metoprolol Tartrate 25 MG Tablet 1 tablet with food Orally Twice a day Docusate Calcium 100 Capsule 1 capsule as needed Orally Once a day , Notes to Pharmacist: PRNEliquis 5 MG Tablet Oral Levothyroxine Sodium 50 MCG Tablet Orally Melatonin MiraLax Pravastatin Sodium 40 MG Tablet 1 tablet Oral Once a day PreserVision AREDS , Notes to Pharmacist: Eye dropsSystane , Notes to Pharmacist: Eye dropsTylenol Arthritis Pain , Notes to Pharmacist: 650mg 2-3x a day for painamLODIPine Besylate 5 MG Tablet TK 1 T PO QD Orally Taking Calcium + Vitamin D3 Taking Myrbetriq 25 MG Tablet Extended Release 24 Hour 1 tablet Orally Once a day Taking Aspirin 81 MG Tablet Delayed Release 1 tablet Orally Once a day Taking Provigil Taking Metoprolol Tartrate 25 MG Tablet 1 tablet with food Orally Twice a day Taking Docusate Calcium 100 Capsule 1 capsule as needed Orally Once a day , Notes to Pharmacist: PRNTaking Eliquis 5 MG Tablet Oral Taking Levothyroxine Sodium 50 MCG Tablet Orally Taking Melatonin Taking MiraLax Taking Pravastatin Sodium 40 MG Tablet 1 tablet Oral Once a day Taking PreserVision AREDS , Notes to Pharmacist: Eye dropsTaking Systane , Notes to Pharmacist: Eye dropsTaking Tylenol Arthritis Pain , Notes to Pharmacist: 650mg 2-3x a day for painTaking amLODIPine Besylate 5 MG Tablet TK 1 T PO QD Orally Not-Taking/PRNAmiodarone HCl 200 MG Tablet Orally Furosemide , Notes to Pharmacist: 10mg i tab daily if need take 2Losartan Potassium 100 MG Tablet Orally Metoprolol Succinate Stool Softener Laxative Toprol XL 50 MG Tablet Extended Release 24 Hour Orally Valsartan-hydroCHLOROthiazide 320-25 MG Tablet 1 tablet Orally Once a day Warfarin Sodium 3 MG Tablet Orally Calcium + D ProAir HFA Acetaminophen Medication List reviewed and reconciled with the patientNot-Taking/PRN Amiodarone HCl 200 MG Tablet Orally Not-Taking/PRN Furosemide , Notes to Pharmacist: 10mg i tab daily if need take 2Not-Taking/PRN Losartan Potassium 100 MG Tablet Orally Not-Taking/PRN Metoprolol Succinate Not-Taking/PRN Stool Softener Laxative Not-Taking/PRN Toprol XL 50 MG Tablet Extended Release 24 Hour Orally Not- Taking/PRN Valsartan-hydroCHLOROthiazide 320-25 MG Tablet 1 tablet Orally Once a day Not-Taking/PRN Warfarin Sodium 3 MG Tablet Orally Not-Taking/PRN Calcium + D Not-Taking/PRN ProAir HFA Not-Taking/PRN Acetaminophen Medication List reviewed and reconciled with the patient * Allergies:?Pravastatin Sodiu m: leg cramps if taken at nightyes[Allergies Verified] Objective: * Vitals:?Ht: 5 ft 6 in, Wt: 1 40, BMI: 22.59, Shoe size: 8-8.5, BP: 120/80 mm Hg, Wt-k.5 kg. * Examination: ???General Examination: ?GENERAL APPEARANCE:?Reveals a pleasant, alert, well nourished, well- developed, well hydrated individual, who demonstrates proper attention to hygiene/body habitus, and is in no acute distress, Pt serves as own historian for office visit today.?ORIENTED:?person, place, and time.?Vascular: ?DP PULSES (B):?1/4, B/L.?PT PULSES (B):? 0/4, B/L.?CAPILLARY FILL TIME:? delayed, all digits, B/L.?TROPHIC CONDITION-TEXTURE/ELASTICITY/TURGOR/HAIR GROWTH (B):? decreased, fragile, thin, shiny skin, with sparse to absent hair growth, B/L.?TEMPERTURE GRADIENT (C):? decreased, cool to cool, proximal to distal, B/L.?PIGMENTATION:?pale, B/L.?EDEMA (C):?1/4, pitting, without aching pain, Ankle(s), B/L.?CLAUDICATION (C):?denies, B/L.?REST PAIN:?denies, B/L.?PARESTHESIA (C):?absent, B/L.?BURNING (C):?absent, B/L.?Nails: ?NAILS are:?Elongated, overgrown, dystrophic, lytic, greater than 3mm thick, discolored and friable with crumbly malodorous subungual debris, with pain on palpation, TA, T1, T2, T3, T4, T5, T6, T7, T8, T9.?Dermatologic: ?SKIN FINDINGS:?Skin exam reveals Keratotic lesion(s) located at plantar heels B/L.?Orthopedic: ?MUSCLE STRENGTH:?5/5 all groups in a symmetrical fashion, B/L.?Neurological: ?SENSORY:?Neurological exam reveals intact sensorium, pain sensation normal, vibration sensation intact, pinprick sensation is normal in the lower extremities, Pt denies, anesthesia, burning, paresthesia, tingling, B/L.? Assessment: * Assessment: 1.?Atherosclerosis of [place] artery of both lower extremities, with unspecified presence of clinical manifestation - I70.203 (Primary)???Notes :Q7(A), Q8(2B), Q9(1B,2C)???2.?Tinea unguium - B35.1???3.?Pain in right toe(s) - M79.674???4.?Pain in left toe(s) - M79.675??? Plan: * Treatment: 2.?Tinea unguium?Procedure: 77361-[id number] NAIL, 6 OR MORE * Procedures:?Debride Nail 6-10:?Nail debridement?Due to the clinical pathology outlined in the exam findings, performance of this nail treatment is medically necessary as its management by an unskilled/untrained nonprofessional would put this patients foot and overall health at risk. Therefore, debridement to affected nail(s), as described in exam (? TA, T1, T2, T3, T4, T5, T6, T7, T8, T9, ), was performed exclusively by the physician of record to reduce/remove overall nail length, girth, thickness, subungual debris, and necrotic tissue, by manual and/or electrical means through the use of a nail nipper and/or dremel-type grinder set up operator, to a more viable healthy nail plate or bed tissue 6- 10 nails in total. Silver nitrate was used for any petechial bleeding as necessary. Definitive antifungal treatment options, both pharmaceutical and surgical, have been reviewed and discussed with the patient. The patient solely prefers the use of intermittent/as needed professional debridement services for their nail condition and understands the need for additional periodic treatments to maintain effectiveness in symptomatic relief - 31278.?Keratoma Treatment:?Parring or Cutting of Benign Hyperkeratotic Lesion(s)?(-56) 2-4 Lesions - Due to the at risk nature of the patients medical condition as documented in the exam findings, performance of this keratoderma treatment is medically necessary as its management by an unskilled/untrained nonprofessional would put this patients foot and overall health at risk. Therefore, the benign hyperkeratotic lesions, ( 2 ) in total, locations as stated and described in the exam ( plantar heels B/L), were pared, and/or cut utilizing a sterile 15 blade, tissue nippers, and/or power dremel instrumentation by the physician of record - 47063, Q8.? * Procedure Codes:?31365 DEBRI DE NAIL, 6 OR MORE, Modifiers: XS 70931 TRIM SKIN LESIONS, 2 TO 4, Modifiers: XS , Q8 * Follow Up:?3 Months * Images: * Sign off status: Completed true * Provider:?Venecia Braga DPM Date:?12/04/2023 Generated for Jassi stauffer/Susana/Avinash on:?12/21/2024 11:41 AM EDT History and Physical Notes * HPI (History of Present Illness) Category Sub-Category Detail Notes Category Not es At Risk footcare Pt States Last PCP Visit: Date: Examination Category Sub-Category Detail Notes Category Not es Neurological SENSORY: Neurological exa m reveals intact sensorium, pain sensation normal, vibration sensation intact, pinprick sensation is normal in the lower extremities, Pt denies, anesthesia, burning, paresthesia, tingling, B/L Dermatologic SKIN FINDINGS: Skin exam reveal s Keratotic lesion(s) located at plantar heels B/L Orthopedic MUSCLE STRENGTH: 5/5 all groups in a symmetrical fashion, B/L General Examination GENERAL APPEARANCE: Reveals a pleasant, alert, well nourished, well-developed, well hydrated individual, who demonstrates proper attention to hygiene/body habitus, and is in no acute distress, Pt serves as own historian for office visit today ORIENTED: person, place, and t agustina Vascular DP PULSES (B): 1/4, B/L PT PULSES (B): 0/4, B/L CAPILLARY FILL TIME: delayed, all digits , B/L TEMPERTURE GRADIENT (C): decreased, cool to cool, proximal to distal, B/L TROPHIC CONDITION-TEXTURE/ELASTICITY/TURGOR/HAIR GROWTH (B): decreased, fragile, thin, shiny skin, wi th sparse to absent hair growth, B/L EDEMA (C): 1/4, pitting, withou t aching pain, Ankle(s), B/L CLAUDICATION (C): denies, B/L REST PAIN: denies, B/L PIGMENTATION: pale, B/L PARESTHESIA (C): absent, B/L BURNING (C): absent, B/L Nails NAILS are: Elongated, overg rown, dystrophic, lytic, greater than 3mm thick, discolored and friable with crumbly malodorous subungual debris, with pain on palpation, TA, T1, T2, T3, T4, T5, T6, T7, T8, T9
--- OUTSIDE RECORDS SUMMARY | 2024-12-21 11:41 | XMS_ITS | Encounter Summary ---
Author Organization [facility] Address [address] [place] [address] Phone Care Team Providers Care Manager Human Capital Name Role Phone Dieudonne Mendes MD Primary Care Provid er Encounter Details Date Type Department Care Team (Late st Contact Info) Description 12/21/2024 Plan of Care Documentation [facility] [address] [place] [address] Social History Tobacco Use Types Packs/Day Years Used Date Smoking Tobacco: Never Assessed Home Health Assessment: Transportation Answer Date Recorded Lack of Transportation (Medical) No 12/20/2024 Lack of Transportation (Non-Medical) No 12/20/2024 Patient Unable or Declines to Respond No 12/20/2024 Education Answer Date Recorded Are you interested [...] as of this encounter Plan of Treatment Not on file documented as of this encounter Visit Diagnoses Not on filedocumented in this encounter Care Teams Manager Human Capital Relationship Specialty Start Date End Date Dieudonne Mendes MD [address] [place] [address] PCP - General Internal Medicine 12/19/24 documented as of this encounter Additional Source Comments The information contained in this document represents components of the legal health record. It is not the complete legal health record.[facility]
--- OUTSIDE RECORDS SUMMARY | 2024-12-21 11:41 | XMS_ITS | Clinical Summary ---
Author Organization [facility] Facility Address [address] [place] [id number] Care Team Providers Care Fiber Technologist Name Role Phone Unavailable Primary Care Provider Unavailabl e Social History Tobacco Use Types Packs/Day Years Used Date Smoking Tobacco: Never Assessed Comments Unknown Sex and Gender Information Value Date Recorded Sex Assigned at Not on file Legal Sex Female 2:16 PM EDT Gender Identity Not on file Sexual Orientation Not on file Plan of Treatment Health Maintenance Due Date Last Done Comments Pneumococcal Vaccine: 65+ Ye ars (1 of 1 - PCV) 2002 Influenza Vaccine (#1) 2024 Hepatitis B Vaccine Aged Out No longe r eligible based on patient's age to complete this topic Insurance MEDICARE [facility] MEDICARE [facility]
--- OUTSIDE RECORDS SUMMARY | 2024-12-21 11:41 | XMS_ITS | Encounter Summary ---
Author Organization [facility] Address [address] [place] [address] Phone Care Team Providers Care Fern Gatherer Name Role Phone Dieudonne Mendes MD Primary Care Provid er Reason for Visit * Auth/Cert (Routine) Specialty Diagnoses / Procedures Referred By Garcia t Referred To Contact Referral ID Status Reason Start Date Expiration Date Visits Re quested Visits Authorized [id number] 1 1 Encounter Details Date Type Department Care Team (Late st Contact Info) Description 12/20/2024 2:30 PM EDT Home Care Visit [facility] [address] [place] [phone] Paula Collado, PT [address] [place] [address] PT OASIS START OF CARE (SOC) Social History Tobacco Use Types Packs/Day Years [...] on file documented as of this encounter Last Filed Vital Signs Vital Sign Reading Time Taken Comments Blood Pressure 134/64 12/20/2024 2:56 PM EDT Pulse 63 12/20/2024 2:56 PM EDT Temperature - - Respiratory Rate - - Oxygen Saturation 95% 12/20/2024 2:56 PM EDT Inhaled Oxygen Concentration - - Weight - - Height - - Body Mass Index - - documented in this encounter Plan of Treatment Not on file documented as of this encounter Visit Diagnoses Not on filedocumented in this encounter Home Health Visit - Care Plan Visit Details Visit Type -PT OASIS START O F CARE (SOC) Discipline -Physical Therapy Problems Problem Description Start Date Status Goals Interve ntions HH - Telehealth/Virtua l Care Disciplines: All Active Home Health Disciplines 12/20/2024 Active 1 goal linked to scheduled/document ed intervention 1 goal intervention scheduled/document ed in this visit HH - Medication Management Disciplines: All Active Home Health Disciplines 12/20/2024 Active 1 goal linked to scheduled/document ed intervention 2 goal interventions scheduled/document ed in this visit HH - Focus of Care and Teaching Disciplines: All Active Home Health Disciplines w/RD 12/20/2024 Active 1 goal linked to scheduled/document ed intervention 1 goal intervention scheduled/document ed in this visit HH - Emergency Planning - Knowledge of Disciplines: All Active Home Health Disciplines 12/20/2024 Active 1 goal linked to scheduled/document ed intervention 2 goal interventions scheduled/document ed in this visit HH - Standard of Care Disciplines: All Active Home Health Disciplines 12/20/2024 Active 1 goal linked to scheduled/document ed intervention 2 goal interventions scheduled/document ed in this visit Goals Goal Associated Problem Outcome Goal Met? Visit Notes HH - Telehealth visits along with in-person home visits will be utilized when appropriate to achieve optimal wellness and home safety Description: Telehealth visits along with in-person home visits will be utilized when appropriate to achieve optimal wellness and home safety related to { Virtual Care Goal:[id number]}. HH - Telehealth/Virtual Care No HH - Safe medication management, avoid unnecessary harm related to medication errors and/or interactions HH - Medication Management No HH - Communication and collaboration to achieve patient goals HH - Focus of Care and Teaching No HH - Knowledge of options for managing care in the event of an emergency related situation. HH - Emergency Planning - Knowledge of No HH - Achieve care management for a safe to home/community discharge from homecare HH - Standard of Care No Interventions Intervention Associated Problem/Goal Status Variance Visit Notes HH - Assess the patient's access/technology, monitoring device availability, cognitive, mental, physical ability, and willingness to effectively participate in telehealth care Problem:HH - Telehealth/Virtual Care Goal:HH - Telehealth visits along with in-person home visits will be utilized when appropriate to achieve optimal wellness and home safety Scheduled HH - I/E medication management: administration, purpose, dosages, preparation, setup, scheduling, side effects, food/drug interactions, and potential complications as indicated Description: Update patient's copy of medication list as needed. Problem: - Medication Management Goal:HH - Safe medication management, avoid unnecessary harm related to medication errors and/or interactions Scheduled HH - Complete medication review every visit and medication reconciliation as indicated. Pharmacy information: Description: Problem: - Medication Management Goal:HH - Safe medication management, avoid unnecessary harm related to medication errors and/or interactions Scheduled - Focus of care, teaching completed and plan for next visit Problem: - Focus of Care and Teaching Goal: - Communication and collaboration to achieve patient goals Scheduled HH - I/E management of care in an urgent or emergency (ER) situation: When to call your Home Care Team/911, ER plans, supplies, evacuation, when to contact local ER officials and how to stay informed Problem: - Emergency Planning - Knowledge of Goal: - Knowledge of options for managing care in the event of an emergency related situation. Scheduled - Emergency planning assessment: the emergency plan, supplies needed, emergency contact numbers and an evacuation plan were reviewed Description: {Patient/Caregiver:[id number] } is/are knowledgeable of emergency plans. Problem: - Emergency Planning - Knowledge of Goal: - Knowledge of options for managing care in the event of an emergency related situation. Scheduled HH - Assess vital signs, pulse oximetry, pain, and as indicated, orthostatic vital signs Description: {Assessment Parameters:[id number]} Problem:HH - Standard of Care Goal:HH - Achieve care management for a safe to home/community discharge from homecare Scheduled HH - Assess skin integrity Problem: - Standard of Care Goal:HH - Achieve care management for a safe to home/community discharge from homecare Scheduled documented in this encounter Care Teams Fern Gatherer Relationship Specialty Start Date End Date Dieudonne Mendes MD [address] [place] [phone] PCP - General Internal Medicine 12/19/24 documented as of this encounter Additional Source Comments The information contained in this document represents components of the legal health record. It is not the complete legal health record.[facility]
--- OUTSIDE RECORDS SUMMARY | 2024-12-21 11:41 | XMS_ITS | Clinical Summary ---
Author Organization [facility] Address [address] [place] [address] Phone Care Team Providers Care Director Of Database Marketing Name Role Phone Dieudonne Mendes MD Primary Care Provid er Encounters Date Type Department Care Team Description 12/21/2024 Plan of Care Documentation [facility] [address] [place] [phone] 12/20/2024 2:30 PM EDT Home Care Visit [facility] [address] [place] [phone] Paula Collado, PT PT OASIS START OF CARE (SOC) 12/15/2024 Orders Only [facility] [address] [place] [phone] Homehealth, Interface ProviderMD from Last 3 Months Social History Tobacco Use Types Packs/Day Years [...] on file Sexual Orientation Not on file Last Filed Vital Signs Vital Sign Reading Time Taken Comments Blood Pressure 134/64 12/20/2024 2:56 PM EDT Pulse 63 12/20/2024 2:56 PM EDT Temperature - - Respiratory Rate - - Oxygen Saturation 95% 12/20/2024 2:56 PM EDT Inhaled Oxygen Concentration - - Weight - - Height - - Body Mass Index - - Plan of Treatment Not on file Medical Devices Not on file Care Teams Director Of Database Marketing Relationship Specialty Start Date End Date Dieudonne Mendes MD [address] [place] [phone] PCP - General Internal Medicine 12/19/24 Additional Source Comments The information contained in this document represents components of the legal health record. It is not the complete legal health record.[facility]
--- OUTSIDE RECORDS SUMMARY | 2024-12-21 11:41 | XMS_ITS | Patient Health Record ---
Author Organization [facility] Margarita hermelindo IrwinDavid Address [address] [place] [address] Care Team Providers Care Private Pilot Name Role Phone Shaun De La Rosa MD Primary Care Provider Unavailab Venecia Phan Unavailable [phone] Kumar Mesa Unavailable [phone] Jose Eduardo Buckley Unavailable [phone] Allergies Allergen (clinical drug ingredient) Drug/Non Drug Allergy documented on EMR Reaction Allergy Type Onset Date Status pravastatin Pravastatin Sodium leg cramps if taken at night Drug Allergy Active Reason For Referral No Information Medications Medication SIG (Take, Route, Frequency, Duration) Notes Start Date End Date Status MiraLax Active Melatonin Active Pravastatin Sodium 40 MG 1 tablet Oral Once a day Active Furosemide 10mg i tab daily if need take 2 Not-Taking Amiodarone HCl 200 MG Orally Not-Taking Metoprolol Succinate Not-Taking Losartan Potassium 100 MG Orally Not-Taking Systane Eye drops Active Calcium + Vitamin D3 Active PreserVision AREDS Eye drops A ctive amLODIPine Besylate 5 MG TK 1 T PO QD Orally Active Tylenol Arthritis Pain 650mg 2-3 x a day for pain Active Toprol XL 50 MG Orally Not- Taking Stool Softener Laxative Not-Taking Valsartan-hydroCHLOROt hiazide 320-25 MG 1 tablet Orally Once a day Not-Taking Docusate Calcium 100 1 capsule as needed Orally Once a day PRN Active Metoprolol Tartrate 25 MG 1 tablet with food Orally Twice a day for 30 day(s) Active Levothyroxine Sodium 50 MCG Orally Active Eliquis 5 MG Oral for 30 Activ e Myrbetriq 25 MG 1 tablet Orally Once a day for 30 day(s) Active Calcium + D Not-Taki ng Warfarin Sodium 3 MG Orally Not-Taking Provigil Active Acetaminophen Not-Ta Aspirin 81 MG 1 tablet Orally Once a day for 30 day(s) Active ProAir HFA Not-Takin g Immunizations Vaccine Route Administration Date Status Susu nts COVID-19 Pfizer BioNTech Vaccine Unknown 07/13/2021 Administered 1st 11/16/2020 2nd 12/09/2020 Social History Tobacco Use: Social History Observation [...] Status W/U Status Risk Notes Problem Acquired hallux valgus (96562753) Hallux valgus (acquired), left foot (M20.12) Active confirmed Problem Atherosclerosis of benton arteries of the extremities (025448712357061) Unspecified atherosclerosis of benton arteries of extremities, bilateral legs (I70.203) Active confirmed Problem Acquired hallux valgus (31443022) Hallux valgus (acquired), right foot (M20.11) Active confirmed Problem Acquired hammer toe of left foot (0133792433201150 ) Other hammer toe(s) (acquired), left foot (M20.42) Active confirmed Problem Acquired hammer toe of right foot (0351174803660175 ) Other hammer toe(s) (acquired), right foot (M20.41) Active confirmed Problem Acquired hammer toe of left foot (9965070355755659 ) Other hammer toe(s) (acquired), left foot (M20.42) Active confirmed Problem Atherosclerosis of benton artery of both lower extremities, with unspecified presence of clinical manifestation (I70.203) Active confirmed Q7(A), Q8(2B), Q9(1B,2C) Problem Ulcer of toe of left foot (disorder) (5012067296204074 2) Skin ulcer of toe of left foot, limited to breakdown of skin (L97.521) Active confirmed Response to treatment, Nonapplica ble Vital Signs Blood pressure diastolic 80 mm Hg 10/03/2024 Height 5 ft 6 in in 10/03/2024 Blood pressure systolic 120 mm Hg 10/03/2024 Weight 140 lbs 10/03/2024 BMI 22.59 kg/m2 10/03/2024 Procedures Procedure Date Ordered Date Performed Result Body Sit e 75206-Twpj. Subungual Hematoma 12/24/2023 N/A 99785- Debride <25 sq cm 06/07/2024 N/A 03802-RSVWZMI NAIL, 6 OR MORE 10/03/2024 N/A 47655-MESA SKIN LESIONS, 2 TO 4 10/03/2024 N/A Encounters Encounter Location Date Provider Diagnosis [address] [address] 12/24/2023 KumarSilva Tinea unguium B35.1 ; Pain in right toe(s) M79.674 ; Pain in left toe(s) M79.675 ; Unspecified atherosclerosis of benton arteries of extremities, bilateral legs I70.203 and Subungual hematoma of toenail of left foot, initial encounter S90.222A [address] [address] 03/28/2024 Kumar Mesa Tinea unguium B35.1 ; Pain in right toe(s) M79.674 ; Pain in left toe(s) M79.675 and Unspecified atherosclerosis of benton arteries of extremities, bilateral legs I70.[address] [address] 06/07/2024 Jose Eduardo Marcio Skin ulcer of toe of left foot, limited to breakdown of skin L97.[address] [address] 06/27/2024 Kumar Mesa Tinea unguium B35.1 ; Pain in right toe(s) M79.674 ; Pain in left toe(s) M79.675 ; Unspecified atherosclerosis of benton arteries of extremities, bilateral legs I70.203 and Other hammer toe(s) (acquired), left foot M20.[address] [phone] Venecia Braga Atherosclerosis of benton artery of both lower extremities, with unspecified presence of clinical manifestation I70.203 ; Tinea unguium B35.1 ; Pain in right toe(s) M79.674 and Pain in left toe(s) M79.675 [facility] [address] [place] [address] 06/27/2024 Venecia Braga Assessments Encounter Date Diagnosis (ICD Code) Assessment Notes Treatment Notes Treatment Clinical Notes Section Notes 12/24/2023 Tinea unguium (ICD-10 - B35.1) 12/24/2023 Pain in right toe(s) (ICD-10 - M79.674) 03/28/2024 Tinea unguium (ICD-10 - B35.1) 03/28/2024 Pain in right toe(s) (ICD-10 - M79.674) 06/07/2024 Skin ulcer of toe of left foot, limited to breakdown of skin (ICD-10 - L97.521) Response to treatment,Elicia pplicable Patient Educated with: WOUND CARE INSTRUCTIONS. pdf (WOUND CARE INSTRUCTIONS. pdf) 06/27/2024 Tinea unguium (ICD-10 - B35.1) 06/27/2024 Pain in right toe(s) (ICD-10 - M79.674) 10/03/2024 Atherosclerosis of benton artery of both lower extremities, with unspecified presence of clinical manifestation (ICD-10 - I70.203) Q7(A), Q8(2B), Q9(1B,2C) 10/03/2024 Tinea unguium (ICD-10 - B35.1) 06/27/2024 Pain in left toe(s) (ICD-10 - M79.675) 03/28/2024 Pain in left toe(s) (ICD-10 - M79.675) 12/24/2023 Pain in left toe(s) (ICD-10 - M79.675) 12/24/2023 Unspecified atherosclerosis of benton arteries of extremities, bilateral legs (ICD-10 - I70.203) 03/28/2024 Unspecified atherosclerosis of benton arteries of extremities, bilateral legs (ICD-10 - I70.203) 06/27/2024 Unspecified atherosclerosis of benton arteries of extremities, bilateral legs (ICD-10 - I70.203) 10/03/2024 Pain in right toe(s) (ICD-10 - M79.674) 10/03/2024 Pain in left toe(s) (ICD-10 - M79.675) 06/27/2024 Other hammer toe(s) (acquired), left foot (ICD-10 - M20.42) 12/24/2023 Subungual hematoma of toenail of left foot, initial encounter (ICD-10 - S90.222A) 06/07/2024 Other Plan Of Treatment Pending Test Test Name Order Date 68983-IUPOSLU NAIL, 6 OR MORE 11/27/2016 85781-OIZOKVF NAIL, 6 OR MORE 06/01/2017 22760-TXPMWKI NAIL, 6 OR MORE 08/31/2017 36672-AKTPOBR NAIL, 6 OR MORE 11/26/2017 01777-FAFVZID NAIL, 6 OR MORE 02/18/2018 08711-GUAOUXG NAIL, 6 OR MORE 08/23/2018 59778-VNRACPV NAIL, 6 OR MORE 05/24/2018 81956-GNXKBXD NAIL, 6 OR MORE 10/03/2024 74986- Debride <25 sq cm 06/07/2024 43872-XLRM SKIN LESIONS, OVER 4 08/23/20 18 33004-TPNQ SKIN LESIONS, OVER 4 06/09/20 19 26219-BPIO SKIN LESIONS, OVER 4 09/12/20 19 31326-RDMC SKIN LESIONS, OVER 4 01/05/20 20 82277-XFUH SKIN LESIONS, OVER 4 04/09/20 20 26935-NQZX SKIN LESIONS, OVER 4 07/12/20 20 06980-SXFB SKIN LESIONS, OVER 4 10/17/19 21 99426-DAYF SKIN LESIONS, OVER 4 01/17/20 21 73587-LSAJ SKIN LESIONS, OVER 4 04/24/20 21 09314-RXLV SKIN LESIONS, OVER 4 07/31/20 21 41482-FXKP SKIN LESIONS, OVER 4 11/17/19 19 71338-VFUR SKIN LESIONS, OVER 4 02/24/20 19 25296-HPWF SKIN LESIONS, OVER 4 05/24/20 18 02160-YAHY SKIN LESIONS, OVER 4 11/26/19 18 58960-CMUL SKIN LESIONS, OVER 4 08/31/20 17 40832-PHIT SKIN LESIONS, 2 TO 4 11/27/19 17 56779-QXHA SKIN LESIONS, 2 TO 4 02/27/20 17 12842-KRBL SKIN LESIONS, 2 TO 4 06/01/20 17 29152-SHWF SKIN LESIONS, 2 TO 4 02/19/20 18 48728-HPNX SKIN LESIONS, 2 TO 4 12/13/19 22 64920-EHTY SKIN LESIONS, 2 TO 4 10/03/20 24 55057-Xmsr. Subungual Hematoma 4 56359-SPVDHOTM OF HEMATOMA/FLUID 023 12719-WSHKVVRS OF HEMATOMA/FLUID 019 Next Appt Details Provider Name:Venecia Coates philip, 02/06/2025 02:45:00 PM, [address] [place], [address], Insurance Providers Payer Name Payer Address Payer Phone Subscriber Number Group Number Insured Name Patient Relationship to Insured Coverage Start Date Coverage End Date Medicare National Govt [facility] [address] [place] [address] [id number] Ashley Castillo Self - patient is the insured 3 for Life [address] [place] [address] [id number] Ashley Castillo Self - patient is the insured 3 Medical (General) History Medical History History ICD Code Arthritis Back pain Cholesterol High blood pressure Osteoporosis Heart disease Surgical History Surgery Date(Month/Year) knee replacement 10/2015 hip replacement 05/2014 bladder suspension 1969' cardiac ablasion by Dr. Mai @ [facility] [place] pacemaker 05/2018 L Femur 09/2021 Heart Sx - couldnt remember anything aft er sx Fall Hospital[place] History Reason Date[place] [facility] [place] Femur 3 or4 rehab 5 or 6 weeks 09/20/[address] Mai @ [facility]
== END 2024-12-21 10:56 | disposition home or self-care (01) ==
LOC: HO.HUSH 10:12
PROVIDERS: PCP Family Medicine; Visit Provider Nurse Practitioner Family
DX: N20.0 Calculus of kidney (principal); N28.1 Cyst of kidney, acquired; N32.81 Overactive bladder; R39.15 Urgency of urination; R32 Unspecified urinary incontinence; Z87.440 Personal history of urinary (tract) infections; Z13.9 Encounter for screening, unspecified
CPT/HCPCS: 99213; G2211

== ENCOUNTER → 2024-12-21 10:11 | Outpatient (BNVA) | payer MEDICARE, OTHER, SELFPAY | PROVIDERS: PCP Family Medicine; Visit Provider Nurse Practitioner Family | DX: N20.0 Calculus of kidney (principal); N28.1 Cyst of kidney, acquired; N32.81 Overactive bladder; R39.15 Urgency of urination; R32 Unspecified urinary incontinence; Z87.440 Personal history of urinary (tract) infections | CPT/HCPCS: 51798; 81003; 99212 ==

== ENCOUNTER → 2025-01-16 23:59 | Outpatient (BNV) | payer MEDICARE, OTHER, SELFPAY ==
--- NOTE | 2025-01-17 15:46 | MHC.OFFVIS ---
Intake Visit Reasons: Remote Device Check- Medtronic Allergies moxifloxacin [From Avelox] Adverse Reaction (Unknown, Verified 12/21/24 10:51) DIARRHEA PFSH Medical History Atrial flutter Aortic stenosis History of transcatheter aortic valve replacement (TAVR) Overactive bladder Urinary incontinence History of cardioversion Presence of total left knee joint prosthesis Enlarged RV (right ventricle) Chronic heart failure with preserved ejection fraction (HFpEF) Paroxysmal atrial fibrillation Sick sinus syndrome Cardiac pacemaker in situ Tricuspid regurgitation Pulmonary hypertension HTN (hypertension) Surgical History H/O colonoscopy Hx of cataract surgery History of total left knee replacement History of total right hip replacement History of permanent cardiac pacemaker placement Hx of knee surgery Family History Father No problems noted. Mother Cancer Social History Household Members: None Housing: Other Housing Other:: house Do you presently have visiting nurse or other home services: No Patient Tobacco Use Status: Never used Tobacco e-Cigarette/Vaping Use: Never Used service: No Current occupational status: retired Office Procedures Cardiac Device Check Cardiac Device Check Details: Remote pacemaker report generated 01/16/2025. Pacemaker function is adequate 16697-Mcpoek Cardiac Device Interrogation, pacemaker Procedure code (CPT) selection complete Assessment & Plan Assessment & Plan (1) Cardiac pacemaker in situ: Comment: Medtronic dual-chamber pacemaker placement for sick sinus syndrome, 2018 Code(s): Z95.0 - Presence of cardiac pacemaker Category: Medical Plan: See above Coding Level of Care Code Procedure Only Diagnoses Cardiac pacemaker in situ Z95.0 CPT Codes Cardiac Device Check - Cardiac Device 12: 00443-Gvrrxm Cardiac Device Interrogation, pacemaker ([id number])
== END ==
PROVIDERS: PCP Family Medicine; Visit Provider Internal Medicine Cardiovascular Disease
DX: I49.5 Sick sinus syndrome (principal); Z95.0 Presence of cardiac pacemaker
CPT/HCPCS: 93294

== ENCOUNTER 2025-03-23 10:36 | Outpatient (REF) | payer MEDICARE, OTHER, SELFPAY | END 2025-03-23 10:37 | disposition home or self-care (01) | LOC: HO.LAB 10:36 | PROVIDERS: PCP Family Medicine; Visit Provider Nurse Practitioner Family | DX: N20.0 Calculus of kidney (principal); N39.0 Urinary tract infection, site not specified; N28.1 Cyst of kidney, acquired; N32.81 Overactive bladder; Z87.440 Personal history of urinary (tract) infections | CPT/HCPCS: 51798; 81003; 87086; 87088; 87186; 99212 ==

== ENCOUNTER 2025-03-23 10:36 | Outpatient (AMB) | payer MEDICARE, OTHER, SELFPAY ==
--- NOTE | 2025-03-23 11:04 | A.OFFVIS_ITS ---
Intake Visit Reasons: 3m/PVR Intake Note: Patient presents today for follow up on: urgency, incontinence, kidney cyst, OAB, and Nephrolithiasis Urology Medications: Myrbetriq Blood Thinner: Eliquis Allergy to Antibiotics: none PVR: 0ml's Air Boatswain Required: No Accompanied by: Unknown Allergies moxifloxacin [From Avelox] Adverse Reaction (Unknown, Verified 03/23/25 13:18) DIARRHEA Medication List - Last Reconciled 03/23/25 by SKYLER Marino acetaminophen (Tylenol Extra Strength) 500 mg PO .three times a day PRN amlodipine 5 mg PO ONCE amlodipine 2.5 mg PO DAILY apixaban (Eliquis) 5 mg PO BID 90 days calcium carbonate (Calcium 600) 600 mg PO DAILY levothyroxine 50 mcg PO DAILY melatonin 3 mg PO BEDTIME PRN metoprolol succinate ER (Toprol XL) 25 mg PO DAILY 90 days mirabegron ER (Myrbetriq) 25 mg PO DAILY 90 days polyethylene glycol 3350 (Miralax) 17 grams PO DAILY pravastatin 40 mg PO DAILY propylene glycol 0.6% (Systane Balance) 1 drp ophthalmic (eye) DAILY PRN walker (Ultra-Light Rollator misc) As directed HPI Comments Details: Ashley is a pleasant 89-year-old female patient of Dr. Mendes who was accompanied by her daughter Liat at today's visit. She has a past medical history of overactive bladder, urinary incontinence, history of cardioversion, atrial flutter, aortic stenosis, chronic heart failure with preserved ejection fracture, paroxysmal atrial fibrillation, sick sinus syndrome, cardiac pacemaker, tricuspid regurgitation, and pulmonary hypertension. She presents to the office today for follow-up of her urinary urgency incontinence, neph rolithiasis, and urinary tract infection. In discussion with the patient today she reports to be doing and feeling well. She discusses feeling since she has cut out dairy out of her diet she has been doing well with her urinary symptoms as well as her bowel issue she had been experiencing. She reports compliance with Myrbetriq as prescribed in discusses how helpful this has been with episodes of urinary urgency and frequency she had been experiencing. In office urinalysis results reviewed with the patient today 3+ leukocytes positive nitrates. When asked she denies any UTI like symptoms. She denies urinary urgency, urinary frequency, incontinence, nocturia, hematuria, dysuria, foul smelling urine, changes to urinary stream, flank pain, fever, and or chills. She is happy with her current voiding parameters. We discussed sending urine for urine culture as typically patient experiences UTI like symptoms of confusion although she is not presently experiencing any alterations in her thought process. We discussed at length the importance of adequate hydration in relation to longstanding history of nephrolithiasis as well as for urinary tract infection. She discusses how active she attempts to be as she would like to try to move back home. She currently resides at [facility]. She has a history of undergoing pelvic floor therapy in the past and has found this helpful. Previous workup has included a renal ultrasound 04/04 noting a 3 mm left renal calculi is noted. Mild left hydronephrosis. Multiple pole tiny left renal echogenic foci may represent artifact or tiny calcifications, possibly vascular, not appreciated on prior exam due to poor visualization of kidney. PVR 0ml's. Urinary urgency incontinence Lives at assisted living Pelvic floor physical therapy was helpful Reports sense of urgency, frequency in on sensed urination has been stable Developed confusion on VESIcare and oxybutynin Prior imaging with bilateral complex renal cyst on right renal nephrolithiasis - right renal cyst 1 cm, left mid pole stone 1.4 cm [facility] Medical History Atrial flutter Aortic stenosis History of transcatheter aortic valve replacement (TAVR) Overactive bladder Urinary incontinence History of cardioversion Presence of total left knee joint prosthesis Enlarged RV (right ventricle) Chronic heart failure with preserved ejection fraction (HFpEF) Paroxysmal atrial fibrillation Sick sinus syndrome Cardiac pacemaker in situ Tricuspid regurgitation Pulmonary hypertension HTN (hypertension) Surgical History (Reviewed 03/23/25 @ 11:42 by Julieta Zarate [facility]) H/O colonoscopy Hx of cataract surgery History of total left knee replacement History of total right hip replacement History of permanent cardiac pacemaker placement Hx of knee surgery Family History Father No problems noted. Mother Cancer Social History Household Members: None Housing: Other Housing Other:: house Do you presently have visiting nurse or other home services: No Patient Tobacco Use Status: Never used Tobacco e-Cigarette/Vaping Use: Never Used service: No Current occupational status: retired Review of Systems Const Reports as per HPI Eyes Reports no additional complaints ENT Reports no additional complaints Card Reports as per HPI Resp Reports no additional complaints GI Reports no additional complaints Reports as per HPI Musc Reports as per HPI Neuro Reports as per HPI Psych Reports no additional complaints Endo Reports no additional complaints Huey/Lymph Reports no additional complaints Aller/Immun Reports no additional complaints Physical Exam Const General: cooperative, healthy appearing, comfortable, no acute distress, well developed, alert and awake Orientation/consciousness: oriented to person Limitations: ambulation with walker HEENT Head: Yes normal to inspection, Yes normocephalic and Yes atraumatic Ears: hearing grossly normal bilaterally Eyes General: appearance normal, both eyes and all related structures Neck Neck: Yes normal visual inspection and Yes trachea midline Chest Chest palpation & inspection: normal inspection of the chest Resp Effort & Inspection: normal respiratory effort and able to speak in complete sentences Cardio Rate: regular rate GI Inspection: Yes normal to inspection General: Yes no CVA tenderness Back/Spine/Pelvis Back: no CVA tenderness Skin General skin exam: no rashes or lesions noted Neuro General: oriented to person Extrem General: Yes normal to inspection Psych Appearance: grossly normal and well kempt Mental Status: mental status grossly normal Speech and movement: Normal speech and movement present and Clear speech present Affect: normal affect Attitude: cooperative Thought process: Normal thought process present and Perseverating thought process present (at times ) Thought content: Normal thought content present Insight: Fair insight present (Psych) Judgement: Fair judgement present (Psych) Office Procedures Post Void Residual Post Residual Void Post Void Residual (PVR): 0 07023-Vrdy Void Residual by ultrasound Results AMB Urinalysis, Automated UA Leukoctes 500 Sonam/uL Last Edit by SHAKA Schmitt on 03/23/25 11:45 UA Nitrite Last Edit by SHAKA Schmitt on 03/23/25 11:45 UA Urobilinogen 0.2 mg/dL Last Edit by Julieta Zarate, [facility] on 03/23/25 11:4 5 UA Protein 100 mg/dL Last Edit by Julieta Whitmore, [facility] on 03/23/25 11:45 UA pH 6.0 Last Edit by Julieta Whitmore, [facility] on 03/23/25 11:45 UA Blood 10 Leoncio/uL Last Edit by Julieta Whitmore, [facility] on 03/23/25 11:45 UA Specific [place] 1.015 [facility], [facility] on 03/23/25 11: 45 UA Ketone Last Edit by Julieta Whitmore, [facility] on 03/23/25 11:45 UA Bilirubin 0 mg/dL Last Edit by Julieta Zarate, [facility] on 03/23/25 11:45 UA Glucose 0 mg/dL Last Edit by Julieta Zarate, [facility] on 03/23/25 11:45 Results Reviewed Results Reviewed: Laboratory Last Values Urine pH (Auto) 6.0 03/23/25 11:42 Specific [place] (Auto) 1.015 03/23/25 11:42 Urine Protein (Auto) 100 mg/dL 03/23/25 11:42 Glucose (UA)(Auto) 0 mg/dL 03/23/25 11:42 Urine Blood (Auto) 10 Leoncio/uL 03/23/25 11:42 Urine Bilirubin (Auto) 0 mg/dL 03/23/25 11:42 Urine Urobilinogen (Auto) 0.2 mg/dL 03/23/25 11:42 Leukocyte Esterase (Auto) 500 Sonam/uL 03/23/25 11:42 Assessment & Plan Assessment & Plan (1) Nephrolithiasis: Code(s): N20.0 - Calculus of kidney Category: Medical (2) Renal cyst: Code(s): N28.1 - Cyst of kidney, acquired Category: Medical (3) Overactive bladder: Code(s): N32.81 - Overactive bladder Category: Medical (4) History of urinary tract infection: Code(s): Z87.440 - Personal history of urinary (tract) infections Category: Medical Plan In office urinalysis results reviewed with the patient today; as noted above; will send for urine culture; will await results for potential treatment Will call Liat [phone] and or [phone] PVR 0 mL. She currently denies any UTI like symptoms. She reports be happy with current voiding parameters. Will continue with surveillance monitoring. Continue Myrbetriq as discussed and prescribed. Follow-up in 3-6 months with PVR; or sooner with any issues, concerns, and or questions. Orders: Orders AMB Urinalysis Automated 03/23/25 Z13.9 - Encounter for screening, unspecified Urine Culture 03/23/25 N39.0 - Urinary tract infection, site not specified AMB Post Void Residual by ultrasound 03/23/25 R32 - Unspecified urinary incontinence Patient Instructions: The patient had an opportunity to ask questions regarding the treatment plan. All questions were answered. Physical exam, labs, and imaging were discussed and reviewed in detail. As well as risks, benefits, and discussion of treatment choices. No major barriers to understanding were identified. The patient expressed understanding and agreement with the above treatment plan. The patient was made aware they should contact our office by phone for worsening of their current condition, the appearance of new symptoms, or with any questions or concerns. Compliance is encouraged with any medications and follow up testing that is ordered. It is a privilege to be allowed the opportunity to participate in? your urological care.? Again, if you have any questions or concerns If you have any questions or concerns please do not hesitate to contact me. The office is [phone]. This note is constructed using voice recognition software. While every effort has been made to ensure accuracy facing machine operator errors may have been included. Yours sincerely, SKYLER Marino Coding Level of Care Code Est Pt Level 4 (99859) Complex EM visit Add On G2211 Diagnoses Nephrolithiasis N20.0 Renal cyst N28.1 Overactive bladder N32.81 History of urinary tract infection Z87.440 CPT Codes Post Residual Void - PVR CPT Code: 56039-Yirr Void Residual by ultrasound ([id number])
--- OUTSIDE RECORDS SUMMARY | 2025-03-23 12:23 | XMS_ITS | Patient Health Record ---
Author Organization [facility] Margarita hermelindo Hernandez Address [address] [place] [address] Care Team Providers Care Champagne Maker Name Role Phone Dieudonne Mendes MD Primary Care Provider Venecia Moraes Unavailable [phone] Kumar Mesa Unavailable [phone] Jose Eduardo Buckley Unavailable [phone] Allergies Allergen (clinical drug ingredient) Drug/Non Drug Allergy documented on EMR Reaction Allergy Type Onset Date Status pravastatin Pravastatin Sodium leg cramps if taken at night Drug Allergy Active Reason For Referral No Information Medications Medication SIG (Take, Route, Frequency, Duration) Notes Start Date End Date Status Melatonin Active Amiodarone HCl 200 MG Orally Not-Taking Furosemide 10mg i tab daily if need take 2 Not-Taking Tylenol Arthritis Pain 650mg 2-3 x a day for pain Active amLODIPine Besylate 5 MG TK 1 T PO QD Orally Active PreserVision AREDS Eye drops A ctive Systane Eye drops Active MiraLax Active Pravastatin Sodium 40 MG 1 tablet Oral Once a day Active Levothyroxine Sodium 50 MCG Orally Active Metoprolol Succinate Not-Taking Stool Softener Laxative Not-Taking Docusate Calcium 100 1 capsule as needed Orally Once a day PRN Active Eliquis 5 MG Oral for 30 Activ e Provigil Active Metoprolol Tartrate 25 MG 1 tablet with food Orally Twice a day for 30 day(s) Active Myrbetriq 25 MG 1 tablet Orally Once a day for 30 day(s) Active Aspirin 81 MG 1 tablet Orally Once a day for 30 day(s) Active ProAir HFA Not-Takin g Acetaminophen Not-Ta bea Warfarin Sodium 3 MG Orally Not-Taking Calcium + D Not-Taki ng Toprol XL 50 MG Orally Not- Taking Valsartan-hydroCHLOROt hiazide 320-25 MG 1 tablet Orally Once a day Not-Taking Losartan Potassium 100 MG Orally Not-Taking Calcium + Vitamin D3 Active Immunizations Vaccine Route Administration Date Status Susu nts COVID-19 Pfizer BioNTech Vaccine Unknown 07/13/2021 Administered 1st 11/16/2020 2nd 12/09/2020 Social History Tobacco Use: Social History Observation Description Date Details (start date - stop date) Never Smoker NA - NA Tobacco use other than smoking: Question Answer Notes Are you an other tobacco user? No Tobacco Control (Standard) Question Answer Notes Tobacco use: Nonsmoker Additional Findings: Tobacco non-user Current no nsmoker AUDIT-C (Standard) Question Answer Notes Did you have a drink containing alcohol in the p ast year? No Points 0 Interpretation Negative Problems Problem Type SNOMED Code ICD Code Onset Dates Problem Status W/U Status Risk Notes Problem Acquired hallux valgus (15035004) Hallux valgus (acquired), left foot (M20.12) Active confirmed Problem Atherosclerosis of [place] arteries of the extremities (875199712681697) Unspecified atherosclerosis of [place] arteries of extremities, bilateral legs (I70.203) Active confirmed Problem Acquired hallux valgus (16487847) Hallux valgus (acquired), right foot (M20.11) Active confirmed Problem Acquired hammer toe of left foot (5009741173211968 ) Other hammer toe(s) (acquired), left foot (M20.42) Active confirmed Problem Acquired hammer toe of right foot (2624013484924748 ) Other hammer toe(s) (acquired), right foot (M20.41) Active confirmed Problem Acquired hammer toe of left foot (2495924732220684 ) Other hammer toe(s) (acquired), left foot (M20.42) Active confirmed Problem Bilateral atherosclerosis of arteries of lower limbs (disorder) (3043511602950396 7) Atherosclerosis of [place] artery of both lower extremities, with unspecified presence of clinical manifestation (I70.203) Active confirmed Q7(A), Q8(2B), Q9(1B,2C) Problem Ulcer of toe of left foot (disorder) (4550002805518200 2) Skin ulcer of toe of left foot, limited to breakdown of skin (L97.521) Active confirmed Response to treatment, Nonapplica ble Vital Signs Blood pressure diastolic 70 mm Hg 02/06/2025 Height 5 ft 6 in in 02/06/2025 Blood pressure systolic 120 mm Hg 02/06/2025 Weight 140 lbs 02/06/2025 BMI 22.59 kg/m2 02/06/2025 Procedures Procedure Date Ordered Date Performed Result Body Sit e 27917- Debride <25 sq cm 06/07/2024 N/A 20786-QMRCSUC NAIL, 6 OR MORE 10/03/2024 N/A 97334-HUDF SKIN LESIONS, 2 TO 4 10/03/2024 N/A 18024-BFESNIU NAIL, 6 OR MORE 02/06/2025 N/A 30764-DISM SKIN LESIONS, 2 TO 4 02/06/2025 N/A Encounters Encounter Location Date Provider Diagnosis [address] [address] 03/28/2024 KumarSilva Tinea unguium B35.1 ; Pain in right toe(s) M79.674 ; Pain in left toe(s) M79.675 and Unspecified atherosclerosis of [place] arteries of extremities, bilateral legs I70.[address] [address] 06/07/2024 Jose Eduardo Marcio Skin ulcer of toe of left foot, limited to breakdown of skin L97.[address] [address] 06/27/2024 Kumar Mesa Tinea unguium B35.1 ; Pain in right toe(s) M79.674 ; Pain in left toe(s) M79.675 ; Unspecified atherosclerosis of [place] arteries of extremities, bilateral legs I70.203 and Other hammer toe(s) (acquired), left foot M20.[address] [address] 10/03/2024 Venecia Braga Atherosclerosis of [place] artery of both lower extremities, with unspecified presence of clinical manifestation I70.203 ; Tinea unguium B35.1 ; Pain in right toe(s) M79.674 and [facility] left [facility]s) [facility]79.[facility] [address] 02/06/2025 Venecia Braga Atherosclerosis of [place] artery of both lower extremities, with unspecified presence of clinical manifestation I70.203 ; Tinea unguium B35.1 ; Pain in right toe(s) M79.674 and Pain in left toe(s) M79.[address] [address] 06/27/2024 Venecia Braga Assessments Encounter Date Diagnosis (ICD Code) Assessment Notes Treatment Notes Treatment Clinical Notes Section Notes 03/28/2024 Tinea unguium (ICD-10 - B35.1) 03/28/2024 Pain in right toe(s) (ICD-10 - M79.674) 06/07/2024 Skin ulcer of toe of left foot, limited to breakdown of skin (ICD-10 - L97.521) Response to treatment,Elicia pplicable Patient Educated with: WOUND CARE INSTRUCTIONS. pdf (WOUND CARE INSTRUCTIONS. pdf) 06/27/2024 Tinea unguium (ICD-10 - B35.1) 06/27/2024 Pain in right toe(s) (ICD-10 - M79.674) 10/03/2024 Atherosclerosis of [place] artery of both lower extremities, with unspecified presence of clinical manifestation (ICD-10 - I70.203) Q7(A), Q8(2B), Q9(1B,2C) 02/06/2025 Atherosclerosis of [place] artery of both lower extremities, with unspecified presence of clinical manifestation (ICD-10 - I70.203) Q7(A), Q8(2B), Q9(1B,2C) 02/06/2025 Tinea unguium (ICD-10 - B35.1) 10/03/2024 Tinea unguium (ICD-10 - B35.1) 06/27/2024 Pain in left toe(s) (ICD-10 - M79.675) 03/28/2024 Pain in left toe(s) (ICD-10 - M79.675) 03/28/2024 Unspecified atherosclerosis of [place] arteries of extremities, bilateral legs (ICD-10 - I70.203) 06/27/2024 Unspecified atherosclerosis of [place] arteries of extremities, bilateral legs (ICD-10 - I70.203) 10/03/2024 Pain in right toe(s) (ICD-10 - M79.674) 02/06/2025 Pain in right toe(s) (ICD-10 - M79.674) 02/06/2025 Pain in left toe(s) (ICD-10 - M79.675) 10/03/2024 Pain in left toe(s) (ICD-10 - M79.675) 06/27/2024 Other hammer toe(s) (acquired), left foot (ICD-10 - M20.42) 06/07/2024 Other Plan Of Treatment Pending Test Test Name Order Date 67186-WSLLJLY NAIL, 6 OR MORE 11/27/2016 25376-HAHNPSY NAIL, 6 OR MORE 06/01/2017 26156-ZBYYNFD NAIL, 6 OR MORE 08/31/2017 64921-RJIWLSM NAIL, 6 OR MORE 11/26/2017 70248-VMFDEMS NAIL, 6 OR MORE 02/18/2018 51655-HDBKCVG NAIL, 6 OR MORE 08/23/2018 38286-VMXJVDP NAIL, 6 OR MORE 05/24/2018 02336-KGKSIXV NAIL, 6 OR MORE 10/03/2024 24059-FDOTLAS NAIL, 6 OR MORE 02/06/2025 85068- Debride <25 sq cm 06/07/2024 88594-CGKA SKIN LESIONS, OVER 4 08/23/20 18 70196-RQMO SKIN LESIONS, OVER 4 06/09/20 19 15475-ICQB SKIN LESIONS, OVER 4 09/12/20 19 10062-ENYT SKIN LESIONS, OVER 4 01/05/20 20 94881-QGBP SKIN LESIONS, OVER 4 04/09/20 20 73764-EGBY SKIN LESIONS, OVER 4 07/12/20 20 28489-KONC SKIN LESIONS, OVER 4 10/17/19 21 17865-YMTE SKIN LESIONS, OVER 4 01/17/20 21 07266-UDKU SKIN LESIONS, OVER 4 04/24/20 21 03536-ANHT SKIN LESIONS, OVER 4 07/31/20 21 09708-UJDN SKIN LESIONS, OVER 4 11/17/19 19 05740-GDKT SKIN LESIONS, OVER 4 02/24/20 19 59598-YETM SKIN LESIONS, OVER 4 05/24/20 18 68514-TLER SKIN LESIONS, OVER 4 11/26/19 18 73770-ALOE SKIN LESIONS, OVER 4 08/31/20 17 44924-HKAC SKIN LESIONS, 2 TO 4 11/27/19 17 53749-WZTQ SKIN LESIONS, 2 TO 4 02/27/20 17 26784-TJMC SKIN LESIONS, 2 TO 4 06/01/20 17 58676-SWWT SKIN LESIONS, 2 TO 4 02/19/20 18 52707-HZLQ SKIN LESIONS, 2 TO 4 12/13/19 22 89401-SRUK SKIN LESIONS, 2 TO 4 02/07/20 25 00721-OHRW SKIN LESIONS, 2 TO 4 10/03/20 24 31974-Gyxl. Subungual Hematoma 4 48137-SIPAISNX OF HEMATOMA/FLUID 023 13210-QHZZOIIL OF HEMATOMA/FLUID 019 Next Appt Details Provider Name:Venecia Coates philip, 05/17/2025 11:00:00 AM, [address] [place], [address], Insurance Providers Payer Name Payer Address Payer Phone Subscriber Number Group Number Insured Name Patient Relationship to Insured Coverage Start Date Coverage End Date Medicare National Govt [employer] [address] [place] [address] [id number] Anna Ashley Self - patient is the insured 3 for Life [address] [place] [id number] [phone] [id number] Anna Ashley Self - patient is the insured 3 Medical (General) History Medical History History ICD Code Arthritis Back pain Cholesterol High blood pressure Osteoporosis Heart disease Surgical History Surgery Date(Month/Year) knee replacement 10/2015 hip replacement 05/2014 bladder suspension cardiac ablasion by Dr. Mai @ [facility] edical pacemaker 05/2018 L Femur 09/2021 Heart Sx - couldnt remember anything aft er sx Fall Hospitalization History Reason Date(Month/Year) [facility] L Femur 3 or4 rehab 5 or 6 weeks [facility]20[facility] [facility]
== END 2025-03-23 12:03 | disposition home or self-care (01) ==
LOC: HO.HUSH 10:36
PROVIDERS: PCP Family Medicine; Visit Provider Nurse Practitioner Family
DX: Z13.9 Encounter for screening, unspecified (principal)

== ENCOUNTER → 2025-04-18 23:59 | Outpatient (BNV) | payer MEDICARE, OTHER, SELFPAY ==
--- NOTE | 2025-04-24 13:36 | MHC.OFFVIS ---
Intake Visit Reasons: Remote Device Check- Medtronic Allergies moxifloxacin (From Avelox) Adverse Reaction (Unknown, Verified 03/23/25 13:18) DIARRHEA PFSH Medical History Atrial flutter Aortic stenosis History of transcatheter aortic valve replacement (TAVR) Overactive bladder Urinary incontinence History of cardioversion Presence of total left knee joint prosthesis Enlarged RV (right ventricle) Chronic heart failure with preserved ejection fraction (HFpEF) Paroxysmal atrial fibrillation Sick sinus syndrome Cardiac pacemaker in situ Tricuspid regurgitation Pulmonary hypertension HTN (hypertension) Surgical History H/O colonoscopy Hx of cataract surgery History of total left knee replacement History of total right hip replacement History of permanent cardiac pacemaker placement Hx of knee surgery Family History Father No problems noted. Mother Cancer Social History Household Members: None Housing: Other Housing Other:: house Do you presently have visiting nurse or other home services: No Patient Tobacco Use Status: Never used Tobacco e-Cigarette/Vaping Use: Never Used service: No Current occupational status: retired Office Procedures Cardiac Device Check Cardiac Device Check Details: Remote pacemaker report generated 04/18/2025. Pacemaker function is adequate. Persistent atrial fibrillation noted 65352-Pjeyuq Cardiac Device Interrogation, pacemaker Procedure code (CPT) selection complete Assessment & Plan Assessment & Plan (1) Cardiac pacemaker in situ: Comment: Medtronic dual-chamber pacemaker placement for sick sinus syndrome, 2018 Code(s): Z95.0 - Presence of cardiac pacemaker Category: Medical Plan: See above Coding Level of Care Code Est Pt Level 4 (63637) Diagnoses Cardiac pacemaker in situ Z95.0 CPT Codes Cardiac Device Check - Cardiac Device 12: 73119-Iiumdh Cardiac Device Interrogation, pacemaker ([id number])
== END ==
PROVIDERS: PCP Family Medicine; Visit Provider Internal Medicine Cardiovascular Disease
DX: I49.5 Sick sinus syndrome (principal); Z95.0 Presence of cardiac pacemaker
CPT/HCPCS: 93294

== ENCOUNTER 2025-04-26 09:38 | Outpatient (AMB) | payer MEDICARE, OTHER, SELFPAY ==
--- NOTE | 2025-04-26 09:55 | A.OFFVIS_ITS ---
Vital Signs 04/26/25 09:56 Height 5 ft 7 in Weight 149 lb 14.629 oz BMI 23.5 BP 120/80 Blood Pressure Location Lt brachial Position Sitting Pulse 70 Intake Visit Reasons: 6m follow up/ EKG/ pacer ck Intake Note: 6 month follow-up with ekg and [facility] hearts doing ok Airline Stewardess Required: No Sales Operations Lead: Sales Operations Lead Present Accompanied by: daughter inlfrancine Allergies moxifloxacin (From Avelox) Adverse Reaction (Unknown, Verified 03/23/25 13:18) DIARRHEA Medication List - Last Reconciled 04/26/25 by Blake Calle MD acetaminophen (Tylenol Extra Strength) 500 mg PO .three times a day PRN amlodipine 5 mg PO ONCE amlodipine 2.5 mg PO DAILY apixaban (Eliquis) 5 mg PO BID 90 days calcium carbonate (Calcium 600) 600 mg PO DAILY levothyroxine 50 mcg PO DAILY metoprolol succinate ER 25 mg PO DAILY mirabegron ER (Myrbetriq) 25 mg PO DAILY 90 days pravastatin 40 mg PO DAILY propylene glycol 0.6% (Systane Balance) 1 drp ophthalmic (eye) DAILY PRN walker (Ultra-Light Rollator misc) As directed HPI Comments Details: Ashley comes for follow-up. She is currently in his assisted living facility in his very unhappy about it. She wants to go home. She has no cardiac symptoms although she has been losing weight. He has not been exercising much. She has not had any significant falls hospitalization related to it. No symptoms of palpitation. No worsening heart failure symptoms. No bleeding issues or neurologic events. [facility] Medical History (Updated 04/26/25 @ 14:35 by Blake Calle MD) Atrial flutter Paroxysmal atrial fibrillation Aortic stenosis History of transcatheter aortic valve replacement (TAVR) Overactive bladder Urinary incontinence History of cardioversion 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 Mother Cancer Social History Household Members: None Housing: Other Housing Other:: house Do you presently have visiting nurse or other home services: No Patient Tobacco Use Status: Never used Tobacco e-Cigarette/Vaping Use: Never Used service: No Current occupational status: retired Review of Systems Const Denies chills, Denies fatigue, Denies fever(s), Denies frequent falls, Denies weakness, Denies weight gain and Denies weight loss ENT Denies dizziness Card Denies chest pain, Denies leg edema, Denies lightheadedness, Denies palpitations, Denies dyspnea, Denies dyspnea on exertion, Denies orthopnea and Denies other (loss of consciousness) Resp Denies cough, Denies dyspnea and Denies dyspnea on exertion GI Denies hematochezia and Denies change in stool character Musc Denies abnormal gait, Denies muscle weakness, Denies numbness, Denies radiating pain into limb and Denies tingling Neuro Denies abnormal gait, Denies dizziness, Denies frequent falls, Denies numbness, Denies tingling and Denies weakness Endo Denies fatigue and Denies palpitations Physical Exam Vital Signs: Last Vital Signs Pulse 70 04/26/25 09:56 BP 120/80 04/26/25 09:56 BMI result Body Mass Index 23.5 Const General: cooperative, comfortable, no acute distress, alert, awake and well groomed Nutritional Appearance: average body habitus and other (Frail elderly woman) Orientation/consciousness: patient oriented x3 Limitations: ambulation with walker Neck Neck: Yes trachea midline, Yes supple and Yes no JVD Chest Chest palpation & inspection: abnormal inspection of the chest kyphotic Resp Effort & Inspection: normal respiratory effort Auscultation: clear to auscultation bilaterally and diminished lung sounds Cardio Jugular venous distension: no JVD Rate: regular rate Rhythm: regular rhythm Heart sounds: S1 normal heart sound present, S2 normal heart sound present (Soft), no click, no gallops and no murmurs GI Auscultation: normal bowel sounds Skin General skin exam: no rashes or lesions noted Neuro General: patient oriented x3 and no focal motor deficits Extrem General: Yes no clubbing, cyanosis or edema Psych Appearance: grossly normal Office Procedures Cardiac Device Check Cardiac Device Check Details: Dual-chamber Medtronic pacemaker in place. Reprogrammed from DDDR to DDIR. Persistent atrial flutter noted. Ventricular pacing 99.5% of the time. Ventricular pacing thresholds excellent and reprogrammed to enhance battery life. Pacing lead impedance is stable. Battery life is at 3.5 years 59809-PI Cardiac Device Check, pacemaker dual lead Procedure code (CPT) selection complete EKG Details: EKG shows atrial flutter with ventricular pacing. 25002-Duhaoyulvjmkekamk, Complete Assessment & Plan Assessment & Plan (1) Atrial flutter: Code(s): I48.92 - Unspecified atrial flutter Category: Medical Plan: Persistent atrial flutter without any worsening in her symptoms at current point time. Will continue pursue rate control approach. Continue full oral anticoagulation, currently on apixaban 5 mg b.i.d.. Continue monitor pacer telemetry. Signs and symptoms of heart failure were discussed. (2) Cardiac pacemaker in situ: Comment: Medtronic dual-chamber pacemaker placement for sick sinus syndrome, 2018 Code(s): Z95.0 - Presence of cardiac pacemaker Category: Medical Plan: Cardiac pacemaker in-situ for initially for sick sinus syndrome but patient appears to be pacer dependent at this point time ventricularly. Will continue monitor in clinic in 6 months time. Adequate battery life. Pacemaker function is adequate otherwise. (3) History of transcatheter aortic valve replacement (TAVR): Comment: 34 mm bioprosthetic aortic valve, 02/2023 Code(s): Z95.2 - Presence of prosthetic heart valve Category: Medical Plan: Patient with transcatheter aortic valve replacement with significant improvement overall symptoms since valve replacement. Currently on oral anticoagulation therapy. SBE prophylaxis as per ACC/aha guidelines. (4) Chronic heart failure with preserved ejection fraction (HFpEF): Code(s): I50.32 - Chronic diastolic (congestive) heart failure Category: Medical Plan: Heart failure preserved ejection fraction, clinically euvolemic well compensated despite persistent atrial flutter at this point time. Signs and symptoms of heart failure were discussed. Currently not on any diuretic regimen. Avoidance of salt loading and daily weight monitoring was discussed. She understands agrees. Will follow up in the clinic in 6 months time, sooner p.r.n.. Thank you for allowing me to partake in her care Coding Level of Care Code Est Pt Level 4 (11563) Complex EM visit Add On G2211 Diagnoses Atrial flutter I48.92 Cardiac pacemaker in situ Z95.0 History of transcatheter aortic valve replacement (TAVR) Z95.2 Chronic heart failure with preserved ejection fraction (HFpEF) I50.32 CPT Codes Cardiac Device Check - Cardiac Device 2: 60602-FE Cardiac Device Check, pacemaker dual lead ([id number]) EKG - CPT: 62917-Jptvpljkgqkytmhvv, Complete ([id number])
[2025-04-26 09:56] VITALS: BP 120/80; PULSE 70; BMI 23.5
--- OUTSIDE RECORDS SUMMARY | 2025-04-26 10:12 | XMS_ITS | Patient Health Record ---
Author Organization [facility] Address [address] [place] [address] Care Team Providers Care Associate Art Director Name Role Phone RadhadevinMarisol Primary Care Provider UnavailShaun Harris Unavailable [phone] Reason For Referral No Information Medications Medication SIG (Take, Route, Frequency, Duration) Notes Start Date End Date Status Levothyroxine Sodium 50 MCG TK 1 T PO ON CE D Oral for 90 Active Warfarin Sodium 3 MG TK 1 T PO QD Oral for 90 Active Amiodarone HCl 200 MG TK 1 T PO QD Oral for 90 Active Losartan Potassium 100 MG TK 1 T PO ONCE D Oral for 90 Active MiraLax Active Furosemide 20 MG TK 3 TS PO D Oral for 90 Active amLODIPine Besylate 5 MG 1 tablet Orally Once a day Active Calcium + D Active Arthritis Pain Relief Active Immunizations Vaccine Route Administration Date Status Comme nts Influenza Unknown 06/12/2019 Administered Social History Tobacco Use: Social History Observation Description Date Details (start date - stop date) Never Smoker NA - NA Tobacco Use/Smoking Question Answer Notes Patient is a nonsmoker Alcohol Screen Question Answer Notes Did you have a drink containing alcohol in the p ast year? No Points 0 Interpretation Negative Problems Problem Type SNOMED Code ICD Code Onset Dates Problem Status W/U Status Risk Notes Problem [id number] Constipation, unspecified constipation type (K59.00) Active confirmed Plan Of Treatment No Information Insurance Providers Payer Name Payer Address Payer Phone Subscriber Number Group Number Insured Name Patient Relationship to Insured Coverage Start Date Coverage End Date MEDICARE OF [place] [address] [place] [id number] [phone] [id number] ORAL KENDRICK Self - patient is the insured FOR LIFE [address] [place] [address] [id number] ORAL KENDRICK Self - patient is the insured Medical (General) History Medical History History ICD Code Pacemaker/Difibrillator Hypothyroidism Previous colonoscopies--Tubu lar adenoma removed in 2002 and a hyperplastic polyp removed in 02/2011 Atrial fibrillation HTN Denies IA,DM,CVA,Lung disease,renal dise ase Edema Chronic constipation Surgical History Surgery Date(Month/Year) Cholecystectomy Bladder suspension Left Knee Replacement 2017 Right Hip Replacement Pacemaker/Defibrillator
--- OUTSIDE RECORDS SUMMARY | 2025-04-26 10:12 | XMS_ITS | Clinical Summary ---
Author Organization [facility] Facility Address [address] [place] [address] Care Team Providers Care Nursing Informatics Clinical Analyst Name Role Phone Unavailable Primary Care Provider [...] Due Date Last Done Comments Pneumococcal Vaccine: 50+ Ye ars (1 of 1 - PCV) 1987 Influenza Vaccine (#1) 2025 Hepatitis B Vaccine Aged Out No longe r eligible based on patient's age to complete this topic Insurance Medicare [facility] Medicare [facility]
--- OUTSIDE RECORDS SUMMARY | 2025-04-26 10:12 | XMS_ITS | Patient Health Record ---
Author Organization [facility] Margarita hermelindo [address] Address [address] [place] [address] Care Team Providers Care Kiln Remover Name Role Phone Dieudonne Mendes MD Primary Care Provider Venecia Moraes Unavailable [phone] Kumar Mesa Unavailable [phone] Jose Eduardo Buckley Unavailable [phone] Allergies Allergen (clinical drug ingredient) Drug/Non Drug [...] a day PRN Active Eliquis 5 MG Oral; Duration: 30 Active Provigil Active Metoprolol Tartrate 25 MG 1 tablet with food Orally Twice a day; Duration: 30 day(s) Active Myrbetriq 25 MG 1 tablet Orally Once a day; Duration: 30 day(s) Active Aspirin 81 MG 1 tablet Orally Once a day; Duration: 30 day(s) Active ProAir HFA Not-Takin g Acetaminophen Not-Ta bea Warfarin Sodium 3 MG Orally Not-Taking Calcium + D Not-Taki eh Toprol XL 50 MG Orally Not- Taking Valsartan-hydroCHLOROt hiazide 320-25 MG 1 tablet Orally Once a day Not-Taking Losartan Potassium 100 MG Orally Not-Taking Calcium + Vitamin D3 Active Immunizations Vaccine Route Administration Date Status Comme nts COVID-19 Pfizer BioNTech Vaccine Unknown 07/13/2021 [...] Problem Status W/U Status Risk Notes Problem Information temporarily unavailable Hallux valgus (acquired), left foot (M20.12) Active confirmed Problem Information temporarily unavailable Unspecified atherosclerosis of nisqually arteries of extremities, bilateral legs (I70.203) Active confirmed Problem Information temporarily unavailable Hallux valgus (acquired), right foot (M20.11) Active confirmed Problem Information temporarily unavailable Other hammer toe(s) (acquired), left foot (M20.42) Active confirmed Problem Information temporarily unavailable Other hammer toe(s) (acquired), right foot (M20.41) Active confirmed Problem Information temporarily unavailable Other hammer toe(s) (acquired), left foot (M20.42) Active confirmed Problem Information temporarily unavailable Atherosclerosis of nisqually artery of both lower extremities, with unspecified presence of clinical manifestation (I70.203) Active confirmed Q7(A), Q8(2B), Q9(1B,2C) Problem Information temporarily unavailable Skin ulcer of toe of left foot, limited to breakdown of skin (L97.521) Active confirmed Response to treatment, Nonapplica ble Vital Signs Blood pressure diastolic 70 mm Hg 02/06/2025 Height 5 ft 6 in in 02/06/2025 Blood pressure systolic 120 mm Hg 02/06/2025 Weight 140 lbs 02/06/2025 BMI 22.59 kg/m2 02/06/2025 Procedures Procedure Date Ordered Date Performed Result Body Sit e 55218- Debride <25 sq cm 06/07/2024 N/A 34121-WSVNAKP NAIL, 6 OR MORE 10/03/2024 N/A 21091-WUXT SKIN LESIONS, 2 TO 4 10/03/2024 N/A 32656-ZONXOHQ NAIL, 6 OR MORE 02/06/2025 N/A 48792-WVNO SKIN LESIONS, 2 TO 4 02/06/2025 N/A Encounters Encounter Location Date Provider Diagnosis [address] [address] 06/07/2024 Jose Eduardo Buckley Skin ulcer of toe of left foot, limited to breakdown of skin L97.[address] [address] 06/27/2024 KumarSilva Tinea unguium B35.1 ; Pain in right toe(s) M79.674 ; Pain in left toe(s) M79.675 ; Unspecified atherosclerosis of nisqually arteries of extremities, bilateral legs I70.203 and Other hammer toe(s) (acquired), left foot M20.[address] [address] 10/03/2024 Venecia Braga Atherosclerosis of nisqually artery of both lower extremities, with unspecified presence of clinical manifestation I70.203 ; Tinea unguium B35.1 ; Pain in right toe(s) M79.674 and Pain in left toe(s) M79.[address] [address] 02/06/2025 Venecia Braga Atherosclerosis of nisqually artery of both lower extremities, with unspecified presence of clinical manifestation I70.203 ; Tinea unguium B35.1 ; Pain in right toe(s) M79.674 and Pain in left toe(s) M79.[address] [address] 06/27/2024 Venecia Braga Assessments Encounter Date Diagnosis (ICD Code) Assessment Notes Treatment Notes Treatment Clinical Notes Section Notes 06/07/2024 Skin ulcer of toe of left foot, limited to breakdown of skin (ICD-10 - L97.521) Response to treatment,Elicia pplicable Patient Educated with: WOUND CARE INSTRUCTIONS. pdf (WOUND CARE INSTRUCTIONS. pdf) 06/27/2024 Tinea unguium (ICD-10 - B35.1) 06/27/2024 Pain in right toe(s) (ICD-10 - M79.674) 10/03/2024 Atherosclerosis of nisqually artery of both lower extremities, with unspecified presence of clinical manifestation (ICD-10 - I70.203) Q7(A), Q8(2B), Q9(1B,2C) 02/06/2025 Atherosclerosis of n[place]qually artery of both lower extremities, with unspecified presence of clinical manifestation (ICD-10 - I70.203) Q7(A), Q8(2B), Q9(1B,2C) 02/06/2025 Tinea unguium (ICD-10 - B35.1) 10/03/2024 Tinea unguium (ICD-10 - B35.1) 06/27/2024 Pain in left toe(s) (ICD-10 - M79.675) 06/27/2024 Unspecified atherosclerosis of nisqually arteries of extremities, bilateral legs (ICD-10 - I70.203) 10/03/2024 Pain in right toe(s) (ICD-10 - M79.674) 02/06/2025 Pain in right toe(s) (ICD-10 - M79.674) 02/06/2025 Pain in left toe(s) (ICD-10 - M79.675) 10/03/2024 Pain in left toe(s) (ICD-10 - M79.675) 06/27/2024 Other hammer toe(s) (acquired), left foot (ICD-10 - M20.42) 06/07/2024 Other Plan Of Treatment Pending Test Test Name Order Date 06821-JJWOUTK NAIL, 6 OR MORE 11/27/2016 03107-WUOIYGO NAIL, 6 OR MORE 06/01/2017 59999-GYIOBGD NAIL, 6 OR MORE 08/31/2017 83186-NOGFWDG NAIL, 6 OR MORE 11/26/2017 93007-HOTQLMG NAIL, 6 OR MORE 02/18/2018 20125-HGWCCAF NAIL, 6 OR MORE 08/23/2018 73398-QXCSWWE NAIL, 6 OR MORE 05/24/2018 14278-VQUGCBC NAIL, 6 OR MORE 10/03/2024 07600-DAVJIUF NAIL, 6 OR MORE 02/06/2025 34151- Debride <25 sq cm 06/07/2024 16994-OKZJ SKIN LESIONS, OVER 4 08/23/20 18 73902-GROU SKIN LESIONS, OVER 4 06/09/20 19 98663-GWAS SKIN LESIONS, OVER 4 09/12/20 19 30407-HHIP SKIN LESIONS, OVER 4 01/05/20 20 98728-ODGO SKIN LESIONS, OVER 4 04/09/20 20 07602-OLQF SKIN LESIONS, OVER 4 07/12/20 64162-EBRD SKIN LESIONS, OVER 4 10/17/19 21 73490-RHLA SKIN LESIONS, OVER 4 01/17/20 21 76667-YGET SKIN LESIONS, OVER 4 04/24/20 21 04821-ZZSB SKIN LESIONS, OVER 4 07/31/20 21 97517-JIUQ SKIN LESIONS, OVER 4 11/17/19 19 50704-XFTK SKIN LESIONS, OVER 4 02/24/20 19 92117-SQUI SKIN LESIONS, OVER 4 05/24/20 18 53023-EWUX SKIN LESIONS, OVER 4 11/26/19 18 53448-BJII SKIN LESIONS, OVER 4 08/31/20 17 00160-VUWT SKIN LESIONS, 2 TO 4 11/27/19 17 99503-YKPD SKIN LESIONS, 2 TO 4 02/27/20 17 40440-HJWQ SKIN LESIONS, 2 TO 4 06/01/20 17 92576-OBFB SKIN LESIONS, 2 TO 4 02/19/20 18 14193-HAHS SKIN LESIONS, 2 TO 4 12/13/19 22 48679-JBOO SKIN LESIONS, 2 TO 4 02/07/20 25 36188-IBFN SKIN LESIONS, 2 TO 4 10/03/20 24 19859-Hhkr. Subungual Hematoma 4 86982-VAZSUVDI OF HEMATOMA/FLUID 023 64247-FWVVNORF OF HEMATOMA/FLUID 019 Next Appt Details Provider Name:Venecia Coates philip, 05/17/2025 11:00:00 AM, [address] [place] [address], [place], [address], Insurance Providers Payer Name Payer Address Payer Phone Subscriber Number Group Number Insured Name Patient Relationship to Insured Coverage Start Date Coverage End Date Medicare National Govt Zuli [facility] [address] [place] [address] [id number] Ashley Castillo Self - patient is the insured 3 for Life [address] [place] [id number] Ashley Castillo Self - patient is the insured 3 Medical (General) History Medical History History ICD Code Arthritis Back pain Cholesterol High blood pressure Osteoporosis Heart disease Surgical History Surgery Date(Month/Year) knee replacement 10/2015 hip replacement 05/2014 bladder suspension cardiac ablasion by Dr. Mai @ [facility] pacemaker 05/2018 L Femur 09/2021 Heart Sx - couldnt remember anything aft er sx Fall Hospitalization History Reason Date(Month/Year) [facility] [place] L Femur 3 or4 rehab 5 or 6 weeks 09/20/[address] Mai @ [facility]
== END 2025-04-26 10:42 | disposition home or self-care (01) ==
LOC: HO.HCS 09:38
PROVIDERS: PCP Family Medicine; Visit Provider Internal Medicine Cardiovascular Disease
DX: I48.92 Unspecified atrial flutter (principal); Z95.0 Presence of cardiac pacemaker; Z95.2 Presence of prosthetic heart valve; I50.32 Chronic diastolic (congestive) heart failure
CPT/HCPCS: 93010; 93280; 99214; G2211

== ENCOUNTER → 2025-04-26 09:38 | Outpatient (BNVA) | payer MEDICARE, OTHER, SELFPAY | PROVIDERS: PCP Family Medicine; Visit Provider Internal Medicine Cardiovascular Disease | DX: Z45.018 Encounter for adjustment and management of other part of cardiac pacemaker (principal); I48.92 Unspecified atrial flutter; I50.32 Chronic diastolic (congestive) heart failure; R94.31 Abnormal electrocardiogram [ECG] [EKG]; Z95.2 Presence of prosthetic heart valve | CPT/HCPCS: 93005; 93280; 99212 ==

== ENCOUNTER 2025-07-18 10:26 | Outpatient (AMB) | payer MEDICARE, OTHER, SELFPAY ==
--- NOTE | 2025-07-18 10:31 | A.OFFVIS_ITS ---
Intake Visit Reasons: 3-5M follow up Intake Note: Patient is present for 3-5M F/U Urology Medication:MORABEGRON Antibiotic Allergy:MOXIFLOXACIN Blood Thinner:APIXABAN Computer Systems Designer Required: No Allergies moxifloxacin (From Avelox) Adverse Reaction (Unknown, Verified 07/18/25 11:44) DIARRHEA Medication List - Last Reconciled 07/18/25 by ERLINDA Marino-KAMINI acetaminophen (Tylenol Extra Strength) 500 mg PO .three times a day PRN amlodipine 5 mg PO ONCE amlodipine 2.5 mg PO DAILY apixaban (Eliquis) 5 mg PO BID artificial tears(hypromellose) 0.3% (Systane Gel) 1 drp ophthalmic (eye) QID PRN calcium carbonate (Calcium 600) 600 mg PO DAILY levothyroxine 50 mcg PO DAILY metoprolol succinate ER 25 mg PO DAILY mirabegron ER (Myrbetriq) 25 mg PO DAILY 90 days pravastatin 40 mg PO DAILY propylene glycol 0.6% (Systane Balance) 1 drp ophthalmic (eye) DAILY PRN walker (Ultra-Light Rollator misc) As directed HPI Comments Details: Ashley is a very pleasant 89-year-old female patient of Dr. Mendes who was accompanied by her daughter Liat at today's visit. She has a past medical history of overactive bladder, urinary incontinence, history of cardioversion, atrial flutter, aortic stenosis, chronic heart failure with preserved ejection fracture, paroxysmal atrial fibrillation, sick sinus syndrome, cardiac pacemaker, tricuspid regurgitation, and pulmonary hypertension. She presents to the office today for follow-up of her urinary urgency incontinence, nephrolithiasis, and urinary tract infection. In discussion with the patient today she reports to be doing and feeling well. She denies having had any bothersome urinary issues or concerns since her last office visit here. She discusses how helpful Myrbetriq has been in treatment of lower urinary tract symptoms she previously had been experiencing. She discusses her main concern is her vision. She has recently followed up with an machine tool rebuilder and was diagnosed with a right eye stroke. She discusses she was given a prescription for eyedrops and does feel this has been helpful however not as much as she would like. In office urinalysis results reviewed with the patient today. When asked she denies any UTI like symptoms. She denies urinary urgency, urinary frequency, incontinence, nocturia, hematuria, dysuria, foul smelling urine, changes to urinary stream, flank pain, fever, and or chills. She is happy with her current voiding parameters. We discussed at length the importance of adequate hydration in relation to longstanding history of nephrolithiasis as well as for urinary tract infection. She discusses how active she attempts to be as she would like to try to move back home. She currently resides at [facility]. She has a history of undergoing pelvic floor therapy in the past and has found this helpful. Previous workup has included a r enal ultrasound 04/04 noting a 3 mm left renal calculi is noted. Mild left hydronephrosis. Multiple pole tiny left renal echogenic foci may represent artifact or tiny calcifications, possibly vascular, not appreciated on prior exam due to poor visualization of kidney. PREVIOUS OFFICE NOTE: Urinary urgency incontinence Lives at assisted living Pelvic floor physical therapy was helpful Reports sense of urgency, frequency in on sensed urination has been stable Developed confusion on VESIcare and oxybutynin Prior imaging with bilateral complex renal cyst on right renal nephrolithiasis - right renal cyst 1 cm, left mid pole stone 1.4 cm [facility] Medical History Atrial flutter Paroxysmal atrial fibrillation Aortic stenosis History of transcatheter aortic valve replacement (TAVR) Overactive bladder Urinary incontinence History of cardioversion 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 Mother Cancer Social History Household Members: None Housing: Other Housing Other:: house Do you presently have visiting nurse or other home services: No Patient Tobacco Use Status: Never used Tobacco e-Cigarette/Vaping Use: Never Used service: No Current occupational status: retired Review of Systems Const Reports as per HPI Eyes Reports no additional complaints ENT Reports no additional complaints Card Reports as per [facility] Resp Reports no additional complaints GI Reports no additional complaints Reports as per [facility] Musc Reports as per [facility] Neuro Reports as per [facility] Psych Reports no additional complaints Endo Reports no additional complaints Huey/Lymph Reports no additional complaints Aller/Immun Reports no additional complaints Physical Exam Const General: cooperative, healthy appearing, comfortable, no acute distress, well developed, alert and awake Orientation/consciousness: oriented to person Limitations: ambulation with walker HEENT Head: Yes normal to inspection, Yes normocephalic and Yes atraumatic Ears: hearing grossly normal bilaterally Eyes General: appearance normal, both eyes and all related structures Neck Neck: Yes normal visual inspection and Yes trachea midline Chest Chest palpation & inspection: normal inspection of the chest Resp Effort & Inspection: normal respiratory effort and able to speak in complete sentences Cardio Rate: regular rate GI Inspection: Yes normal to inspection General: Yes no CVA tenderness Back/Spine/Pelvis Back: no CVA tenderness Skin General skin exam: no rashes or lesions noted Neuro General: oriented to person Extrem General: Yes normal to inspection Psych Appearance: grossly normal and well kempt Mental Status: mental status grossly normal Speech and movement: Normal speech and movement present and Clear speech present Affect: normal affect Attitude: cooperative Thought process: Normal thought process present and Perseverating thought process present (at times ) Thought content: Normal thought content present Insight: Fair insight present (Psych) Judgement: Fair judgement present (Psych) Results AMB Urinalysis, Automated UA Leukoctes 0 Sonam/uL Last Edit by SHAKA Dotson on 07/18/25 10:51 UA Nitrite Negative Last Edit by SHAKA Dotson on 07/18/25 10:51 UA Urobilinogen 0.2 mg/dL Last Edit by SHAKA Dotson on 07/18/25 10:5 1 UA Protein 30 mg/dL Last Edit by SHAKA Dotson on 07/18/25 10:51 UA pH 6.0 Last Edit by SHAKA Dotson on 07/18/25 10:51 UA Blood 0 Leoncio/uL Last Edit by HSAKA Dotson on 07/18/25 10:51 UA Specific Savage 1.010 Last Edit by SHAKA Dotson on 07/18/25 10: 51 UA Ketone Negative Last Edit by SHAKA Dotson on 07/18/25 10:51 UA Bilirubin 0 mg/dL Last Edit by SHAKA Dotson on 07/18/25 10:51 UA Glucose 0 mg/dL Last Edit by SHAKA Dotson on 07/18/25 10:51 Results Reviewed Results Reviewed: Laboratory Last Values Urine pH (Auto) 6.0 07/18/25 10:51 Specific Savage (Auto) 1.010 07/18/25 10:51 Urine Protein (Auto) 30 mg/dL 07/18/25 10:51 Glucose (UA)(Auto) 0 mg/dL 07/18/25 10:51 Urine Ketones (Auto) Negative 07/18/25 10:51 Urine Blood (Auto) 0 Leoncio/uL 07/18/25 10:51 Urine Nitrite (Auto) Negative 07/18/25 10:51 Urine Bilirubin (Auto) 0 mg/dL 07/18/25 10:51 Urine Urobilinogen (Auto) 0.2 mg/dL 07/18/25 10:51 Leukocyte Esterase (Auto) 0 Sonam/uL 07/18/25 10:51 Assessment & Plan Assessment & Plan (1) Nephrolithiasis: Code(s): N20.0 - Calculus of kidney Category: Medical (2) Renal cyst: Code(s): N28.1 - Cyst of kidney, acquired Category: Medical (3) Overactive bladder: Code(s): N32.81 - Overactive bladder Category: Medical (4) History of urinary tract infection: Code(s): Z87.440 - Personal history of urinary (tract) infections Category: Medical Plan In office urinalysis results reviewed with the patient today; as noted above. She currently denies any UTI like symptoms. She reports be happy with current voiding parameters. Will continue with surveillance monitoring. Continue Myrbetriq as discussed and prescribed. Follow-up in 6 months with [facility]; or sooner with any issues, concerns, and or questions. Orders: Orders AMB Urinalysis Automated Today Z13.9 - Encounter for screening, unspecified Medications: Refilled mirabegron ER (Myrbetriq) 25 mg PO DAILY 90 tabs 3RF 90 days N30.10 - Interstitial cystitis (chronic) without hematuria, N32.81 - Overactive bladder, R35.1 - Nocturia, R39.15 - Urgency of urination Patient Instructions: The patient had an opportunity to ask questions regarding the treatment plan. All questions were answered. Physical exam, labs, and imaging were discussed and reviewed in detail. As well as risks, benefits, and discussion of treatment choices. No major barriers to understanding were identified. The patient expressed understanding and agreement with the above treatment plan. The patient was made aware they should contact our office by phone for worsening of their current condition, the appearance of new symptoms, or with any questions or concerns. Compliance is encouraged with any medications and follow up testing that is ordered. It is a privilege to be allowed the opportunity to participate in? your urological care.? Again, if you have any questions or concerns If you have any questions or concerns please do not hesitate to contact me. The office is [phone]. This note is constructed using voice recognition software. While every effort has been made to ensure accuracy director sales errors may have been included. Yours sincerely, SKYLER Marino Coding Level of Care Code Est Pt Level 3 (76504) Complex EM visit Add On G2211 Diagnoses Nephrolithiasis N20.0 Renal cyst N28.1 Overactive bladder N32.81 History of urinary tract infection Z87.440
--- OUTSIDE RECORDS SUMMARY | 2025-07-18 12:36 | XMS_ITS | Clinical Summary ---
Author Organization [facility] Facility Address [address] [place] [address] Care Team Providers Care Bush Hog Operator Name Role Phone Unavailable Primary Care Provider [...] age to complete this topic Insurance Medicare [facility] Medicare [facility]
--- OUTSIDE RECORDS SUMMARY | 2025-07-18 12:36 | XMS_ITS | Patient Health Record ---
Author Organization [facility] Margarita hermelindo IrwinDavid Address [address] [place] [address] Care Team Providers Care Rinkman Name Role Phone Dieudonne Mendes MD Primary Care Provider Venecia Moraes Unavailable [phone] Allergies Allergen (clinical drug ingredient) Drug/Non Drug Allergy documented on EMR Reaction Allergy Type Onset Date Status pravastatin Pravastatin Sodium leg cramps if taken at night Drug Allergy Active Reason For Referral No Information Medications Medication SIG (Take, Route, Frequency, Duration) Notes Start Date End Date Status Provigil Active Acetaminophen Not-Ta bea Metoprolol Tartrate 25 MG 1 tablet with food Orally Twice a day; Duration: 30 day(s) Active Docusate Calcium 100 1 capsule as needed Orally Once a day PRN Active Eliquis 5 MG Oral; Duration: 30 Active Levothyroxine Sodium 50 MCG Orally Active Melatonin Active MiraLax Active Pravastatin Sodium 40 MG 1 tablet Oral Once a day Active PreserVision AREDS Eye drops A ctive Systane Eye drops Active Tylenol Arthritis Pain 650mg 2-3 x a day for pain Active Calcium + Vitamin D3 Active amLODIPine Besylate 5 MG TK 1 [...] Not-Taking Warfarin Sodium 3 MG Orally Not-Taking Myrbetriq 25 MG 1 tablet Orally Once a day; Duration: 30 day(s) Active Calcium + D Not-Taki ng Aspirin 81 MG 1 tablet Orally Once a day; Duration: 30 day(s) Active ProAir HFA Not-Takin g Immunizations Vaccine Route Administration Date Status Comme nts Influenza Unknown 07/12/2024 Administered COVID-19 Pfizer BioNTech Vaccine Unknown 07/13/2021 Administered [...] Problem Information temporarily unavailable Unspecified atherosclerosis of [place] arteries of extremities, bilateral legs (I70.203) Active [...] confirmed Problem Information temporarily unavailable Atherosclerosis of [place] artery of both lower extremities, with unspecified presence of clinical manifestation (I70.203) Active confirmed Q7(A), Q8(2B), Q9(1B,2C) Problem Information temporarily unavailable Skin ulcer of toe of left foot, limited to breakdown of skin (L97.521) Active confirmed Response to treatment, Nonapplica ble Vital Signs Blood pressure diastolic 65 mm Hg 05/17/2025 Height 5 ft 6 in in 05/17/2025 Blood pressure systolic 128 mm Hg 05/17/2025 Weight 140 lbs 05/17/2025 BMI 22.59 kg/m2 05/17/2025 Procedures Procedure Date Ordered Date Performed Result Body Sit e 87705-AQCFBUJ NAIL, 6 OR MORE 10/03/2024 N/A 98484-XOYU SKIN LESIONS, 2 TO 4 10/03/2024 N/A 85168-QJCZKTX NAIL, 6 OR MORE 02/06/2025 N/A 08587-RYBQ SKIN LESIONS, 2 TO 4 02/06/2025 N/A 15956-ELTBEGG NAIL, 6 OR MORE 05/17/2025 N/A 58112-QERH SKIN LESIONS, 2 TO 4 05/17/2025 N/A Encounters Encounter Location Date Provider Diagnosis [address] [address] 10/03/2024 Venecia Braga Atherosclerosis of [place] artery of both lower extremities, with unspecified presence of clinical manifestation I70.203 ; Tinea unguium B35.1 ; Pain in right toe(s) M79.674 and Pain in left toe(s) M79.[address] [address] 02/06/2025 Venecia Braga Atherosclerosis of [place] artery of both lower extremities, with unspecified presence of clinical manifestation I70.203 ; Tinea unguium B35.1 ; Pain in right toe(s) M79.674 and Pain in left toe(s) M79.[address] [address] 05/17/2025 Venecia Braga Atherosclerosis of [place] artery of both lower extremities, with unspecified presence of clinical manifestation I70.203 ; Tinea unguium B35.1 ; Pain in right toe(s) M79.674 and Pain in left toe(s) M79.675 Assessments Encounter Date Diagnosis (ICD Code) Assessment Notes Treatment Notes Treatment Clinical Notes Section Notes 10/03/[address] [place] artery of both lower extremities, with unspecified presence of clinical manifestation (ICD-10 - I70.203) Q7(A), Q8(2B), Q9(1B,2C) 02/06/[address] [place] artery of both lower extremities, with unspecified presence of clinical manifestation (ICD-10 - I70.203) Q7(A), Q8(2B), Q9(1B,2C) 05/17/[address] [place] artery of both lower extremities, with unspecified presence of clinical manifestation (ICD-10 - I70.203) Q7(A), Q8(2B), Q9(1B,2C) 05/17/2025 Tinea unguium (ICD-10 - B35.1) 02/06/2025 Tinea unguium (ICD-10 - B35.1) 10/03/2024 Tinea unguium (ICD-10 - B35.1) 10/03/2024 Pain in right toe(s) (ICD-10 - M79.674) 02/06/2025 Pain in right toe(s) (ICD-10 - M79.674) 05/17/2025 Pain in right toe(s) (ICD-10 - M79.674) 05/17/2025 Pain in left toe(s) (ICD-10 - M79.675) 02/06/2025 Pain in left toe(s) (ICD-10 - M79.675) 10/03/2024 Pain in left toe(s) (ICD-10 - M79.675) Plan Of Treatment Pending Test Test Name Order Date 66346-SSZGHTU NAIL, 6 OR MORE 11/27/2016 03526-KNZNHTE NAIL, 6 OR MORE 06/01/2017 44673-KOZAQNX NAIL, 6 OR MORE 08/31/2017 25371-UIPSSIM NAIL, 6 OR MORE 11/26/2017 75305-CQWUTSZ NAIL, 6 OR MORE 02/18/2018 28228-RJCKNVH NAIL, 6 OR MORE 08/23/2018 97863-MVZTEJI NAIL, 6 OR MORE 05/24/2018 52675-WQRMJJZ NAIL, 6 OR MORE 10/03/2024 08148-JXBQTCD NAIL, 6 OR MORE 02/06/2025 07559-NYPRUGC NAIL, 6 OR MORE 05/17/2025 02022- Debride <25 sq cm 06/07/2024 18691-KYZU SKIN LESIONS, OVER 4 08/23/20 18 62000-IFXM SKIN LESIONS, OVER 4 06/09/20 19 04355-DJGY SKIN LESIONS, OVER 4 09/12/20 19 71229-ZSEW SKIN LESIONS, OVER 4 01/05/20 20 66926-PEJP SKIN LESIONS, OVER 4 04/09/20 20 37200-XNHO SKIN LESIONS, OVER 4 07/12/20 20 02963-VNKL SKIN LESIONS, OVER 4 10/17/19 21 94790-CSJU SKIN LESIONS, OVER 4 01/17/20 21 14675-JCYP SKIN LESIONS, OVER 4 04/24/20 21 01405-NQDH SKIN LESIONS, OVER 4 07/31/20 21 70737-SBML SKIN LESIONS, OVER 4 11/17/19 19 80949-CQKI SKIN LESIONS, OVER 4 02/24/20 19 60626-VTHE SKIN LESIONS, OVER 4 05/24/20 18 01059-BXKB SKIN LESIONS, OVER 4 11/26/19 18 57918-YDAK SKIN LESIONS, OVER 4 08/31/20 17 49694-AJKZ SKIN LESIONS, 2 TO 4 11/27/19 17 33716-UYPP SKIN LESIONS, 2 TO 4 02/27/20 17 66045-QXET SKIN LESIONS, 2 TO 4 06/01/20 17 14675-BHDQ SKIN LESIONS, 2 TO 4 02/19/20 18 70251-MAAZ SKIN LESIONS, 2 TO 4 12/13/19 22 22131-GDIR SKIN LESIONS, 2 TO 4 02/07/20 25 55633-BWYW SKIN LESIONS, 2 TO 4 10/03/20 24 20191-WHVI SKIN LESIONS, 2 TO 4 05/17/20 25 51565-Zxjt. Subungual Hematoma 4 01626-BMVTAMTU OF HEMATOMA/FLUID 023 11378-IHYVZGVQ OF HEMATOMA/FLUID 019 Next Appt Details Provider Name:Venecia Coates philip, 08/16/2025 11:00:00 AM, [address] [place], [address], Insurance Providers Payer Name Payer Address Payer Phone Subscriber Number Group Number Insured Name Patient Relationship to Insured Coverage Start Date Coverage End Date Medicare [facility] [address] [place] [address] [id number] Ashley Castillo Self - patient is the insured 3 for Life [address] [place] [address] [phone] [id number] Ashley Castillo Self - patient is the [...] er sx Fall Hospitalization History Reason Date(Month/Year) cardiac ablasion by Dr. Mai @ [place] [facility] [place] L Femur 3 or4 rehab 5 or 6 weeks 09/20/2021
--- OUTSIDE RECORDS SUMMARY | 2025-07-18 12:36 | XMS_ITS | Clinical Summary ---
Author Organization [facility] Address [address] [facility] [place] [id number] Phone Care Team Providers Care Supervisor Benzene Refining Name Role Phone Dieudonne Mendes MD Primary Care Provid er Medications mirabegron (MYRBETRIQ) 25 mg Tb24 Take 25 mg by mouth daily. 5 Active apixaban (ELIQUIS) 5 mg tablet Take 5 mg by mouth 2 (two) times a day. 5 Active docusate sodium (COLACE) 100 MG capsule Take 100 mg by mouth daily. 5 Active metoprolol tartrate (LOPRESSOR) 25 MG tablet Take 25 mg by mouth daily. 5 Active calcium carbonate/vitam in D3 (CALCIUM 600 + D,3, ORAL) Take 20 mcg by mouth daily. 5 Active acetaminophen (TYLENOL) 500 MG tablet Take 1,000 mg by mouth 2 (two) times a day. 5 Active pravastatin (PRAVACHOL) 40 MG tablet Take 40 mg by mouth daily. Active amLODIPine (NORVASC) 5 MG tablet Take 5 mg by mouth daily. take one 5 mg tablet and an additional 2.5 mg tablet = 7.5 mg total Active levothyroxine (SYNTHROID, LEVOTHROID) 50 MCG tablet Take 50 mcg by mouth every morning. 5 Active Social History Tobacco Use Types Packs/Day Years Used Date Smoking Tobacco: Never Assessed Home Health Assessment: Transportation Answer Date Recorded Lack of Transportation (Medical) No 01/12/2025 Lack of Transportation (Non-Medical) No 01/12/2025 Patient Unable or Declines to Respond No 01/12/2025 Education Answer Date Recorded Are you interested in more education? Not on ava e 12/15/2024 Are you concerned about learning? Not on file 12/15/2024 No 12/15/2024 No 12/15/2024 Digital Access Answer Date Recorded No 12/15/2024 No 12/15/2024 Reliable internet access at home? Not on file 12/15/2024 Device with a working camera? Not on file Comments Unknown Sex and Gender Information Value Date Recorded Sex Assigned at Not on file Legal Sex Female 10:14 PM EDT Gender Identity Not on file Sexual Orientation Not on file Last Filed Vital Signs Vital Sign Reading Time Taken Comments Blood Pressure 126/70 01/12/2025 1:12 PM EDT Pulse 75 01/12/2025 1:12 PM EDT Temperature 36.1 C (97 F) 01/10/2025 9:36 AM EDT Respiratory Rate 16 01/12/2025 1:12 PM EDT Oxygen Saturation 96% 01/12/2025 1:12 PM EDT Inhaled Oxygen Concentration - - Weight - - Height - - Body Mass Index - - Plan of Treatment Not on file Medical Devices Not on file Insurance [facility] MEDICARE SUPPLEMENT MEDICARE PART A & B FOR LIFE MEDICARE SUPPLEMENT MEDICARE PART A & B [place] [facility] [place] FOR LIFE MEDICARE SUPPLEMENT MEDICARE PART A & B [place]IC[place] SUPPLEMENT Member Subscriber Plan / Payer (Ef fective 2024-Present) Name:Ashley Castillo Relation to Subscriber:Self Name:Ashley Castillo Payer ID:[id number] (NAIC) Group ID:Not on file Type:[facility] Address: [place] [phone] MEDICARE PART A & B [place] MEDICARE SUPPLEMENT MEDICARE PART A & B [place] [facility] MEDICARE SUPPLEMENT MEDICARE PART A & [place] Care Teams Supervisor Benzene Refining Relationship Specialty Start Date End Date Dieudonne Mendes MD [address] [place] [phone] PCP - General Internal Medicine 12/19/24 Additional Source Comments The information contained in this document represents components of the legal health record. It is not the complete legal health record.[facility]
--- OUTSIDE RECORDS SUMMARY | 2025-07-18 12:36 | XMS_ITS | Patient Health Record ---
Author Organization [facility] Address [address] [place] [address] Care Team Providers Care Securities Teller Name Role Phone RadhadevinMarisol Primary Care Provider UnavailShaun Harris Unavailable [phone] Reason For Referral No Information Medications Medication [...] Problem Status W/U Status Risk Notes Problem [id number] Constipation, unspecified constipation type (K59.00) Active confirmed Plan Of Treatment No Information Insurance Providers Payer Name Payer Address Payer Phone Subscriber Number Group Number Insured Name Patient Relationship to Insured Coverage Start Date Coverage End Date MEDICARE OF [place] [address] [place] [id number] ORAL KENDRICK Self - patient is the insured FOR LIFE [address] [place] [address] [id number] ORAL KENDRICK Self - patient is the insured Medical (General) History Medical History History ICD Code Pacemaker/Difibrillator Hypothyroidism Previous colonoscopies--Tubu lar adenoma removed in 2002 and a hyperplastic polyp removed in 02/2011 Atrial fibrillation HTN Denies IN,DM,CVA,Lung disease,renal dise ase Edema Chronic constipation Surgical History Surgery Date(Month/Year) Cholecystectomy Bladder suspension Left Knee Replacement 2017 Right Hip Replacement Pacemaker/Defibrillator
== END 2025-07-18 11:14 | disposition home or self-care (01) ==
LOC: HO.HUSH 10:27
PROVIDERS: PCP Family Medicine; Visit Provider Nurse Practitioner Family
DX: N20.0 Calculus of kidney (principal); N28.1 Cyst of kidney, acquired; N32.81 Overactive bladder; Z87.440 Personal history of urinary (tract) infections; Z13.9 Encounter for screening, unspecified
CPT/HCPCS: 99213; G2211

== ENCOUNTER → 2025-07-18 10:26 | Outpatient (BNVA) | payer MEDICARE, OTHER, SELFPAY | PROVIDERS: PCP Family Medicine; Visit Provider Nurse Practitioner Family | DX: N20.0 Calculus of kidney (principal); N28.1 Cyst of kidney, acquired; N32.81 Overactive bladder; Z87.440 Personal history of urinary (tract) infections | CPT/HCPCS: 81003; 99212 ==

== ENCOUNTER → 2025-07-19 23:59 | Outpatient (BNV) | payer MEDICARE, OTHER, SELFPAY ==
--- NOTE | 2025-07-19 16:46 | MHC.OFFVIS ---
Intake Visit Reasons: Remote Device Check- Medtronic Allergies moxifloxacin (From Avelox) Adverse Reaction (Unknown, Verified 07/18/25 11:44) DIARRHEA PFSH Medical History Atrial flutter Paroxysmal atrial fibrillation Aortic stenosis History of transcatheter aortic valve replacement (TAVR) Overactive bladder Urinary incontinence History of cardioversion 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 Mother Cancer Social History Household Members: None Housing: Other Housing Other:: house Do you presently have visiting nurse or other home services: No Patient Tobacco Use Status: Never used Tobacco e-Cigarette/Vaping Use: Never Used service: No Current occupational status: retired Office Procedures Cardiac Device Check Cardiac Device Check Details: Remote pacemaker report generated 07/19/2025. Pacemaker function is adequate. Underlying persistent atrial fibrillation/flutter noted [id number] Cardiac Device Interrogation, pacemaker Procedure code (CPT) selection complete Assessment & Plan Assessment & Plan (1) Cardiac pacemaker in situ: Comment: Medtronic dual-chamber pacemaker placement for sick sinus syndrome, 2018 Code(s): Z95.0 - Presence of cardiac pacemaker Category: Medical Plan: See above Coding Level of Care Code Procedure Only Diagnoses Cardiac pacemaker in situ Z95.0 CPT Codes Cardiac Device Check - Cardiac Device 12: [id number] Cardiac Device Interrogation, pacemaker ([id number])
== END ==
PROVIDERS: PCP Family Medicine; Visit Provider Internal Medicine Cardiovascular Disease
DX: I48.91 Unspecified atrial fibrillation (principal); Z95.0 Presence of cardiac pacemaker
CPT/HCPCS: 93294